=== PATIENT | female | born 1945 | race Caucasian/White ===

== ENCOUNTER 2020-11-02 14:52 | IRF | payer MEDICARE, MEDICAID, SELFPAY ==
--- NOTE | 2020-11-02 14:54 | ADMGEN ---
This patient, Marilee Lisandro Kilgore, was admitted to [facility] Room 224-02. Patient/family oriented to hospital policies and general routines including ID bracelet, bed and alarms, visiting hours, pain management, procedures, bathroom and other care routines, personal items, smoking policy, room service/diet, and visiting hours. Information on how to activate the Rapid Response Team has been discussed. Patient/Family are encouraged to report perceived risks to care and to ask questions if they do not understand what they are told or what they should do.
[2020-11-02 15:36] VITALS: BP 148/89; PULSE 103; RESP 20; TEMP 36.7; O2SAT 97
[2020-11-02 15:37] VITALS: BMI 35.7
--- NOTE | 2020-11-02 17:04 | WPDREHABHP ---
H&P: HPI History of Present Illness Date/Time: 11/02/20 17:04 Chief Complaint: CVA Narrative: HISTORY OF PRESENT ILLNESS: The patient's primary rehab impairment category is 0 1 stroke The etiologic diagnosis is stroke I saw this patient [id number] on 11/02/2020 The patient is a 74-year-old right handed female with past medical history of bladder cancer, COPD, hypertension, hyperlipidemia, atrial fib on no anticoagulation, nocturnal enuresis, ZAK with CPAP use, polymyalgia rheumatica who presented to [facility] on 10/28/2020 with progressive worsening dizziness and visual changes. NIHSS was 1 on initial assessment for gaze. CT of head was unremarkable. EKG was unremarkable. Patient did not receive tPA due to low NIHSS score an out of window treatment. Patient was transferred to [facility] on for stroke evaluation with Neurology. Upon arrival the patient's NIHSS was 1 for gaze palsy in the right eye. On 10/29/2020 the MRI was negative for a stroke. TTE showed normal ejection fraction. CTA showed no LVO, no hemorrhage or mass effect. Neurology was consulted and place the patient on dual anti-platelet therapy with aspirin and Plavix for an MRI negative stroke. Patient is to remain on aspirin until November 18 and then will go to monotherapy of Plavix 75 mg daily. Patient did receive a loop recorder. Patient's meloxicam was discontinued due to anticoagulation usage and risk of bleeding. The patient's hospitalization was significant for internuclear ophthalmoplegia, right eye nystagmus, diplopia, hypertension, hyperlipidemia, nocturnal enuresis, obstructive sleep apnea, insomnia, COPD, depression, anxiety, peptic ulcer disease and iron deficiency. Patient's home dose of amlodipine was restarted. Patient was placed on Atorvastatin 80 mg daily for hyperlipidemia. Nocturnal enuresis was treated with DDAVP 0.2 mg nightly. Patient uses a CPAP at night with a 4 L O2. Patient takes trazodone p.r.n. for insomnia. Patient is on Breo for COPD. Patient passed a bedside swallow and is on a regular consistency diet with thin liquids. COVID:: The patient has not traveled outside the [place] or had contact with someone who is ill or traveled outside the [place] in the past 21 days. The patient has not traveled to an area of the [place] that it is experiencing COVID has not had any personal contact with anyone that has had COVID. Patient does not have fever nor experiencing lower respiratory illness symptoms. Patient does however have COPD and emphysema at baseline. Therapy was initiated at the acute care facility and the patient transferred to us from [facility] on 11/02/2020 FALLS OR SURGERIES: The patient has had [no] major surgeries in the 100 days prior to admission. the patient has had 2 or more falls in the past year. She reports that she had 2 separate falls off of a curb when in the community. Patient has had falls with injury in the past year. She has hit her head during a fall. PRIOR LEVEL OF FUNCTION: Eating was [INDEPENDENT] Oral Care was [INDEPENDENT] Toileting Hygiene was [INDEPENDENT] Shower/Bathing was [INDEPENDENT] Upper Body Dressing was [INDEPENDENT] Lower Body Dressing was [INDEPENDENT] Donning/[place] Footwear was [INDEPENDENT] Rolling Left and Right was [INDEPENDENT] Sit to Lying was [INDEPENDENT] Lying to Sitting was [INDEPENDENT] Sit to Stand was [INDEPENDENT] Bed to Chair Transfers was [INDEPENDENT] Toilet Transfers was [INDEPENDENT] Walking was [INDEPENDENT] [>500 feet] with Rollator patient was able to complete 4 steps independent Wheelchair Mobility was NOT APPLICABLE PRIOR TO ADMISSION Stairs were INDEPENDENT CURRENT LEVEL OF FUNCTION: Eating was SET UP ONLY Oral Care was partial to moderate assist Toileting Hygiene was partial to moderate assist Shower/Bathing was partial to moderate assist Upper Body Dressing was partial to moderate assist Lower Body
[2020-11-02 18:31] VITALS: BMI 35.7
[2020-11-02] MEDS: carBAMazepine 200 MG TABLET PO (21:31)
[2020-11-02 21:33] VITALS: BP 173/82; PULSE 99; RESP 16; TEMP 36.4; O2SAT 96
[2020-11-02] MEDS: ACETAMINOPHEN 500 MG TABLET 1000 MG PO (21:33)
[2020-11-02] MEDS: SILVER SULFADIAZINE 1% CR 50 GM JAR (*BKC) 1 APPLIC TOPICAL (21:36)
[2020-11-03 05:22] LABS: Basophils Absolute Auto 0.1 K/mm3 (0.0-0.1); Basophils Percent Auto 0.8 % (0.2-1.2); Eosinophils Absolute Auto 0.2 K/mm3 (0-0.3); Eosinophils Percent Auto 1.9 % (0-4.4); Hematocrit 36.1 % (37.0-47.0); Immature Granulocyte Absolute 0.02 K/mm3 (0.00-0.031); Immature Granulocyte Percent A 0.3 % (0-0.5); Lymphocytes Absolute Auto 1.12 K/mm3 (0.9-3.2); Lymphocytes Percent Auto 14.1 % (18.3-44.2); Mean Corpuscular HGB Conc 33.2 g/dl (32-36); Mean Corpuscular Hemoglobin 29.2 pg (26-34); Mean Corpuscular Volume 87.8 fl (80-100); Monocytes Absolute Auto 0.8 K/mm3 (0.1-0.6); Monocytes Percent Auto 10.5 % (2.6-8.5); Neutrophils Absolute Auto 5.8 K/mm3 (1.3-6.7); Neutrophils Percent Auto 72.4 % (45.5-73.1); Platelet Count Result 292 k/mm3 (150-375); Red Blood Count 4.11 M/mm3 (4.2-5.4); Red Cell Distribution Width 12.3 % (11.5-14.5)
[2020-11-03 05:26] LABS: Alanine Aminotransferase 22 U/L (4-35); Albumin Level 3.5 g/dL (3.5-5.1); Alkaline Phosphatase 133 U/L (38-126); Anion Gap 9 mmol/L (8-16); Aspartate Amino Transferase 32 U/L (14-36); Bilirubin,Total 0.1 mg/dL (0.2-1.3); Blood Urea Nitrogen 15 mg/dL (7-17); Calcium 8.9 mg/dL (8.4-10.2); Carbon Dioxide 21 mmol/L (22-30); Chloride 112 mmol/L (98-107); Estimated CRCL calculation 50 ml/min; Estimated Glomerular Filt Rate 54; Glucose 101 mg/dL (65-105); Potassium 3.7 mmol/L (3.4-5.0); Sodium 142 mmol/L (137-145)
[2020-11-03 06:00] VITALS: BP 151/81; PULSE 90; RESP 16; TEMP 36.1; O2SAT 93
[2020-11-03 08:31] VITALS: PULSE 91; O2SAT 94
[2020-11-03] MEDS: ASPIRIN 81 MG CHEWABLE TABLET PO (09:42)
[2020-11-03] MEDS: amLODIPine BESYLATE 5 MG TABLET 10 MG PO (09:42)
[2020-11-03] MEDS: ATORVASTATIN 40 MG TABLET 80 MG PO (09:42)
[2020-11-03] MEDS: carBAMazepine 200 MG TABLET PO ×2 (09:43→21:09)
[2020-11-03] MEDS: CLOPIDOGREL BISULFATE 75 MG TABLET PO (09:43)
[2020-11-03] MEDS: FLUTICASONE PROPIONATE 0.05% NA SPR 16 GM BTL (*BKC) 1 SPRAY NASAL (09:45)
[2020-11-03] MEDS: lisinopriL 20 MG TABLET 40 MG PO (09:45)
[2020-11-03] MEDS: DULoxetine HCL 60 MG CAPSULE.DR PO (09:45)
[2020-11-03] MEDS: PANTOPRAZOLE 40 MG TABLET PO (09:45)
[2020-11-03] MEDS: THERAPEUTIC MULTIVITAMINS/MINERALS TAB (*BKC) 1 TABLET PO (09:45)
[2020-11-03] MEDS: SILVER SULFADIAZINE 1% CR 50 GM JAR (*BKC) 1 APPLIC TOPICAL ×2 (09:46→21:17)
[2020-11-03] MEDS: DICLOFENAC SODIUM 1% 100 GM GEL (*BKC) 1 APPLIC TOPICAL ×2 (09:46→18:09)
[2020-11-03] MEDS: ACETAMINOPHEN 500 MG TABLET 1000 MG PO ×3 (09:48→23:09)
[2020-11-03 13:46] VITALS: BMI 35.7
[2020-11-03 13:47] VITALS: BP 150/89; PULSE 96; RESP 20; TEMP 36.2; O2SAT 96
--- NOTE | 2020-11-03 14:06 | RPD ---
INDIVIDUALIZED PLAN OF CARE FOR Marilee Kilgore Brief Synthesis of Pre-Admission Screen, Post-Admission Evaluation and Therapy Evaluations: The patient presents to rehab with a stroke. 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 The complexity of the patient's medical management, nursing, and therapy needs require an inpatient rehab hospital stay with a physician-led interdisciplinary team approach. The patient?s needs will be best met in an intensive program vs. at a lower level of care. The patient requires physician services for medical oversight and coordination of care. Emotional needs will be monitored as depression is a common sequelae of stroke. The patient needs physician monitoring and treatment of hypertension, hyperlipidemia, nocturnal enuresis, obstructive sleep apnea, insomnia, COPD, monitoring for adverse reactions to new medications, monitoring of infection, and pain control. The patient requires nursing services for frequent neuro checks, anticoagulation therapy, medication management and education, pressure relief and skin care management, monitoring of labs, bowel and bladder training, diabetes management and education, and fall/safety precautions. Deficits include:ADLs, Balance, Cognition, Endurance, Family Training/Education, Mobility, Pain Management, ROM, Safety, Strength, Transfers Shaft Tender/Case Management for: Discharge Planning and Patient/Family Counseling Physical Therapy: 5 days per week for 75 minutes. Treatments may include: Therapeutic Exercise, Gait Training, Neuromuscular Re-education, Transfer Training, Community Reintegration, Bed Mobility, Patient/Family Education, Wheelchair Mobility Group Therapy/Concurrent Therapy Rationales: -Improve attention span during functional activities in a distracted environment. -Enhance problem solving and/or adequate judgment skills during functional activities in a distracted environment. -Promote increased safety awareness in a distracted environment to reduce fall risk with functional tasks, transfers, and ambulation to allow a more safe, self-sufficient return to the home environment. -Improve dynamic balance skills to promote safety and independence with functional activities in a distracted environment for maximum gain. Occupational Therapy: 5 days per week for 75 minutes. Treatments may include: Therapeutic Exercise, Therapeutic Activity, Cognitive Training, Self-Care Transfer Training, Community Reintegration, Home Management, Patient/Family Education, Wheelchair Mobility Training, Energy Conservation Training Group Therapy/Concurrent Therapy Rationales: -Allow therapist to observe and teach generalization and carry-over of skills learned in individual therapy. -Enhance problem solving and sequencing skills during therapeutic activities in a distracted environment. -Promote increased safety awareness in a realistic setting to reduce fall risk with functional tasks due to visual and verbal distractions. -Increase functional level with ADLs, ADL transfers and use of adaptive equipment through therapeutic activities with others while promoting safety to allow a more safe, self-sufficient return home. Speech Therapy: 5 days per week for 30 minutes. Treatments may include: Dysphasia Therapy, Speech/Language/Communication Therapy, Cognitive Training, Patient/Family Education Group Therapy/Concurrent Therapy - Rationale: -Allow therapist to observe and teach generalization and carry-over of skills learned in individual therapy. -Improve comprehension skills with complex or abstract ideas through discussion in a realistic
--- NOTE | 2020-11-03 15:40 | PCNSR ---
On 11/03/20, the student, Becca Hutton, provided care and completed [facility] documentation on this patient. I have reviewed the student's documentation and agree with the findings.
--- NOTE | 2020-11-03 17:32 | WPDNEURORHBP ---
Subjective Date/time seen: 11/03/20 17:32 Interval history: The etiologic diagnosis is stroke I saw this patient [id number] on 11/02/2020 The patient is a 74-year-old right handed female with past medical history of bladder cancer, COPD, hypertension, hyperlipidemia, atrial fib on no anticoagulation, nocturnal enuresis, ZAK with CPAP use, polymyalgia rheumatica who presented to [facility] on 10/28/2020 with progressive worsening dizziness and visual changes. NIHSS was 1 on initial assessment for gaze. CT of head was unremarkable. EKG was unremarkable. Patient did not receive tPA due to low NIHSS score an out of window treatment. Patient was transferred to [facility] on for stroke evaluation with Neurology. Upon arrival the patient's NIHSS was 1 for gaze palsy in the right eye. On 10/29/2020 the MRI was negative for a stroke. TTE showed normal ejection fraction. CTA showed no LVO, no hemorrhage or mass effect. Neurology was consulted and place the patient on dual anti-platelet therapy with aspirin and Plavix for an MRI negative stroke. Patient is to remain on aspirin until November 18 and then will go to monotherapy of Plavix 75 mg daily. Patient did receive a loop recorder. Patient's meloxicam was discontinued due to anticoagulation usage and risk of bleeding. The patient's hospitalization was significant for internuclear ophthalmoplegia, right eye nystagmus, diplopia, hypertension, hyperlipidemia, nocturnal enuresis, obstructive sleep apnea, insomnia, COPD, depression, anxiety, peptic ulcer disease and iron deficiency. Patient's home dose of amlodipine was restarted. Patient was placed on Atorvastatin 80 mg daily for hyperlipidemia. Nocturnal enuresis was treated with DDAVP 0.2 mg nightly. Patient uses a CPAP at night with a 4 L O2. Patient takes trazodone p.r.n. for insomnia. Patient is on Breo for COPD. Patient passed a bedside swallow and is on a regular consistency diet with thin liquids. Review of Systems Review of Systems: All systems reviewed & are unremarkable except as noted in HPI and below Functional Status Ambulation Ability Ability to Ambulate 10 Feet: Minimum Assistance X 1 Ability to Ambulate 50 Feet With 2 Turns: Contact Guard Ambulation Assistive Devices: None and Walker, Rollator Transfers Ability Ability to Transfer In/Out of Chair: Contact Guard Exam Narrative: Exam Narrative: patient is seen during physical therapy and occupational therapy. Patient is sitting In a chair with good sitting balance. Heart rate and rhythm is regular lungs sounds are distant abdomen is soft nontender. Upper and lower extremity strength are 4/5. Endurance is limited Objective Data Vital Signs Vital Signs: Vital Signs - 24 hr 11/02/20 21:33 11/03/20 06:00 11/03/20 08:31 Temperature 36.4 C 36.1 C L Pulse Rate 99 90 91 Respiratory Rate 16 16 Blood Pressure 173/82 H 151/81 H Pulse Oximetry 96 93 94 11/03/20 13:47 Temperature 36.2 C L Pulse Rate 96 Respiratory Rate 20 Blood Pressure 150/89 H Pulse Oximetry 96 Intake/Output Intake/Output: Intake & Output 10/31/20 11/01/20 11/02/20 11/03/20 23:59 23:59 23:59 23:59 Intake Total 240 1000 Balance 240 1000 Meds/Results Medications: Active Medications Generic Name Dose Route Start Last Admin Trade Name Freq PRN Reason Stop Dose Admin Acetaminophen 1,000 mg 11/02/20 17:32 11/03/20 09:48 Acetaminophen 500 Mg Tablet PO 1,000 mg Q6H PRN Administration Mild Pain (1-3) or Fever Albuterol/Ipratropium 1 puff 11/03/20 20:00 Albuterol/Ipratropium (*Sp) 4 Gm Respimat INHALATION Q6HRT PRN BRONCHIAL SPASMS Alprazolam 0.25 mg 11/02/20 18:29 Alprazolam (*Crx) 0.25 Mg Tablet PO DAILY PRN Anxiety Amlodipine Besylate 10 mg 11/03/20 09:00 11/03/20 09:42 Amlodipine Besylate 5 Mg Tablet PO 10 mg QAM FATOUMATA Administration Aspirin 81 mg 11/03/20 08:00 11/03/20
[2020-11-03] MEDS: DESMOPRESSIN ACETATE 0.1 MG TABLET 0.2 MG PO (21:10)
[2020-11-03 22:00] VITALS: BP 141/81; PULSE 88; RESP 16; TEMP 36.3; O2SAT 93
[2020-11-03 22:55] VITALS: PULSE 85; RESP 16; O2SAT 96
[2020-11-04 01:35] VITALS: PULSE 77; RESP 15; O2SAT 98
[2020-11-04 06:00] VITALS: BP 139/88; PULSE 79; RESP 16; TEMP 35.9; O2SAT 99
[2020-11-04] MEDS: SILVER SULFADIAZINE 1% CR 50 GM JAR (*BKC) 1 APPLIC TOPICAL ×2 (09:04→20:59)
[2020-11-04] MEDS: PANTOPRAZOLE 40 MG TABLET PO (09:05)
[2020-11-04] MEDS: carBAMazepine 200 MG TABLET PO ×2 (09:05→20:58)
[2020-11-04] MEDS: ATORVASTATIN 40 MG TABLET 80 MG PO (09:05)
[2020-11-04] MEDS: THERAPEUTIC MULTIVITAMINS/MINERALS TAB (*BKC) 1 TABLET PO (09:05)
[2020-11-04] MEDS: amLODIPine BESYLATE 5 MG TABLET 10 MG PO (09:05)
[2020-11-04] MEDS: DULoxetine HCL 60 MG CAPSULE.DR PO (09:05)
[2020-11-04] MEDS: ASPIRIN 81 MG CHEWABLE TABLET PO (09:05)
[2020-11-04] MEDS: CLOPIDOGREL BISULFATE 75 MG TABLET PO (09:05)
[2020-11-04] MEDS: lisinopriL 20 MG TABLET 40 MG PO (09:06)
[2020-11-04] MEDS: LIDOCAINE 5% PATCH 2 PATCH TRANSDERM (09:06)
[2020-11-04] MEDS: FLUTICASONE PROPIONATE 0.05% NA SPR 16 GM BTL (*BKC) 1 SPRAY NASAL (09:06)
--- NOTE | 2020-11-04 09:06 | WPDNEURORHBP ---
Subjective Date/time seen: 11/04/20 09:06 Interval history: The etiologic diagnosis is stroke I saw this patient [id number] on 11/02/2020 The patient is a 74-year-old right handed female with past medical history of bladder cancer, COPD, hypertension, hyperlipidemia, atrial fib on no anticoagulation, nocturnal enuresis, ZAK with CPAP use, polymyalgia rheumatica who presented to [facility] on 10/28/2020 with progressive worsening dizziness and visual changes. NIHSS was 1 on initial assessment for gaze. CT of head was unremarkable. EKG was unremarkable. Patient did not receive tPA due to low NIHSS score an out of window treatment. Patient was transferred to [facility] on for stroke evaluation with Neurology. Upon arrival the patient's NIHSS was 1 for gaze palsy in the right eye. On 10/29/2020 the MRI was negative for a stroke. TTE showed normal ejection fraction. CTA showed no LVO, no hemorrhage or mass effect. Neurology was consulted and place the patient on dual anti-platelet therapy with aspirin and Plavix for an MRI negative stroke. Patient is to remain on aspirin until November 18 and then will go to monotherapy of Plavix 75 mg daily. Patient did receive a loop recorder. Patient's meloxicam was discontinued due to anticoagulation usage and risk of bleeding. The patient's hospitalization was significant for internuclear ophthalmoplegia, right eye nystagmus, diplopia, hypertension, hyperlipidemia, nocturnal enuresis, obstructive sleep apnea, insomnia, COPD, depression, anxiety, peptic ulcer disease and iron deficiency. Patient's home dose of amlodipine was restarted. Patient was placed on Atorvastatin 80 mg daily for hyperlipidemia. Nocturnal enuresis was treated with DDAVP 0.2 mg nightly. Patient uses a CPAP at night with a 4 L O2. Patient takes trazodone p.r.n. for insomnia. Patient is on Breo for COPD. Patient passed a bedside swallow and is on a regular consistency diet with thin liquids. REHAB 11/04/2020. Reviewed medications with patient. Patient was on Cymbalta 60 mg twice a day. Patient is willing to see if she can continue on Cymbalta 60 mg daily which is what she was taking at the outside hospital. Patient will also attempt to wean off her Xanax in the morning. Xanax is scheduled as needed. . Patient is given Lidoderm patches for right hip osteoarthritis. Voltaren ointment will be held to the right hip. Carun is anxious but is receptive to decreasing meds. examiner need to add to review medications numerous times. Review of Systems Review of Systems: All systems reviewed & are unremarkable except as noted in HPI and below Functional Status Ambulation Ability Ability to Ambulate 10 Feet: Minimum Assistance X 1 Ability to Ambulate 50 Feet With 2 Turns: Contact Guard Ambulation Assistive Devices: None and Walker, Rollator Transfers Ability Ability to Transfer In/Out of Chair: Contact Guard Exam Narrative: Exam Narrative: Patient is eating breakfast. Patient in no acute distress. Heart rate and rhythm is regular lungs sounds are distant abdomen is soft nontender. Redness around umbilicus less than on admit. Upper and lower extremity strength are 4/5. Endurance is limited . Mood is anxious Objective Data Vital Signs Vital Signs: Vital Signs - 24 hr 11/03/20 13:47 11/03/20 22:00 11/03/20 22:55 Temperature 36.2 C L 36.3 C L Pulse Rate 96 88 85 Respiratory Rate 20 16 11 L Blood Pressure 150/89 H 141/81 H Pulse Oximetry 96 93 96 11/04/20 06:00 Temperature 35.9 C L Pulse Rate 79 Respiratory Rate 16 Blood Pressure 139/88 Pulse Oximetry 99 Intake/Output Intake/Output: Intake & Output 11/01/20 11/02/20 11/03/20 11/04/20 23:59 23:59 23:59 23:59 Intake Total 240 1250 240 Balance 240 1250 240 Meds/Results Medications: Active Medications Generic Name Dose Route Start Last Admin Trade Name Freq PRN Reason Stop Dose Admin Acetaminophen 1,00
[2020-11-04] MEDS: ACETAMINOPHEN 500 MG TABLET 1000 MG PO ×2 (09:15→20:58)
[2020-11-04 14:00] VITALS: BP 139/76; PULSE 99; RESP 20; TEMP 36.3; O2SAT 95
[2020-11-04] MEDS: DESMOPRESSIN ACETATE 0.1 MG TABLET 0.2 MG PO (20:58)
[2020-11-04] MEDS: diphenhydrAMINE HCl CAP 25 MG CAPSULE PO (20:59)
[2020-11-04 21:49] VITALS: BP 142/84; PULSE 89; RESP 16; TEMP 36.6; O2SAT 91
[2020-11-04 22:40] VITALS: RESP 22; O2SAT 96
[2020-11-05 04:20] VITALS: PULSE 80; RESP 20; O2SAT 96
[2020-11-05 05:53] VITALS: BP 152/90; PULSE 76; RESP 16; TEMP 35.9; O2SAT 96
--- NOTE | 2020-11-05 07:05 | WPDNEURORHBP ---
Subjective Date/time seen: 11/05/20 07:05 Interval history: The etiologic diagnosis is stroke I saw this patient [id number] on 11/02/2020 The patient is a 74-year-old right handed female with past medical history of bladder cancer, COPD, hypertension, hyperlipidemia, atrial fib on no anticoagulation, nocturnal enuresis, ZAK with CPAP use, polymyalgia rheumatica who presented to [facility] on 10/28/2020 with progressive worsening dizziness and visual changes. NIHSS was 1 on initial assessment for gaze. CT of head was unremarkable. EKG was unremarkable. Patient did not receive tPA due to low NIHSS score an out of window treatment. Patient was transferred to [facility] on for stroke evaluation with Neurology. Upon arrival the patient's NIHSS was 1 for gaze palsy in the right eye. On 10/29/2020 the MRI was negative for a stroke. TTE showed normal ejection fraction. CTA showed no LVO, no hemorrhage or mass effect. Neurology was consulted and place the patient on dual anti-platelet therapy with aspirin and Plavix for an MRI negative stroke. Patient is to remain on aspirin until November 18 and then will go to monotherapy of Plavix 75 mg daily. Patient did receive a loop recorder. Patient's meloxicam was discontinued due to anticoagulation usage and risk of bleeding. The patient's hospitalization was significant for internuclear ophthalmoplegia, right eye nystagmus, diplopia, hypertension, hyperlipidemia, nocturnal enuresis, obstructive sleep apnea, insomnia, COPD, depression, anxiety, peptic ulcer disease and iron deficiency. Patient's home dose of amlodipine was restarted. Patient was placed on Atorvastatin 80 mg daily for hyperlipidemia. Nocturnal enuresis was treated with DDAVP 0.2 mg nightly. Patient uses a CPAP at night with a 4 L O2. Patient takes trazodone p.r.n. for insomnia. Patient is on Breo for COPD. Patient passed a bedside swallow and is on a regular consistency diet with thin liquids. REHAB 11/04/2020. Reviewed medications with patient. Patient was on Cymbalta 60 mg twice a day. Patient is willing to see if she can continue on Cymbalta 60 mg daily which is what she was taking at the outside hospital. Patient will also attempt to wean off her Xanax in the morning. Xanax is scheduled as needed. . Patient is given Lidoderm patches for right hip osteoarthritis. Voltaren ointment will be held to the right hip. Carun is anxious but is receptive to decreasing meds. examiner need to add to review medications numerous times. Blisters and rash noted to right elbow, one area on back and right ankl Review of Systems Review of Systems: All systems reviewed & are unremarkable except as noted in HPI and below Functional Status Ambulation Ability Ability to Ambulate 10 Feet: Standby Assistance Ability to Ambulate 50 Feet With 2 Turns: Standby Assistance Ability to Ambulate 150 Feet: Contact Guard Ambulation Assistive Devices: Walker, Rollator Transfers Ability Ability to Transfer In/Out of Chair: Standby Assistance Exam Narrative: Exam Narrative: Patient is eating breakfast. Patient in no acute distress. Heart rate and rhythm is regular lungs sounds are distant abdomen is soft nontender. Redness around umbilicus less than on admit. Upper and lower extremity strength are 4/5. Endurance is limited . Mood is anxious Objective Data Vital Signs Vital Signs: Vital Signs - 24 hr 11/04/20 14:00 11/04/20 21:49 11/04/20 22:40 Temperature 36.3 C L 36.6 C Pulse Rate 99 89 Respiratory Rate 20 16 22 H Blood Pressure 139/76 142/84 H Pulse Oximetry 95 91 96 11/05/20 04:20 11/05/20 05:53 Temperature 35.9 C L Pulse Rate 80 76 Respiratory Rate 20 16 Blood Pressure 152/90 H Pulse Oximetry 96 96 Intake/Output Intake/Output: Intake & Output 11/02/20 11/03/20 11/04/20 11/05/20 23:59 23:59 23:59 23:59 Intake Total 240 1250 890 Balance 240 1250 890 Meds/Results
[2020-11-05] MEDS: methylPREDNISolone (MEDROL) DOSEPACK 4 MG TABLETS PO ×4 (09:06→21:12)
[2020-11-05] MEDS: ASPIRIN 81 MG CHEWABLE TABLET PO (09:08)
[2020-11-05] MEDS: carBAMazepine 200 MG TABLET PO ×2 (09:10→21:11)
[2020-11-05] MEDS: LIDOCAINE 5% PATCH 2 PATCH TRANSDERM (09:10)
[2020-11-05] MEDS: amLODIPine BESYLATE 5 MG TABLET 10 MG PO (09:10)
[2020-11-05] MEDS: ATORVASTATIN 40 MG TABLET 80 MG PO (09:10)
[2020-11-05] MEDS: DULoxetine HCL 60 MG CAPSULE.DR PO (09:11)
[2020-11-05] MEDS: CLOPIDOGREL BISULFATE 75 MG TABLET PO (09:11)
[2020-11-05] MEDS: FLUTICASONE PROPIONATE 0.05% NA SPR 16 GM BTL (*BKC) 1 SPRAY NASAL (09:11)
[2020-11-05] MEDS: lisinopriL 20 MG TABLET 40 MG PO (09:11)
[2020-11-05] MEDS: THERAPEUTIC MULTIVITAMINS/MINERALS TAB (*BKC) 1 TABLET PO (09:12)
[2020-11-05] MEDS: PANTOPRAZOLE 40 MG TABLET PO (09:12)
[2020-11-05] MEDS: SILVER SULFADIAZINE 1% CR 50 GM JAR (*BKC) 1 APPLIC TOPICAL ×2 (09:12→22:40)
[2020-11-05 13:56] VITALS: BP 143/81; PULSE 105; RESP 24; TEMP 36.2; O2SAT 94
[2020-11-05] MEDS: diphenhydrAMINE HCl CAP 25 MG CAPSULE PO ×2 (15:47→21:11)
[2020-11-05] MEDS: DESMOPRESSIN ACETATE 0.1 MG TABLET 0.2 MG PO (21:11)
[2020-11-05] MEDS: ACETAMINOPHEN 500 MG TABLET 1000 MG PO (21:14)
[2020-11-05 21:37] VITALS: BP 149/83; PULSE 89; RESP 16; TEMP 36.5; O2SAT 94
[2020-11-05 23:25] VITALS: PULSE 90; RESP 16; O2SAT 90
[2020-11-06 06:00] VITALS: BP 172/96; PULSE 89; RESP 16; TEMP 36.6; O2SAT 98
[2020-11-06] MEDS: methylPREDNISolone (MEDROL) DOSEPACK 4 MG TABLETS PO ×4 (06:15→20:49)
[2020-11-06] MEDS: HYDROCORTISONE 1% 30 GM CREAM 1 APPLIC TOPICAL (06:19)
[2020-11-06] MEDS: FLUTICASONE PROPIONATE 0.05% NA SPR 16 GM BTL (*BKC) 1 SPRAY NASAL (08:20)
[2020-11-06] MEDS: ASPIRIN 81 MG CHEWABLE TABLET PO (08:21)
[2020-11-06] MEDS: CLOPIDOGREL BISULFATE 75 MG TABLET PO (08:21)
[2020-11-06] MEDS: PANTOPRAZOLE 40 MG TABLET PO (08:21)
[2020-11-06] MEDS: THERAPEUTIC MULTIVITAMINS/MINERALS TAB (*BKC) 1 TABLET PO (08:21)
[2020-11-06] MEDS: lisinopriL 20 MG TABLET 40 MG PO (08:21)
[2020-11-06] MEDS: DULoxetine HCL 60 MG CAPSULE.DR PO (08:21)
[2020-11-06] MEDS: carBAMazepine 200 MG TABLET PO ×2 (08:21→20:38)
[2020-11-06] MEDS: amLODIPine BESYLATE 5 MG TABLET 10 MG PO (08:21)
[2020-11-06] MEDS: ATORVASTATIN 40 MG TABLET 80 MG PO (08:21)
[2020-11-06] MEDS: LIDOCAINE 5% PATCH 2 PATCH TRANSDERM (08:21)
[2020-11-06] MEDS: SILVER SULFADIAZINE 1% CR 50 GM JAR (*BKC) 1 APPLIC TOPICAL (08:22)
[2020-11-06] MEDS: ACETAMINOPHEN 500 MG TABLET 1000 MG PO (08:24)
--- NOTE | 2020-11-06 09:40 | WPDNEURORHBP ---
Subjective Date/time seen: 11/06/20 09:40 Interval history: The etiologic diagnosis is stroke The patient is a 74-year-old right handed female with past medical history of bladder cancer, COPD, hypertension, hyperlipidemia, atrial fib on no anticoagulation, nocturnal enuresis, ZAK with CPAP use, polymyalgia rheumatica who presented to [facility] on 10/28/2020 with progressive worsening,dizziness and visual changes. NIHSS was 1 on initial assessment for gaze. CT of head was unremarkable. EKG was unremarkable. Patient did not receive tPA due to low NIHSS score an out of window treatment. Patient was transferred to [facility] on for stroke evaluation with Neurology. Upon arrival the patient's NIHSS was 1 for gaze palsy in the right eye. On 10/29/2020 the MRI was negative for a stroke. TTE showed normal ejection fraction. CTA showed no LVO, no hemorrhage or mass effect. Neurology was consulted and placed the patient on dual anti-platelet therapy with aspirin and Plavix for an MRI negative stroke. Patient is to remain on aspirin until November 18 and then will go to monotherapy of Plavix 75 mg daily. Patient did receive a loop recorder. Patient's meloxicam was discontinued due to anticoagulation usage and risk of bleeding. The patient's hospitalization was significant for internuclear ophthalmoplegia, right eye nystagmus, diplopia, hypertension, hyperlipidemia, nocturnal enuresis, obstructive sleep apnea, insomnia, COPD, depression, anxiety, peptic ulcer disease and iron deficiency. Patient's home dose of amlodipine was restarted. Patient was placed on Atorvastatin 80 mg daily for hyperlipidemia. Nocturnal enuresis was treated with DDAVP 0.2 mg nightly. Patient uses a CPAP at night with a 4 L O2. Patient takes trazodone p.r.n. for insomnia. Patient is on Breo for COPD. Patient passed a bedside swallow and is on a regular consistency diet with thin liquids. REHAB 11/04/2020. Reviewed medications with patient. Patient was on Cymbalta 60 mg twice a day at home. Patient is willing to see if she can continue on Cymbalta 60 mg daily which is what she was taking at the outside hospital. Patient will also attempt to wean off her Xanax in the morning. Xanax is scheduled as needed. . Patient is given Lidoderm patches for right hip osteoarthritis. Voltaren ointment will be held to the right hip. Arely is anxious but is receptive to decreasing meds. Examiner needed to review medications numerous times. 11/05/20 Blisters and rash noted to right elbow, one area on back and right ankle 11/06/20 Rash is still noted. Patient is on a medrol dose pack. Patient is feeling better. Patient has not had to use prn Xanax or Trazadone. Arely is doing well on once a day Cymbalta. Review of Systems Review of Systems: All systems reviewed & are unremarkable except as noted in HPI and below Functional Status Ambulation Ability Ability to Ambulate 10 Feet: Standby Assistance Ability to Ambulate 50 Feet With 2 Turns: Standby Assistance Ability to Ambulate 150 Feet: Standby Assistance Ambulation Assistive Devices: Walker, Rollator Transfers Ability Ability to Transfer In/Out of Chair: Independent Exam Narrative: Exam Narrative: Patient is eating breakfast. Patient in no acute distress. Heart rate and rhythm is regular. Lungs sounds are distant. Abdomen is soft nontender. Redness around umbilicus is less than on admit. No signs of infection noted. . Upper and lower extremity strength are 4/5. Endurance is limited . Mood is anxious but she is able to maintain more periods of calmness. Transfers and gait are at CGA. Objective Data Vital Signs Vital Signs: Vital Signs - 24 hr 11/05/20 13:56 11/05/20 21:37 11/05/20 23:25 Temperature 36.2 C L 36.5 C Pulse Rate 105 H 89 90 Respiratory Rate 24 H 16 16 Blood Pressure 143/81 H 149/83 H Pulse Oximetry 94 94 90 11/06/20 06:00 Temperature 36.6 C Pulse Rate 89 Respiratory Ra
[2020-11-06 14:00] VITALS: BP 147/78; PULSE 96; RESP 16; TEMP 36.4; O2SAT 94
--- NOTE | 2020-11-06 14:20 | PCNSR ---
On 11/06/20, the student, Becca Hutton, provided care and completed [facility] documentation on this patient. I have reviewed the student's documentation and agree with the findings.
[2020-11-06] MEDS: DESMOPRESSIN ACETATE 0.1 MG TABLET 0.2 MG PO (20:36)
[2020-11-06 22:00] VITALS: BP 148/83; PULSE 90; RESP 20; TEMP 36.1; O2SAT 96
[2020-11-06 22:55] VITALS: PULSE 88; RESP 18; O2SAT 92
[2020-11-07] MEDS: ACETAMINOPHEN 500 MG TABLET 1000 MG PO ×3 (00:33→21:05)
[2020-11-07] MEDS: methylPREDNISolone (MEDROL) DOSEPACK 4 MG TABLETS PO ×4 (05:53→21:04)
[2020-11-07 06:00] VITALS: BP 153/83; PULSE 91; RESP 20; TEMP 36.2; O2SAT 97
[2020-11-07] MEDS: ATORVASTATIN 40 MG TABLET 80 MG PO (08:52)
[2020-11-07] MEDS: CLOPIDOGREL BISULFATE 75 MG TABLET PO (08:52)
[2020-11-07] MEDS: DULoxetine HCL 60 MG CAPSULE.DR PO (08:52)
[2020-11-07] MEDS: LIDOCAINE 5% PATCH 2 PATCH TRANSDERM (08:52)
[2020-11-07] MEDS: ASPIRIN 81 MG CHEWABLE TABLET PO (08:52)
[2020-11-07] MEDS: amLODIPine BESYLATE 5 MG TABLET 10 MG PO (08:52)
[2020-11-07] MEDS: lisinopriL 20 MG TABLET 40 MG PO (08:52)
[2020-11-07] MEDS: FLUTICASONE PROPIONATE 0.05% NA SPR 16 GM BTL (*BKC) 1 SPRAY NASAL (08:52)
[2020-11-07] MEDS: carBAMazepine 200 MG TABLET PO ×2 (08:52→21:03)
[2020-11-07] MEDS: THERAPEUTIC MULTIVITAMINS/MINERALS TAB (*BKC) 1 TABLET PO (08:52)
[2020-11-07] MEDS: PANTOPRAZOLE 40 MG TABLET PO (08:52)
--- NOTE | 2020-11-07 10:28 | WPDNEURORHBP ---
Subjective Date/time seen: 11/07/20 10:28 Interval history: The etiologic diagnosis is stroke The patient is a 74-year-old right handed female with past medical history of bladder cancer, COPD, hypertension, hyperlipidemia, atrial fib on no anticoagulation, nocturnal enuresis, ZAK with CPAP use, polymyalgia rheumatica who presented to [facility] on 10/28/2020 with progressive worsening,dizziness and visual changes. NIHSS was 1 on initial assessment for gaze. CT of head was unremarkable. EKG was unremarkable. Patient did not receive tPA due to low NIHSS score an out of window treatment. Patient was transferred to [facility] on for stroke evaluation with Neurology. Upon arrival the patient's NIHSS was 1 for gaze palsy in the right eye. On 10/29/2020 the MRI was negative for a stroke. TTE showed normal ejection fraction. CTA showed no LVO, no hemorrhage or mass effect. Neurology was consulted and placed the patient on dual anti-platelet therapy with aspirin and Plavix for an MRI negative stroke. Patient is to remain on aspirin until November 18 and then will go to monotherapy of Plavix 75 mg daily. Patient did receive a loop recorder. Patient's meloxicam was discontinued due to anticoagulation usage and risk of bleeding. The patient's hospitalization was significant for internuclear ophthalmoplegia, right eye nystagmus, diplopia, hypertension, hyperlipidemia, nocturnal enuresis, obstructive sleep apnea, insomnia, COPD, depression, anxiety, peptic ulcer disease and iron deficiency. Patient's home dose of amlodipine was restarted. Patient was placed on Atorvastatin 80 mg daily for hyperlipidemia. Nocturnal enuresis was treated with DDAVP 0.2 mg nightly. Patient uses a CPAP at night with a 4 L O2. Patient takes trazodone p.r.n. for insomnia. Patient is on Breo for COPD. Patient passed a bedside swallow and is on a regular consistency diet with thin liquids. REHAB 11/04/2020. Reviewed medications with patient. Patient was on Cymbalta 60 mg twice a day at home. Patient is willing to see if she can continue on Cymbalta 60 mg daily which is what she was taking at the outside hospital. Patient will also attempt to wean off her Xanax in the morning. Xanax is scheduled as needed. . Patient is given Lidoderm patches for right hip osteoarthritis. Voltaren ointment will be held to the right hip. Arely is anxious but is receptive to decreasing meds. Examiner needed to review medications numerous times. 11/05/20 Blisters and rash noted to right elbow, one area on back and right ankle 11/06/20 Rash is still noted. Patient is on a medrol dose pack. Patient is feeling better. Patient has not had to use prn Xanax or Trazadone. Arely is doing well on once a day Cymbalta. 11/07/20 Rash is improving but had some spreading after showering. Review of Systems Review of Systems: All systems reviewed & are unremarkable except as noted in HPI and below Functional Status Ambulation Ability Ability to Ambulate 10 Feet: Independent Ability to Ambulate 50 Feet With 2 Turns: Independent Ability to Ambulate 150 Feet: Standby Assistance Ambulation Assistive Devices: Walker, Rollator Transfers Ability Ability to Transfer In/Out of Chair: Independent Exam Narrative: Exam Narrative: Patient in no acute distress. Heart rate and rhythm is regular. Lungs sounds are distant. Abdomen is soft nontender. Redness around umbilicus is decreased from yesterday.. No signs of infection noted. Upper and lower extremity strength are 4/5. Endurance is limited. Mood is less labile. Blisters to elbow are drying up. Objective Data Vital Signs Vital Signs: Vital Signs - 24 hr 11/06/20 14:00 11/06/20 22:00 11/06/20 22:55 Temperature 36.4 C 36.1 C L Pulse Rate 96 90 88 Respiratory Rate 16 20 18 Blood Pressure 147/78 H 148/83 H Pulse Oximetry 94 96 92 11/07/20 06:00 Temperature 36.2 C L Pulse Rate 91 Respiratory Rate 20 Blood Pressure 15
[2020-11-07 14:00] VITALS: BP 149/86; PULSE 99; RESP 22; TEMP 36.3; O2SAT 95
[2020-11-07] MEDS: HYDROCORTISONE 1% 30 GM CREAM 1 APPLIC TOPICAL (17:41)
[2020-11-07] MEDS: DESMOPRESSIN ACETATE 0.1 MG TABLET 0.2 MG PO (21:02)
[2020-11-07 21:52] VITALS: BP 152/86; PULSE 87; RESP 16; TEMP 36.4; O2SAT 93
[2020-11-08 01:27] VITALS: PULSE 81; RESP 13; O2SAT 93
[2020-11-08] MEDS: methylPREDNISolone (MEDROL) DOSEPACK 4 MG TABLETS PO ×3 (05:47→21:04)
[2020-11-08 06:00] VITALS: BP 153/95; PULSE 75; RESP 20; TEMP 36; O2SAT 99
[2020-11-08 07:56] LABS: Alanine Aminotransferase 21 U/L (4-35); Albumin Level 3.9 g/dL (3.5-5.1); Alkaline Phosphatase 106 U/L (38-126); Anion Gap 11 mmol/L (8-16); Aspartate Amino Transferase 38 U/L (14-36); Bilirubin,Total 0.5 mg/dL (0.2-1.3); Blood Urea Nitrogen 15 mg/dL (7-17); Calcium 8.8 mg/dL (8.4-10.2); Carbon Dioxide 24 mmol/L (22-30); Chloride 104 mmol/L (98-107); Estimated CRCL calculation 70 ml/min; Estimated Glomerular Filt Rate > 60; Glucose 92 mg/dL (65-105); Potassium 3.5 mmol/L (3.4-5.0); Sodium 139 mmol/L (137-145)
[2020-11-08 08:00] LABS: Hematocrit 36.1 % (37.0-47.0); Mean Corpuscular HGB Conc 33.2 g/dl (32-36); Mean Corpuscular Hemoglobin 29.3 pg (26-34); Mean Platelet Volume 8.8 fl (7.4-10.4); Platelet Count Result 315 k/mm3 (150-375); Red Cell Distribution Width 13.1 % (11.5-14.5)
[2020-11-08] MEDS: ASPIRIN 81 MG CHEWABLE TABLET PO (08:54)
[2020-11-08] MEDS: amLODIPine BESYLATE 5 MG TABLET 10 MG PO (08:54)
[2020-11-08] MEDS: LIDOCAINE 5% PATCH 2 PATCH TRANSDERM (08:55)
[2020-11-08] MEDS: DULoxetine HCL 60 MG CAPSULE.DR PO (08:55)
[2020-11-08] MEDS: FLUTICASONE PROPIONATE 0.05% NA SPR 16 GM BTL (*BKC) 1 SPRAY NASAL (08:55)
[2020-11-08] MEDS: carBAMazepine 200 MG TABLET PO ×2 (08:55→21:03)
[2020-11-08] MEDS: CLOPIDOGREL BISULFATE 75 MG TABLET PO (08:55)
[2020-11-08] MEDS: ATORVASTATIN 40 MG TABLET 80 MG PO (08:55)
[2020-11-08] MEDS: THERAPEUTIC MULTIVITAMINS/MINERALS TAB (*BKC) 1 TABLET PO (08:56)
[2020-11-08] MEDS: lisinopriL 20 MG TABLET 40 MG PO (08:56)
[2020-11-08] MEDS: PANTOPRAZOLE 40 MG TABLET PO (08:56)
--- NOTE | 2020-11-08 13:47 | WPDNEURORHBP ---
Subjective Date/time seen: 11/08/20 13:47 Interval history: The etiologic diagnosis is stroke The patient is a 74-year-old right handed female with past medical history of bladder cancer, COPD, hypertension, hyperlipidemia, atrial fib on no anticoagulation, nocturnal enuresis, ZAK with CPAP use, polymyalgia rheumatica who presented to [facility] on 10/28/2020 with progressive worsening,dizziness and visual changes. NIHSS was 1 on initial assessment for gaze. CT of head was unremarkable. EKG was unremarkable. Patient did not receive tPA due to low NIHSS score an out of window treatment. Patient was transferred to [facility] on for stroke evaluation with Neurology. Upon arrival the patient's NIHSS was 1 for gaze palsy in the right eye. On 10/29/2020 the MRI was negative for a stroke. TTE showed normal ejection fraction. CTA showed no LVO, no hemorrhage or mass effect. Neurology was consulted and placed the patient on dual anti-platelet therapy with aspirin and Plavix for an MRI negative stroke. Patient is to remain on aspirin until November 18 and then will go to monotherapy of Plavix 75 mg daily. Patient did receive a loop recorder. Patient's meloxicam was discontinued due to anticoagulation usage and risk of bleeding. The patient's hospitalization was significant for internuclear ophthalmoplegia, right eye nystagmus, diplopia, hypertension, hyperlipidemia, nocturnal enuresis, obstructive sleep apnea, insomnia, COPD, depression, anxiety, peptic ulcer disease and iron deficiency. Patient's home dose of amlodipine was restarted. Patient was placed on Atorvastatin 80 mg daily for hyperlipidemia. Nocturnal enuresis was treated with DDAVP 0.2 mg nightly. Patient uses a CPAP at night with a 4 L O2. Patient takes trazodone p.r.n. for insomnia. Patient is on Breo for COPD. Patient passed a bedside swallow and is on a regular consistency diet with thin liquids. REHAB 11/04/2020. Reviewed medications with patient. Patient was on Cymbalta 60 mg twice a day at home. Patient is willing to see if she can continue on Cymbalta 60 mg daily which is what she was taking at the outside hospital. Patient will also attempt to wean off her Xanax in the morning. Xanax is scheduled as needed. . Patient is given Lidoderm patches for right hip osteoarthritis. Voltaren ointment will be held to the right hip. Arely is anxious but is receptive to decreasing meds. Examiner needed to review medications numerous times. 11/05/20 Blisters and rash noted to right elbow, one area on back and right ankle 11/06/20 Rash is still noted. Patient is on a medrol dose pack. Patient is feeling better. Patient has not had to use prn Xanax or Trazadone. Arely is doing well on once a day Cymbalta. 11/07/20 Rash is improving but had some spreading after showering. 11/08/20 Patient is seen ambulating in hallway. Patient with a flexed posture. Patient voices no complaints besides the rash that fluctuates in intensity depending on her anxiety Review of Systems Review of Systems: All systems reviewed & are unremarkable except as noted in HPI and below Constitutional: Constitutional: Reports difficulty sleeping Musculoskeletal: Musculoskeletal: Reports myalgias and Reports arthralgias ( right hip is scheduled for a total hip replacement) Functional Status Ambulation Ability Ability to Ambulate 10 Feet: Independent Ability to Ambulate 50 Feet With 2 Turns: Independent Ability to Ambulate 150 Feet: Independent Ambulation Assistive Devices: Walker, Rollator Transfers Ability Ability to Transfer In/Out of Chair: Independent Exam Narrative: Exam Narrative: Patient in no acute distress. Heart rate and rhythm is regular. Lungs sounds are distant. Abdomen is soft nontender. Redness around umbilicus is decreased from yesterday.. No signs of infection noted. Upper and lower extremity strength are 4/5. Endurance is limited. Mood is less labile. Blisters to elbo
[2020-11-08 14:00] VITALS: BP 148/82; PULSE 81; RESP 20; TEMP 36.2; O2SAT 97
[2020-11-08 14:03] LABS: Add Urine Microscopic? YES; Appearance Urine Cloudy (Clear); Bacteria Urine 2+ /hpf; Bilirubin Urine Negative (Negative); Blood Urine 1+ (Negative); Glucose Urine UA Negative (Negative); Ketones Urine Negative (Negative); Leukocyte Esterase Ur Trace LEU/UL (Negative); Mucus Urine Rare /lpf; Nitrate Urine Positive (Negative); Protein Urine 1+ mg/dL (Negative); Urobilinogen Urine Negative mg/dL (<2.0); WBC Urine 31-50 /hpf
[2020-11-08 14:06] LABS: Color Urine Yellow (Yellow)
[2020-11-08] MEDS: DESMOPRESSIN ACETATE 0.1 MG TABLET 0.2 MG PO (21:03)
[2020-11-08] MEDS: ACETAMINOPHEN 500 MG TABLET 1000 MG PO (21:04)
[2020-11-08 21:55] VITALS: BP 147/86; PULSE 83; RESP 16; TEMP 36.4; O2SAT 94
[2020-11-09 05:42] VITALS: BP 175/79; PULSE 80; RESP 16; TEMP 36.1; O2SAT 95
[2020-11-09] MEDS: methylPREDNISolone (MEDROL) DOSEPACK 4 MG TABLETS PO ×2 (06:01→21:18)
[2020-11-09] MEDS: LIDOCAINE 5% PATCH 2 PATCH TRANSDERM (08:21)
[2020-11-09] MEDS: ATORVASTATIN 40 MG TABLET 80 MG PO (08:21)
[2020-11-09] MEDS: FLUTICASONE PROPIONATE 0.05% NA SPR 16 GM BTL (*BKC) 1 SPRAY NASAL (08:21)
[2020-11-09] MEDS: ACETAMINOPHEN 500 MG TABLET 1000 MG PO ×2 (08:22→20:11)
[2020-11-09] MEDS: DULoxetine HCL 60 MG CAPSULE.DR PO (08:22)
[2020-11-09] MEDS: PANTOPRAZOLE 40 MG TABLET PO (08:22)
[2020-11-09] MEDS: lisinopriL 20 MG TABLET 40 MG PO (08:22)
[2020-11-09] MEDS: CLOPIDOGREL BISULFATE 75 MG TABLET PO (08:22)
[2020-11-09] MEDS: THERAPEUTIC MULTIVITAMINS/MINERALS TAB (*BKC) 1 TABLET PO (08:22)
[2020-11-09] MEDS: ASPIRIN 81 MG CHEWABLE TABLET PO (08:22)
[2020-11-09] MEDS: carBAMazepine 200 MG TABLET PO ×2 (08:22→21:18)
[2020-11-09] MEDS: amLODIPine BESYLATE 5 MG TABLET 10 MG PO (08:22)
[2020-11-09 09:42] LABS: Basophils Absolute Auto 0.1 K/mm3 (0.0-0.1); Basophils Percent Auto 0.5 % (0.2-1.2); Eosinophils Absolute Auto 0.1 K/mm3 (0-0.3); Eosinophils Percent Auto 1.2 % (0-4.4); Hematocrit 39.2 % (37.0-47.0); Hemoglobin 12.9 g/dL (12.0-15.0); Immature Granulocyte Absolute 0.03 K/mm3 (0.00-0.031); Immature Granulocyte Percent A 0.3 % (0-0.5); Lymphocytes Absolute Auto 1.12 K/mm3 (0.9-3.2); Mean Corpuscular HGB Conc 32.9 g/dl (32-36); Mean Corpuscular Hemoglobin 28.8 pg (26-34); Mean Corpuscular Volume 87.5 fl (80-100); Mean Platelet Volume 8.5 fl (7.4-10.4); Monocytes Absolute Auto 0.8 K/mm3 (0.1-0.6); Monocytes Percent Auto 6.7 % (2.6-8.5); Neutrophils Absolute Auto 9.1 K/mm3 (1.3-6.7); Neutrophils Percent Auto 81.3 % (45.5-73.1); Platelet Count Result 335 k/mm3 (150-375); Red Blood Count 4.48 M/mm3 (4.2-5.4); Red Cell Distribution Width 12.9 % (11.5-14.5); White Blood Count 11.2 K/mm3 (4.5-10.0)
[2020-11-09 09:59] LABS: Alanine Aminotransferase 23 U/L (4-35); Albumin Level 4.1 g/dL (3.5-5.1); Alkaline Phosphatase 119 U/L (38-126); Anion Gap 12 mmol/L (8-16); Aspartate Amino Transferase 30 U/L (14-36); Bilirubin,Total 0.3 mg/dL (0.2-1.3); Blood Urea Nitrogen 12 mg/dL (7-17); Calcium 9.1 mg/dL (8.4-10.2); Carbon Dioxide 23 mmol/L (22-30); Chloride 106 mmol/L (98-107); Estimated CRCL calculation 46 ml/min; Estimated Glomerular Filt Rate 49; Glucose 106 mg/dL (65-105); Potassium 3.6 mmol/L (3.4-5.0); Sodium 141 mmol/L (137-145)
--- NOTE | 2020-11-09 11:07 | PCNFU ---
Nutrition Follow-Up Complete: Nutrition Diagnosis: Obesity related to patient's excessive energy intake as evidenced by a BMI of 35.8 and patient's statement. Nutrition Goal: Have patient meet nutritional needs. Goal has been met, patient is meeting her nutritional needs. Nutrition recommendation: Continue with Regular diet. Last recorded weight is 97.5 kg. Recommend obtaining new weight. Bowel Motility: Last documented on 11/07. Labs Reviewed: Last documented on 11/08: Hct (36.1) Meds Noted: Xanax, Lipitor, Norvasc, Lomotil, Zofran, Multi Vitamin, Lidoderm, Protonix, Prinivil, Tegretol, Plavix, Ddavp Tablet, Diclofenac Sodium, Cymbalta, Desyrel, Medrol Dosepak Additional Notes: Patient is enjoying her meals and has no questions/concerns. Skin is within normal limits, except a rash on her right elbow. No pressure ulcers documented. Discharge is set for 11/11. Will follow up in 7 days.
--- NOTE | 2020-11-09 12:01 | PCNSR ---
On 11/09/20, the student, Becca Hutton, provided care and completed [facility] documentation on this patient. I have reviewed the student's documentation and agree with the findings.
[2020-11-09 14:00] VITALS: BP 141/68; PULSE 98; RESP 18; TEMP 36.7; O2SAT 95
[2020-11-09] MEDS: DESMOPRESSIN ACETATE 0.1 MG TABLET 0.2 MG PO (21:17)
[2020-11-09] MEDS: traZODone HCL 50 MG TABLET PO (21:23)
[2020-11-09 21:28] VITALS: BP 140/58; PULSE 91; RESP 16; TEMP 36.2; O2SAT 96
[2020-11-10 05:35] LABS: Basophils Absolute Auto 0.1 K/mm3 (0.0-0.1); Basophils Percent Auto 0.5 % (0.2-1.2); Eosinophils Absolute Auto 0.3 K/mm3 (0-0.3); Eosinophils Percent Auto 2.9 % (0-4.4); Hematocrit 36.3 % (37.0-47.0); Immature Granulocyte Absolute 0.03 K/mm3 (0.00-0.031); Immature Granulocyte Percent A 0.3 % (0-0.5); Lymphocytes Absolute Auto 1.29 K/mm3 (0.9-3.2); Mean Corpuscular HGB Conc 33.1 g/dl (32-36); Mean Corpuscular Hemoglobin 29.3 pg (26-34); Mean Corpuscular Volume 88.5 fl (80-100); Mean Platelet Volume 8.7 fl (7.4-10.4); Monocytes Absolute Auto 0.7 K/mm3 (0.1-0.6); Monocytes Percent Auto 7.2 % (2.6-8.5); Neutrophils Absolute Auto 6.9 K/mm3 (1.3-6.7); Neutrophils Percent Auto 75.1 % (45.5-73.1); Platelet Count Result 309 k/mm3 (150-375); White Blood Count 9.2 K/mm3 (4.5-10.0)
[2020-11-10 05:38] LABS: Alanine Aminotransferase 20 U/L (4-35); Albumin Level 3.7 g/dL (3.5-5.1); Alkaline Phosphatase 107 U/L (38-126); Anion Gap 11 mmol/L (8-16); Aspartate Amino Transferase 24 U/L (14-36); Bilirubin,Total 0.3 mg/dL (0.2-1.3); Blood Urea Nitrogen 15 mg/dL (7-17); Calcium 8.7 mg/dL (8.4-10.2); Carbon Dioxide 21 mmol/L (22-30); Chloride 108 mmol/L (98-107); Estimated CRCL calculation 56 ml/min; Estimated Glomerular Filt Rate > 60; Glucose 84 mg/dL (65-105); Potassium 3.5 mmol/L (3.4-5.0); Sodium 140 mmol/L (137-145)
[2020-11-10 05:52] VITALS: BP 152/85; PULSE 70; RESP 16; TEMP 36.6; O2SAT 100
[2020-11-10] MEDS: methylPREDNISolone (MEDROL) DOSEPACK 4 MG TABLETS PO (06:29)
[2020-11-10] MEDS: ASPIRIN 81 MG CHEWABLE TABLET PO (09:06)
[2020-11-10] MEDS: amLODIPine BESYLATE 5 MG TABLET 10 MG PO (09:06)
[2020-11-10] MEDS: ATORVASTATIN 40 MG TABLET 80 MG PO (09:06)
[2020-11-10] MEDS: carBAMazepine 200 MG TABLET PO (09:06)
[2020-11-10] MEDS: DULoxetine HCL 60 MG CAPSULE.DR PO (09:06)
[2020-11-10] MEDS: lisinopriL 20 MG TABLET 40 MG PO (09:06)
[2020-11-10] MEDS: CLOPIDOGREL BISULFATE 75 MG TABLET PO (09:06)
--- NOTE | 2020-11-10 09:06 | PM.DS ---
DS: Admitting Diagnosis Admitting Diagnosis Admitting Diagnosis: cva DS: Discharge Diagnosis Discharge Diagnosis (1) Cellulitis of umbilicus: Code(s): L03.316 - Cellulitis of umbilicus Status: Acute Assessment and Plan: Resolved with ointnment to area. Pale pink discoloration remains. No signs of infection. (2) History of urostomy: Code(s): Z98.890 - Other specified postprocedural states Status: Acute Assessment and Plan: Patient was independent with cathing. UA demonstrated bacteria. Urology was consulted and no need for treatment since patient was clinically without symptoms (3) Internuclear ophthalmoplegia: Code(s): H51.20 - Internuclear ophthalmoplegia, unspecified eye Status: Acute Assessment and Plan: patient is on aspirin and Plavix until November 18. Then patient will continue on Plavix 75 mg daily (4) Depression: Code(s): F32.9 - Major depressive disorder, single episode, unspecified Status: Acute Assessment and Plan: Cymbalta 60 mg BID home dose. She is currently on Cymbalta 60 mg daily. Patient is content with not increasing dose to BID. (5) Anxiety: Code(s): F41.9 - Anxiety disorder, unspecified Status: Acute Assessment and Plan: patient is on p.r.n. Xanax. Her psychiatrist would like her to wean off the patient is receptive to Xanax as needed. Patient did not require Xanax while on rehab. Patient was not to restart Xanax. Patient is on Tegretol 200 mg Q 12 (6) Irritable bowel disease: Code(s): K58.9 - Irritable bowel syndrome without diarrhea Status: Acute Assessment and Plan: Lomotil p.r.n. (7) Peptic ulcer disease: Code(s): K27.9 - Peptic ulcer, site unspecified, unspecified as acute or chronic, without hemorrhage or perforation Status: Acute (8) Obstructive sleep apnea: Code(s): G47.33 - Obstructive sleep apnea (adult) (pediatric) Status: Acute Assessment and Plan: CPAP (9) Nocturnal enuresis: Code(s): N39.44 - Nocturnal enuresis Status: Acute Assessment and Plan: desmopressin (10) Atrial fibrillation: Code(s): I48.91 - Unspecified atrial fibrillation Status: Acute Assessment and Plan: patient had normal sinus rhythm while at outside hospital. Loop recorder was added. Patient is on no anticoagulation for her AFib (11) Hyperlipidemia: Code(s): E78.5 - Hyperlipidemia, unspecified Status: Acute (12) Hypertension: Code(s): I10 - Essential (primary) hypertension Status: Acute (13) Osteoarthritis of right hip: Code(s): M16.11 - Unilateral primary osteoarthritis, right hip Status: Acute Assessment and Plan: patient is awaiting a right total hip replacement. Add Lidoderm patches (14) Pulmonary emphysema: Code(s): J43.9 - Emphysema, unspecified Status: Acute Assessment and Plan: inhalers (15) Pulmonary hypertension: Code(s): I27.20 - Pulmonary hypertension, unspecified Status: Acute Assessment and Plan: inhaler (16) COPD (chronic obstructive pulmonary disease): Code(s): J44.9 - Chronic obstructive pulmonary disease, unspecified Status: Acute Assessment and Plan: inhalers (17) Polymyalgia rheumatica: Code(s): M35.3 - Polymyalgia rheumatica Status: Acute Assessment and Plan: Cymbalta 60 mg b.i.d. was her home dose. However at the hospital she was on 60 mg daily. Patient was increased over a year ago to twice a day due to his of her brother. Patient is receptive to see if she can stay on 60 mg daily (18) Alzheimer's dementia: Code(s): G30.9 - Alzheimer's disease, unspecified; F02.80 - Dementia in other diseases classified elsewhere without behavioral disturbance Status: Acute Assessment and Plan: patient does need reminders (19) Hives of unknown origin:
[2020-11-10] MEDS: LIDOCAINE 5% PATCH 2 PATCH TRANSDERM (09:07)
[2020-11-10] MEDS: FLUTICASONE PROPIONATE 0.05% NA SPR 16 GM BTL (*BKC) 1 SPRAY NASAL (09:07)
[2020-11-10] MEDS: THERAPEUTIC MULTIVITAMINS/MINERALS TAB (*BKC) 1 TABLET PO (09:07)
[2020-11-10] MEDS: PANTOPRAZOLE 40 MG TABLET PO (09:07)
[2020-11-10] MEDS: diphenhydrAMINE HCl CAP 25 MG CAPSULE PO (09:09)
--- NOTE | 2020-11-10 09:09 | WPDURCON ---
Assessment and Plan Assessment and plan (1) History of urostomy: Code(s): Z98.890 - Other specified postprocedural states Status: Acute Assessment and Plan: This is a very pleasant 74-year-old lady with a history of urinary tract reconstruction managed with a catheterizable channel. The patient states that she has no issues catheter rising at this time. The patient is managed at [facility]. -the patient's urinalysis is consistent with her known catheterization. I would expect there to be bacteria and white blood cells in her urine given her catheterizable channel and Katherine pouch. As the patient is asymptomatic for infection without fevers and a normal white blood cell count and creatinine I do not feel antibiotics are necessary at this time. The patient would be okay to be discharged home from a urologic perspective. 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 The patient is followed at [facility]. The patient was admitted with a stroke to [facility]. Patient's urinalysis was concerning and Urology was called to evaluate the patient PMFSH Past Medical History Medical History (Updated 11/05/20 @ 07:55 by Lindsey Moncada DO) Alzheimer's dementia Anxiety Atrial fibrillation Bladder cancer COPD (chronic obstructive pulmonary disease) Depression History of gastric ulcer Hyperlipidemia Hypertension Irritable bowel disease Nocturnal enuresis Obstructive sleep apnea Osteoarthritis of right hip Peptic ulcer disease Polymyalgia rheumatica Pulmonary emphysema Pulmonary hypertension Surgical History Surgical History (Updated 11/02/20 @ 17:28 by Lindsey Moncada DO) H/O: hysterectomy History of appendectomy History of arthroplasty of knee History of cholecystectomy History of cystostomy History of urostomy Social History Social History (Updated 11/02/20 @ 17:23 by Lindsey Moncada DO) Social History: . Former smoker. Denies alcohol or illicit drug use. Patient lives alone in a 3 story apartment building on the 1st floor. She has no steps to enter. The patient reports that her daughter provides her hired homemaking services 2 to 3 times a week through [facility]. Her daughter can arrange to stay with the patient after rehab for the 1st week or 2 if needed. She also has a son who can assist that lives near by. Prior to this admission patient was independent in all ADLs, light housekeeping and was an active community ambulator. Patient does not drive however children and friends provide transportation. The patient uses a Rollator for mobility when outside. Patient has a tub shower combo. Smoking status: Former smoker Second hand tobacco smoke exposure: No Alcohol intake: never Substance use: never Substance use type: does not use Spiritual care concerns: No Meds Home Medications and Allergies Allergies Allergy/AdvReac Type Severity Reaction Status Date / Time Penicillins Allergy Mild Rash Verified 11/03/20 07:22 cefuroxime Allergy Rash Verified 11/05/20 15:43 doxycycline Allergy Rash Verified 11/05/20 15:41 nitrofurantoin Allergy Rash Verified 11/05/20 15:41 papaya Allergy Swelling Verified 11/05/20 15:41 of Lip/Tongue/Throat Sulfa (Sulfonamide Allergy Rash Verified 11/05/20 15:41 Antibiotics) Vital Signs Vital Signs - 24 hr 11/09/20 14:00 11/09/20 21:28 11/10/20 05:52 Temperature 36.7 C 36.2 C L 36.6 C Pulse Rate 98 91 70 Respiratory Rate 18 16 16 Blood Pressure 141/68 H 140/58 L 152/85 H Pulse Oximetry 95 96 100
[2020-11-14 19:45] LABS: Carbamazepine Tegretol 6.3 mcg/mL (4.0-12.0)
== END 2020-11-10 13:30 | disposition home health service (06) | DRG 57 ==
PROVIDERS: Admitting Provider Physical Medicine & Rehabilitation; PCP Family Medicine; Visit Provider Physical Medicine & Rehabilitation
DX: I69.398 Other sequelae of cerebral infarction (principal); H51.20 Internuclear ophthalmoplegia, unspecified eye; H53.2 Diplopia; H55.09 Other forms of nystagmus; H51.0 Palsy (spasm) of conjugate gaze; I10 Essential (primary) hypertension; E78.5 Hyperlipidemia, unspecified; E61.1 Iron deficiency; F41.8 Other specified anxiety disorders; G47.33 Obstructive sleep apnea (adult) (pediatric); G47.00 Insomnia, unspecified; I27.20 Pulmonary hypertension, unspecified; I48.91 Unspecified atrial fibrillation; J43.9 Emphysema, unspecified; L50.9 Urticaria, unspecified; M35.3 Polymyalgia rheumatica; M16.11 Unilateral primary osteoarthritis, right hip; M08.90 Juvenile arthritis, unspecified, unspecified site; N39.44 Nocturnal enuresis; Z85.51 Personal history of malignant neoplasm of bladder; Z87.891 Personal history of nicotine dependence; Z90.5 Acquired absence of kidney
CPT/HCPCS: 36415; 80053; 80156; 81001; 85025; 85027; 87077; 87086; 87088; 87186; 92507; 92523; 94640; 97110; 97116; 97161; 97165; 97530; 97535; A9270

== ENCOUNTER 2021-10-31 23:57 | Emergency (ER) | payer MEDICARE, MEDICAID, SELFPAY ==
--- NOTE | ~2021-10-31 | XR_ITS ---
XR chest 2V 11/01/2021 03:50 Indication: Weakness. Procedure: 2 view chest Comparison: 08/08/2011 Findings: Heart size normal. There is right perihilar atelectasis/scarring. No focal pneumonia, pleur al effusion, edema or pneumothorax. No acute osseous abnormality. There are cholecystectomy clips. No acute osseous abnormality. There are calcified mediastinal lymph nodes, consistent with chronic gran ulomatous disease. Impression: 1: Right perihilar atelectasis/scarring. Reviewed, dictated and finalized at location A. Impression: 1: Right perihilar atelectasis/scarring.
[2021-11-01] VITALS (25 sets, daily range): BP systolic 126–145; BP diastolic 63–88; PULSE 72–114; RESP 16–18; TEMP 36.1; O2SAT 94–100
--- NOTE | 2021-11-01 01:52 | PC.NURSE ---
Patient does not have a bladder anymore. Patient has a stoma that keeps getting infected that she just uses a catheter to drain every 4 hours.
[2021-11-01 03:11] LABS: Basophils Absolute Auto 0.1 K/mm3 (0.0-0.1); Basophils Percent Auto 0.6 % (0.2-1.2); Eosinophils Absolute Auto 0.1 K/mm3 (0-0.3); Eosinophils Percent Auto 1.4 % (0-4.4); Hematocrit 33.7 % (37.0-47.0); Hemoglobin 10.9 g/dL (12.0-15.0); Immature Granulocyte Absolute 0.01 K/mm3 (0.00-0.031); Immature Granulocyte Percent A 0.1 % (0-0.5); Lymphocytes Absolute Auto 1.09 K/mm3 (0.9-3.2); Lymphocytes Percent Auto 12.8 % (18.3-44.2); Mean Corpuscular HGB Conc 32.3 g/dl (32-36); Mean Corpuscular Hemoglobin 28.7 pg (26-34); Mean Corpuscular Volume 88.7 fl (80-100); Mean Platelet Volume 8.1 fl (7.4-10.4); Monocytes Absolute Auto 0.6 K/mm3 (0.1-0.6); Monocytes Percent Auto 7.5 % (2.6-8.5); Neutrophils Absolute Auto 6.6 K/mm3 (1.3-6.7); Neutrophils Percent Auto 77.6 % (45.5-73.1); Platelet Count Result 372 k/mm3 (150-375); White Blood Count 8.5 K/mm3 (4.5-10.0)
[2021-11-01 03:22] LABS: Anion Gap 6 mmol/L (8-16); Blood Urea Nitrogen 10 mg/dL (7-17); Calcium 8.1 mg/dL (8.4-10.2); Carbon Dioxide 23 mmol/L (22-30); Chloride 100 mmol/L (98-107); Estimated CRCL calculation 57 ml/min; Estimated Glomerular Filt Rate > 60; Glucose 98 mg/dL (65-110); INR 1.4; Potassium 4.1 mmol/L (3.4-5.0); Prothrombin Time 16.5 Seconds (11.1-14.7); Sodium 129 mmol/L (137-145)
[2021-11-01 03:23] LABS: Partial Thromboplastin Time 36.4 SECONDS (22.3-36.8)
[2021-11-01 03:29] LABS: NT Pro B Type Natriuretic Pept 1120 pg/mL (5-100)
--- NOTE | 2021-11-01 04:39 | ED.EXTPRO ---
HPI - Extremity Problem General Chief complaint: Extremity Problem,Nontraumatic Stated complaint: edema lower extremities Time Seen by Provider: 11/01/21 01:56 History of Present Illness HPI Narrative: Patient is a 75-year-old female who presents ER with lower extremity edema. Worsening over the last 3 days. Reports that she has been less mobile over the last week due to the chronic pain in her hip that she is in need of a hip replacement. She has not used any compression stockings or leg elevation. Had similar symptoms once when she was hospitalized for UTI. She has no chest pain or chest pressure. No shortness of breath. She denies orthopnea. No history of heart failure. Patient is chronically anticoagulated on Eliquis. Related Data Allergies Allergy/AdvReac Type Severity Reaction Status Date / Time Penicillins Allergy Mild Rash Verified 01/19/21 11:02 cefuroxime Allergy Rash Verified 01/19/21 11:02 doxycycline Allergy Rash Verified 01/19/21 11:02 nitrofurantoin Allergy Rash Verified 01/19/21 11:02 papaya Allergy Swelling Verified 01/19/21 11:02 of Lip/Tongue/Throat Sulfa (Sulfonamide Allergy Rash Verified 01/19/21 11:02 Antibiotics) Review of Systems Review of Systems: All systems reviewed & are unremarkable except as noted in HPI and below Constitutional: Constitutional: Denies chills, Denies fatigue and Denies fever(s) ENT: Denies nasal congestion and Denies sore throat Cardiovascular: Cardiovascular: Denies chest pain, Denies rapid heart rate and Denies radiating jaw, neck or arm pain Respiratory: Respiratory: Denies chest congestion, Denies cough and Denies dyspnea Gastrointestinal: Gastrointestinal: Denies abdominal pain, Denies nausea and Denies vomiting Musculoskeletal: Musculoskeletal: Denies arthralgias and Denies joint swelling Comments: Lower extremity edema PMFSH Past Medical History Medical History Alzheimer's dementia Anxiety Atrial fibrillation Bladder cancer COPD (chronic obstructive pulmonary disease) Depression History of gastric ulcer Hyperlipidemia Hypertension Irritable bowel disease Nocturnal enuresis Obstructive sleep apnea Osteoarthritis of right hip Peptic ulcer disease Polymyalgia rheumatica Pulmonary emphysema Pulmonary hypertension Surgical History Surgical History H/O: hysterectomy History of appendectomy History of arthroplasty of knee History of cholecystectomy History of cystostomy History of urostomy Social History Social History Social History: . Former smoker. Denies alcohol or illicit drug use. Patient lives alone in a 3 story apartment building on the 1st floor. She has no steps to enter. The patient reports that her daughter provides her hired homemaking services 2 to 3 times a week through [facility]. Her daughter can arrange to stay with the patient after rehab for the 1st week or 2 if needed. She also has a son who can assist that lives near by. Prior to this admission patient was independent in all ADLs, light housekeeping and was an active community ambulator. Patient does not drive however children and friends provide transportation. The patient uses a Rollator for mobility when outside. Patient has a tub shower combo. Smoking status: Former smoker Second hand tobacco smoke exposure: No Alcohol intake: never Substance use: never Substance use type: does not use Spiritual care concerns: No Exam Narrative: GENERAL: Well-appearing, well-nourished, and in no acute distress. HEAD: Normocephalic, atraumatic. EYES: PERRLA and EOMI. ENT: Mucous membranes moist. CHEST: Clear to auscultation. No respiratory distress. HEART: Regular rate and rhythm. Normal peripheral pulses. ABDOMEN: Soft, nontender, nondistended. EXTREMITIES: Normal range of motion. 2+
== END 2021-11-01 05:14 | disposition home or self-care (01) ==
PROVIDERS: Emergency Provider Emergency Medicine
DX: R60.0 Localized edema (principal); I48.91 Unspecified atrial fibrillation; G30.9 Alzheimer's disease, unspecified; F02.80 Dementia in other diseases classified elsewhere, unspecified severity, without behavioral disturbance, psychotic disturbance, mood disturbance, and anxiety; E78.5 Hyperlipidemia, unspecified; I10 Essential (primary) hypertension; J43.9 Emphysema, unspecified; I27.20 Pulmonary hypertension, unspecified; M35.3 Polymyalgia rheumatica; G47.33 Obstructive sleep apnea (adult) (pediatric); K58.9 Irritable bowel syndrome, unspecified; M16.11 Unilateral primary osteoarthritis, right hip; Z87.11 Personal history of peptic ulcer disease; Z79.01 Long term (current) use of anticoagulants; Z85.51 Personal history of malignant neoplasm of bladder; Z96.659 Presence of unspecified artificial knee joint; Z87.891 Personal history of nicotine dependence
CPT/HCPCS: 36415; 71046; 80048; 83880; 85025; 85610; 85730; 99283

== ENCOUNTER 2022-10-23 10:26 | Outpatient (CLI) | payer MEDICARE, MEDICAID, SELFPAY ==
--- NOTE | ~2022-10-23 | XR_ITS ---
EXAMINATION: XR chest 2V Exam Date/Time: 10/23/2022 10:40 CDT HISTORY: R06.02 - Shortness of breath HTN COPD Comparison: 11/01/2021. RESULT: Lines, tubes, and devices: Cholecystectomy clips. Lungs and pleura: Right midlung scar. Diffuse reticular opacities. Senescent change and bibasilar sc ar/atelectasis. Cardiomediastinal silhouette: Cardiomegaly. Calcified hilar and mediastinal lymph nodes. Prominent c entral pulmonary arteries as can be seen with pulmonary arterial hypertension. Other: No acute osseous or upper abdominal finding. IMPRESSION: Cardiomegaly. Mild interstitial edema. Reviewed, dictated and finalized at location K.
== END 2022-10-23 10:27 | disposition home or self-care (01) ==
PROVIDERS: PCP Family Medicine; Visit Provider Physician Assistant
DX: R06.02 Shortness of breath (principal); J44.9 Chronic obstructive pulmonary disease, unspecified; J81.1 Chronic pulmonary edema; I51.7 Cardiomegaly
CPT/HCPCS: 71046

== ENCOUNTER 2023-04-04 13:25 | Inpatient (IN) | payer MEDICARE, MEDICAID, SELFPAY ==
[2023-04-04] VITALS (19 sets, daily range): BP systolic 87–116; BP diastolic 51–93; PULSE 58–86; RESP 14–21; TEMP 35.6–36.7; O2SAT 92–96
--- NOTE | ~2023-04-04 | XR_ITS ---
EXAMINATION: XR chest 2V DATE: 04/04/2023 14:34 INDICATION: Worsening shortness of breath TECHNIQUE: frontal and lateral views of the chest were obtained. COMPARISON: Chest radiograph dated 10/23/2022 FINDINGS: Mild increased interstitial pattern in the bilateral lower lung zones. Unchanged linear band of disco id atelectasis/scarring along the right minor fissure. No pleural effusion or pneumothorax. Borderlin e heart size accounting for AP technique. Calcified mediastinal lymph nodes consistent with old granu lomatous disease. Moderate thoracic spondylosis. Cholecystectomy clips in right upper quadrant. IMPRESSION: 1. Mild increased interstitial pattern in the bilateral lower lung zones which could represent mild p ulmonary edema or pneumonia. 2. Unchanged linear discoid atelectasis/scarring along the right minor fissure. 3. Borderline heart size. Reviewed, dictated and finalized at location A. IMPRESSION: 1. Mild increased interstitial pattern in the bilateral lower lung zones which could represent mild pulmonary edema or pneumonia. 2. Unchanged linear discoid atelectasis/scarring along the right minor fissure. 3. Borderline heart size.
--- NOTE | ~2023-04-04 | US_ITS ---
US renal BI 04/04/2023 16:36 Procedure: Realtime transabdominal ultrasound of the kidneys and bladder. Indication: Evaluate for obstruction. Status post right nephrectomy. Comparison: Ultrasound dated 05/09/2006 Findings: There is a left renal cyst measuring 2.6 cm. Left renal echotexture is otherwise unremarkab le without hydronephrosis, solid mass or stone. There is a neobladder in the abdomen. Right kidney is n't surgically absent. Impression: 1: Left renal cyst measuring 2.6 cm. Reviewed, dictated and finalized at location A. Impression: 1: Left renal cyst measuring 2.6 cm.
--- NOTE | 2023-04-04 13:47 | ECG_ITS ---
Measurements Intervals [place] Rate: 56 P: NC: 0 QRS: 26 QRSD: 87 T: 7 QT: 437 QTc: 423 Interpretive Statements SINUS BRADYCARDIA ATRIAL PREMATURE COMPLEX RSR' IN V1 OR V2, PROBABLY NORMAL VARIANT LOW QRS VOLTAGE IN PRECORDIAL LEADS BORDERLINE ST-T WAVE ABNORMALITY- ANT/INF LEADS BASELINE WANDER- V4 BORDERLINE ECG NO PREVIOUS ECG AVAILABLE FOR COMPARISON Electronically Signed On 04-04-2023 14:18:31 CDT by Lukas Diaz D.O.
[2023-04-04 14:44] LABS: Alanine Aminotransferase 25 U/L (6-35); Albumin Level 3.5 g/dL (3.5-5.1); Alkaline Phosphatase 172 U/L (38-126); Anion Gap 10 mmol/L (8-16); Aspartate Amino Transferase 36 U/L (14-36); Bilirubin,Total 0.5 mg/dL (0.2-1.3); Blood Urea Nitrogen 28 mg/dL (7-17); Calcium 8.6 mg/dL (8.4-10.2); Carbon Dioxide 21 mmol/L (22-30); Chloride 98 mmol/L (98-107); Estimated CRCL calculation 26 ml/min; Estimated Glomerular Filt Rate 26; Glucose 92 mg/dL (65-110); Potassium 4.8 mmol/L (3.4-5.0); Sodium 129 mmol/L (137-145)
--- NOTE | 2023-04-04 14:45 | ED.SOB ---
HPI - SOB/Dyspnea General Chief Complaint: Shortness of Breath/Dyspnea Stated Complaint: UTI Time Seen by Provider: 04/04/23 14:15 History of Present Illness HPI Narrative: Patient is a 77-year-old female who presents to the emergency department this afternoon complaining of shortness of breath. COPD and CHF and states that she has been taking 20 mg of Lasix daily, however, it has not been helping her with her water retention so she was started on spironolactone which she has been taking for the past 3 days with no improvement. Patient states that despite the water pills she has been continuously holding on to more water weight and has been gradually gaining weight. Patient states that her shortness of breath has been also gradually worsening. Patient denies any chest pain, nausea, vomiting, abdominal pain, dysuria, hematuria, constipation, diarrhea, melena, hematochezia, fevers or chills. She also denies any headaches, dizziness, lightheadedness, blurry visions, focal weakness, numbness and or tingling. There are no other modifying, alleviating, or precipitating factors at this time. Related Data Home Medications Medication Instructions Recorded Confirmed icosapent ethyl 1 gram capsule 2 g PO BID 09/17/22 04/04/23 (Vascepa) metoprolol succinate 25 mg 50 mg PO DAILY 09/17/22 04/04/23 tablet,extended release 24 hr trazodone 50 mg tablet 25 mg PO QHS 09/17/22 04/04/23 atorvastatin 40 mg tablet 80 mg PO HS 04/04/23 04/04/23 esomeprazole magnesium 40 mg 40 mg PO DAILY 04/04/23 04/04/23 capsule,delayed release famotidine 20 mg tablet 20 mg PO DAILY 04/04/23 04/04/23 ferrous sulfate 325 mg (65 mg 325 mg PO DAILY 04/04/23 04/04/23 iron) tablet gabapentin 300 mg capsule 600 mg PO DAILY 04/04/23 04/04/23 wxmfhlohpjc-tjezwoqut-vcy C-Mn 500 1 cap PO BID 04/04/23 04/04/23 mg-400 mg capsule (Glucosamine Chondroitin Maximum Strength) hydroxyzine HCl 10 mg tablet 10 mg PO BID PRN Anxiety 04/04/23 04/04/23 lisinopril 20 mg tablet 20 mg PO QAM 04/04/23 04/04/23 nystatin-triamcinolone 100,000 1 applic topical BID PRN Abdomen 04/04/23 04/04/23 unit/g-0.1 % topical cream spironolactone 25 mg tablet 25 mg PO DAILY 04/04/23 04/04/23 triamcinolone acetonide 0.1 % 1 applic topical BID PRN Cracked 04/04/23 04/04/23 topical cream Lips Allergies Allergy/AdvReac Type Severity Reaction Status Date / Time Penicillins Allergy Mild Rash Verified 04/04/23 18:40 cefuroxime Allergy Rash Verified 04/04/23 18:40 doxycycline Allergy Rash Verified 04/04/23 18:40 nitrofurantoin Allergy Rash Verified 04/04/23 18:40 papaya Allergy Swelling Verified 04/04/23 18:40 of Lip/Tongue/Throat Sulfa (Sulfonamide Allergy Rash Verified 04/04/23 18:40 Antibiotics) Review of Systems Review of Systems: All systems are reviewed and are negative unless stated otherwise in the HPI. [facility] Past Medical History Medical History Alzheimer's dementia Anxiety Atrial fibrillation Bladder cancer Cancer COPD (chronic obstructive pulmonary disease) Depression History of gastric ulcer Hyperlipidemia Hypertension Irritable bowel disease Nocturnal enuresis Obstructive sleep apnea Osteoarthritis of right hip Peptic ulcer disease Polymyalgia rheumatica Pulmonary emphysema Pulmonary hypertension Stroke Ulcers of both great toes Surgical History Surgical History H/O: hysterectomy History of appendectomy History of arthroplasty of knee History of cholecystectomy History of cystostomy History of hip replacement, total History of urostomy Family History Family History Father Skin cancer Diabetes mellitus Hypertension Heart disease Mother Hypertension Depression Sibling Pancreatic cancer Hypertension Depression Other Hypertension Depression Social Hi
[2023-04-04 14:46] LABS: Basophils Absolute Auto 0.1 K/mm3 (0.0-0.1); Basophils Percent Auto 0.7 % (0.2-1.2); Eosinophils Absolute Auto 0.1 K/mm3 (0-0.3); Eosinophils Percent Auto 0.9 % (0-4.4); Hematocrit 34.2 % (37.0-47.0); Hemoglobin 10.6 g/dL (12.0-15.0); Immature Granulocyte Absolute 0.03 K/mm3 (0.00-0.031); Immature Granulocyte Percent A 0.4 % (0-0.5); Lymphocytes Absolute Auto 0.65 K/mm3 (0.9-3.2); Lymphocytes Percent Auto 8.5 % (18.3-44.2); Mean Corpuscular Hemoglobin 27.9 pg (26-34); Mean Platelet Volume 9.1 fl (7.4-10.4); Monocytes Absolute Auto 0.5 K/mm3 (0.1-0.6); Monocytes Percent Auto 7.1 % (2.6-8.5); Neutrophils Absolute Auto 6.3 K/mm3 (1.3-6.7); Neutrophils Percent Auto 82.4 % (45.5-73.1); Platelet Count Result 329 k/mm3 (150-375); Red Cell Distribution Width 15.2 % (11.5-14.5); White Blood Count 7.7 K/mm3 (4.5-10.0)
--- NOTE | 2023-04-04 15:25 | PC.NURSE ---
holding off on administering lasix at this time per MD verbal order due to bp 97/60
[2023-04-04 15:30] LABS: NT Pro B Type Natriuretic Pept 10700 pg/mL (19.9-100)
[2023-04-04 16:09] LABS: Appearance Urine Cloudy (Clear); Bilirubin Urine 1+ (Negative); Blood Urine 1+ (Negative); Color Urine Yellow (Yellow); Glucose Urine UA Negative (Negative); Ketones Urine Negative (Negative); Leukocyte Esterase Ur 2+ LEU/UL (Negative); Nitrate Urine Negative (Negative); Protein Urine 2+ mg/dL (Negative); Specific Grav Ur 1.015 (1.001-1.035); Urobilinogen Urine 0.2 mg/dL (<2.0); pH Urine 8.5 (5.0-9.0)
[2023-04-04 16:21] LABS: Bacteria Urine 4+ /hpf; Need Manual Microscopic Reviewed; Non Pathogenic Casts >20; Squamous Epithelial Cell Urine Occasional /hpf (Few); WBC Urine >100 /hpf
[2023-04-04 16:22] LABS: Add Urine Microscopic? YES
[2023-04-04] MEDS: CEFEPIME 2 GM/NS 50 ML 2 GM/50 ML BAG IVPB (17:15)
--- NOTE | 2023-04-04 18:09 | ADMGEN ---
This patient, Marilee Lisandro Kilgore, was admitted to [facility] Surg Room 317-01. Patient/family oriented to hospital policies and general routines including ID bracelet, bed and alarms, visiting hours, pain management, procedures, bathroom and other care routines, personal items, smoking policy, room service/diet, and visiting hours. Information on how to activate the Rapid Response Team has been discussed. Patient/Family are encouraged to report perceived risks to care and to ask questions if they do not understand what they are told or what they should do.
--- NOTE | 2023-04-04 20:15 | PM.IMHP ---
H&P: HPI History of Present Illness Date/Time: 04/04/23 20:15 Chief Complaint: SOB Narrative: This is a 77-year-old female with past medical history significant for Alzheimer's dementia, atrial fibrillation, bladder cancer, COPD, obstructive sleep apnea, polymyalgia rheumatica. Patient presents to the emergency room due to worsening shortness of breath for about a week or so. Patient had been started on spironolactone with no relief of symptoms, patient denies any chest pain, nausea, vomiting, dizziness, lightheadedness, no fevers, no rigors no chills, no sputum production. Preliminary workup was significant for brain natriuretic peptide over 17,000, sodium 130, BUN 31, creatinine 2.2 a urinalysis 100 WBCs per high-power field. Patient has been admitted for further evaluation management. EXAMINATION: XR chest 2V DATE: 04/04/2023 14:34 INDICATION: Worsening shortness of breath TECHNIQUE: frontal and lateral views of the chest were obtained. COMPARISON: Chest radiograph dated 10/23/2022 FINDINGS: Mild increased interstitial pattern in the bilateral lower lung zones. Unchanged linear band of discoid atelectasis/scarring along the right minor fissure. No pleural effusion or pneumothorax. Borderline heart size accounting for AP technique. Calcified mediastinal lymph nodes consistent with old granulomatous disease. Moderate thoracic spondylosis. Cholecystectomy clips in right upper quadrant. IMPRESSION: 1. Mild increased interstitial pattern in the bilateral lower lung zones which could represent mild pulmonary edema or pneumonia. 2. Unchanged linear discoid atelectasis/scarring along the right minor fissure. 3. Borderline heart size. US renal BI 04/04/2023 16:36 Procedure: Realtime transabdominal ultrasound of the kidneys and bladder. Indication: Evaluate for obstruction. Status post right nephrectomy. Comparison: Ultrasound dated 05/09/2006 Findings: There is a left renal cyst measuring 2.6 cm. Left renal echotexture is otherwise unremarkable without hydronephrosis, solid mass or stone. There is a neobladder in the abdomen. Right kidney isn't surgically absent. Impression: 1: Left renal cyst measuring 2.6 cm. Review of Systems Review of Systems: sob Constitutional: Constitutional: Denies chills, Reports fatigue, Denies fever(s), Denies night sweats, Denies poor appetite and Reports weakness Eyes: Eyes: Denies change in vision ENT: Denies dysphagia and Denies odynophagia Cardiovascular: Cardiovascular: Denies chest pain, Reports leg edema, Denies radiating jaw, neck or arm pain, Denies palpitations and Reports dyspnea Respiratory: Respiratory: Denies change in phlegm color, Reports chest congestion, Reports cough and Denies excessive phlegm production Gastrointestinal: Gastrointestinal: Denies abdominal pain, Denies dyspepsia, Denies heartburn, Denies diarrhea, Denies nausea and Denies vomiting Genitourinary: Genitourinary: Denies dysuria and Denies flank pain Musculoskeletal: Musculoskeletal: Denies arthralgias Integumentary/Breasts: Skin/Breast: Denies rash Neurologic: Denies focal weakness and Denies Sensory deficit (Neuro) Psychiatric: Psychiatric: Reports no additional psychiatric complaints and Reports as per HPI Endocrine: Endocrine: Denies cold intolerance, Denies fatigue, Denies flushing, Denies heat intolerance, Denies polyphagia, Denies polydipsia and Denies palpitations Hematologic/Lymphatic: Hematologic/Lymphatic: Reports no additional hematologic/lymphatic complaints and Reports as per HPI Allergic/Immunologic: Allergic/Immunologic: Reports no additional allergic/immunologic complaints and Reports as per HPI PMFSH Past Medical History Medical History Alzheimer's dementia Anxiety Atrial fibrillation Bladder cancer Cancer COPD (chronic obstructive pulmonary disease) Depression History of gastric ulcer Hyperlipidemia Hype
--- NOTE | 2023-04-05 | ECHO_ITS ---
Patient Info Name: Marilee Kilgore Age: 77 years : 1945 Gender: Female Ht: 65 in Wt: 215 lbs BSA: 2.16 m2 HR: 78 bpm BP: 131 / 77 mmHg Heart Rhythm: Sinus Rhythm Technical Quality: Fair Exam Date: 04/05/2023 8:33 AM Exam Location: Echo Lab Exam Room: [facility] Patient Status: Inpatient Admit Date: 04/04/2023 Staff Ordering Physician: Nick Fletcher MD Farm Technician: Marla Kwong RDCS Attending Provider: Naveed Aragon MD Referring Physician: Chance SIM; Exam Type: CA echo doppler color flow Study Info Indications - short of breath Complete two-dimensional, color flow and Doppler transthoracic echocardiogram is performed with contrast to opacify the left ventricle and to improve the deliniation of the left ventricle endocardial borders. Contrast/Agitated Saline Contrast/Ag. Saline: Definity Amount: 2.00 ml Administered By: Marla Kwong [facility] Existing IV Access: Yes IV Access Condition: patent with no signs of infiltration Summary 1. Left ventricular chamber dimension is normal. 2. Left ventricular systolic function is normal, estimated at 65-70%. 3. There is mildly increased left ventricular wall thickness. 4. The left ventricular diastolic function is grade II diastolic dysfunction. 5. 'D'-shaped septum in systole consistent with RV pressure overload. 6. Right ventricular chamber dimension is severely enlarged. 7. Right ventricular systolic function is reduced. 8. Left atrial chamber dimension is moderately enlarged. 9. Right atrial chamber dimension is severely enlarged. 10. There is moderate, eccentric mitral valve regurgitation. 11. There is mild to moderate tricuspid valve regurgitation. 12. Severe pulmonary hypertension, estimated pulmonary arterial systolic pressure is 72 mmHg. 13. There is moderate pulmonic regurgitation. 14. Severe pulmonary artery enlargement. Main pulmonary artery measuring 4.3 cm. Left Ventricle Left ventricular chamber dimension is normal. Left ventricular systolic function is normal, estimated at 65-70%. There is mildly increased left ventricular wall thickness. The left ventricular diastolic function is grade II diastolic dysfunction. 'D'-shaped septum in systole consistent with RV pressure overload. Right Ventricle Right ventricular chamber dimension is severely enlarged. Right ventricular systolic function is reduced. Left Atria Left atrial chamber dimension is moderately enlarged. Right Atria Right atrial chamber dimension is severely enlarged. Atrial Septum Intact interatrial septum visualized by color flow imaging. Aortic Valve The aortic valve is trileaflet. There is mild aortic valve sclerosis. There is no aortic valve stenosis. There is trace aortic valve regurgitation. Pulmonic Valve The pulmonic valve is normal. There is no pulmonic valve stenosis. There is moderate pulmonic regurgitation. Mitral Valve The mitral valve has thickened leaflets. There is no mitral valve stenosis. There is moderate, eccentric mitral valve regurgitation. Tricuspid Valve The tricuspid valve leaflets are normal. There is no significant tricuspid valve stenosis. There is mild to moderate tricuspid valve regurgitation. Severe pulmonary hypertension, estimated pulmonary arterial systolic pressure is 72 mmHg. Other Findings Severe pulmonary artery enlargement. Main pulmonary artery measuring 4.3 cm. Pericardium/Pleural The pericardium appears normal. There is trivial pericardial effusion. Inferior Vena Cava Dilated inferior
[2023-04-05 05:29] VITALS: BP 131/77; PULSE 67; RESP 20; TEMP 35.7; O2SAT 93
--- NOTE | 2023-04-05 09:13 | PM.IMPN ---
Progress Note: A&P Assessment and Plan (1) Congestive heart failure: Code(s): I50.9 - Heart failure, unspecified Status: Acute Assessment and Plan: IV diuresis, strict I&Os, daily weights Echocardiogram pending (2) Pulmonary edema: Code(s): J81.1 - Chronic pulmonary edema Status: Acute Assessment and Plan: Reassess after diuresis (3) AJ (acute kidney injury): Code(s): N17.9 - Acute kidney failure, unspecified Status: Acute Assessment and Plan: Creatinine 1.9, baseline less than 1, suspect congestion, see if this improves with diuresis (4) UTI (urinary tract infection): Code(s): N39.0 - Urinary tract infection, site not specified Status: Acute Assessment and Plan: Started on cefepime 05/01, follow-up urine culture (5) GERD (gastroesophageal reflux disease): Code(s): K21.9 - Gastro-esophageal reflux disease without esophagitis Status: Acute Assessment and Plan: Continue H2 isidro (6) Alzheimer's dementia: Code(s): G30.9 - Alzheimer's disease, unspecified; F02.80 - Dementia in other diseases classified elsewhere, unspecified severity, without behavioral disturbance, psychotic disturbance, mood disturbance, and anxiety Status: Acute Assessment and Plan: Stable (7) Polymyalgia rheumatica: Code(s): M35.3 - Polymyalgia rheumatica Status: Acute (8) Obstructive sleep apnea: Code(s): G47.33 - Obstructive sleep apnea (adult) (pediatric) Status: Acute (9) Atrial fibrillation: Code(s): I48.91 - Unspecified atrial fibrillation Status: Acute Assessment and Plan: Rate controlled (10) COPD (chronic obstructive pulmonary disease): Code(s): J44.9 - Chronic obstructive pulmonary disease, unspecified Status: Acute Assessment and Plan: Does not appear to be in acute exacerbation Continue home Trelegy Plan DVT prophylaxis with SCDs GI prophylaxis not indicated Code status full code Subjective Date/time seen: 04/05/23 09:13 Interval history: 77-year-old female with history of dementia, AFib, COPD among other comorbidities is presenting with shortness of breath and currently being treated for heart failure exacerbation. No overnight events noted. No chest pain. No nausea, vomiting or diarrhea. No fevers or chills. Patient states she feels much better than when she came in. She still has some shortness of breath with exertion. Review of Systems Review of Systems: 12 point review of systems was assessed and was negative except as noted in the HPI Exam Narrative: General: No acute distress, alert and oriented per baseline HEENT: Atraumatic, normocephalic, mucous membranes moist CV: Regular rate and rhythm, S1, S2 Lungs: Diminished at bases with scattered crackles, no wheeze Abdomen: Soft, nontender, nondistended Extremities: Normal to inspection, trace pitting edema bilateral lower extremity Skin: No rashes noted, no lesions or wounds seen Psych: Euthymic, normal affect Objective Data Vital Signs Vital Signs: Vital Signs - 24 hr 04/04/23 13:40 04/04/23 13:40 04/04/23 13:40 Temperature 98.0 F Pulse Rate 61 61 Respiratory Rate 17 Blood Pressure 116/78 Pulse Oximetry 96 96 Oxygen Delivery Room Air Room Air 04/04/23 14:37 04/04/23 14:45 04/04/23 14:51 Temperature Pulse Rate 59 L 58 L 86 Respiratory Rate 16 20 Blood Pressure 104/93 H Pulse Oximetry Oxygen Delivery 04/04/23 14:52 04/04/23 15:36 04/04/23 15:45 Temperature Pulse Rate 60 63 67 Respiratory Rate 15 16 21 H Blood Pressure 104/93 H Pulse Oximetry 92 Oxygen Delivery 04/04/23 15:46 04/04/23 16:00 04/04/23 16:01 Temperature Pulse Rate 63 61 64 Respiratory Rate 17 18 17 Blood Pressure 88/67 L 87/56 L Pulse Oximetry Oxygen Delivery 04/04/23 16:26 04/04/23
[2023-04-05] MEDS: PERFLUTREN LIPID MICROSPHERES 1.5 ML VIAL DILUTED TO 10 ML TOTAL VOLUME IV PUSH (09:15)
[2023-04-05] MEDS: OMEGA 3 POLYUNSAT FATTY ACIDS 1 GM CAP 2 GM PO ×2 (09:26→17:20)
[2023-04-05] MEDS: GABAPENTIN 300 MG CAPSULE 600 MG PO (09:26)
[2023-04-05] MEDS: SPIRONOLACTONE 25 MG TABLET PO (09:26)
[2023-04-05] MEDS: FUROSEMIDE INJ 40 MG/4 ML VIAL IV PUSH (09:26)
[2023-04-05] MEDS: PANTOPRAZOLE 40 MG TABLET PO (09:26)
[2023-04-05] MEDS: DULoxetine HCL 60 MG CAPSULE.DR PO (09:27)
[2023-04-05] MEDS: FAMOTIDINE 20 MG TABLET PO (09:27)
[2023-04-05] MEDS: FLUTICASONE/UMECLIDIN/VILANTER 100-62.5-25 MCG ELLIPTA 1 PUFF INHALATION (09:31)
[2023-04-05 09:35] VITALS: O2SAT 95
[2023-04-05 10:53] LABS: Basophils Absolute Auto 0.1 K/mm3 (0.0-0.1); Basophils Percent Auto 0.6 % (0.2-1.2); Eosinophils Absolute Auto 0.1 K/mm3 (0-0.3); Eosinophils Percent Auto 0.7 % (0-4.4); Hematocrit 32.7 % (37.0-47.0); Immature Granulocyte Absolute 0.04 K/mm3 (0.00-0.031); Immature Granulocyte Percent A 0.5 % (0-0.5); Lymphocytes Absolute Auto 0.73 K/mm3 (0.9-3.2); Lymphocytes Percent Auto 8.6 % (18.3-44.2); Mean Corpuscular HGB Conc 30.6 g/dl (32-36); Mean Corpuscular Hemoglobin 27.7 pg (26-34); Mean Corpuscular Volume 90.6 fl (80-100); Mean Platelet Volume 9.2 fl (7.4-10.4); Monocytes Absolute Auto 0.7 K/mm3 (0.1-0.6); Monocytes Percent Auto 8.4 % (2.6-8.5); Neutrophils Absolute Auto 6.9 K/mm3 (1.3-6.7); Neutrophils Percent Auto 81.2 % (45.5-73.1); Platelet Count Result 297 k/mm3 (150-375); Red Blood Count 3.61 M/mm3 (4.2-5.4); Red Cell Distribution Width 15.1 % (11.5-14.5); White Blood Count 8.5 K/mm3 (4.5-10.0)
[2023-04-05 11:02] LABS: Alanine Aminotransferase 24 U/L (6-35); Albumin Level 3.3 g/dL (3.5-5.1); Alkaline Phosphatase 152 U/L (38-126); Anion Gap 10 mmol/L (8-16); Aspartate Amino Transferase 30 U/L (14-36); Bilirubin,Total 0.6 mg/dL (0.2-1.3); Blood Urea Nitrogen 31 mg/dL (7-17); Calcium 8.6 mg/dL (8.4-10.2); Carbon Dioxide 22 mmol/L (22-30); Chloride 98 mmol/L (98-107); Estimated CRCL calculation 23 ml/min; Estimated Glomerular Filt Rate 22; Glucose 102 mg/dL (65-110); Potassium 4.8 mmol/L (3.4-5.0); Sodium 130 mmol/L (137-145)
--- NOTE | 2023-04-05 12:07 | IVDEFINITY ---
Prior to administration of IV Definity the patient was educated on the risks and benefits of the imaging enhancing agent including potential adverse side effects. The patient verbalized understanding. Allergies were verified. No exclusion criteria were identified and at least one of the following inclusion criteria were met: 1) physician request, 2) patient technically difficult to image (per the [place] [employer] guidelines of two or more segments not discernable within the apical view), or 3) questionable left ventricular function. ?
--- NOTE | 2023-04-05 13:48 | PM.CNNEP ---
Assessment and Plan Assessment and plan (1) AJ (acute kidney injury): Code(s): N17.9 - Acute kidney failure, unspecified Status: Acute Assessment and Plan: The patient has acute kidney injury. Baseline creatinine is 0.8 or so. She has only 1 kidney. Renal ultrasound shows no obstruction. UA shows white cells. Echocardiogram shows diastolic dysfunction grade 2 and severe pulmonary hypertension with moderate pulmonary regurgitation and hzux-am-[id number] tricuspid regurgitation. The patient does have severe cardiopulmonary disease. She has diastolic dysfunction which probably explains the pulmonary edema seen on chest x-ray. She also has pulmonary hypertension and valvular insufficiency on the right side which probably explains her edema. These 2 issues also explain why her renal function is worse because she has poor renal blood flow due to the poor ejection fraction. She might also have renal venous hypertension which could explain the high creatinine as well. In addition the patient has a bladder infection and neobladder and so could have toxic issues leading to ATN. This is all happening with the rise in creatinine upon a normal baseline creatinine so there might be other things going on as well. Will check for inflammatory, infiltrative issue as well as rhabdomyolysis. Will check serology, immunofixation, CPK, urine electrolytes, and fractional excretion of urea because she is on diuretics at home. The patient has on a low-sodium diet. Will increase diuretics with she needs fluid off. I discussed at length with the patient and with the son Conrad. We discussed that she needs the fluid off so I am going to increase her diuretics. If renal venous hypertension is the issue that her kidney function should improve. If ATN is the issue because of the bladder infection then it should improve as well with antibiotics. If this is just issues with cardiac output then diuresing may make things worse. It is possible that she might end up needing dialysis down the line but hopefully renal function will improve (2) Hypertension: Code(s): I10 - Essential (primary) hypertension Status: Acute Assessment and Plan: The patient's blood pressure is under good control. (3) Hyperlipidemia: Code(s): E78.5 - Hyperlipidemia, unspecified Status: Acute Assessment and Plan: The patient is on atorvastatin (4) Atrial fibrillation: Code(s): I48.91 - Unspecified atrial fibrillation Status: Acute Assessment and Plan: Patient is in sinus rhythm. Rate is good. (5) Pulmonary hypertension: Code(s): I27.20 - Pulmonary hypertension, unspecified Status: Acute Assessment and Plan: The patient has severe pulmonary hypertension. This could be from former smoking, or the diastolic dysfunction, or her sleep apnea. (6) Obstructive sleep apnea: Code(s): G47.33 - Obstructive sleep apnea (adult) (pediatric) Status: Acute Assessment and Plan: The patient has sleep apnea. (7) Volume overload: Code(s): E87.70 - Fluid overload, unspecified Status: Acute Assessment and Plan: The patient has the volume overload. Will increase diuretics as above. (8) Hyponatremia: Code(s): E87.1 - Hypo-osmolality and hyponatremia Status: Acute Assessment and Plan: The patient's sodium is low. This is probably a combination of things. She does have pre renal azotemia and so could have low sodium due to this. The patient is also on DDAVP at home and so this could cause low sodium as well. The patient is on trazodone and pantoprazole as well as duloxetine all of which can bring the sodium down. I will hold the desmopressin. Before changing other meds I will see how fluid restriction does. Also will get urine osmolality serum osmolality TSH and cortisol level. History of Present Illness Reason for Consult Consult d
[2023-04-05 14:00] VITALS: BP 100/84; PULSE 71; RESP 20; TEMP 36.1; O2SAT 94
[2023-04-05 14:56] LABS: Erythrocyte Sedimentation Rate 62 mm/hr (0-20)
[2023-04-05 15:04] LABS: Creatine Kinase 36 U/L (30-135)
[2023-04-05 15:13] LABS: Complement C3 92 mg/dL (88-165)
[2023-04-05 15:36] LABS: Thyroid Stimulating Hormone Reflex 0.965 uIU/mL (0.465-4.68)
[2023-04-05] MEDS: CEFEPIME 2 GM/NS 50 ML 2 GM/50 ML BAG IVPB (17:20)
[2023-04-05] MEDS: FUROSEMIDE INJ 40 MG/4 ML VIAL 80 MG IV PUSH (17:20)
[2023-04-05] MEDS: metOLazone 5 MG TABLET PO (17:31)
[2023-04-05] MEDS: traZODone HCL 25 MG TABLET PO (20:37)
[2023-04-05] MEDS: ATORVASTATIN 40 MG TABLET 80 MG PO (20:37)
[2023-04-05] MEDS: FERROUS SULFATE 325 MG TABLET DR BY MOUTH (20:37)
[2023-04-05 22:00] VITALS: BP 107/60; PULSE 82; RESP 18; TEMP 36.6; O2SAT 99
[2023-04-05 23:25] VITALS: O2SAT 98
[2023-04-06 00:54] LABS: Creatinine Urine 15.5 mg/dL; Total Protein Urine Random 21 mg/dL; Ur Ttl Prot Creatinine Ratio 1.35 mg/mg (0-0.20); Urea Random Urine 91 MG/DL
[2023-04-06 01:01] LABS: Sodium Urine Random 99 meq/L
--- NOTE | 2023-04-06 01:13 | PC.NURSE ---
Daylight Savings Time For Daylight Savings Time Ending in the Fall - Clocks are moved back. For Daylight Savings Time Beginning in the Spring - Clocks are moved ahead. For [facility], the time of change occurs at 0200 hrs. Time is taken from the fire observer. This entry on the patient's chart recognizes the change in time reflected during documentation. Example: 2 entries for vital signs may be charted for 0200 hrs.
[2023-04-06 06:00] VITALS: BP 102/70; PULSE 84; RESP 18; TEMP 36.6; O2SAT 98
[2023-04-06 06:39] LABS: Basophils Absolute Auto 0.1 K/mm3 (0.0-0.1); Basophils Percent Auto 0.7 % (0.2-1.2); Eosinophils Absolute Auto 0.1 K/mm3 (0-0.3); Eosinophils Percent Auto 1.2 % (0-4.4); Hematocrit 32.6 % (37.0-47.0); Immature Granulocyte Absolute 0.02 K/mm3 (0.00-0.031); Immature Granulocyte Percent A 0.2 % (0-0.5); Lymphocytes Absolute Auto 0.74 K/mm3 (0.9-3.2); Lymphocytes Percent Auto 9.1 % (18.3-44.2); Mean Corpuscular HGB Conc 30.7 g/dl (32-36); Mean Corpuscular Hemoglobin 27.7 pg (26-34); Mean Corpuscular Volume 90.3 fl (80-100); Monocytes Absolute Auto 0.8 K/mm3 (0.1-0.6); Neutrophils Absolute Auto 6.4 K/mm3 (1.3-6.7); Neutrophils Percent Auto 78.8 % (45.5-73.1); Platelet Count Result 295 k/mm3 (150-375); Red Blood Count 3.61 M/mm3 (4.2-5.4); Red Cell Distribution Width 15.3 % (11.5-14.5); White Blood Count 8.1 K/mm3 (4.5-10.0)
[2023-04-06 06:48] LABS: Alanine Aminotransferase 23 U/L (6-35); Albumin Level 3.4 g/dL (3.5-5.1); Alkaline Phosphatase 158 U/L (38-126); Anion Gap 7 mmol/L (8-16); Aspartate Amino Transferase 28 U/L (14-36); Bilirubin,Total 0.8 mg/dL (0.2-1.3); Blood Urea Nitrogen 33 mg/dL (7-17); Calcium 8.7 mg/dL (8.4-10.2); Carbon Dioxide 23 mmol/L (22-30); Chloride 99 mmol/L (98-107); Estimated CRCL calculation 23 ml/min; Estimated Glomerular Filt Rate 22; Glucose 89 mg/dL (65-110); Phosphorus 5.1 mg/dL (2.5-4.5); Potassium 4.6 mmol/L (3.4-5.0); Sodium 129 mmol/L (137-145)
[2023-04-06] MEDS: PANTOPRAZOLE 40 MG TABLET PO (08:15)
[2023-04-06] MEDS: OMEGA 3 POLYUNSAT FATTY ACIDS 1 GM CAP 2 GM PO ×2 (08:19→17:17)
[2023-04-06] MEDS: SPIRONOLACTONE 25 MG TABLET PO (08:19)
[2023-04-06] MEDS: FAMOTIDINE 20 MG TABLET PO (08:20)
[2023-04-06] MEDS: DULoxetine HCL 60 MG CAPSULE.DR PO (08:20)
[2023-04-06] MEDS: ACETAMINOPHEN 325 MG TABLET 650 MG PO ×2 (08:22→17:27)
[2023-04-06] MEDS: metOLazone 5 MG TABLET PO (08:23)
[2023-04-06] MEDS: FUROSEMIDE INJ 40 MG/4 ML VIAL 80 MG IV PUSH ×2 (08:24→17:17)
[2023-04-06] MEDS: hydrOXYzine HCL 10 MG TABLET PO ×2 (08:29→17:27)
[2023-04-06] MEDS: FLUTICASONE/UMECLIDIN/VILANTER 100-62.5-25 MCG ELLIPTA 1 PUFF INHALATION (08:53)
[2023-04-06 08:57] VITALS: PULSE 84; RESP 20; O2SAT 98
--- NOTE | 2023-04-06 13:49 | PM.PNNEP ---
Progress Note: A&P Assessment and Plan (1) AJ (acute kidney injury): Code(s): N17.9 - Acute kidney failure, unspecified Status: Acute Assessment and Plan: The patient has acute kidney injury. Baseline creatinine is 0.8 or so. She has only 1 kidney. Renal ultrasound shows no obstruction. UA shows white cells. Urine electrolytes are non pre renal and fraction excretion of urea is just barely non pre renal. CK is normal Echocardiogram shows diastolic dysfunction grade 2 and severe pulmonary hypertension with moderate pulmonary regurgitation and utzb-[id number]-[id number] tricuspid regurgitation. most likely AJ is due to hemodynamic effects of the pulmonary hypertension and the diastolic dysfunction. ATN from bladder infection is also a possible contributing factor. Await other tests looking into possibilities of intrinsic parenchymal disease. (2) Hypertension: Code(s): I10 - Essential (primary) hypertension Status: Chronic Assessment and Plan: The patient's blood pressure is under good control. (3) Hyperlipidemia: Code(s): E78.5 - Hyperlipidemia, unspecified Status: Acute Assessment and Plan: The patient is on atorvastatin (4) Atrial fibrillation: Code(s): I48.91 - Unspecified atrial fibrillation Status: Acute Assessment and Plan: Patient is in sinus rhythm. Rate is good. (5) Pulmonary hypertension: Code(s): I27.20 - Pulmonary hypertension, unspecified Status: Chronic Assessment and Plan: The patient has severe pulmonary hypertension. This could be from former smoking, or the diastolic dysfunction, or her sleep apnea. (6) Obstructive sleep apnea: Code(s): G47.33 - Obstructive sleep apnea (adult) (pediatric) Status: Chronic Assessment and Plan: The patient has sleep apnea. (7) Volume overload: Code(s): E87.70 - Fluid overload, unspecified Status: Acute Assessment and Plan: The patient has the volume overload. Urine output is improved some. Continue 1 more day of current regimen (8) Hyponatremia: Code(s): E87.1 - Hypo-osmolality and hyponatremia Status: Acute Assessment and Plan: The patient's sodium is low. TSH is okay. Cortisol level is only 11.7. She is on Trelegy which can sometimes suppressed cortisol level. Will do a Cortrosyn stim test. Desmopressin is on hold Osmolality values are pending. Most likely the hyponatremia is hemodynamic in origin. Sodium level is stable. See if this improves with removal of fluid Subjective Date/time seen: 04/06/23 13:49 Review of Systems Cardiovascular: Cardiovascular: Reports no additional cardiovascular complaints Respiratory: Respiratory: Reports no additional respiratory complaints Gastrointestinal: Gastrointestinal: Reports no additional gastrointestinal complaints Genitourinary: Genitourinary: Reports no additional female genitourinary complaints Exam Narrative: WDWN in NAD skin no rash head ncat lungs clear cor reg no rub abd BS+ nontender and soft ext 1-2+ edema. Objective Data Vital Signs Vital Signs: Vital Signs - 24 hr 04/05/23 20:00 04/05/23 22:00 04/05/23 23:25 Temperature 97.9 F Pulse Rate 82 Respiratory Rate 18 Blood Pressure 107/60 Pulse Oximetry 99 98 Oxygen Delivery Room Air Room Air 04/06/23 06:00 04/06/23 08:57 04/06/23 08:57 Temperature 97.8 F Pulse Rate 84 84 Respiratory Rate 18 20 Blood Pressure 102/70 Pulse Oximetry 98 98 Oxygen Delivery Room Air 04/06/23 10:15 04/06/23 11:18 04/06/23 08:25 Temperature Pulse Rate Respiratory Rate Blood Pressure Pulse Oximetry Oxygen Delivery Room Air Room Air Room Air Intake/Output Intake/Output: Intake & Output 04/03/23 04/04/23 04/05/23 04/06/23 23:59 23:59 23:59 22:59 Intake Total 50 1372 240 Output Total 1700 850 Balance 80 -924 -767
[2023-04-06 14:00] VITALS: BP 92/62; PULSE 85; RESP 18; TEMP 36.6; O2SAT 98
--- NOTE | 2023-04-06 15:36 | PM.IMPN ---
Progress Note: A&P Assessment and Plan (1) Congestive heart failure: Code(s): I50.9 - Heart failure, unspecified Status: Acute Assessment and Plan: Improving, almost euvolemic Fluid restriction per nephrology (2) Pulmonary edema: Code(s): J81.1 - Chronic pulmonary edema Status: Acute Assessment and Plan: Diuresis needed (3) AJ (acute kidney injury): Code(s): N17.9 - Acute kidney failure, unspecified Status: Acute Assessment and Plan: Appreciate nephrology consult (4) UTI (urinary tract infection): Code(s): N39.0 - Urinary tract infection, site not specified Status: Acute Assessment and Plan: Cont rocephin, follow up urine culture (5) GERD (gastroesophageal reflux disease): Code(s): K21.9 - Gastro-esophageal reflux disease without esophagitis Status: Acute Assessment and Plan: PPI (6) Alzheimer's dementia: Code(s): G30.9 - Alzheimer's disease, unspecified; F02.80 - Dementia in other diseases classified elsewhere, unspecified severity, without behavioral disturbance, psychotic disturbance, mood disturbance, and anxiety Status: Acute Assessment and Plan: Patient on duloxetine (7) Polymyalgia rheumatica: Code(s): M35.3 - Polymyalgia rheumatica Status: Acute Assessment and Plan: In remission (8) Obstructive sleep apnea: Code(s): G47.33 - Obstructive sleep apnea (adult) (pediatric) Status: Acute Assessment and Plan: Continue CPAP at nighttime (9) Atrial fibrillation: Code(s): I48.91 - Unspecified atrial fibrillation Status: Acute Assessment and Plan: Rate controlled (10) COPD (chronic obstructive pulmonary disease): Code(s): J44.9 - Chronic obstructive pulmonary disease, unspecified Status: Acute Assessment and Plan: Continue fluticasone. Continue to monitor And currently on supplemental oxygen by nasal Plan DVT prophylaxis with SCDs GI prophylaxis not indicated Code status full code Subjective Date/time seen: 04/06/23 15:36 Interval history: 77-year-old female with history of dementia, AFib, COPD among other comorbidities is presenting with shortness of breath and currently being treated for heart failure exacerbation. No overnight events noted. No chest pain. No nausea, vomiting or diarrhea. No fevers or chills. Breathing improved, almost back to baseline. Review of Systems Review of Systems: 12 point review of systems was assessed and was negative except as noted in the HPI Exam Narrative: General: No acute distress, alert and oriented per baseline HEENT: Atraumatic, normocephalic, mucous membranes moist CV: Regular rate and rhythm, S1, S2 Lungs: Improved air entry, somewhat diminished at bases Abdomen: Soft, nontender, nondistended Extremities: Normal to inspection, trace pitting edema bilateral lower extremity Skin: No rashes noted, no lesions or wounds seen Psych: Euthymic, normal affect Objective Data Vital Signs Vital Signs: Vital Signs - 24 hr 04/05/23 20:00 04/05/23 22:00 04/05/23 23:25 Temperature 97.9 F Pulse Rate 82 Respiratory Rate 18 Blood Pressure 107/60 Pulse Oximetry 99 98 Oxygen Delivery Room Air Room Air 04/06/23 06:00 04/06/23 08:57 04/06/23 08:57 Temperature 97.8 F Pulse Rate 84 84 Respiratory Rate 18 20 Blood Pressure 102/70 Pulse Oximetry 98 98 Oxygen Delivery Room Air 04/06/23 10:15 04/06/23 11:18 04/06/23 08:25 Temperature Pulse Rate Respiratory Rate Blood Pressure Pulse Oximetry Oxygen Delivery Room Air Room Air Room Air Intake/Output Intake/Output: Intake & Output 04/03/23 04/04/23 04/05/23 04/06/23 23:59 23:59 23:59 22:59 Intake Total 50 1372 240 Output Total 1700 850 Balance 05 -515 -237 Meds/Results Medications: Active Medicati
[2023-04-06] MEDS: CEFEPIME 2 GM/NS 50 ML 2 GM/50 ML BAG IVPB (17:18)
[2023-04-06 20:44] VITALS: BP 108/64; PULSE 95; RESP 17; TEMP 36.3; O2SAT 93
[2023-04-06] MEDS: ATORVASTATIN 40 MG TABLET 80 MG PO (21:07)
[2023-04-06] MEDS: FERROUS SULFATE 325 MG TABLET DR BY MOUTH (21:08)
[2023-04-06] MEDS: GABAPENTIN 300 MG CAPSULE 600 MG PO (21:08)
[2023-04-06] MEDS: traZODone HCL 25 MG TABLET PO (21:08)
[2023-04-07 05:39] LABS: Basophils Absolute Auto 0.1 K/mm3 (0.0-0.1); Basophils Percent Auto 0.9 % (0.2-1.2); Eosinophils Absolute Auto 0.1 K/mm3 (0-0.3); Eosinophils Percent Auto 1.9 % (0-4.4); Hematocrit 31.4 % (37.0-47.0); Hemoglobin 9.7 g/dL (12.0-15.0); Immature Granulocyte Absolute 0.02 K/mm3 (0.00-0.031); Immature Granulocyte Percent A 0.3 % (0-0.5); Lymphocytes Absolute Auto 0.66 K/mm3 (0.9-3.2); Lymphocytes Percent Auto 9.5 % (18.3-44.2); Mean Corpuscular HGB Conc 30.9 g/dl (32-36); Mean Corpuscular Hemoglobin 27.6 pg (26-34); Mean Corpuscular Volume 89.5 fl (80-100); Mean Platelet Volume 8.5 fl (7.4-10.4); Monocytes Percent Auto 14.7 % (2.6-8.5); Neutrophils Absolute Auto 5.1 K/mm3 (1.3-6.7); Neutrophils Percent Auto 72.7 % (45.5-73.1); Platelet Count Result 269 k/mm3 (150-375); Red Blood Count 3.51 M/mm3 (4.2-5.4); Red Cell Distribution Width 15.1 % (11.5-14.5)
[2023-04-07 05:46] VITALS: BP 91/64; PULSE 94; RESP 15; TEMP 36.4; O2SAT 93
[2023-04-07 05:50] LABS: Alanine Aminotransferase 22 U/L (6-35); Albumin Level 3.1 g/dL (3.5-5.1); Alkaline Phosphatase 144 U/L (38-126); Anion Gap 7 mmol/L (8-16); Aspartate Amino Transferase 27 U/L (14-36); Bilirubin,Total 0.8 mg/dL (0.2-1.3); Blood Urea Nitrogen 35 mg/dL (7-17); Calcium 8.6 mg/dL (8.4-10.2); Carbon Dioxide 24 mmol/L (22-30); Chloride 99 mmol/L (98-107); Estimated CRCL calculation 23 ml/min; Estimated Glomerular Filt Rate 22; Glucose 87 mg/dL (65-110); Potassium 4.4 mmol/L (3.4-5.0); Sodium 130 mmol/L (137-145)
[2023-04-07] MEDS: FLUTICASONE/UMECLIDIN/VILANTER 100-62.5-25 MCG ELLIPTA 1 PUFF INHALATION (08:13)
[2023-04-07 08:14] VITALS: O2SAT 96
--- NOTE | 2023-04-07 09:15 | P.PNNP_ITS ---
Progress Note: A&P Assessment and Plan (1) AJ (acute kidney injury): Code(s): N17.9 - Acute kidney failure, unspecified Status: Acute Assessment and Plan: * baseline creatinine normal * evaluation to date: * renal ultrasound shows no obstruction in her 1 kidney * UA shows white cells * urine electrolytes are non pre renal and fraction excretion of urea is just barely non pre renal * CK normal * Echo shows diastolic dysfunction grade 2 and severe pulmonary hypertension with moderate pulmonary regurgitation and [id number]-[id number] tricuspid regurgitation * suspect AJ is due to hemodynamic effects of the pulmonary hypertension and the diastolic dysfunction along with the need for diuretic therapy to maintain volume status * maybe a component of ATN from bladder infection/UTI as well * follow-up on pending testing * follow repeat labs and UOP (2) Hyponatremia: Code(s): E87.1 - Hypo-osmolality and hyponatremia Status: Acute Assessment and Plan: * relatively stable * TSH okay and cortisol on the lower end of normal * consider checking cosyntropin stim test * probably related to hemodynamics and AJ * hopefully should improve with optimization of fluid status (3) Volume overload: Code(s): E87.70 - Fluid overload, unspecified Status: Acute Assessment and Plan: * clinical improvement noted * continue diuretics (4) Hypertension: Code(s): I10 - Essential (primary) hypertension Status: Chronic Assessment and Plan: * reasonable control * follow trend of hemodyamics (5) Pulmonary hypertension: Code(s): I27.20 - Pulmonary hypertension, unspecified Status: Chronic Assessment and Plan: * as noted by Echo * presumably secondary to her previous smoking, or the diastolic dysfunction, or ZAK * likely a contributing component to #1 Will continue to follow. Subjective Date/time seen: 04/07/23 11:34 Interval history: Follow-up for acute kidney injury/acute renal failure. Chart reviewed -- assuming care from Dr. Watson; she reports that her breathing has significantly improved with current therapy/interventions; LE edema still present but a bit better as well; no apparent distress voiced at the time of my visit. Exam Narrative: General: elderly but WD/WN female in NAD Heart: normal S1 and S2; no rub Lungs: clear to auscultation Abdomen: soft, nontender, nondistended, positive bowel sounds Extremities: no cyanosis or clubbing; 1+ edema Skin: warm and dry Objective Data Vital Signs Vital Signs: Vital Signs Temp Pulse Resp BP Pulse Ox O2 Del Method 04/07/23 08:14 96 Room Air 04/07/23 05:46 97.5 F L 94 15 91/64 L 93 04/06/23 20:44 97.3 F L 95 17 108/64 93 04/06/23 14:00 98 F 85 18 92/62 L 98 Intake/Output Intake/Output: Intake & Output 04/05/23 04/06/23 04/06/23 04/07/23 00:59 00:59 23:59 23:59 Intake Total 240 Output Total 0 Balance 240 Meds/Results Medications: Active Medications Generic Name Dose Route Start Last Admin Trade Name Freq PRN Reason Stop Dose Admin Acetaminophen 650 mg 04/05/23 22:2
--- NOTE | 2023-04-07 09:15 | PM.PNNEP ---
Progress Note: A&P Assessment and Plan (1) AJ (acute kidney injury): Code(s): N17.9 - Acute kidney failure, unspecified Status: Acute Assessment and Plan: baseline creatinine normal evaluation to date: renal ultrasound shows no obstruction in her 1 kidney UA shows white cells urine electrolytes are non pre renal and fraction excretion of urea is just barely non pre renal CK normal Echo shows diastolic dysfunction grade 2 and severe pulmonary hypertension with moderate pulmonary regurgitation and [id number]-svlliqpx tricuspid regurgitation suspect AJ is due to hemodynamic effects of the pulmonary hypertension and the diastolic dysfunction along with the need for diuretic therapy to maintain volume status maybe a component of ATN from bladder infection/UTI as well follow-up on pending testing follow repeat labs and UOP (2) Hyponatremia: Code(s): E87.1 - Hypo-osmolality and hyponatremia Status: Acute Assessment and Plan: relatively stable TSH okay and cortisol on the lower end of normal consider checking cosyntropin stim test probably related to hemodynamics and AJ hopefully should improve with optimization of fluid status (3) Volume overload: Code(s): E87.70 - Fluid overload, unspecified Status: Acute Assessment and Plan: clinical improvement noted continue diuretics (4) Hypertension: Code(s): I10 - Essential (primary) hypertension Status: Chronic Assessment and Plan: reasonable control follow trend of hemodyamics (5) Pulmonary hypertension: Code(s): I27.20 - Pulmonary hypertension, unspecified Status: Chronic Assessment and Plan: as noted by Echo presumably secondary to her previous smoking, or the diastolic dysfunction, or ZAK likely a contributing component to #1 Will continue to follow. Subjective Date/time seen: 04/07/23 11:34 Interval history: Follow-up for acute kidney injury/acute renal failure. Chart reviewed -- assuming care from Dr. Watson; she reports that her breathing has significantly improved with current therapy/interventions; LE edema still present but a bit better as well; no apparent distress voiced at the time of my visit. Exam Narrative: General: elderly but WD/WN female in NAD Heart: normal S1 and S2; no rub Lungs: clear to auscultation Abdomen: soft, nontender, nondistended, positive bowel sounds Extremities: no cyanosis or clubbing; 1+ edema Skin: warm and dry Objective Data Vital Signs Vital Signs: Vital Signs Temp Pulse Resp BP Pulse Ox O2 Del Method 04/07/23 08:14 96 Room Air 04/07/23 05:46 97.5 F L 94 15 91/64 L 93 04/06/23 20:44 97.3 F L 95 17 108/64 93 04/06/23 14:00 98 F 85 18 92/62 L 98 Intake/Output Intake/Output: Intake & Output 04/05/23 04/06/23 04/06/23 04/07/23 00:59 00:59 23:59 23:59 Intake Total 240 Output Total 0 Balance 240 Meds/Results Medications: Active Medications Generic Name Dose Route Start Last Admin Trade Name Freq PRN Reason Stop Dose Admin Acetaminophen 650 mg 04/05/23 22:27 04/06/23 17:27 Acetaminophen 325 Mg Tablet PO 650 mg Q6H PRN Administration Mild Pain (1-3) or Fever Atorvastatin Calcium 80 mg 04/05/23 21:00 04/06/23 21:07 Atorvastatin 40 Mg Tablet PO 80 mg HS FATOUMATA Administration Duloxetine HCl 60 mg 04/05/23 09:00 04/07/23 10:08 Duloxetine Hcl 60 Mg Capsule.Dr PO 60 mg QAM FATOUMATA Administration Famotidine 20 mg 04/05/23 09:00 04/07/23 10:08 Famotidine 20 Mg Tablet PO 20 mg DAILY FATOUMATA Administration Ferrous Sulfate 325 mg 04/05/23 21:00 04/06/23 21:08 Ferrous Sulfate [address] BY MOUTH 325 mg HS FATOUMATA Administration Fish Oil 2 gm 04/05/23 09:00 04/07/23 10:08 [place] 3 Polyunsat Fatty Acids 1 Gm Cap PO 2 gm BID FATOUMATA Administration Fluticasone/Umeclidinium/Sadaf
[2023-04-07] MEDS: metOLazone 5 MG TABLET PO (10:08)
[2023-04-07] MEDS: FAMOTIDINE 20 MG TABLET PO (10:08)
[2023-04-07] MEDS: DULoxetine HCL 60 MG CAPSULE.DR PO (10:08)
[2023-04-07] MEDS: OMEGA 3 POLYUNSAT FATTY ACIDS 1 GM CAP 2 GM PO (10:08)
[2023-04-07] MEDS: SPIRONOLACTONE 25 MG TABLET PO (10:08)
[2023-04-07] MEDS: PANTOPRAZOLE 40 MG TABLET PO (10:08)
--- NOTE | 2023-04-07 12:55 | PC.NURSE ---
Daisy Adan assessed and cared for this patient on 04/07/23. I have reviewed and agreed with her charting
--- NOTE | 2023-04-07 13:09 | PM.DS ---
DS: Admitting Diagnosis Discharge Date 04/07/23 Admitting Diagnosis sob DS: Discharge Diagnosis Discharge Diagnosis (1) Congestive heart failure: Code(s): I50.9 - Heart failure, unspecified Status: Acute Assessment and Plan: Improving, almost euvolemic Fluid restriction per nephrology (2) Pulmonary edema: Code(s): J81.1 - Chronic pulmonary edema Status: Acute Assessment and Plan: Diuresis needed (3) AJ (acute kidney injury): Code(s): N17.9 - Acute kidney failure, unspecified Status: Acute Assessment and Plan: Appreciate nephrology consult (4) UTI (urinary tract infection): Code(s): N39.0 - Urinary tract infection, site not specified Status: Acute Assessment and Plan: Cont rocephin, follow up urine culture (5) GERD (gastroesophageal reflux disease): Code(s): K21.9 - Gastro-esophageal reflux disease without esophagitis Status: Acute Assessment and Plan: PPI (6) Alzheimer's dementia: Code(s): G30.9 - Alzheimer's disease, unspecified; F02.80 - Dementia in other diseases classified elsewhere, unspecified severity, without behavioral disturbance, psychotic disturbance, mood disturbance, and anxiety Status: Acute Assessment and Plan: Patient on duloxetine (7) Polymyalgia rheumatica: Code(s): M35.3 - Polymyalgia rheumatica Status: Acute Assessment and Plan: In remission (8) Obstructive sleep apnea: Code(s): G47.33 - Obstructive sleep apnea (adult) (pediatric) Status: Chronic Assessment and Plan: Continue CPAP at nighttime (9) Atrial fibrillation: Code(s): I48.91 - Unspecified atrial fibrillation Status: Acute Assessment and Plan: Rate controlled (10) COPD (chronic obstructive pulmonary disease): Code(s): J44.9 - Chronic obstructive pulmonary disease, unspecified Status: Acute Assessment and Plan: Continue fluticasone. Continue to monitor And currently on supplemental oxygen by nasal Plan DVT prophylaxis with SCDs GI prophylaxis not indicated Code status full code DS: Summary Hospital Course Hospital Course: 77-year-old female with history of dementia, AFib, COPD among other comorbidities is presenting with shortness of breath and currently being treated for heart failure exacerbation. renal ultrasound shows no obstruction in her 1 kidney Echo shows diastolic dysfunction grade 2 and severe pulmonary hypertension with moderate pulmonary regurgitation and wrui-oi-vzgpifsb tricuspid regurgitation suspect AJ is due to hemodynamic effects of the pulmonary hypertension and the diastolic dysfunction along with the need for diuretic therapy to maintain volume status maybe a component of ATN from bladder infection/UTI as well All symptoms improved with diuresis and fluid restriction, d/c in stable condition. See above and med rec for details. Time Spent with Patient Time attestation: Total time spent providing and/or coordinating discharge services: Exam Narrative: General: No acute distress, alert and oriented per baseline HEENT: Atraumatic, normocephalic, mucous membranes moist CV: Regular rate and rhythm, S1, S2 Lungs: Improved air entry, somewhat diminished at bases Abdomen: Soft, nontender, nondistended Extremities: Normal to inspection, trace pitting edema bilateral lower extremity Skin: No rashes noted, no lesions or wounds seen Psych: Euthymic, normal affect DS: Data Data Completed and Pending Labs on day of discharge: Labs from last 24 hours 04/07/23 05:27 WBC 7.0 RBC 3.51 L Hgb 9.7 L Hct 31.4 L MCV 89.5 MCH 27.6 MCHC 30.9 L RDW 15.1 H Plt Count 269 MPV 8.5 Immature Gran % (Auto) 0.3 Neut % (Auto) 72.7 Lymph % (Auto) 9.5 L [place] % (Auto) 14.7 H Eos % (Auto) 1.9 Baso % (Auto) 0.9 Lymph # (Auto) 0.66 L [place] # (Auto) 1.
[2023-04-08 14:56] LABS: Abnormal Protein Band 1 0.7 g/dL; Albumin 2.9 g/dL (3.8-4.8); Alpha 1 Globulin 0.5 g/dL (0.2-0.3); Beta 1 Globulin 0.4 g/dL (0.4-0.6); Gamma Globulin 1.9 g/dL (0.8-1.7); Protein, Total 7.1 g/dL (6.1-8.1)
[2023-04-09 00:43] LABS: Kappa\\Lambda Light Chains 1.82 (0.26-1.65); Lambda Light Chain 184.4 mg/L (5.7-26.3)
[2023-04-09 17:56] LABS: Complement Total CH50 44 U/mL (31-60)
[2023-04-10 15:49] LABS: Osmolality, Urine 269 mOsm/kg (50-1200)
[2023-04-12 04:49] LABS: Anti Nuclear Antibody Titer >=1:1280 (Negative)
== END 2023-04-07 13:00 | disposition home or self-care (01) | DRG 291 ==
LOC: ANHED 17:00 → ANH3MEDSUR 17:22
PROVIDERS: Emergency Medicine; Internal Medicine Nephrology; Admitting Provider Internal Medicine; Emergency Provider Emergency Medicine; PCP Family Medicine; Visit Provider Student in an Organized Health Care Education/Training Program
DX: I11.0 Hypertensive heart disease with heart failure (principal); I50.33 Acute on chronic diastolic (congestive) heart failure; E87.1 Hypo-osmolality and hyponatremia; I48.20 Chronic atrial fibrillation, unspecified; N17.9 Acute kidney failure, unspecified; I50.9 Heart failure, unspecified; I36.1 Nonrheumatic tricuspid (valve) insufficiency; I27.20 Pulmonary hypertension, unspecified; I37.1 Nonrheumatic pulmonary valve insufficiency; J44.9 Chronic obstructive pulmonary disease, unspecified; E78.5 Hyperlipidemia, unspecified; K58.9 Irritable bowel syndrome, unspecified; M16.11 Unilateral primary osteoarthritis, right hip; M35.3 Polymyalgia rheumatica; G47.33 Obstructive sleep apnea (adult) (pediatric); G30.9 Alzheimer's disease, unspecified; F02.80 Dementia in other diseases classified elsewhere, unspecified severity, without behavioral disturbance, psychotic disturbance, mood disturbance, and anxiety; F32.A Depression, unspecified; F41.9 Anxiety disorder, unspecified; Z96.649 Presence of unspecified artificial hip joint; Z86.73 Personal history of transient ischemic attack (TIA), and cerebral infarction without residual deficits; Z87.891 Personal history of nicotine dependence; Z85.51 Personal history of malignant neoplasm of bladder; Z87.11 Personal history of peptic ulcer disease; Z87.898 Personal history of other specified conditions; Z93.51 Cutaneous-vesicostomy status; Z90.5 Acquired absence of kidney
CPT/HCPCS: 36415; 71046; 76775; 80053; 81001; 82533; 82550; 82570; 83880; 83883; 83930; 83935; 84100; 84155; 84156; 84165; 84300; 84443; 84540; 85025; 85652; 86038; 86039; 86160; 86162; 86334; 86335; 87086; 87088; 93005; 94640; 97162; 97165; 99285; A9270; C8929; J0692; J1940; Q9957

== ENCOUNTER 2023-04-15 12:07 | Inpatient (IN) | payer MEDICARE, MEDICAID, SELFPAY ==
[2023-04-15] VITALS (9 sets, daily range): BP systolic 95–150; BP diastolic 60–83; PULSE 54–77; RESP 14–20; TEMP 36.4–37; O2SAT 93–100; BMI 37.5
--- NOTE | ~2023-04-15 | XR_ITS ---
EXAMINATION: XR pelvis 1-2V DATE: 04/15/2023 16:03 INDICATION: Fall. TECHNIQUE: An anteroposterior view of the pelvis was obtained. COMPARISON: CT abdomen and pelvis 06/27/2021 FINDINGS: There is a total right hip arthroplasty in near-anatomic alignment. No fracture. There is l umbar dextrocurvature and severe spondylosis. There is mild left hip osteoarthritis. Osteitis pubis i s noted. Surgical clips overlie the abdomen and pelvis. IMPRESSION: 1. Total right hip arthroplasty in near-anatomic alignment. 2. Mild left hip osteoarthritis. Reviewed, dictated and finalized at location A. RTMENT EDITOR
--- NOTE | ~2023-04-15 | CT_ITS ---
Non-contrast Head CT History: Status post fall Technique: Axial non-contrast imaging of the brain was performed. Dose reduction technique was used on this scan by utilizing automated exposure control and iterative reconstruction technique. The dose -length product (DLP) was 681.00 mGy-cm. Findings: There is no evidence of intracranial hemorrhage, mass lesion, or acute infarct. Brain par enchyma appears normal. The ventricles and subarachnoid spaces are normal in size. The calvarium ap pears normal. The visualized paranasal sinuses and mastoid air cells are clear. Impression: No significant abnormality seen. Reviewed, dictated and finalized at location . D ARTILLERY SENIOR SERGEANT Impression: No significant abnormality seen.
--- NOTE | ~2023-04-15 | XR_ITS ---
EXAMINATION: XR bone survey comp/metastic DATE: 04/19/2023 11:28 INDICATION: Multiple myeloma. TECHNIQUE: 32 views of a skeletal survey were obtained. COMPARISON: CT chest, abdomen, and pelvis 06/27/2021 FINDINGS: A calcified right lung nodule and calcified right hilar and mediastinal lymph nodes are con sistent with old granulomatous disease. The central pulmonary arteries are enlarged, consistent with pulmonary arterial hypertension. There is a total left knee arthroplasty in near-anatomic alignment. There is a small left knee joint effusion. There is a total right hip arthroplasty in near-anatomic a lignment. Surgical clips overlie the abdomen and pelvis. There is a total right knee arthroplasty in near-anatomic alignment. There is a chronic compression fracture of T9. IMPRESSION: 1. No evidence of multiple myeloma. Reviewed, dictated and finalized at location A. HEEL CEMENTER
--- NOTE | ~2023-04-15 | XR_ITS ---
Clinical Indication: Weakness AP and lateral views of the chest: Comparison: 04/04/2023 Findings: The lungs are clear, without evidence of focal consolidation or pleural effusion. Cardiome diastinal silhouette is stable. Bones and soft tissues are unremarkable. Impression: Stable cardiomegaly and prominent hilar vascular structures. No acute pulmonary pathology evident. Reviewed, dictated and finalized at location . RD SYSTEMS ANALYST Impression: Stable cardiomegaly and prominent hilar vascular structures. No acute pulmonary pathology evident.
--- NOTE | ~2023-04-15 | CT_ITS ---
Noncontrast CT scan of the cervical spine Technique: Multiple contiguous axial [address] images of the cervical spine were obtained and rec onstructed in 2D sagittal and coronal planes on the acquisition scanner. Dose reduction technique was used on this scan by utilizing automated exposure control, adjustment of the mA and/or kV according to patient size. The dose-length product (DLP) was 432.99 mGy-cm. Clinical History: Pain Findings: No fracture or sublocation. There is straightening of the normal cervical lordosis. There i s severe degenerative disc narrowing throughout the cervical spine, with relative sparing of the C2-C 3 disc space. There is multilevel mild facet joint degenerative change of the cervical spine. Probabl e mild canal stenosis at C5-C6 with disc ossify complex present. No prevertebral soft tissue swelling . Impression: No fracture or subluxation of the cervical spine. Degenerative change, as above. Reviewed, dictated and finalized at [facility]. ECT COORDINATOR Impression: No fracture or subluxation of the cervical spine. Degenerative change, as above.
--- NOTE | 2023-04-15 12:18 | ECG_ITS ---
Measurements Intervals [place] Rate: 49 P: DE: 0 QRS: 33 QRSD: 89 T: 16 QT: 443 QTc: 401 Interpretive Statements SINUS BRADYCARDIA WITH MARKED SINUS ARRHYTHMIA INCOMPLETE RIGHT BUNDLE BRANCH BLOCK LOW QRS VOLTAGE IN PRECORDIAL LEADS BASELINE ARTIFACT- I, II, III, AVR, AVL, AVF, V1-V2 ABNORMAL ECG COMPARED TO ECG 04/04/2023 14:10:22 HEART RATE HAS DECREASED SINUS ARRHYTHMIA NOW PRESENT Electronically Signed On 04-15-2023 14:56:33 [employer] by Lukas Diaz D.O.
[2023-04-15 14:30] LABS: Basophils Absolute Auto 0.1 K/mm3 (0.0-0.1); Basophils Percent Auto 0.6 % (0.2-1.2); Eosinophils Percent Auto 0.1 % (0-4.4); Hematocrit 33.3 % (37.0-47.0); Hemoglobin 10.3 g/dL (12.0-15.0); Immature Granulocyte Absolute 0.04 K/mm3 (0.00-0.031); Immature Granulocyte Percent A 0.4 % (0-0.5); Lymphocytes Absolute Auto 0.72 K/mm3 (0.9-3.2); Lymphocytes Percent Auto 6.9 % (18.3-44.2); Mean Corpuscular HGB Conc 30.9 g/dl (32-36); Mean Corpuscular Hemoglobin 28.3 pg (26-34); Mean Corpuscular Volume 91.5 fl (80-100); Mean Platelet Volume 9.7 fl (7.4-10.4); Monocytes Absolute Auto 0.7 K/mm3 (0.1-0.6); Monocytes Percent Auto 6.7 % (2.6-8.5); Neutrophils Absolute Auto 8.9 K/mm3 (1.3-6.7); Neutrophils Percent Auto 85.3 % (45.5-73.1); Platelet Count Result 234 k/mm3 (150-375); Red Blood Count 3.64 M/mm3 (4.2-5.4); Red Cell Distribution Width 14.7 % (11.5-14.5); White Blood Count 10.4 K/mm3 (4.5-10.0)
--- NOTE | 2023-04-15 15:45 | ED.FALL ---
HPI - Fall General Chief Complaint: Fall Stated Complaint: fall Time Seen by Provider: 04/15/23 14:50 Source: patient Limitations: no limitations History of Present Illness HPI Narrative: Patient is a 77-year-old female presents to the emergency department complaining of a fall. Patient states around approximately 1:00 p.m. she was going to get up in the kitchen and she typically uses a walker to ambulate however she felt her legs giving out and so she fell onto her left side hitting the left side of her head and left side of her body. Patient used her necklace collar to contact EMS was brought in for further evaluation. Patient admits to being on blood thinners and take it as prescribed for history of atrial fibrillation. Patient denies loss of consciousness or amnesia to the event. Patient denies any numbness, weakness, nausea, vomiting, melena, hematochezia, abdominal pain, chest pain shortness of breath, extremity pain, neck pain, paresthesias, confusion the patient admits to a history of bladder cancer and frequent urinary tract infections and believes she may be on an antibiotic currently. Patient denies hematuria. Patient states that she self caths daily for chronic urinary dysfunction. Patient admits to history of only having 1 kidney. Patient states her tetanus is up-to-date. Related Data Home Medications Medication Instructions Recorded Confirmed icosapent ethyl 1 gram capsule 2 g PO BID 09/17/22 04/04/23 (Vascepa) metoprolol succinate 25 mg 50 mg PO DAILY 09/17/22 04/04/23 tablet,extended release 24 hr trazodone 50 mg tablet 25 mg PO QHS 09/17/22 04/04/23 atorvastatin 40 mg tablet 80 mg PO HS 04/04/23 04/04/23 esomeprazole magnesium 40 mg 40 mg PO DAILY 04/04/23 04/04/23 capsule,delayed release famotidine 20 mg tablet 20 mg PO DAILY 04/04/23 04/04/23 ferrous sulfate 325 mg (65 mg 325 mg PO DAILY 04/04/23 04/04/23 iron) tablet gabapentin 300 mg capsule 600 mg PO DAILY 04/04/23 04/04/23 mclzglyzfmy-tvesoqxwx-vuc C-Mn 500 1 cap PO BID 04/04/23 04/04/23 mg-400 mg capsule (Glucosamine Chondroitin Maximum Strength) hydroxyzine HCl 10 mg tablet 10 mg PO BID PRN Anxiety 04/04/23 04/04/23 lisinopril 20 mg tablet 20 mg PO QAM 04/04/23 04/04/23 nystatin-triamcinolone 100,000 1 applic topical BID PRN Abdomen 04/04/23 04/04/23 unit/g-0.1 % topical cream spironolactone 25 mg tablet 25 mg PO DAILY 04/04/23 04/04/23 triamcinolone acetonide 0.1 % 1 applic topical BID PRN Cracked 04/04/23 04/04/23 topical cream Lips Allergies Allergy/AdvReac Type Severity Reaction Status Date / Time Penicillins Allergy Mild Rash Verified 04/04/23 18:40 cefuroxime Allergy Rash Verified 04/04/23 18:40 doxycycline Allergy Rash Verified 04/04/23 18:40 nitrofurantoin Allergy Rash Verified 04/04/23 18:40 papaya Allergy Swelling Verified 04/04/23 18:40 of Lip/Tongue/Throat Sulfa (Sulfonamide Allergy Rash Verified 04/04/23 18:40 Antibiotics) Review of Systems Review of Systems: A 10 system review of systems was completed on the patient and is negative except for what is stated in the HPI. Nursing and ancillary documentation was reviewed. [facility]LY [facility] Past Medical History Medical History Alzheimer's dementia Anxiety Atrial fibrillation Bladder cancer Cancer COPD (chronic obstructive pulmonary disease) Depression History of gastric ulcer Hyperlipidemia Hypertension Irritable bowel disease Nocturnal enuresis Obstructive sleep apnea Osteoarthritis of right hip Peptic ulcer disease Polymyalgia rheumatica Pulmonary emphysema Pulmonary hypertension Stroke Ulcers of both great toes Surgical History Surgical History H/O: hysterectomy History of appendectomy History of arthroplasty of knee History of cholecystectomy History of cystostomy History of hip replacement, total History of urostomy F
[2023-04-15 15:55] LABS: Alanine Aminotransferase 21 U/L (6-35); Albumin Level 3.8 g/dL (3.5-5.1); Alkaline Phosphatase 147 U/L (38-126); Anion Gap 13 mmol/L (8-16); Aspartate Amino Transferase 31 U/L (14-36); Bilirubin,Total 0.7 mg/dL (0.2-1.3); Blood Urea Nitrogen 39 mg/dL (7-17); Carbon Dioxide 20 mmol/L (22-30); Chloride 97 mmol/L (98-107); Estimated CRCL calculation 19 ml/min; Estimated Glomerular Filt Rate 18; Glucose 92 mg/dL (65-110); Potassium 6.3 mmol/L (3.4-5.0); Sodium 130 mmol/L (137-145)
[2023-04-15 16:01] LABS: Appearance Urine Cloudy (Clear); Bacteria Urine None Seen /hpf; Bilirubin Urine 1+ (Negative); Blood Urine Negative (Negative); Color Urine Dark Yellow (Yellow); Glucose Urine UA Negative (Negative); Ketones Urine Negative (Negative); Leukocyte Esterase Ur Trace LEU/UL (Negative); Need Manual Microscopic Reviewed; Nitrate Urine Negative (Negative); Non Pathogenic Casts >20; Protein Urine Trace mg/dL (Negative); RBC Urine 0-2 /hpf (0-2); Specific Grav Ur 1.016 (1.001-1.035); Squamous Epithelial Cell Urine None seen /hpf (Few); Urobilinogen Urine 0.2 mg/dL (<2.0); pH Urine 6.5 (5.0-9.0)
[2023-04-15 16:03] LABS: Add Urine Microscopic? YES
[2023-04-15 16:23] LABS: Magnesium 2.1 mg/dL (1.6-2.3)
[2023-04-15 16:53] LABS: Influenza A QL RT-PCR Negative (Negative); Influenza B QL RT-PCR Negative (Negative); SARS-CoV-2 RNA PCR Negative (Negative)
[2023-04-15] MEDS: ACETAMINOPHEN 500 MG TABLET 1000 MG PO (17:10)
[2023-04-15] MEDS: SODIUM BICARBONATE 8.4% 50 MEQ/50 ML SYRINGE IV PUSH (17:43)
[2023-04-15] MEDS: DEXTROSE 50% 25 GM/50 ML SYRINGE IV PUSH (17:44)
[2023-04-15] MEDS: INSULIN HUMAN REGULAR (*BKC) 100 UNITS/ML 10 UNITS IV PUSH (17:47)
[2023-04-15] MEDS: SODIUM CHLORIDE 0.9% IV 1,000 ML 999 ML (17:54)
[2023-04-15] MEDS: SODIUM POLYSTYRENE SULFONONATE 15 GM/60 ML BTL 30 GM PO (17:54)
[2023-04-15 17:57] LABS: Glucose Point of Care 83 mg/dl (65-105)
[2023-04-15 20:36] LABS: Potassium 5.3 mmol/L (3.4-5.0)
--- NOTE | 2023-04-15 20:57 | ADMGEN ---
This patient, Marilee Lisandro Kilgore, was admitted to Medical Room 342-01. Patient/family oriented to hospital policies and general routines including ID bracelet, bed and alarms, visiting hours, pain management, procedures, bathroom and other care routines, personal items, smoking policy, room service/diet, and visiting hours. Information on how to activate the Rapid Response Team has been discussed. Patient/Family are encouraged to report perceived risks to care and to ask questions if they do not understand what they are told or what they should do.
[2023-04-15] MEDS: SODIUM CHLORIDE 0.9% IV 1,000 ML 125 ML IV CONT (21:40)
[2023-04-16] VITALS (18 sets, daily range): BP systolic 91–101; BP diastolic 51–64; PULSE 70–92; RESP 16–20; TEMP 36.1–36.4; O2SAT 91–98
--- NOTE | 2023-04-16 02:12 | PM.IMHP ---
H&P: HPI History of Present Illness Date/Time: 04/16/23 02:12 Chief Complaint: Legs gave out Narrative: 77-year-old female with a past medical history of dementia, COPD, grade 2 diastolic heart failure, chronic kidney disease stage 3, severe pulmonary hypertension and obstructive sleep apnea, bladder cancer status post cystectomy with creation of neobladder with urostomy who presented to the ER after her legs just gave out. The patient herself reports that her chief complaint is actually shortness of breath and too much fluid. She had to be reminded that she had fallen. She reports that she lives at home alone. She does have a history of dementia but is currently alert oriented x3. She has some difficulty giving me specific details regarding symptoms. She states that she usually straight catheterization 4 times a day. She has been having difficulty at times getting the urine out of her ostomy because it is thick. However she also reports that she has having difficulty with increasing edema and worsening of her COPD. She reports that she has been wheezing more for the last 3 weeks. She followed up with her station chief in March regarding her obstructive sleep apnea. They ordered an echo at that time which demonstrated grade 2 diastolic dysfunction and severe pulmonary hypertension. She reports that she had does not have nebulizers at home but does have rescue inhalers. She states that she does not use them very often that she can usually work past her symptoms by holding her breath for a few seconds and coming down. She has been having increased cough for a couple of weeks as well. Cough is nonproductive. She denies any fevers or chills. She was hyperkalemic in the ER and received Kayexalate. Subsequently she has had several bowel movements. She denies any nausea vomiting. She has been taking spironolactone and lisinopril at home. The patient's weight is up 5 kg compared to her outpatient visit on 04/04/2023 of 97 kg. The patient was perseverating regarding her leg swelling and breathing and was difficult to obtain review of systems and the remainder of the history. Review of Systems Review of Systems: 12 systems were reviewed with pertinent positives and negatives per HPI. Except as documented in the HPI, all other systems were reviewed and are negative. [facility] Past Medical History Medical History (Updated 04/16/23 @ 06:59 by Jessica Frias DO) Alzheimer's dementia Anxiety Atrial fibrillation Bladder cancer CKD (chronic kidney disease) stage 4, GFR 15-29 ml/min COPD (chronic obstructive pulmonary disease) Depression History of gastric ulcer Hyperlipidemia Hypertension Irritable bowel disease Nocturnal enuresis Obstructive sleep apnea CPAP of 14 Peptic ulcer disease Polymyalgia rheumatica Pulmonary emphysema Pulmonary hypertension Severe on echocardiogram 04/2023 Right-sided heart failure Echocardiogram April 2023: EF 65-70% mildly increased left ventricular wall thickness, left ventricular diastolic function grade 2 dysfunction, D shaped septum in systole consistent with right ventricular pressure overload, right ventricular chamber severely enlarged with reduced function, severe right atrial enlargement, moderate left atrial enlargement, moderate mitral valve regurgitation [id number] tricuspid regurgitation severe pulmonary hypertension with RVSP of 72 Stroke Ulcers of both great toes Surgical History Surgical History H/O: hysterectomy History of appendectomy History of arthroplasty of knee History of cholecystectomy History of cystostomy History of hip replacement, total History of urostomy Family History Family History Father Skin cancer Diabetes mellitus Hypertension Heart disease Mother Hypertension Depression Sibling Pancreatic cancer Hypertension Depression Other
[2023-04-16 06:26] LABS: Hematocrit 31.2 % (37.0-47.0); Hemoglobin 9.3 g/dL (12.0-15.0); Mean Corpuscular HGB Conc 29.8 g/dl (32-36); Mean Corpuscular Hemoglobin 27.8 pg (26-34); Mean Corpuscular Volume 93.4 fl (80-100); Mean Platelet Volume 9.2 fl (7.4-10.4); Platelet Count Result 203 k/mm3 (150-375); Red Blood Count 3.34 M/mm3 (4.2-5.4); Red Cell Distribution Width 14.9 % (11.5-14.5)
[2023-04-16 06:38] LABS: Anion Gap 12 mmol/L (8-16); Blood Urea Nitrogen 39 mg/dL (7-17); Calcium 8.5 mg/dL (8.4-10.2); Carbon Dioxide 18 mmol/L (22-30); Chloride 103 mmol/L (98-107); Estimated CRCL calculation 21 ml/min; Estimated Glomerular Filt Rate 20; Glucose 76 mg/dL (65-110); Magnesium 2.1 mg/dL (1.6-2.3); Phosphorus 5.5 mg/dL (2.5-4.5); Potassium 5.7 mmol/L (3.4-5.0); Sodium 133 mmol/L (137-145)
[2023-04-16] MEDS: ALBUTEROL SULFATE NEB 2.5 MG/3 ML INH 5 MG INHALATION ×3 (07:44→20:38)
[2023-04-16] MEDS: FLUTICASONE/UMECLIDIN/VILANTER 100-62.5-25 MCG ELLIPTA 1 PUFF INHALATION (08:00)
[2023-04-16] MEDS: METOPROLOL SUCCINATE EXT REL 25 MG TABCR PO (08:22)
[2023-04-16] MEDS: FUROSEMIDE INJ 40 MG/4 ML VIAL IV PUSH (08:22)
[2023-04-16] MEDS: FAMOTIDINE 20 MG TABLET PO (08:23)
[2023-04-16] MEDS: OMEGA 3 POLYUNSAT FATTY ACIDS 1 GM CAP 2 GM PO ×2 (08:23→16:47)
[2023-04-16] MEDS: GABAPENTIN 300 MG CAPSULE 600 MG PO (08:23)
[2023-04-16] MEDS: FERROUS SULFATE 325 MG TABLET DR BY MOUTH (08:23)
[2023-04-16] MEDS: PANTOPRAZOLE 40 MG TABLET PO (08:23)
[2023-04-16] MEDS: DULoxetine HCL 60 MG CAPSULE.DR PO (08:23)
[2023-04-16] MEDS: SODIUM BICARBONATE TAB 650 MG TABLET PO ×2 (08:23→16:47)
--- NOTE | 2023-04-16 08:33 | PM.IMPN ---
Progress Note: A&P Assessment and Plan (1) Congestive heart failure: Qualifiers: Heart failure type: right heart failure due to left heart failure Qualified Code(s): I50.814 - Right heart failure due to left heart failure Code(s): I50.9 - Heart failure, unspecified Status: Acute Assessment and Plan: Echo from 04/05 showed an EF of 65-70%, grade 2 diastolic dysfunction as well as severe right-sided heart failure, severe pulmonary hypertension and multiple valvular abnormalities Cardiology consult ordered and pending (2) COPD (chronic obstructive pulmonary disease): Qualifiers: COPD type: COPD with acute exacerbation Qualified Code(s): J44.1 - Chronic obstructive pulmonary disease with (acute) exacerbation Code(s): J44.9 - Chronic obstructive pulmonary disease, unspecified Status: Acute Assessment and Plan: Does not appear to be in acute exacerbation (3) CKD (chronic kidney disease) stage 4, GFR 15-29 ml/min: Code(s): N18.4 - Chronic kidney disease, stage 4 (severe) Status: Acute Assessment and Plan: Continue sodium bicarb tablets, appreciate nephrology consultation, pending (4) Obstructive sleep apnea: Code(s): G47.33 - Obstructive sleep apnea (adult) (pediatric) Status: Chronic Assessment and Plan: Respiratory therapy for CPAP at night (5) Acute hyperkalemia: Code(s): E87.5 - Hyperkalemia Status: Acute Assessment and Plan: Potassium slightly improved to 5.7 from admission when it was 6.3, up a little since yesterday when it was 5.3 Appreciate nephrology consultation Plan DVT prophylaxis with SCDs GI prophylaxis not indicated Code status full code Subjective Date/time seen: 04/16/23 08:33 Interval history: 77-year-old female with history of dementia, heart failure as well as bladder cancer and urostomy is presenting with weakness and shortness of breath is currently being treated for volume overloaded likely from cardiorenal syndrome and severe right-sided heart failure. No overnight events noted. No chest pain. No nausea, vomiting or diarrhea. No fevers or chills. Still with shortness of breath, but mainly with minimal exertion, improved at rest. Review of Systems Review of Systems: 12 point review of systems was assessed and was negative except as noted in the HPI Exam Narrative: General: No acute distress, alert and oriented per baseline HEENT: Atraumatic, normocephalic, mucous membranes moist CV: Regular rate and rhythm, S1, S2 Lungs: Clear to auscultation, diminished at bases with a few scattered crackles, no wheeze Abdomen: Soft, nontender, nondistended Extremities: Normal to inspection, 1+ pitting edema B/L LE Skin: No rashes noted, no lesions or wounds seen Psych: Euthymic, normal affect Objective Data Vital Signs Vital Signs: Vital Signs - 24 hr 04/15/23 12:31 04/15/23 14:04 04/15/23 15:15 Temperature 98.6 F Pulse Rate 70 54 L 77 Respiratory Rate 18 20 20 Blood Pressure 98/62 L 130/76 125/72 Pulse Oximetry 100 Oxygen Delivery 04/15/23 16:04 04/15/23 17:08 04/15/23 18:00 Temperature Pulse Rate 60 63 72 Respiratory Rate 16 14 16 Blood Pressure 125/70 141/76 H 150/70 H Pulse Oximetry 93 95 95 Oxygen Delivery 04/15/23 18:30 04/15/23 20:13 04/15/23 21:51 Temperature 97.5 F L Pulse Rate 69 67 64 Respiratory Rate 16 16 16 Blood Pressure 132/83 102/60 95/65 L Pulse Oximetry 94 95 93 Oxygen Delivery 04/15/23 23:26 04/16/23 00:00 04/16/23 04:00 Temperature Pulse Rate 92 91 Respiratory Rate Blood Pressure Pulse Oximetry Oxygen Delivery Room Air 04/16/23 06:00 04/16/23 07:46 04/16/23 07:48 Temperature 97.5 F L Pulse Rate 85 78 Respiratory Rate 16 16 Blood Pressure 95/51 L Pulse Oximetry 93 91 Oxygen Delivery Room Air 04/16/23 07:55 04/16/23 08:22 [facility]
[2023-04-16] MEDS: SODIUM ZIRCONIUM CYCLOSILICATE 10 GM POWD.PACK PO ×2 (11:31→17:36)
[2023-04-16] MEDS: ACETAMINOPHEN 325 MG TABLET 650 MG PO (13:09)
--- NOTE | 2023-04-16 13:20 | PM.CNCAR ---
Assessment and Plan Assessment and plan (1) Fall: Qualifiers: Encounter type: initial encounter Qualified Code(s): W19.XXXA - Unspecified fall, initial encounter Code(s): W19.XXXA - Unspecified fall, initial encounter Status: Acute Assessment and Plan: Patient presented with a fall, probably due to intravascular depletion, hypotension, and bradycardia aggravated by hyperkalemia. Blood pressure still somewhat soft but improved and bradycardia has resolved. --check orthostatics --Ph Tx thought she did not need home Ph Tx last admission. (2) Acute on chronic diastolic heart failure: Code(s): I50.33 - Acute on chronic diastolic (congestive) heart failure Status: Acute Assessment and Plan: Patient has a mild exacerbation of chronic diastolic heart failure, with mild edema and some SOB on admission. --Switch Lasix back to 20 mg daily tmr morning --Does she need desmopressin??? --start Jardiance 10 mg daily, if affordable --very difficult to obtain optimal fluid balance in a patient with advanced chronic kidney disease as well as diastolic heart failure. Reviewed daily weights, low-salt diet, low-potassium diet cetera. --overall I wonder if there may be a degree of noncompliance. (3) CKD stage 4 secondary to hypertension: Code(s): I12.9 - Hypertensive chronic kidney disease with stage 1 through stage 4 chronic kidney disease, or unspecified chronic kidney disease; N18.4 - Chronic kidney disease, stage 4 (severe) Status: Acute Assessment and Plan: Stage 4-5. (4) AJ (acute kidney injury): Code(s): N17.9 - Acute kidney failure, unspecified Status: Acute Assessment and Plan: Acute kidney injury, chronic kidney disease stage 4-5. Associated with hyperkalemia which is improving. --avoid salt substitutes and high potassium containing foods --likely will need to discontinue the spironolactone. --Hopefully can continue the lisinopril (or switch to losartan). (5) Pulmonary hypertension: Code(s): I27.20 - Pulmonary hypertension, unspecified Status: Chronic Assessment and Plan: Severe pulmonary hypertension with a an estimated PAP of 72 mmHg, due to left heart failure, COPD, and ZAK. --encourage compliance with CPAP --assess for any need for home O2 prior to discharge. Currently O2 sat good on room air at rest. (6) Paroxysmal atrial fibrillation: Code(s): I48.0 - Paroxysmal atrial fibrillation Status: Acute Assessment and Plan: PAF, was in NSR on adm, today looks like a fib, rate controlled with metoprolol succ 25 mg daily. --continue metoprolol --Follow for any further symptomatic bradycardia (resolved after tx of her hyperkalemia) --looks like there is no anticoagulant on her medication list. She is at high risk of recurrent stroke without one. Patient reports she takes Eliquis twice daily, so I will resume Eliquis 5 mg b.i.d.. Wonder if our med list is accurate? --Might benefit [facility] to make sure pt is taking meds appropriately and FU for CHF History of Present Illness History of Present Illness Consult date/time: 04/16/23 13:20 Reason For Visit: AJ Narrative: Marilee Kilgore is a 77-year-old female whom I was asked to see at the request of Dr. Mei for my advice and opinion regarding her heart failure, in consultation. She has a history of atrial fibrillation, stroke, hypertension, hyperlipidemia, diastolic CHF, sleep apnea on CPAP, severe pulmonary hypertension, COPD, CKD stage 3-4 and mild dementia. Also she has a history of cystectomy and urostomy. She was hospitalized for few days and discharged on April 07 after an episode of heart failure. Echo showed ejection fraction 65-70%, diastolic dysfunction, right ventricular enlargement and severe pulmonary hypertension with an RVSP of 72 mmHg. On discharge her furosemide 20 mg daily and spironolactone 25 mg daily were continued. The patient came t
--- NOTE | 2023-04-16 17:01 | PM.CNNEP ---
Assessment and Plan Assessment and plan (1) AJ (acute kidney injury): Code(s): N17.9 - Acute kidney failure, unspecified Status: Acute Assessment and Plan: baseline creatinine normal about a year ago evaluation to date/previous hospitalization: renal ultrasound shows no obstruction in her 1 kidney UA shows white cells urine electrolytes are non pre renal and fraction excretion of urea is just barely non pre renal CK normal Echo shows diastolic dysfunction grade 2 and severe pulmonary hypertension with moderate pulmonary regurgitation and [id number] tricuspid regurgitation serologies significant for positive SPEP and serum immunofixation suspect elevated creatinine is due to hemodynamic effects of the pulmonary hypertension and the diastolic dysfunction along with the need for diuretic therapy to maintain volume status how much of this is acute versus chronic?? creatinine stabilized to ~ 1.9 - 2.2mg/dl following recent hospital discharge consult Hem/Onc to r/o paraproteinemia given SPEP/serum immunofixation findgins follow repeat labs and UOP (2) Hyperkalemia: Code(s): E87.5 - Hyperkalemia Status: Acute Assessment and Plan: presumably due to worsening creatinine in the setting of spironolactone use spironolactone and lisninopril on hold s/p mnedical management better by recent testing (3) Fall: Qualifiers: Encounter type: initial encounter Qualified Code(s): W19.XXXA - Unspecified fall, initial encounter Code(s): W19.XXXA - Unspecified fall, initial encounter Status: Acute Assessment and Plan: thought to be secondary to relative volume depleition + low BP along with bradycardia improvement noted s/p IVFs and correction of K+ level off IVF due to #4 follow orthostatics (4) Acute on chronic diastolic heart failure: Code(s): I50.33 - Acute on chronic diastolic (congestive) heart failure Status: Acute Assessment and Plan: thought to be precipitated by IVF resuscitation for hypotension breathing better following diuresis/diuretics monitor I/Os, daily weights, and breathing Cardiology following (5) Pulmonary hypertension: Code(s): I27.20 - Pulmonary hypertension, unspecified Status: Chronic Assessment and Plan: quite significant/severe on recent Echo due to heart failure, COPD, and ZAK continue CPAP support (6) Paroxysmal atrial fibrillation: Code(s): I48.0 - Paroxysmal atrial fibrillation Status: Acute Assessment and Plan: rate control strategy back on Eliis I will continue follow the patient with you while she remains hospitalized and make further recommendations as needed. Thank you for allowing me to participate in the care of this patient. History of Present Illness Reason for Consult Consult date: 04/16/23 Reason for consult: acute renal failure (versus chronic kidney disease?) Chief Complaint Chief complaint: AJ History of Present Illness Narrative: the patient is a 77-year-old female with a past medical history as outlined below who presented to [facility] Emergency room after sustaining a fall. From review of her records, it would seem the patient had more issues and problems with shortness of breath and volume overload the last few days if not longer and just happened to be that she actually sustained a fall after her legs apparently gave out. She has noted increasing swelling edema in her lower extremities as well as shortness of breath although at the time, she thought this was more related to her known history of COPD. She states that she has been wheezing more in the last few weeks and has been using her home nebulizer treatments more often in effort to maintain stability in her respiratory status. However, she denies any other symptoms with regard to fevers, chills, nausea, vomiting, diarrhea, hematuria, dysuria, or
--- NOTE | 2023-04-16 17:01 | P.CONNP_ITS ---
Assessment and Plan Assessment and plan (1) AJ (acute kidney injury): Code(s): N17.9 - Acute kidney failure, unspecified Status: Acute Assessment and Plan: * baseline creatinine normal about a year ago * evaluation to date/previous hospitalization: * renal ultrasound shows no obstruction in her 1 kidney * UA shows white cells * urine electrolytes are non pre renal and fraction excretion of urea is just barely non pre renal * CK normal * Echo shows diastolic dysfunction grade 2 and severe pulmonary hypertension with moderate pulmonary regurgitation and [id number] tricuspid regurgitation * serologies significant for positive SPEP and serum immunofixation * suspect elevated creatinine is due to hemodynamic effects of the pulmonary hypertension and the diastolic dysfunction along with the need for diuretic therapy to maintain volume status * how much of this is acute versus chronic?? * creatinine stabilized to ~ 1.9 - 2.2mg/dl following recent hospital discharge * consult Hem/Onc to r/o paraproteinemia given SPEP/serum immunofixation findgins * follow repeat labs and UOP (2) Hyperkalemia: Code(s): E87.5 - Hyperkalemia Status: Acute Assessment and Plan: * presumably due to worsening creatinine in the setting of spironolactone use * spironolactone and lisninopril on hold * s/p mnedical management * better by recent testing (3) Fall: Qualifiers: Encounter type: initial encounter Qualified Code(s): W19.XXXA - Unspecified fall, initial encounter Code(s): W19.XXXA - Unspecified fall, initial encounter Status: Acute Assessment and Plan: * thought to be secondary to relative volume depleition + low BP along with bradycardia * improvement noted s/p IVFs and correction of K+ level * off IVF due to #4 * follow orthostatics (4) Acute on chronic diastolic heart failure: Code(s): I50.33 - Acute on chronic diastolic (congestive) heart failure Status: Acute Assessment and Plan: * thought to be precipitated by IVF resuscitation for hypotension * breathing better following diuresis/diuretics * monitor I/Os, daily weights, and breathing * Cardiology following (5) Pulmonary hypertension: Code(s): I27.20 - Pulmonary hypertension, unspecified Status: Chronic Assessment and Plan: * quite significant/severe on recent Echo * due to heart failure, COPD, and ZAK * continue CPAP support (6) Paroxysmal atrial fibrillation: Code(s): I48.0 - Paroxysmal atrial fibrillation Status: Acute Assessment and Plan: * rate control strategy * back on [place] I will continue follow the patient with you while she remains hospitalized and make further recommendations as needed. Thank you for allowing me to participate in the care of this patient. History of Present Illness Reason for Consult Consult date: 04/16/23 Reason for consult: acute renal failure (versus chronic kidney disease?) Chief Complaint Chief complaint: AJ History of Present Illness Narrative: the patient is a 77-year-old female with a past medical history as ou tlined below who presented to [facility] Emergency room after sustaining a fall. From review of her records, it would seem the patient had more issues and problems with shortness of breath and volume overload the last few days if not longer and just happened to be that she actually sustained a fall after her legs apparently gave out. She has noted increasing swe
[2023-04-16] MEDS: ATORVASTATIN 40 MG TABLET 80 MG PO (20:51)
[2023-04-16] MEDS: traZODone HCL 25 MG TABLET PO (20:51)
[2023-04-16] MEDS: APIXABAN 5 MG TABLET PO (20:51)
[2023-04-17] VITALS (22 sets, daily range): BP systolic 102–127; BP diastolic 56–92; PULSE 73–125; RESP 16–20; TEMP 36.4–36.6; O2SAT 91–100
[2023-04-17 06:24] LABS: Basophils Absolute Auto 0.1 K/mm3 (0.0-0.1); Basophils Percent Auto 0.8 % (0.2-1.2); Eosinophils Absolute Auto 0.1 K/mm3 (0-0.3); Eosinophils Percent Auto 1.7 % (0-4.4); Hematocrit 28.3 % (37.0-47.0); Hemoglobin 8.7 g/dL (12.0-15.0); Immature Granulocyte Absolute 0.02 K/mm3 (0.00-0.031); Immature Granulocyte Percent A 0.3 % (0-0.5); Lymphocytes Absolute Auto 0.69 K/mm3 (0.9-3.2); Lymphocytes Percent Auto 10.6 % (18.3-44.2); Mean Corpuscular HGB Conc 30.7 g/dl (32-36); Mean Corpuscular Hemoglobin 27.5 pg (26-34); Mean Corpuscular Volume 89.6 fl (80-100); Mean Platelet Volume 8.6 fl (7.4-10.4); Monocytes Absolute Auto 0.7 K/mm3 (0.1-0.6); Monocytes Percent Auto 10.4 % (2.6-8.5); Neutrophils Percent Auto 76.2 % (45.5-73.1); Platelet Count Result 205 k/mm3 (150-375); Red Blood Count 3.16 M/mm3 (4.2-5.4); Red Cell Distribution Width 14.7 % (11.5-14.5); White Blood Count 6.5 K/mm3 (4.5-10.0)
[2023-04-17 06:33] LABS: Alanine Aminotransferase 19 U/L (6-35); Albumin Level 3.1 g/dL (3.5-5.1); Alkaline Phosphatase 117 U/L (38-126); Anion Gap 11 mmol/L (8-16); Aspartate Amino Transferase 28 U/L (14-36); Bilirubin,Total 0.6 mg/dL (0.2-1.3); Blood Urea Nitrogen 39 mg/dL (7-17); Calcium 8.4 mg/dL (8.4-10.2); Carbon Dioxide 22 mmol/L (22-30); Chloride 102 mmol/L (98-107); Estimated CRCL calculation 21 ml/min; Estimated Glomerular Filt Rate 20; Glucose 89 mg/dL (65-110); Potassium 4.1 mmol/L (3.4-5.0); Sodium 135 mmol/L (137-145)
[2023-04-17 06:55] LABS: Creatine Kinase 43 U/L (30-135)
[2023-04-17] MEDS: ALBUTEROL SULFATE NEB 2.5 MG/3 ML INH 5 MG INHALATION ×3 (07:09→20:14)
[2023-04-17] MEDS: FLUTICASONE/UMECLIDIN/VILANTER 100-62.5-25 MCG ELLIPTA 1 PUFF INHALATION (07:10)
[2023-04-17] MEDS: FERROUS SULFATE 325 MG TABLET DR BY MOUTH (08:05)
[2023-04-17] MEDS: FAMOTIDINE 20 MG TABLET PO (08:05)
[2023-04-17] MEDS: PANTOPRAZOLE 40 MG TABLET PO (08:05)
[2023-04-17] MEDS: FUROSEMIDE 20 MG TABLET PO (08:05)
[2023-04-17] MEDS: EMPAGLIFLOZIN 10 MG TABLET PO (08:05)
[2023-04-17] MEDS: SODIUM BICARBONATE TAB 650 MG TABLET PO ×2 (08:05→17:25)
[2023-04-17] MEDS: OMEGA 3 POLYUNSAT FATTY ACIDS 1 GM CAP 2 GM PO ×2 (08:05→17:25)
[2023-04-17] MEDS: GABAPENTIN 300 MG CAPSULE 600 MG PO (08:05)
[2023-04-17] MEDS: APIXABAN 5 MG TABLET PO ×2 (08:05→20:45)
[2023-04-17] MEDS: DULoxetine HCL 60 MG CAPSULE.DR PO (08:05)
[2023-04-17] MEDS: METOPROLOL SUCCINATE EXT REL 25 MG TABCR PO (08:06)
[2023-04-17] MEDS: ACETAMINOPHEN 325 MG TABLET 650 MG PO (08:11)
[2023-04-17 12:44] LABS: Creatinine Urine 92.9 mg/dL; Total Protein Urine Random 33 mg/dL; Ur Ttl Prot Creatinine Ratio 0.36 mg/mg (0-0.20); Urea Random Urine 374 MG/DL
[2023-04-17 12:45] LABS: Sodium Urine Random 45 meq/L
[2023-04-17 12:51] LABS: Eosinophil Urine None Seen % (None Seen)
[2023-04-17 12:55] LABS: Urine Eos QC 2nd Tech Confirmed
--- NOTE | 2023-04-17 12:59 | PM.PNCARD ---
Progress Note: A&P Assessment and Plan (1) Fall: Qualifiers: Encounter type: initial encounter Qualified Code(s): W19.XXXA - Unspecified fall, initial encounter Code(s): W19.XXXA - Unspecified fall, initial encounter Status: Acute Assessment and Plan: Patient presented with a fall, probably due to intravascular depletion, hypotension, and bradycardia aggravated by hyperkalemia. Blood pressure still somewhat soft but improved and bradycardia has resolved. --check orthostatics --Ph Tx thought she did not need home Ph Tx last admission. (2) Acute on chronic diastolic heart failure: Code(s): I50.33 - Acute on chronic diastolic (congestive) heart failure Status: Acute Assessment and Plan: Patient has a mild exacerbation of chronic diastolic heart failure, with mild edema and some SOB on admission. --Improving --Switch Lasix back to 20 mg daily tmr morning --Continue jardiance 10mg daily --CHF counseling including daily weights, low-salt diet, low-potassium diet (3) CKD stage 4 secondary to hypertension: Code(s): I12.9 - Hypertensive chronic kidney disease with stage 1 through stage 4 chronic kidney disease, or unspecified chronic kidney disease; N18.4 - Chronic kidney disease, stage 4 (severe) Status: Acute Assessment and Plan: Stage 4-5. (4) AJ (acute kidney injury): Code(s): N17.9 - Acute kidney failure, unspecified Status: Acute Assessment and Plan: Acute kidney injury, chronic kidney disease stage 4-5. Associated with hyperkalemia which is improving. --avoid salt substitutes and high potassium containing foods --likely will need to discontinue the spironolactone. --Hopefully can continue the lisinopril (or switch to losartan). (5) Pulmonary hypertension: Code(s): I27.20 - Pulmonary hypertension, unspecified Status: Chronic Assessment and Plan: Severe pulmonary hypertension with a an estimated PAP of 72 mmHg, due to left heart failure, COPD, and ZAK. --encourage compliance with CPAP --assess for any need for home O2 prior to discharge. Currently O2 sat good on room air at rest. (6) Paroxysmal atrial fibrillation: Code(s): I48.0 - Paroxysmal atrial fibrillation Status: Acute Assessment and Plan: PAF, was in NSR on adm, today looks like a fib, rate controlled with metoprolol succ 25 mg daily. --rate generally around 100bpm, sometimes in the 120's. Asymptomatic --continue current dose of metoprolol as her BP is borderline. If she becomes more tachycardic, may need to adjust BB --Follow for any further symptomatic bradycardia (resolved after tx of her hyperkalemia) --Continue a/c with Eliquis 5mg b.i.d. --Might benefit fr [facility] to make sure pt is taking meds appropriately and FU for CHF Subjective Date/time seen: 04/17/23 12:59 Interval history: Cardiology follow up for CHF, PAF She's feeling better today. Shortness of breath improving. Less swollen. Review of Systems Constitutional: Constitutional: Denies fever(s) and Reports weakness (fell due to legs giving out) Eyes: Eyes: Reports no additional eye complaints ENT: Denies epistaxis Cardiovascular: Cardiovascular: Denies chest pain, Reports pedal edema, Reports leg edema, Denies lightheadedness, Denies palpitations, Denies dyspnea and Reports dyspnea on exertion Respiratory: Respiratory: Denies chest congestion, Denies cough, Denies dyspnea, Reports dyspnea on exertion and Reports wheezing Gastrointestinal: Gastrointestinal: Denies abdominal pain and Denies hematochezia Genitourinary: Genitourinary: Denies hematuria Musculoskeletal: Musculoskeletal: Reports no additional musculoskeletal complaints Integumentary/Breasts: Skin/Breast: Reports system reviewed and no additional complaints, except as docu Neurologic: Reports system reviewed and no additional complaints, except as documented, Denies behavioral changes, Report
--- NOTE | 2023-04-17 14:02 | PM.PNNEP ---
Progress Note: A&P Assessment and Plan (1) AJ (acute kidney injury): Code(s): N17.9 - Acute kidney failure, unspecified Status: Acute Assessment and Plan: baseline creatinine normal about a year ago evaluation to date/previous hospitalization: renal ultrasound shows no obstruction in her 1 kidney UA shows white cells urine electrolytes are non pre renal and fraction excretion of urea is just barely non pre renal CK normal Echo shows diastolic dysfunction grade 2 and severe pulmonary hypertension with moderate pulmonary regurgitation and [id number] tricuspid regurgitation serologies significant for positive SPEP and serum immunofixation suspect elevated creatinine is due to hemodynamic effects of the pulmonary hypertension and the diastolic dysfunction along with the need for diuretic therapy to maintain volume status how much of this is acute versus chronic?? creatinine stabilized to ~ 1.9 - 2.2mg/dl following recent hospital discharge consulted Hem/Onc to r/o paraproteinemia given SPEP/serum immunofixation finding (but consult did not comment on this....) follow repeat labs and UOP (2) Hyperkalemia: Code(s): E87.5 - Hyperkalemia Status: Acute Assessment and Plan: presumably due to worsening creatinine in the setting of spironolactone use spironolactone and lisninopril on hold s/p mnedical management better by recent testing (3) Fall: Qualifiers: Encounter type: initial encounter Qualified Code(s): W19.XXXA - Unspecified fall, initial encounter Code(s): W19.XXXA - Unspecified fall, initial encounter Status: Acute Assessment and Plan: thought to be secondary to relative volume depleition + low BP along with bradycardia improvement noted s/p IVFs and correction of K+ level off IVF due to #4 follow orthostatics (4) Acute on chronic diastolic heart failure: Code(s): I50.33 - Acute on chronic diastolic (congestive) heart failure Status: Acute Assessment and Plan: thought to be precipitated by IVF resuscitation for hypotension breathing better following diuresis/diuretics monitor I/Os, daily weights, and breathing Cardiology following (5) Pulmonary hypertension: Code(s): I27.20 - Pulmonary hypertension, unspecified Status: Chronic Assessment and Plan: quite significant/severe on recent Echo due to heart failure, COPD, and ZAK continue CPAP support (6) Paroxysmal atrial fibrillation: Code(s): I48.0 - Paroxysmal atrial fibrillation Status: Acute Assessment and Plan: rate control strategy back on [place] Will continue to follow. Subjective Date/time seen: 04/17/23 14:02 Interval history: Follow-up for acute kidney injury (will possible component now of chronic kidney disease). Her breathing/respiratory status has significantly improved with IV diuretic therapy; furthermore, she feels less swollen as well; no apparent distress noted. Exam Narrative: General: elderly but WD/WN female in NAD Heart: normal S1 and S2; no rub Lungs: clear to auscultation Abdomen: soft, nontender, nondistended, positive bowel sounds Extremities: no cyanosis or clubbing; trace - 1+ edema Skin: warm and dry Objective Data Vital Signs Vital Signs: Vital Signs Temp Pulse Resp BP Pulse Ox O2 Del Method 04/17/23 14:00 97.9 F 109 H 16 102/70 94 04/17/23 13:35 103 H 20 04/17/23 13:22 92 20 04/17/23 12:05 109 H 04/17/23 08:04 125 H 04/17/23 08:00 Room Air 04/17/23 08:28 116/66 04/17/23 08:00 107/92 H 04/17/23 08:06 114 H 04/17/23 07:24 114 H 18 04/17/23 07:09 102 H 18 04/17/23 07:09 92 Room Air 04/17/23 04:00 78 04/17/23 00:00 84 04/16/23 20:00 74 04/17/23 04:55 98 F 86 20 105/56 L 91 04/17/23 02:50 73 93 Autopap
--- NOTE | 2023-04-17 14:02 | P.PNNP_ITS ---
Progress Note: A&P Assessment and Plan (1) AJ (acute kidney injury): Code(s): N17.9 - Acute kidney failure, unspecified Status: Acute Assessment and Plan: * baseline creatinine normal about a year ago * evaluation to date/previous hospitalization: * renal ultrasound shows no obstruction in her 1 kidney * UA shows white cells * urine electrolytes are non pre renal and fraction excretion of urea is just barely non pre renal * CK normal * Echo shows diastolic dysfunction grade 2 and severe pulmonary hypertension with moderate pulmonary regurgitation and [id number]-[id number] tricuspid regurgitation * serologies significant for positive SPEP and serum immunofixation * suspect elevated creatinine is due to hemodynamic effects of the pulmonary hypertension and the diastolic dysfunction along with the need for diuretic therapy to maintain volume status * how much of this is acute versus chronic?? * creatinine stabilized to ~ 1.9 - 2.2mg/dl following recent hospital discharge * consulted Hem/Onc to r/o paraproteinemia given SPEP/serum immunofixation finding (but consult did not comment on this....) * follow repeat labs and UOP (2) Hyperkalemia: Code(s): E87.5 - Hyperkalemia Status: Acute Assessment and Plan: * presumably due to worsening creatinine in the setting of spironolactone use * spironolactone and lisninopril on hold * s/p mnedical management * better by recent testing (3) Fall: Qualifiers: Encounter type: initial encounter Qualified Code(s): W19.XXXA - Unspecified fall, initial encounter Code(s): W19.XXXA - Unspecified fall, initial encounter Status: Acute Assessment and Plan: * thought to be secondary to relative volume depleition + low BP along with bradycardia * improvement noted s/p IVFs and correction of K+ level * off IVF due to #4 * follow orthostatics (4) Acute on chronic diastolic heart failure: Code(s): I50.33 - Acute on chronic diastolic (congestive) heart failure Status: Acute Assessment and Plan: * thought to be precipitated by IVF resuscitation for hypotension * breathing better following diuresis/diuretics * monitor I/Os, daily weights, and breathing * Cardiology following (5) Pulmonary hypertension: Code(s): I27.20 - Pulmonary hypertension, unspecified Status: Chronic Assessment and Plan: * quite significant/severe on recent Echo * due to heart failure, COPD, and ZAK * continue CPAP support (6) Paroxysmal atrial fibrillation: Code(s): I48.0 - Paroxysmal atrial fibrillation Status: Acute Assessment and Plan: * rate control strategy * back on Eliquis Will continue to follow. Subjective Date/time seen: 04/17/23 14:02 Interval history: Follow-up for acute kidney injury (will possible component now of chronic kidney disease). Her breathing/respiratory status has significantly improved with IV diuretic therapy; furthermore, she feels less swollen as well; no apparent distress noted. Exam Narrative: General: elderly but WD/WN female in NAD Heart: normal S1 and S2; no rub Lungs: clear to auscultation Abdomen: soft, nontender, nondistended, positive bowel sounds Extremities: no cyanosis or clubbing; trace - 1+ edema Skin: warm and dry Objective Data Vital Signs Vital Signs: Vital Signs
--- NOTE | 2023-04-17 16:24 | PM.IMPN ---
Progress Note: A&P Assessment and Plan (1) Congestive heart failure: Qualifiers: Heart failure type: right heart failure due to left heart failure Qualified Code(s): I50.814 - Right heart failure due to left heart failure Code(s): I50.9 - Heart failure, unspecified Status: Acute Assessment and Plan: Echo from 04/05 showed an EF of 65-70%, grade 2 diastolic dysfunction as well as severe right-sided heart failure, severe pulmonary hypertension and multiple valvular abnormalities Cardiology consult ordered and appreciated Continue Eliquis, lisinopril, Jardiance, Lasix (2) COPD (chronic obstructive pulmonary disease): Qualifiers: COPD type: COPD with acute exacerbation Qualified Code(s): J44.1 - Chronic obstructive pulmonary disease with (acute) exacerbation Code(s): J44.9 - Chronic obstructive pulmonary disease, unspecified Status: Acute Assessment and Plan: Does not appear to be in acute exacerbation (3) CKD (chronic kidney disease) stage 4, GFR 15-29 ml/min: Code(s): N18.4 - Chronic kidney disease, stage 4 (severe) Status: Acute Assessment and Plan: Continue sodium bicarb tablets, appreciate nephrology consultation, pending (4) Obstructive sleep apnea: Code(s): G47.33 - Obstructive sleep apnea (adult) (pediatric) Status: Chronic Assessment and Plan: Respiratory therapy for CPAP at night (5) Acute hyperkalemia: Code(s): E87.5 - Hyperkalemia Status: Acute Assessment and Plan: Potassium slightly improved to 5.7 from admission when it was 6.3, up a little since yesterday when it was 5.3 Appreciate nephrology consultation Resolved Plan DVT prophylaxis with Eliquis GI prophylaxis not indicated Code status full code Subjective Date/time seen: 04/17/23 16:24 Interval history: 77-year-old female with history of dementia, heart failure as well as bladder cancer and urostomy is presenting with weakness and shortness of breath is currently being treated for volume overloaded likely from cardiorenal syndrome and severe right-sided heart failure. No overnight events noted. No chest pain. No nausea, vomiting or diarrhea. No fevers or chills. Feels much better than when she came in. Stil SOB, weak and MARTINES. Review of Systems Review of Systems: 12 point review of systems was assessed and was negative except as noted in the HPI Exam Narrative: General: No acute distress, alert and oriented per baseline HEENT: Atraumatic, normocephalic, mucous membranes moist CV: Regular rate and rhythm, S1, S2 Lungs: Clear to auscultation, diminished at bases with a few scattered crackles, no wheeze Abdomen: Soft, nontender, nondistended Extremities: Normal to inspection, 1+ pitting edema B/L LE Skin: No rashes noted, no lesions or wounds seen Psych: Euthymic, normal affect Objective Data Vital Signs Vital Signs: Vital Signs - 24 hr 04/16/23 20:39 04/16/23 20:53 04/16/23 21:25 Temperature 97.6 F Pulse Rate 76 77 79 Respiratory Rate 16 16 18 Blood Pressure 101/57 L Pulse Oximetry 94 Oxygen Delivery 04/16/23 20:00 04/16/23 22:15 04/16/23 20:39 Temperature Pulse Rate 78 76 Respiratory Rate Blood Pressure Pulse Oximetry 94 93 Oxygen Delivery Room Air Autopap Room Air 04/17/23 02:50 04/17/23 04:55 04/16/23 20:00 Temperature 98 F Pulse Rate 73 86 74 Respiratory Rate 20 Blood Pressure 105/56 L Pulse Oximetry 93 91 Oxygen Delivery Autopap 04/17/23 00:00 04/17/23 04:00 04/17/23 07:09 Temperature Pulse Rate 84 78 Respiratory Rate Blood Pressure Pulse Oximetry 92 Oxygen Delivery Room Air 04/17/23 07:09 04/17/23 07:24 04/17/23 08:06 Temperature Pulse Rate 102 H 114 H 114 H Respiratory Rate 18 18 Blood Pressure Pulse Oximetry Oxygen Delivery 04/17/23 08:00 04/17/23 08:28 04/17/23 08:
--- NOTE | 2023-04-17 17:15 | PDONCCN ---
HPI - Date of Consult Date/Time: 04/18/23 17:37 <Skip Rice - 04/18/23 17:39> 04/17/23 17:15 <Alexus Garrido - 04/17/23 17:28> Requesting Physician: Gege Newton MD <Skip Rice - 04/18/23 17:39> Gege Newton MD <Alexus Garrido - 04/17/23 17:28> Primary Care Provider: Yvonne Moses, <Skip Rice - 04/18/23 17:39> Yvonne Moses, <Alexus Garrido - 04/17/23 17:28> - Consult Narrative Reason for consult: Anemia and plasma cell disorder <Skip Rice - 04/18/23 17:39> Anemia <Alexus Garrido - 04/17/23 17:28> Narrative: Marilee Kilgore is a 77 year old female <Skip Rice - 04/18/23 17:39> Marilee Kilgore is a 77 year old female with a past medical history of multiple comorbidities including CHF, COPD, CKD stage 4, ZAK, gastric ulcer, atrial fibrillation, and depression consulted for anemia after being admitted to the hospital after a recent fall and hitting her head. Her head CT was negative for any abnormalities. Patient states she has been anemic since she was young. They check her labs and she shows anemia and the next time she is not anemic. She has been taking iron 325mg daily for atleast a month. Denies abnormal bleeding in her stool or urine. Unsure of the last colonoscopy. Reports a regular diet with red meat. Denies any stomach surgeries. Endorses a recent stroke and on blood thinners. Recent lab work reveals Hbg 8.7, Hct 28., Plt 205,000, Cr 2.40. <Alexus Garrido - 04/17/23 17:28> Review of Systems - Constitutional Denies night sweats, Denies weight gain, Denies weight loss <Alexus Garrido - 04/17/23 17:28> - ENT Reports as per HPI <Alexus Garrido - 04/17/23 17:28> - Cardiovascular Denies chest pain, Denies fast heart rate, Denies rapid, pounding, or irregular heartbeat, Denies shortness of breath with activity <Alexus Garrido - 04/17/23 17:28> - Respiratory Denies dyspnea on exertion <[facility] [place] - 04/17/23 17:28> - Gastrointestinal Denies black, tarry stools, Denies bright, red blood in stools, Denies change in stools <[facility] [place] - 04/17/23 17:28> - Integumentary/Breasts Skin/Breast: Denies change in skin color, Denies unusual bruising <Alexus Garrido - 04/17/23 17:28> - Neurologic Reports weakness (fell due to legs giving out) <[facility] [place] 04/17/23 17:28> - Hematologic/Lymphatic Reports easy bleeding, Reports easy bruising, Denies enlarged lymph nodes <[facility] [place] 04/17/23 17:28> [facility] Medical History: Medical History (Last Updated 04/16/23 @ 14:37 by Mary Ann Rees MD) Alzheimer's dementia Anxiety Atrial fibrillation Bladder cancer CKD (chronic kidney disease) stage 4, GFR 15-29 ml/min COPD (chronic obstructive pulmonary disease) Depression History of gastric ulcer Hyperlipidemia Hypertension Irritable bowel disease Nocturnal enuresis Obstructive sleep apnea CPAP of 14 Paroxysmal atrial fibrillation Peptic ulcer disease Polymyalgia rheumatica Pulmonary emphysema Pulmonary hypertension Severe on echocardiogram 04/2023 Right-sided heart failure Echocardiogram April 2023: EF 65-70% mildly increased left ventricular wall thickness, left ventricular diastolic function grade 2 dysfunction, D shaped septum in systole consistent with right ventricular pressure overload, right ventricular chamber severely enlarged with reduced function, severe right atrial enlargement, moderate left atrial enlargement, moderate mitral valve regurgitation [id number] tricuspid regurgitation severe pulmonary hypertension with RVSP of 72 Stroke Ulcers of both great toes <Skip Rice - 04/18/23 17:39> Medical History (Last Updated 04/16/23 @ 14:37 by Mary Ann Rees MD) Alzheimer's dementia Anxiety Atrial fibrillation Bladder cancer CKD (chronic kidney disease) stage 4, GFR 15-29 ml/min COPD (chronic obstructive pulmon
[2023-04-17] MEDS: EPOETIN ALFA-EPBX 20,000 UNITS/ML VIAL 20000 UNITS SUB-Q (17:25)
[2023-04-17] MEDS: traZODone HCL 25 MG TABLET PO (20:45)
[2023-04-17] MEDS: ATORVASTATIN 40 MG TABLET 80 MG PO (20:45)
[2023-04-18] VITALS (24 sets, daily range): BP systolic 93–120; BP diastolic 53–78; PULSE 62–134; RESP 12–20; TEMP 36.4–37; O2SAT 93–100
[2023-04-18 05:47] LABS: Basophils Percent Auto 0.6 % (0.2-1.2); Eosinophils Absolute Auto 0.1 K/mm3 (0-0.3); Eosinophils Percent Auto 1.1 % (0-4.4); Hematocrit 28.9 % (37.0-47.0); Hemoglobin 8.8 g/dL (12.0-15.0); Immature Granulocyte Absolute 0.02 K/mm3 (0.00-0.031); Immature Granulocyte Percent A 0.3 % (0-0.5); Lymphocytes Absolute Auto 0.61 K/mm3 (0.9-3.2); Lymphocytes Percent Auto 9.5 % (18.3-44.2); Mean Corpuscular HGB Conc 30.4 g/dl (32-36); Mean Corpuscular Hemoglobin 27.8 pg (26-34); Mean Corpuscular Volume 91.2 fl (80-100); Mean Platelet Volume 8.8 fl (7.4-10.4); Monocytes Absolute Auto 0.7 K/mm3 (0.1-0.6); Monocytes Percent Auto 10.2 % (2.6-8.5); Neutrophils Percent Auto 78.3 % (45.5-73.1); Platelet Count Result 212 k/mm3 (150-375); Red Blood Count 3.17 M/mm3 (4.2-5.4); Red Cell Distribution Width 14.9 % (11.5-14.5); White Blood Count 6.4 K/mm3 (4.5-10.0)
[2023-04-18 05:56] LABS: Iron 18 ug/dL (37-170)
[2023-04-18 06:02] LABS: Alanine Aminotransferase 18 U/L (6-35); Albumin Level 2.8 g/dL (3.5-5.1); Alkaline Phosphatase 114 U/L (38-126); Anion Gap 11 mmol/L (8-16); Aspartate Amino Transferase 26 U/L (14-36); Bilirubin,Total 0.6 mg/dL (0.2-1.3); Blood Urea Nitrogen 34 mg/dL (7-17); Calcium 8.4 mg/dL (8.4-10.2); Carbon Dioxide 24 mmol/L (22-30); Chloride 103 mmol/L (98-107); Estimated CRCL calculation 25 ml/min; Estimated Glomerular Filt Rate 24; Glucose 89 mg/dL (65-110); Sodium 138 mmol/L (137-145)
[2023-04-18 06:06] LABS: Percent Iron Saturation 8 % (20-50)
[2023-04-18 07:12] LABS: Folic Acid > 20.0 ng/mL (2.76->20)
[2023-04-18] MEDS: ALBUTEROL SULFATE NEB 2.5 MG/3 ML INH 5 MG INHALATION ×3 (07:29→21:08)
[2023-04-18] MEDS: FLUTICASONE/UMECLIDIN/VILANTER 100-62.5-25 MCG ELLIPTA 1 PUFF INHALATION (07:29)
[2023-04-18] MEDS: GABAPENTIN 300 MG CAPSULE 600 MG PO (08:03)
[2023-04-18] MEDS: METOPROLOL SUCCINATE EXT REL 25 MG TABCR PO (08:03)
[2023-04-18] MEDS: OMEGA 3 POLYUNSAT FATTY ACIDS 1 GM CAP 2 GM PO ×2 (08:03→16:26)
[2023-04-18] MEDS: APIXABAN 5 MG TABLET PO ×2 (08:03→20:58)
[2023-04-18] MEDS: FAMOTIDINE 20 MG TABLET PO (08:03)
[2023-04-18] MEDS: SODIUM BICARBONATE TAB 650 MG TABLET PO ×2 (08:03→16:26)
[2023-04-18] MEDS: PANTOPRAZOLE 40 MG TABLET PO (08:03)
[2023-04-18] MEDS: DULoxetine HCL 60 MG CAPSULE.DR PO (08:03)
[2023-04-18] MEDS: FERROUS SULFATE 325 MG TABLET DR BY MOUTH (08:03)
[2023-04-18] MEDS: EMPAGLIFLOZIN 10 MG TABLET PO (08:03)
[2023-04-18] MEDS: FUROSEMIDE 20 MG TABLET PO (08:03)
[2023-04-18] MEDS: ACETAMINOPHEN 325 MG TABLET 650 MG PO (11:05)
--- NOTE | 2023-04-18 11:28 | PCRCNOTE ---
HOME O2 EVAL COMPLETE, NO REQUIREMENTS
--- NOTE | 2023-04-18 12:24 | PM.PNNEP ---
Progress Note: A&P Assessment and Plan (1) AJ (acute kidney injury): Code(s): N17.9 - Acute kidney failure, unspecified Status: Acute Assessment and Plan: baseline creatinine normal about a year ago evaluation to date/previous hospitalization: renal ultrasound shows no obstruction in her 1 kidney UA shows white cells urine electrolytes are non pre renal and fraction excretion of urea is just barely non pre renal CK normal Echo shows diastolic dysfunction grade 2 and severe pulmonary hypertension with moderate pulmonary regurgitation and [id number] tricuspid regurgitation serologies significant for positive SPEP and serum immunofixation suspect elevated creatinine is due to hemodynamic effects of the pulmonary hypertension and the diastolic dysfunction along with the need for diuretic therapy to maintain volume status how much of this is acute versus chronic?? creatinine stabilized to ~ 1.9 - 2.2mg/dl following recent hospital discharge consulted Hem/Onc to r/o paraproteinemia given SPEP/serum immunofixation finding (but consult did not comment on this....) follow repeat labs and UOP (2) Hyperkalemia: Code(s): E87.5 - Hyperkalemia Status: Acute Assessment and Plan: presumably due to worsening creatinine in the setting of spironolactone use spironolactone and lisinopril on hold s/p medical management better by recent testing (3) Fall: Qualifiers: Encounter type: initial encounter Qualified Code(s): W19.XXXA - Unspecified fall, initial encounter Code(s): W19.XXXA - Unspecified fall, initial encounter Status: Acute Assessment and Plan: thought to be secondary to relative volume depleition + low BP along with bradycardia improvement noted s/p IVFs and correction of K+ level off IVF due to #4 follow orthostatics (4) Acute on chronic diastolic heart failure: Code(s): I50.33 - Acute on chronic diastolic (congestive) heart failure Status: Acute Assessment and Plan: thought to be precipitated by IVF resuscitation for hypotension breathing better following diuresis/diuretics monitor I/Os, daily weights, and breathing Cardiology following (5) Pulmonary hypertension: Code(s): I27.20 - Pulmonary hypertension, unspecified Status: Chronic Assessment and Plan: quite significant/severe on recent Echo due to heart failure, COPD, and ZAK continue CPAP support (6) Paroxysmal atrial fibrillation: Code(s): I48.0 - Paroxysmal atrial fibrillation Status: Acute Assessment and Plan: Cardiology following Will continue to follow. Subjective Date/time seen: 04/18/23 12:24 Interval history: Follow-up for acute kidney injury (withl possible component now of chronic kidney disease). Overall, she seems to be doing/feeling reasonably well; renal function seems to have stabilized/improved by AM labs; noted issues with persistent Afib; no other acute complaints voiced. Exam Narrative: General: elderly but WD/WN female in NAD Heart: normal S1 and S2; no rub Lungs: clear to auscultation Abdomen: soft, nontender, nondistended, positive bowel sounds Extremities: no cyanosis or clubbing; trace - 1+ edema Skin: warm and intact Objective Data Vital Signs Vital Signs: Vital Signs Temp Pulse Resp BP Pulse Ox O2 Del Method 04/18/23 12:05 99 04/18/23 10:30 86 96 Room Air 04/18/23 10:20 122 H 93 Room Air 04/18/23 10:15 92 96 Room Air 04/18/23 08:04 133 H 04/18/23 08:05 Room Air 04/18/23 09:22 133 H 04/18/23 08:32 Room Air 04/18/23 08:03 120 H 04/18/23 07:45 72 20 04/18/23 07:32 64 20 04/18/23 07:32 99 Room Air 04/18/23 03:06 82 94 Autopap 04/18/23 04:30 97.6 F 130 H 16 101/66 94 04/18/23 04:00 128 H 04/18/23 00:00 109 H 04/17/23 20:00
--- NOTE | 2023-04-18 12:24 | P.PNNP_ITS ---
Progress Note: A&P Assessment and Plan (1) AJ (acute kidney injury): Code(s): N17.9 - Acute kidney failure, unspecified Status: Acute Assessment and Plan: * baseline creatinine normal about a year ago * evaluation to date/previous hospitalization: * renal ultrasound shows no obstruction in her 1 kidney * UA shows white cells * urine electrolytes are non pre renal and fraction excretion of urea is just barely non pre renal * CK normal * Echo shows diastolic dysfunction grade 2 and severe pulmonary hypertension with moderate pulmonary regurgitation and qvav-[id number] tricuspid regurgitation * serologies significant for positive SPEP and serum immunofixation * suspect elevated creatinine is due to hemodynamic effects of the pulmonary hypertension and the diastolic dysfunction along with the need for diuretic therapy to maintain volume status * how much of this is acute versus chronic?? * creatinine stabilized to ~ 1.9 - 2.2mg/dl following recent hospital discharge * consulted Hem/Onc to r/o paraproteinemia given SPEP/serum immunofixation finding (but consult did not comment on this....) * follow repeat labs and UOP (2) Hyperkalemia: Code(s): E87.5 - Hyperkalemia Status: Acute Assessment and Plan: * presumably due to worsening creatinine in the setting of spironolactone use * spironolactone and lisinopril on hold * s/p medical management * better by recent testing (3) Fall: Qualifiers: Encounter type: initial encounter Qualified Code(s): W19.XXXA - Unspecified fall, initial encounter Code(s): W19.XXXA - Unspecified fall, initial encounter Status: Acute Assessment and Plan: * thought to be secondary to relative volume depleition + low BP along with bradycardia * improvement noted s/p IVFs and correction of K+ level * off IVF due to #4 * follow orthostatics (4) Acute on chronic diastolic heart failure: Code(s): I50.33 - Acute on chronic diastolic (congestive) heart failure Status: Acute Assessment and Plan: * thought to be precipitated by IVF resuscitation for hypotension * breathing better following diuresis/diuretics * monitor I/Os, daily weights, and breathing * Cardiology following (5) Pulmonary hypertension: Code(s): I27.20 - Pulmonary hypertension, unspecified Status: Chronic Assessment and Plan: * quite significant/severe on recent Echo * due to heart failure, COPD, and ZAK * continue CPAP support (6) Paroxysmal atrial fibrillation: Code(s): I48.0 - Paroxysmal atrial fibrillation Status: Acute Assessment and Plan: * Cardiology following Will continue to follow. Subjective Date/time seen: 04/18/23 12:24 Interval history: Follow-up for acute kidney injury (withl possible component now of chronic kidney disease). Overall, she seems to be doing/feeling reasonably well; renal function seems to have stabilized/improved by AM labs; noted issues with persistent Afib; no other acute complaints voiced. Exam Narrative: General: elderly but WD/WN female in NAD Heart: normal S1 and S2; no rub Lungs: clear to auscultation Abdomen: soft, nontender, nondistended, positive bowel sounds Extremities: no cyanosis or clubbing; trace - 1+ edema Skin: warm and intact Objective Data Vital Signs Vital Signs: Vital Signs
--- NOTE | 2023-04-18 12:45 | PM.PNCARD ---
Progress Note: A&P Assessment and Plan (1) Paroxysmal atrial fibrillation: Code(s): I48.0 - Paroxysmal atrial fibrillation Status: Acute Plan 77-year-old lady with paroxysmal atrial fibrillation predominant rhythm now is AFib although some sinus rhythm/sinus bradycardia have been noted earlier in the hospitalization. I am going to try shifting her to a modest dose of sotalol in hopes of more effectively maintaining sinus rhythm. Obviously other option is to abandon rhythm control but I believe since she recently has been in sinus rhythm maintaining rhythm would be a better option at this time. Left ventricular function looked excellent on echo and there is no ischemic disease in the background and no ischemic wall motion abnormality or previous NM. Larry Frederick MD [facility] Subjective Date/time seen: Date of service: 04/18/23 12:45 Interval history: Cardiology follow up for CHF, PAF She's feeling better today. Shortness of breath improving. Less swollen. 04/18/2023: Patient is feeling somewhat better she is persisting in atrial fib primarily with heart rate 110-120. Range Exam Const: General: cooperative, healthy appearing, comfortable and confusion Orientation/consciousness: oriented to person, patient oriented x3 and confusion Other: Slight confusion/memory loss. Chandra Martines at bedside. HENMT: Mouth: Yes moist mucous membranes Eyes: General: appearance normal, both eyes and all related structures EOM: EOMs intact bilaterally Neck: Neck: supple and no JVD Thyroid: thyroid normal Carotids: no bruits Resp: Effort & Inspection: normal respiratory effort Auscultation: not clear to auscultation bilaterally, crackles and rales (ales i bases 1/[address] up) Cardio: Rate: regular rate and tachycardic Rhythm: regular rhythm and abnormal rhythm irregularly irregular Heart sounds: Murmur heart sound present (1/6 CLYDE USB) GI: Inspection: normal to inspection Skin: General skin exam: normal color and no rashes or lesions noted Neuro: General: oriented to person, patient oriented x3 and confusion Other: Some memory loss but functional, remembered she was adm w/ a fall. Extrem: Right lower extremity: edema Left lower extremity: edema Other: No edema. Bilateral knee high compression stockings in place. Psych: Appearance: grossly normal Mental Status: mental status grossly normal (Except for slight memory loss.) Objective Data Vital Signs Vital Signs: Vital Signs - 24 hr 04/17/23 13:22 04/17/23 13:35 04/17/23 14:00 Temperature 36.6 C Pulse Rate 92 103 H 109 H Respiratory Rate 20 20 16 Blood Pressure 102/70 Pulse Oximetry 94 Oxygen Delivery 04/17/23 15:32 04/17/23 16:04 04/17/23 20:14 Temperature Pulse Rate 108 H 83 Respiratory Rate 20 Blood Pressure Pulse Oximetry Oxygen Delivery Room Air 04/17/23 20:16 04/17/23 20:31 04/17/23 21:33 Temperature 36.4 C Pulse Rate 83 82 93 Respiratory Rate 20 18 Blood Pressure 106/74 Pulse Oximetry 92 100 Oxygen Delivery Room Air 04/17/23 21:45 04/17/23 22:17 04/17/23 20:00 Temperature Pulse Rate 95 122 H Respiratory Rate 17 Blood Pressure 127/87 Pulse Oximetry 95 Oxygen Delivery Autopap 04/17/23 20:00 04/18/23 00:00 04/18/23 04:00 Temperature Pulse Rate 109 H 128 H Respiratory Rate Blood Pressure Pulse Oximetry Oxygen Delivery Room Air 04/18/23 04:30 04/18/23 03:06 04/18/23 07:32 Temperature 36.4 C Pulse Rate 130 H 82 Respiratory Rate 16 Blood Pressure 101/66 Pulse Oximetry 94 94 99 Oxygen Delivery Autopap Room Air 04/18/23 07:32 04/18/23 07:45 04/18/23 08:03 Temperature Pulse Rate 64 72 120 H Respiratory Rate 20 20 Blood Pressure Pulse Oximetry Oxygen Delivery 04/18/23 08:32 04/18/23 09:22 04/18/23 08:05 Temperature Pulse Rate 133 H Respiratory Rate Blood Pressure Pulse Oximetry Oxy
--- NOTE | 2023-04-18 13:11 | PM.IMPN ---
Progress Note: A&P Assessment and Plan (1) Congestive heart failure: Qualifiers: Heart failure type: right heart failure due to left heart failure Qualified Code(s): I50.814 - Right heart failure due to left heart failure Code(s): I50.9 - Heart failure, unspecified Status: Acute Assessment and Plan: Echo from 04/05 showed an EF of 65-70%, grade 2 diastolic dysfunction as well as severe right-sided heart failure, severe pulmonary hypertension and multiple valvular abnormalities Cardiology consult ordered and appreciated Continue Eliquis, lisinopril, Jardiance, Lasix Almost euvolemic (2) COPD (chronic obstructive pulmonary disease): Qualifiers: COPD type: COPD with acute exacerbation Qualified Code(s): J44.1 - Chronic obstructive pulmonary disease with (acute) exacerbation Code(s): J44.9 - Chronic obstructive pulmonary disease, unspecified Status: Acute Assessment and Plan: Does not appear to be in acute exacerbation (3) CKD (chronic kidney disease) stage 4, GFR 15-29 ml/min: Code(s): N18.4 - Chronic kidney disease, stage 4 (severe) Status: Acute Assessment and Plan: Continue sodium bicarb tablets, appreciate nephrology consultation, pending (4) Obstructive sleep apnea: Code(s): G47.33 - Obstructive sleep apnea (adult) (pediatric) Status: Chronic Assessment and Plan: Respiratory therapy for CPAP at night (5) Acute hyperkalemia: Code(s): E87.5 - Hyperkalemia Status: Acute Assessment and Plan: Potassium slightly improved to 5.7 from admission when it was 6.3, up a little since yesterday when it was 5.3 Appreciate nephrology consultation Resolved (6) Paroxysmal atrial fibrillation: Code(s): I48.0 - Paroxysmal atrial fibrillation Status: Acute Assessment and Plan: Appreciate cardiology consultation, assess response to sotalol Plan DVT prophylaxis with Eliquis GI prophylaxis not indicated Code status full code Subjective Date/time seen: 04/18/23 13:11 Interval history: 77-year-old female with history of dementia, heart failure as well as bladder cancer and urostomy is presenting with weakness and shortness of breath is currently being treated for volume overloaded likely from cardiorenal syndrome and severe right-sided heart failure. No overnight events noted. No chest pain. No nausea, vomiting or diarrhea. No fevers or chills. Feels much better than when she came in. Patient states she feels even better than yesterday. Review of Systems Review of Systems: 12 point review of systems was assessed and was negative except as noted in the HPI Exam Narrative: General: No acute distress, alert and oriented per baseline HEENT: Atraumatic, normocephalic, mucous membranes moist CV: Irregularly irregular, S1, S2 Lungs: Clear to auscultation, diminished at bases with a few scattered crackles, no wheeze Abdomen: Soft, nontender, nondistended Extremities: Normal to inspection, Brian hose in place, no edema lower extremities Skin: No rashes noted, no lesions or wounds seen Psych: Euthymic, normal affect Objective Data Vital Signs Vital Signs: Vital Signs - 24 hr 04/17/23 13:22 04/17/23 13:35 04/17/23 14:00 Temperature 97.9 F Pulse Rate 92 103 H 109 H Respiratory Rate 20 20 16 Blood Pressure 102/70 Pulse Oximetry 94 Oxygen Delivery 04/17/23 15:32 04/17/23 16:04 04/17/23 20:14 Temperature Pulse Rate 108 H 83 Respiratory Rate 20 Blood Pressure Pulse Oximetry Oxygen Delivery Room Air 04/17/23 20:16 04/17/23 20:31 04/17/23 21:33 Temperature 97.6 F Pulse Rate 83 82 93 Respiratory Rate 20 18 Blood Pressure 106/74 Pulse Oximetry 92 100 Oxygen Delivery Room Air 04/17/23 21:45 04/17/23 22:17 04/17/23 20:00 Temperature Pulse Rate 95 122 H Respiratory Rate 17 Blood Pressure 1
[2023-04-18] MEDS: EPOETIN ALFA-EPBX 10,000 UNITS/ML VIAL 10000 UNITS SUB-Q (18:11)
[2023-04-18 19:58] LABS: Immunoglobulin A 227 mg/dL (70-400); Immunoglobulin G 1774 mg/dL (700-1600); Immunoglobulin M 168 mg/dL (40-230)
[2023-04-18] MEDS: traZODone HCL 25 MG TABLET PO (20:58)
[2023-04-18] MEDS: SOTALOL HCL 40 MG TABLET PO (20:59)
[2023-04-18] MEDS: ATORVASTATIN 40 MG TABLET 80 MG PO (20:59)
[2023-04-19] VITALS (14 sets, daily range): BP systolic 96–113; BP diastolic 61–82; PULSE 74–122; RESP 16–20; TEMP 36.6–36.9; O2SAT 92–97; BMI 10.0
[2023-04-19 06:19] LABS: Basophils Percent Auto 0.5 % (0.2-1.2); Eosinophils Absolute Auto 0.1 K/mm3 (0-0.3); Eosinophils Percent Auto 1.6 % (0-4.4); Hematocrit 29.1 % (37.0-47.0); Hemoglobin 8.9 g/dL (12.0-15.0); Immature Granulocyte Absolute 0.02 K/mm3 (0.00-0.031); Immature Granulocyte Percent A 0.3 % (0-0.5); Lymphocytes Absolute Auto 0.65 K/mm3 (0.9-3.2); Lymphocytes Percent Auto 10.3 % (18.3-44.2); Mean Corpuscular HGB Conc 30.6 g/dl (32-36); Mean Corpuscular Hemoglobin 27.6 pg (26-34); Mean Corpuscular Volume 90.4 fl (80-100); Mean Platelet Volume 8.6 fl (7.4-10.4); Monocytes Absolute Auto 0.7 K/mm3 (0.1-0.6); Monocytes Percent Auto 11.1 % (2.6-8.5); Neutrophils Absolute Auto 4.8 K/mm3 (1.3-6.7); Neutrophils Percent Auto 76.2 % (45.5-73.1); Platelet Count Result 212 k/mm3 (150-375); Red Blood Count 3.22 M/mm3 (4.2-5.4); White Blood Count 6.3 K/mm3 (4.5-10.0)
[2023-04-19 06:39] LABS: Alanine Aminotransferase 18 U/L (6-35); Albumin Level 2.9 g/dL (3.5-5.1); Alkaline Phosphatase 112 U/L (38-126); Anion Gap 7 mmol/L (8-16); Aspartate Amino Transferase 26 U/L (14-36); Bilirubin,Total 0.7 mg/dL (0.2-1.3); Blood Urea Nitrogen 29 mg/dL (7-17); Calcium 8.3 mg/dL (8.4-10.2); Carbon Dioxide 24 mmol/L (22-30); Chloride 106 mmol/L (98-107); Estimated CRCL calculation 28 ml/min; Estimated Glomerular Filt Rate 27; Glucose 93 mg/dL (65-110); Potassium 4.3 mmol/L (3.4-5.0); Sodium 137 mmol/L (137-145)
[2023-04-19] MEDS: FLUTICASONE/UMECLIDIN/VILANTER 100-62.5-25 MCG ELLIPTA 1 PUFF INHALATION (08:13)
[2023-04-19] MEDS: ALBUTEROL SULFATE NEB 2.5 MG/3 ML INH 5 MG INHALATION (08:13)
[2023-04-19] MEDS: SOTALOL HCL 40 MG TABLET PO ×2 (09:45→20:31)
[2023-04-19] MEDS: FERROUS SULFATE 325 MG TABLET DR BY MOUTH (09:45)
[2023-04-19] MEDS: GABAPENTIN 300 MG CAPSULE 600 MG PO (09:45)
[2023-04-19] MEDS: FUROSEMIDE 20 MG TABLET PO (09:45)
[2023-04-19] MEDS: APIXABAN 5 MG TABLET PO ×2 (09:45→20:31)
[2023-04-19] MEDS: SODIUM BICARBONATE TAB 650 MG TABLET PO ×2 (09:46→17:46)
[2023-04-19] MEDS: FAMOTIDINE 20 MG TABLET PO (09:46)
[2023-04-19] MEDS: PANTOPRAZOLE 40 MG TABLET PO (09:46)
[2023-04-19] MEDS: OMEGA 3 POLYUNSAT FATTY ACIDS 1 GM CAP 2 GM PO ×2 (09:46→17:46)
[2023-04-19] MEDS: DULoxetine HCL 60 MG CAPSULE.DR PO (09:46)
[2023-04-19] MEDS: EMPAGLIFLOZIN 10 MG TABLET PO (09:46)
--- NOTE | 2023-04-19 11:28 | PM.IMPN ---
Progress Note: A&P Assessment and Plan (1) Congestive heart failure: Qualifiers: Heart failure type: right heart failure due to left heart failure Qualified Code(s): I50.814 - Right heart failure due to left heart failure Code(s): I50.9 - Heart failure, unspecified Status: Acute Assessment and Plan: Echo from 04/05 showed an EF of 65-70%, grade 2 diastolic dysfunction as well as severe right-sided heart failure, severe pulmonary hypertension and multiple valvular abnormalities Cardiology consult ordered and appreciated Continue Eliquis, lisinopril, Jardiance, Lasix Almost euvolemic (2) COPD (chronic obstructive pulmonary disease): Qualifiers: COPD type: COPD with acute exacerbation Qualified Code(s): J44.1 - Chronic obstructive pulmonary disease with (acute) exacerbation Code(s): J44.9 - Chronic obstructive pulmonary disease, unspecified Status: Acute Assessment and Plan: Does not appear to be in acute exacerbation (3) CKD (chronic kidney disease) stage 4, GFR 15-29 ml/min: Code(s): N18.4 - Chronic kidney disease, stage 4 (severe) Status: Acute Assessment and Plan: Continue sodium bicarb tablets, appreciate nephrology consultation, oncology consulted due to abnormalities found in workup, 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, oncology will follow-up outpatient Bone scan ordered and pending (4) Obstructive sleep apnea: Code(s): G47.33 - Obstructive sleep apnea (adult) (pediatric) Status: Chronic Assessment and Plan: Respiratory therapy for CPAP at night (5) Acute hyperkalemia: Code(s): E87.5 - Hyperkalemia Status: Acute Assessment and Plan: Potassium slightly improved to 5.7 from admission when it was 6.3, up a little since yesterday when it was 5.3 Appreciate nephrology consultation Resolved (6) Paroxysmal atrial fibrillation: Code(s): I48.0 - Paroxysmal atrial fibrillation Status: Acute Assessment and Plan: Appreciate cardiology consultation, assess response to sotalol Plan DVT prophylaxis with Eliquis GI prophylaxis not indicated Code status full code Subjective Date/time seen: 04/19/23 11:28 Interval history: 77-year-old female with history of dementia, heart failure as well as bladder cancer and urostomy is presenting with weakness and shortness of breath is currently being treated for volume overloaded likely from cardiorenal syndrome and severe right-sided heart failure. No overnight events noted. No chest pain. No nausea, vomiting or diarrhea. No fevers or chills. Feels much better than when she came in. Patient states she feels even better than yesterday. Review of Systems Review of Systems: 12 point review of systems was assessed and was negative except as noted in the HPI Exam Narrative: General: No acute distress, alert and oriented per baseline HEENT: Atraumatic, normocephalic, mucous membranes moist CV: Irregularly irregular, S1, S2 Lungs: Clear to auscultation, diminished at bases with a few scattered crackles, no wheeze Abdomen: Soft, nontender, nondistended Extremities: Normal to inspection, Brian hose in place, no edema lower extremities Skin: No rashes noted, no lesions or wounds seen Psych: Euthymic, normal affect Objective Data Vital Signs Vital Signs: Vital Signs - 24 hr 04/18/23 12:05 04/18/23 15:06 04/18/23 15:06 Temperature Pulse Rate 99 62 Respiratory Rate 20 Blood Pressure Pulse Oximetry 94 Oxygen Delivery Room Air 04/18/23 15:17 04/18/23 15:17 04/18/23 16:04 Temperature 98.2 F Pulse Rate 65 125 H 112 H Respiratory Rate 20 16 Blood Pressure 105/71 Pulse Oximetry 100 Oxygen Delivery 04/18/23 17:23 04/18/23 17:24 04/18/23 17:24 Temperature 97.9 F 98.4 F 98.4 F Pulse Rate 121 H 134 H 128 H Respiratory Rate 12 16 16 Blood Pressure 93/66 L 106/78 120/53 L Pulse O
--- NOTE | 2023-04-19 14:01 | P.PNNP_ITS ---
Progress Note: A&P Assessment and Plan (1) AJ (acute kidney injury): Code(s): N17.9 - Acute kidney failure, unspecified Status: Acute Assessment and Plan: * baseline creatinine normal about a year ago * evaluation to date/previous hospitalization: * renal ultrasound shows no obstruction in her 1 kidney * UA shows white cells * urine electrolytes are non pre renal and fraction excretion of urea is just barely non pre renal * CK normal * Echo shows diastolic dysfunction grade 2 and severe pulmonary hypertension with moderate pulmonary regurgitation and [id number] tricuspid regurgitation * serologies significant for positive SPEP and serum immunofixation * suspect elevated creatinine is due to hemodynamic effects of the pulmonary hypertension and the diastolic dysfunction along with the need for diuretic therapy to maintain volume status * how much of this is acute versus chronic?? * creatinine stabilized to ~ 1.9 - 2.2mg/dl following recent hospital discharge * consulted Hem/Onc to r/o paraproteinemia given SPEP/serum immunofixation finding. came in followup and ordered a bone survey which was negative, and also mentioned that a bone marrow was not indicated. * follow repeat labs and UOP (2) Hyperkalemia: Code(s): E87.5 - Hyperkalemia Status: Acute Assessment and Plan: * presumably due to worsening creatinine in the setting of spironolactone use * spironolactone and lisinopril on hold * Potassium normal today (3) Fall: Qualifiers: Encounter type: initial encounter Qualified Code(s): W19.XXXA - Uns pecified fall, initial encounter Code(s): W19.XXXA - Unspecified fall, initial encounter Status: Acute Assessment and Plan: * thought to be secondary to relative volume depleition + low BP along with bradycardia * improvement noted s/p IVFs and correction of K+ level * off IVF due to #4 * Blood pressure does not seem to drop very much with standing. (4) Acute on chronic diastolic heart failure: Code(s): I50.33 - Acute on chronic diastolic (congestive) heart failure Status: Acute Assessment and Plan: * thought to be precipitated by IVF resuscitation for hypotension * breathing better following diuresis/diuretics * monitor I/Os, daily weights, and breathing * Cardiology following (5) Pulmonary hypertension: Code(s): I27.20 - Pulmonary hypertension, unspecified Status: Chronic Assessment and Plan: * quite significant/severe on recent Echo * due to heart failure, COPD, and ZAK * continue CPAP support (6) Paroxysmal atrial fibrillation: Code(s): I48.0 - Paroxysmal atrial fibrillation Status: Acute Assessment and Plan: * Cardiology following * Heart rate well controlled between 70 and 100. Subjective Date/time seen: 04/19/23 14:01 Interval history: Patient feels okay. Lying flat in bed comfortably. She denies shortness of breath. Swelling is better. Exam Narrative: General: elderly but WD/WN female in NAD Heart: normal S1 and S2; no rub or gallop Lungs: clear to auscultation Abdomen: soft, nontender, nondistended, positive bowel sounds Extremities: no cyanosis or clubbing; trace - 1+ edema Skin: No rash Objective Data Vital Signs Vital Signs: Vital Signs - 24 hr 04/18/23 15:06 04/18/23 15:06 04/18/23 15:17
--- NOTE | 2023-04-19 14:01 | PM.PNNEP ---
Progress Note: A&P Assessment and Plan (1) AJ (acute kidney injury): Code(s): N17.9 - Acute kidney failure, unspecified Status: Acute Assessment and Plan: baseline creatinine normal about a year ago evaluation to date/previous hospitalization: renal ultrasound shows no obstruction in her 1 kidney UA shows white cells urine electrolytes are non pre renal and fraction excretion of urea is just barely non pre renal CK normal Echo shows diastolic dysfunction grade 2 and severe pulmonary hypertension with moderate pulmonary regurgitation and [id number] tricuspid regurgitation serologies significant for positive SPEP and serum immunofixation suspect elevated creatinine is due to hemodynamic effects of the pulmonary hypertension and the diastolic dysfunction along with the need for diuretic therapy to maintain volume status how much of this is acute versus chronic?? creatinine stabilized to ~ 1.9 - 2.2mg/dl following recent hospital discharge consulted Hem/Onc to r/o paraproteinemia given SPEP/serum immunofixation finding. came in followup and ordered a bone survey which was negative, and also mentioned that a bone marrow was not indicated. follow repeat labs and UOP (2) Hyperkalemia: Code(s): E87.5 - Hyperkalemia Status: Acute Assessment and Plan: presumably due to worsening creatinine in the setting of spironolactone use spironolactone and lisinopril on hold Potassium normal today (3) Fall: Qualifiers: Encounter type: initial encounter Qualified Code(s): W19.XXXA - Unspecified fall, initial encounter Code(s): W19.XXXA - Unspecified fall, initial encounter Status: Acute Assessment and Plan: thought to be secondary to relative volume depleition + low BP along with bradycardia improvement noted s/p IVFs and correction of K+ level off IVF due to #4 Blood pressure does not seem to drop very much with standing. (4) Acute on chronic diastolic heart failure: Code(s): I50.33 - Acute on chronic diastolic (congestive) heart failure Status: Acute Assessment and Plan: thought to be precipitated by IVF resuscitation for hypotension breathing better following diuresis/diuretics monitor I/Os, daily weights, and breathing Cardiology following (5) Pulmonary hypertension: Code(s): I27.20 - Pulmonary hypertension, unspecified Status: Chronic Assessment and Plan: quite significant/severe on recent Echo due to heart failure, COPD, and ZAK continue CPAP support (6) Paroxysmal atrial fibrillation: Code(s): I48.0 - Paroxysmal atrial fibrillation Status: Acute Assessment and Plan: Cardiology following Heart rate well controlled between 70 and 100. Subjective Date/time seen: 04/19/23 14:01 Interval history: Patient feels okay. Lying flat in bed comfortably. She denies shortness of breath. Swelling is better. Exam Narrative: General: elderly but WD/WN female in NAD Heart: normal S1 and S2; no rub or gallop Lungs: clear to auscultation Abdomen: soft, nontender, nondistended, positive bowel sounds Extremities: no cyanosis or clubbing; trace - 1+ edema Skin: No rash Objective Data Vital Signs Vital Signs: Vital Signs - 24 hr 04/18/23 15:06 04/18/23 15:06 04/18/23 15:17 Temperature Pulse Rate 62 65 Respiratory Rate 20 20 Blood Pressure Pulse Oximetry 94 Oxygen Delivery Room Air 04/18/23 15:17 04/18/23 16:04 04/18/23 17:23 Temperature 98.2 F 97.9 F Pulse Rate 125 H 112 H 121 H Respiratory Rate 16 12 Blood Pressure 105/71 93/66 L Pulse Oximetry 100 95 Oxygen Delivery 04/18/23 17:24 04/18/23 17:24 04/18/23 20:59 Temperature 98.4 F 98.4 F Pulse Rate 134 H 128 H 110 H Respiratory Rate 16 16 Blood Pressure 106/78 120/53 L Pulse Oximetry 100 98 Oxygen Delivery 04/18/23 21:10 04/18/23
--- NOTE | 2023-04-19 16:50 | PM.PNCARD ---
Progress Note: A&P Assessment and Plan (1) Paroxysmal atrial fibrillation: Code(s): I48.0 - Paroxysmal atrial fibrillation Status: Acute Assessment and Plan: PAF, was in NSR on adm, but developed paroxysmal atrial fibrillation, rate controlled with metoprolol succ 25 mg daily. --continue metoprolol succinate 25 mg daily --Eliquis resumed --sotalol started on 04/18/2023 at a low dose in view of her CKD --check EKG periodically to evaluate for any toxic effects of the sotalol with QT prolongation cetera --Might benefit [facility] to make sure pt is taking meds appropriately and FU for CHF (2) Acute on chronic diastolic heart failure: Code(s): I50.33 - Acute on chronic diastolic (congestive) heart failure Status: Acute Assessment and Plan: Patient has a mild exacerbation of chronic diastolic heart failure, with mild edema and some SOB on admission. --diuresed and back on her usual furosemide 40 mg daily --Does she need her home med, desmopressin??? --continue Jardiance --can be very difficult to obtain optimal fluid balance in a patient with advanced chronic kidney disease as well as diastolic heart failure. --overall I wonder if there may be a degree of noncompliance. (3) CKD stage 4 secondary to hypertension: Code(s): I12.9 - Hypertensive chronic kidney disease with stage 1 through stage 4 chronic kidney disease, or unspecified chronic kidney disease; N18.4 - Chronic kidney disease, stage 4 (severe) Status: Acute Assessment and Plan: Stage 4-5, followed by Dr. Watson, and improving. (4) AJ (acute kidney injury): Code(s): N17.9 - Acute kidney failure, unspecified Status: Acute Assessment and Plan: Acute kidney injury, chronic kidney disease stage 4-5. Associated with hyperkalemia which is improving. Followed by Dr. Watson --improving --Hopefully can continue the lisinopril (or switch to losartan). Likely she will need to remain off spironolactone (5) Fall: Qualifiers: Encounter type: initial encounter Qualified Code(s): W19.XXXA - Unspecified fall, initial encounter Code(s): W19.XXXA - Unspecified fall, initial encounter Status: Acute Assessment and Plan: Patient presented with a fall, probably due to intravascular depletion, hypotension, and bradycardia aggravated by hyperkalemia. Blood pressure still somewhat soft but improved and bradycardia has resolved. --Not orthostatic --Ph Tx thought she did not need home Ph Tx last admission. (6) Pulmonary hypertension: Code(s): I27.20 - Pulmonary hypertension, unspecified Status: Chronic Assessment and Plan: Severe pulmonary hypertension with an estimated PAP of 72 mmHg, due to left heart failure, COPD, and ZAK. --encouraged compliance with CPAP --assess for any need for home O2 prior to discharge. Currently O2 sat good on room air at rest. Subjective Date/time seen: 04/19/23 16:51 Interval history: Follow-up for acute on chronic diastolic heart failure and new onset of paroxysmal atrial fibrillation. Admitted 04/16/2023 after a fall with acute kidney injury, mild hypotension and bradycardia will with a potassium level of 6.3. Has chronic kidney disease stage 3-4 and hypertension, COPD, mild dementia.. 04/18/2023: Started on sotalol for paroxysmal atrial fibrillation Date of service 04/19/2023: Breathing better. Still weak but better. Edema improving. Off O2. Creatinine continues to improve, now down to 1.8. Tele: PAF, rate controlled. QTc looks acceptable. Review of Systems Review of Systems: No SOB at rest, nor CP, abdom pain. LE swelling persists but improved. Using CPAP. Exam Narrative: Up i chair off O2, playing Serbian checkers w/ daughter. NAD Const: General: cooperative, healthy appearing and comfortable; No confusion Orientation/consciousness: oriented to person, patient oriented x3 and No confusion HE
[2023-04-19] MEDS: ATORVASTATIN 40 MG TABLET 80 MG PO (20:31)
[2023-04-19] MEDS: hydrOXYzine HCL 10 MG TABLET PO (20:31)
[2023-04-19] MEDS: traZODone HCL 25 MG TABLET PO (20:32)
[2023-04-19] MEDS: ACETAMINOPHEN 325 MG TABLET 650 MG PO (20:32)
[2023-04-19] MEDS: WATER FOR IRRIGATION, STERILE 1,000 ML BOTTLE 1000 ML (21:20)
[2023-04-20] VITALS (16 sets, daily range): BP systolic 104–123; BP diastolic 68–84; PULSE 70–90; RESP 16–20; TEMP 36.6–37.2; O2SAT 93–98
[2023-04-20 06:09] LABS: Basophils Absolute Auto 0.1 K/mm3 (0.0-0.1); Basophils Percent Auto 0.7 % (0.2-1.2); Eosinophils Absolute Auto 0.1 K/mm3 (0-0.3); Eosinophils Percent Auto 1.9 % (0-4.4); Hematocrit 29.8 % (37.0-47.0); Hemoglobin 8.9 g/dL (12.0-15.0); Immature Granulocyte Absolute 0.02 K/mm3 (0.00-0.031); Immature Granulocyte Percent A 0.3 % (0-0.5); Lymphocytes Absolute Auto 0.84 K/mm3 (0.9-3.2); Lymphocytes Percent Auto 11.4 % (18.3-44.2); Mean Corpuscular HGB Conc 29.9 g/dl (32-36); Mean Corpuscular Hemoglobin 27.4 pg (26-34); Mean Corpuscular Volume 91.7 fl (80-100); Mean Platelet Volume 8.5 fl (7.4-10.4); Monocytes Absolute Auto 0.8 K/mm3 (0.1-0.6); Monocytes Percent Auto 11.1 % (2.6-8.5); Neutrophils Absolute Auto 5.5 K/mm3 (1.3-6.7); Neutrophils Percent Auto 74.6 % (45.5-73.1); Platelet Count Result 218 k/mm3 (150-375); Red Blood Count 3.25 M/mm3 (4.2-5.4); Red Cell Distribution Width 15.3 % (11.5-14.5); White Blood Count 7.4 K/mm3 (4.5-10.0)
[2023-04-20 06:29] LABS: Alanine Aminotransferase 21 U/L (6-35); Albumin Level 3.1 g/dL (3.5-5.1); Alkaline Phosphatase 113 U/L (38-126); Anion Gap 8 mmol/L (8-16); Aspartate Amino Transferase 31 U/L (14-36); Bilirubin,Total 0.8 mg/dL (0.2-1.3); Blood Urea Nitrogen 30 mg/dL (7-17); Calcium 8.5 mg/dL (8.4-10.2); Carbon Dioxide 26 mmol/L (22-30); Chloride 103 mmol/L (98-107); Estimated CRCL calculation 30 ml/min; Estimated Glomerular Filt Rate 29; Glucose 89 mg/dL (65-110); Potassium 4.3 mmol/L (3.4-5.0); Sodium 137 mmol/L (137-145)
[2023-04-20 07:12] LABS: Ovalocytes 1+ (NORMAL); Platelet Estimate Adequate (Adequate); Schistocytes None Seen (NORMAL)
[2023-04-20 07:13] LABS: Anisocytosis 1+ (NORMAL)
[2023-04-20] MEDS: APIXABAN 5 MG TABLET PO ×2 (08:53→20:58)
[2023-04-20] MEDS: DULoxetine HCL 60 MG CAPSULE.DR PO (08:53)
[2023-04-20] MEDS: GABAPENTIN 300 MG CAPSULE 600 MG PO (08:54)
[2023-04-20] MEDS: EMPAGLIFLOZIN 10 MG TABLET PO (08:54)
[2023-04-20] MEDS: FAMOTIDINE 20 MG TABLET PO (08:54)
[2023-04-20] MEDS: FUROSEMIDE 20 MG TABLET PO (08:54)
[2023-04-20] MEDS: FERROUS SULFATE 325 MG TABLET DR BY MOUTH (08:54)
[2023-04-20] MEDS: SODIUM BICARBONATE TAB 650 MG TABLET PO ×2 (08:55→16:09)
[2023-04-20] MEDS: OMEGA 3 POLYUNSAT FATTY ACIDS 1 GM CAP 2 GM PO ×2 (08:55→16:09)
[2023-04-20] MEDS: PANTOPRAZOLE 40 MG TABLET PO (08:55)
[2023-04-20] MEDS: SOTALOL HCL 40 MG TABLET PO ×2 (08:56→20:58)
--- NOTE | 2023-04-20 10:00 | ECG_ITS ---
Measurements Intervals [place] Rate: 79 P: 47 VA: 152 QRS: 40 QRSD: 88 T: 33 QT: 385 QTc: 443 Interpretive Statements SINUS RHYTHM ATRIAL PREMATURE COMPLEXES INCOMPLETE RIGHT BUNDLE BRANCH BLOCK BORDERLINE ST ABNORMALITY- ANT/INF LEADS BASELINE ARTIFACT- I, II, AVR, AVL BORDERLINE ECG COMPARED TO ECG 04/15/2023 13:59:32 SINUS RHYTHM NOW PRESENT ST (T WAVE) DEVIATION NOW PRESENT Electronically Signed On 04-20-2023 14:27:45 [employer] OFFICER by Lukas Diaz D.O.
--- NOTE | 2023-04-20 12:40 | P.PNNP_ITS ---
Progress Note: A&P Assessment and Plan (1) AJ (acute kidney injury): Code(s): N17.9 - Acute kidney failure, unspecified Status: Acute Assessment and Plan: * baseline creatinine normal about a year ago * evaluation to date/previous hospitalization: * renal ultrasound shows no obstruction in her 1 kidney * UA shows white cells * urine electrolytes are non pre renal and fraction excretion of urea is just barely non pre renal * CK normal * Echo shows diastolic dysfunction grade 2 and severe pulmonary hypertension with moderate pulmonary regurgitation and jope-lz-jcmhjtrd tricuspid regurgitation * serologies significant for positive SPEP and serum immunofixation * suspect elevated creatinine is due to hemodynamic effects of the pulmonary hypertension and the diastolic dysfunction along with the need for diuretic therapy to maintain volume status * how much of this is acute versus chronic?? * creatinine stabilized to ~ 1.9 - 2.2mg/dl following recent hospital discharge * consulted Hem/Onc to r/o paraproteinemia given SPEP/serum immunofixation finding. came in followup and ordered a bone survey which was negative, and also mentioned that a bone marrow was not indicated. * she should follow up as an outpatient. * consider a renal biopsy to rule out rgus when she is a little stronger. * follow repeat labs and UOP (2) Hyperkalemia: Code(s): E87.5 - Hyperkalemia Status: Acute Assessment and Plan: * presumably due to worsening creatinine in the setting of spironolactone use * spironolactone and lisinopril on hold * Potassium is good (3) Fall: Qualifiers: Encounter type: initial encounter Qualified Code(s): W19.XXXA - Unspecified fall, initial encounter Code(s): W19.XXXA - Unspecified fall, initial encounter Status: Acute Assessment and Plan: * thought to be secondary to relative volume depleition + low BP along with bradycardia * no orthostatic drop in bp (4) Acute on chronic diastolic heart failure: Code(s): I50.33 - Acute on chronic diastolic (congestive) heart failure Status: Acute Assessment and Plan: * thought to be precipitated by IVF resuscitation for hypotension * breathing better following diuresis/diuretics * monitor I/Os, daily weights, and breathing * currently on furosemide 20mg per day * Cardiology following (5) Pulmonary hypertension: Code(s): I27.20 - Pulmonary hypertension, unspecified Status: Chronic Assessment and Plan: * quite significant/severe on recent Echo * due to heart failure, COPD, and ZAK * continue CPAP support (6) Paroxysmal atrial fibrillation: Code(s): I48.0 - Paroxysmal atrial fibrillation Status: Acute Assessment and Plan: * Cardiology following * Heart rate well controlled between 70 and 100. Subjective Date/time seen: 04/20/23 12:40 Interval history: alert, feels okay up i a chair eager for discharge Exam Narrative: General: elderly but WD/WN female in NAD Heart: normal S1 and S2; no rub or gallop Lungs: clear bilaterally Abdomen: soft, nontender, nondistended, positive bowel sounds Extremities: no cyanosis or clubbing; trace - 1+ edema Skin: No rash or sq noduels Objective Data Vital Signs Vital Signs: Vital Signs - 24 hr 04/19/23 14:00 04/19/23 16:00 04/19/23 20:31
--- NOTE | 2023-04-20 12:40 | PM.PNNEP ---
Progress Note: A&P Assessment and Plan (1) AJ (acute kidney injury): Code(s): N17.9 - Acute kidney failure, unspecified Status: Acute Assessment and Plan: baseline creatinine normal about a year ago evaluation to date/previous hospitalization: renal ultrasound shows no obstruction in her 1 kidney UA shows white cells urine electrolytes are non pre renal and fraction excretion of urea is just barely non pre renal CK normal Echo shows diastolic dysfunction grade 2 and severe pulmonary hypertension with moderate pulmonary regurgitation and ntfq-fx-kcfznhqq tricuspid regurgitation serologies significant for positive SPEP and serum immunofixation suspect elevated creatinine is due to hemodynamic effects of the pulmonary hypertension and the diastolic dysfunction along with the need for diuretic therapy to maintain volume status how much of this is acute versus chronic?? creatinine stabilized to ~ 1.9 - 2.2mg/dl following recent hospital discharge consulted Hem/Onc to r/o paraproteinemia given SPEP/serum immunofixation finding. came in followup and ordered a bone survey which was negative, and also mentioned that a bone marrow was not indicated. she should follow up as an outpatient. consider a renal biopsy to rule out rgus when she is a little stronger. follow repeat labs and UOP (2) Hyperkalemia: Code(s): E87.5 - Hyperkalemia Status: Acute Assessment and Plan: presumably due to worsening creatinine in the setting of spironolactone use spironolactone and lisinopril on hold Potassium is good (3) Fall: Qualifiers: Encounter type: initial encounter Qualified Code(s): W19.XXXA - Unspecified fall, initial encounter Code(s): W19.XXXA - Unspecified fall, initial encounter Status: Acute Assessment and Plan: thought to be secondary to relative volume depleition + low BP along with bradycardia no orthostatic drop in bp (4) Acute on chronic diastolic heart failure: Code(s): I50.33 - Acute on chronic diastolic (congestive) heart failure Status: Acute Assessment and Plan: thought to be precipitated by IVF resuscitation for hypotension breathing better following diuresis/diuretics monitor I/Os, daily weights, and breathing currently on furosemide 20mg per day Cardiology following (5) Pulmonary hypertension: Code(s): I27.20 - Pulmonary hypertension, unspecified Status: Chronic Assessment and Plan: quite significant/severe on recent Echo due to heart failure, COPD, and ZAK continue CPAP support (6) Paroxysmal atrial fibrillation: Code(s): I48.0 - Paroxysmal atrial fibrillation Status: Acute Assessment and Plan: Cardiology following Heart rate well controlled between 70 and 100. Subjective Date/time seen: 04/20/23 12:40 Interval history: alert, feels okay up i a chair eager for discharge Exam Narrative: General: elderly but WD/WN female in NAD Heart: normal S1 and S2; no rub or gallop Lungs: clear bilaterally Abdomen: soft, nontender, nondistended, positive bowel sounds Extremities: no cyanosis or clubbing; trace - 1+ edema Skin: No rash or sq noduels Objective Data Vital Signs Vital Signs: Vital Signs - 24 hr 04/19/23 14:00 04/19/23 16:00 04/19/23 20:31 Temperature 97.9 F Pulse Rate 88 89 80 Respiratory Rate 16 Blood Pressure 113/82 Pulse Oximetry 94 Oxygen Delivery 04/19/23 22:03 04/19/23 22:00 04/19/23 20:00 Temperature 98.2 F Pulse Rate 74 92 86 Respiratory Rate 19 18 Blood Pressure 96/61 L Pulse Oximetry 94 97 Oxygen Delivery Autopap 04/19/23 20:00 04/20/23 00:00 04/20/23 04:00 Temperature Pulse Rate 80 78 Respiratory Rate Blood Pressure Pulse Oximetry Oxygen Delivery Room Air 04/20/23 06:00 04/20/23 06:00 04/20/23 06:05 Temperature 98.6 F 98.6 F 98.6
[2023-04-20 13:29] LABS: Abnormal Protein Band 1 0.6 g/dL; Albumin 2.6 g/dL (3.8-4.8); Alpha 1 Globulin 0.5 g/dL (0.2-0.3); Alpha 2 Globulin 0.8 g/dL (0.5-0.9); Beta 1 Globulin 0.4 g/dL (0.4-0.6); Gamma Globulin 1.7 g/dL (0.8-1.7); Protein, Total 6.2 g/dL (6.1-8.1)
--- NOTE | 2023-04-20 14:13 | PM.PNCARD ---
Progress Note: A&P Assessment and Plan (1) Paroxysmal atrial fibrillation: Code(s): I48.0 - Paroxysmal atrial fibrillation Status: Acute Assessment and Plan: PAF, was in NSR on adm, but developed paroxysmal atrial fibrillation. Has been maintaining sinus rhythm now with sotalol at a renal dose of 40 mg b.i.d.. --Eliquis resumed --sotalol started on 04/18/2023 at a low dose in view of her CKD --check EKG periodically to evaluate for any toxic effects of the sotalol with QT prolongation cetera. So far QT interval is acceptable. --Might benefit [facility] to make sure pt is taking meds appropriately and FU for CHF --likely okay for discharge Friday. (2) Acute on chronic diastolic heart failure: Code(s): I50.33 - Acute on chronic diastolic (congestive) heart failure Status: Acute Assessment and Plan: Patient has a mild exacerbation of chronic diastolic heart failure, with mild edema and some SOB on admission. --diuresed and back on her usual furosemide 40 mg daily --Does she need her home med, desmopressin??? --continue Jardiance --can be very difficult to obtain optimal fluid balance in a patient with advanced chronic kidney disease as well as diastolic heart failure. --overall I wonder if there may be a degree of noncompliance. (3) CKD stage 4 secondary to hypertension: Code(s): I12.9 - Hypertensive chronic kidney disease with stage 1 through stage 4 chronic kidney disease, or unspecified chronic kidney disease; N18.4 - Chronic kidney disease, stage 4 (severe) Status: Acute Assessment and Plan: Stage 4-5, followed by Dr. Watson, and improving. BP overall is controlled on just furosemide 20 mg daily. (4) AJ (acute kidney injury): Code(s): N17.9 - Acute kidney failure, unspecified Status: Acute Assessment and Plan: Acute kidney injury, chronic kidney disease stage 4-5. Associated with hyperkalemia which is improving. Followed by Dr. Watson --improving --Likely she will need to remain off spironolactone --consider starting an ARB such as losartan and following potassium as an outpatient, to preserve renal function. (5) Fall: Qualifiers: Encounter type: initial encounter Qualified Code(s): W19.XXXA - Unspecified fall, initial encounter Code(s): W19.XXXA - Unspecified fall, initial encounter Status: Acute Assessment and Plan: Patient presented with a fall, probably due to intravascular depletion, hypotension, and bradycardia aggravated by hyperkalemia. Blood pressure still somewhat soft but improved and bradycardia has resolved. --Not orthostatic --Ph Tx thought she did not need home Ph Tx last admission. (6) Pulmonary hypertension: Code(s): I27.20 - Pulmonary hypertension, unspecified Status: Chronic Assessment and Plan: Severe pulmonary hypertension with an estimated PAP of 72 mmHg, due to left heart failure, COPD, and ZAK. --encouraged compliance with CPAP --respiratory therapy evaluated the patient, no need for home O2. Subjective Date/time seen: 04/20/23 14:13 Interval history: Follow-up for acute on chronic diastolic heart failure and new onset of paroxysmal atrial fibrillation. Sotalol started 04/18/2020 3:00 p.m.. Admitted 04/16/2023 after a fall with acute kidney injury, mild hypotension and bradycardia will with a potassium level of 6.3. Has chronic kidney disease stage 3-4 and hypertension, COPD, possible mild dementia. 04/18/2023: Started on sotalol for paroxysmal atrial fibrillation 04/19/2023: Breathing better. Still weak but better. Edema improving. Off O2. Creatinine continues to improve, now down to 1.8. Date of service 04/20/2023: Up in chair for several hours today. Feels well. on room air. Diuresed to small amount yesterday. Hematocrit stable. Creatinine continues to decline, now down to 1.7. States that she would like to follow-up with our group for
--- NOTE | 2023-04-20 14:16 | PC.NURSE ---
card writer hand spoke with Dr. Rees regarding D/C provider does not want patient to d/c today wants patient to have 5-6 doses of betapace then D/C okay to discharge tomorrow according to cardiology. Nephrology Dr. Watson reports okay to D/C
[2023-04-20] MEDS: FLUTICASONE/UMECLIDIN/VILANTER 100-62.5-25 MCG ELLIPTA 1 PUFF INHALATION (14:17)
--- NOTE | 2023-04-20 15:22 | PM.IMPN ---
Progress Note: A&P Assessment and Plan (1) Congestive heart failure: Qualifiers: Heart failure type: right heart failure due to left heart failure Qualified Code(s): I50.814 - Right heart failure due to left heart failure Code(s): I50.9 - Heart failure, unspecified Status: Acute Assessment and Plan: Echo from 04/05 showed an EF of 65-70%, grade 2 diastolic dysfunction as well as severe right-sided heart failure, severe pulmonary hypertension and multiple valvular abnormalities Cardiology consult ordered and appreciated Continue Eliquis, lisinopril, Jardiance, Lasix Almost euvolemic (2) COPD (chronic obstructive pulmonary disease): Qualifiers: COPD type: COPD with acute exacerbation Qualified Code(s): J44.1 - Chronic obstructive pulmonary disease with (acute) exacerbation Code(s): J44.9 - Chronic obstructive pulmonary disease, unspecified Status: Acute Assessment and Plan: Does not appear to be in acute exacerbation (3) CKD (chronic kidney disease) stage 4, GFR 15-29 ml/min: Code(s): N18.4 - Chronic kidney disease, stage 4 (severe) Status: Acute Assessment and Plan: Continue sodium bicarb tablets, appreciate nephrology consultation, oncology consulted due to abnormalities found in workup, 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, oncology will follow-up outpatient Bone scan ordered and pending (4) Obstructive sleep apnea: Code(s): G47.33 - Obstructive sleep apnea (adult) (pediatric) Status: Chronic Assessment and Plan: Respiratory therapy for CPAP at night (5) Acute hyperkalemia: Code(s): E87.5 - Hyperkalemia Status: Acute Assessment and Plan: Potassium slightly improved to 5.7 from admission when it was 6.3, up a little since yesterday when it was 5.3 Appreciate nephrology consultation Resolved (6) Paroxysmal atrial fibrillation: Code(s): I48.0 - Paroxysmal atrial fibrillation Status: Acute Assessment and Plan: Appreciate cardiology consultation, assess response to sotalol, anticipate discharge tomorrow Plan DVT prophylaxis with Eliquis GI prophylaxis not indicated Code status full code Subjective Date/time seen: 04/20/23 15:22 Interval history: 77-year-old female with history of dementia, heart failure as well as bladder cancer and urostomy is presenting with weakness and shortness of breath is currently being treated for volume overloaded likely from cardiorenal syndrome and severe right-sided heart failure. No overnight events noted. No chest pain. No nausea, vomiting or diarrhea. No fevers or chills. Feels much better than when she came in. Ready to go home as soon as possible. Review of Systems Review of Systems: 12 point review of systems was assessed and was negative except as noted in the HPI Exam Narrative: General: No acute distress, alert and oriented per baseline HEENT: Atraumatic, normocephalic, mucous membranes moist CV: Irregularly irregular, S1, S2 Lungs: Clear to auscultation, diminished at bases with a few scattered crackles, no wheeze Abdomen: Soft, nontender, nondistended Extremities: Normal to inspection, Brian hose in place, no edema lower extremities Skin: No rashes noted, no lesions or wounds seen Psych: Euthymic, normal affect Objective Data Vital Signs Vital Signs: Vital Signs - 24 hr 04/19/23 16:00 04/19/23 20:31 04/19/23 22:03 Temperature Pulse Rate 89 80 74 Respiratory Rate 19 Blood Pressure Pulse Oximetry 94 Oxygen Delivery Autopap 04/19/23 22:00 04/19/23 20:00 04/19/23 20:00 Temperature 98.2 F Pulse Rate 92 86 Respiratory Rate 18 Blood Pressure 96/61 L Pulse Oximetry 97 Oxygen Delivery Room Air 04/20/23 00:00 04/20/23 04:00 04/20/23 06:00 Temperature 98.6 F Pulse Rate 80 78 84 Respiratory Rate 18 Blood Pressure 106/80 Pulse Oximetry 96 Oxygen Deliv
[2023-04-20] MEDS: DIPHENOXYLATE/ATROPINE (*CRX) 2.5 MG TABLET 1 TABLET PO (16:10)
[2023-04-20] MEDS: ATORVASTATIN 40 MG TABLET 80 MG PO (20:57)
[2023-04-20] MEDS: traZODone HCL 25 MG TABLET PO (20:58)
[2023-04-21] VITALS (9 sets, daily range): BP systolic 96–113; BP diastolic 69–77; PULSE 75–101; RESP 16–20; TEMP 36.3–37.2; O2SAT 92–94
--- NOTE | 2023-04-21 | ECG_ITS ---
Measurements Intervals [place] Rate: 75 P: [place]: 0 QRS: 28 QRSD: 88 T: 0 QT: 398 QTc: 445 Interpretive Statements SINUS RHYTHM ATRIAL COUPLET AND ATRIAL PREMATURE COMPLEXES INCOMPLETE RIGHT BUNDLE BRANCH BLOCK LOW QRS VOLTAGE IN PRECORDIAL LEADS BORDERLINE ST-T WAVE ABNORMALITY- ANT/INF LEADS ABNORMAL ECG COMPARED TO ECG 04/20/2023 10:03:38 NO SIGNIFICANT CHANGES Electronically Signed On 04-21-2023 10:29:22 DIRECTOR OF LOGISTICS by Lukas Diaz D.O.
--- NOTE | 2023-04-21 04:01 | PC.NURSE ---
PATIENT TRANSFER RECEIVED FROM IMU 204 VIA BED. ALL BELONGINGS BEDSIDE. HEPARIN DRIP AT 11ML/HR; VERIFIED NEXT PTT DRAW SCHEDULED FOR 08. BS 181.
[2023-04-21 06:30] LABS: Basophils Percent Auto 0.4 % (0.2-1.2); Eosinophils Absolute Auto 0.1 K/mm3 (0-0.3); Eosinophils Percent Auto 1.6 % (0-4.4); Hematocrit 32.2 % (37.0-47.0); Hemoglobin 9.6 g/dL (12.0-15.0); Immature Granulocyte Absolute 0.04 K/mm3 (0.00-0.031); Immature Granulocyte Percent A 0.5 % (0-0.5); Lymphocytes Absolute Auto 0.76 K/mm3 (0.9-3.2); Lymphocytes Percent Auto 10.2 % (18.3-44.2); Mean Corpuscular HGB Conc 29.8 g/dl (32-36); Mean Corpuscular Hemoglobin 27.7 pg (26-34); Mean Corpuscular Volume 93.1 fl (80-100); Mean Platelet Volume 8.5 fl (7.4-10.4); Monocytes Absolute Auto 0.7 K/mm3 (0.1-0.6); Monocytes Percent Auto 9.7 % (2.6-8.5); Neutrophils Absolute Auto 5.8 K/mm3 (1.3-6.7); Neutrophils Percent Auto 77.6 % (45.5-73.1); Platelet Count Result 236 k/mm3 (150-375); Red Blood Count 3.46 M/mm3 (4.2-5.4); Red Cell Distribution Width 15.8 % (11.5-14.5); White Blood Count 7.5 K/mm3 (4.5-10.0)
[2023-04-21 06:43] LABS: Alanine Aminotransferase 21 U/L (6-35); Albumin Level 3.2 g/dL (3.5-5.1); Alkaline Phosphatase 114 U/L (38-126); Anion Gap 7 mmol/L (8-16); Aspartate Amino Transferase 31 U/L (14-36); Bilirubin,Total 0.8 mg/dL (0.2-1.3); Blood Urea Nitrogen 28 mg/dL (7-17); Calcium 8.5 mg/dL (8.4-10.2); Carbon Dioxide 27 mmol/L (22-30); Chloride 104 mmol/L (98-107); Estimated CRCL calculation 32 ml/min; Estimated Glomerular Filt Rate 31; Glucose 95 mg/dL (65-110); Potassium 4.6 mmol/L (3.4-5.0); Sodium 138 mmol/L (137-145)
[2023-04-21 07:43] LABS: Anisocytosis 1+ (NORMAL); Platelet Estimate Adequate (Adequate); Schistocytes None Seen (NORMAL)
[2023-04-21] MEDS: FLUTICASONE/UMECLIDIN/VILANTER 100-62.5-25 MCG ELLIPTA 1 PUFF INHALATION (07:47)
[2023-04-21] MEDS: GABAPENTIN 300 MG CAPSULE 600 MG PO (08:11)
[2023-04-21] MEDS: FAMOTIDINE 20 MG TABLET PO (08:11)
[2023-04-21] MEDS: EMPAGLIFLOZIN 10 MG TABLET PO (08:11)
[2023-04-21] MEDS: DULoxetine HCL 60 MG CAPSULE.DR PO (08:11)
[2023-04-21] MEDS: FUROSEMIDE 20 MG TABLET PO (08:11)
[2023-04-21] MEDS: APIXABAN 5 MG TABLET PO (08:11)
[2023-04-21] MEDS: FERROUS SULFATE 325 MG TABLET DR BY MOUTH (08:11)
[2023-04-21] MEDS: OMEGA 3 POLYUNSAT FATTY ACIDS 1 GM CAP 2 GM PO (08:11)
[2023-04-21] MEDS: SODIUM BICARBONATE TAB 650 MG TABLET PO (08:12)
[2023-04-21] MEDS: PANTOPRAZOLE 40 MG TABLET PO (08:12)
[2023-04-21] MEDS: SOTALOL HCL 40 MG TABLET PO (08:12)
[2023-04-21] MEDS: TOLNAFTATE 1% POWDER 45 GM BTL 1 APPLIC TOPICAL (08:13)
--- NOTE | 2023-04-21 09:14 | PM.PNCARD ---
Progress Note: A&P Assessment and Plan (1) Paroxysmal atrial fibrillation: Code(s): I48.0 - Paroxysmal atrial fibrillation Status: Acute Assessment and Plan: PAF, was in NSR on adm, but developed paroxysmal atrial fibrillation. Has been maintaining sinus rhythm now with sotalol at a renal dose of 40 mg b.i.d.. --Eliquis resumed --sotalol started on 04/18/2023 at a low dose in view of her CKD: Remains in sinus rhythm with frequent PACs --QTC today unchanged as detailed above --Might benefit [facility] to make sure pt is taking meds appropriately and FU for CHF --okay to discharge from cardiac perspective (2) Acute on chronic diastolic heart failure: Code(s): I50.33 - Acute on chronic diastolic (congestive) heart failure Status: Acute Assessment and Plan: Patient has a mild exacerbation of chronic diastolic heart failure, with mild edema and some SOB on admission. --diuresed and back on her usual furosemide 40 mg daily --Does she need her home med, desmopressin??? --continue Jardiance --can be very difficult to obtain optimal fluid balance in a patient with advanced chronic kidney disease as well as diastolic heart failure. --overall I wonder if there may be a degree of noncompliance. (3) CKD stage 4 secondary to hypertension: Code(s): I12.9 - Hypertensive chronic kidney disease with stage 1 through stage 4 chronic kidney disease, or unspecified chronic kidney disease; N18.4 - Chronic kidney disease, stage 4 (severe) Status: Acute Assessment and Plan: Stage 4-5, followed by Dr. Watson, and improving. BP overall is controlled on just furosemide 20 mg daily. (4) AJ (acute kidney injury): Code(s): N17.9 - Acute kidney failure, unspecified Status: Acute Assessment and Plan: Acute kidney injury, chronic kidney disease stage 4-5. Associated with hyperkalemia which is improving. Followed by Dr. Watson --improving --Likely she will need to remain off spironolactone --consider starting an ARB such as losartan and following potassium as an outpatient, to preserve renal function. (5) Fall: Qualifiers: Encounter type: initial encounter Qualified Code(s): W19.XXXA - Unspecified fall, initial encounter Code(s): W19.XXXA - Unspecified fall, initial encounter Status: Acute Assessment and Plan: Patient presented with a fall, probably due to intravascular depletion, hypotension, and bradycardia aggravated by hyperkalemia. Blood pressure still somewhat soft but improved and bradycardia has resolved. --Not orthostatic --Ph Tx thought she did not need home Ph Tx last admission. (6) Pulmonary hypertension: Code(s): I27.20 - Pulmonary hypertension, unspecified Status: Chronic Assessment and Plan: Severe pulmonary hypertension with an estimated PAP of 72 mmHg, due to left heart failure, COPD, and ZAK. --encouraged compliance with CPAP --respiratory therapy evaluated the patient, no need for home O2. Subjective Date/time seen: 04/21/23 09:14 Interval history: Follow-up for acute on chronic diastolic heart failure and new onset of paroxysmal atrial fibrillation. Sotalol started 04/18/2020 3:00 p.m.. Admitted 04/16/2023 after a fall with acute kidney injury, mild hypotension and bradycardia will with a potassium level of 6.3. Has chronic kidney disease stage 3-4 and hypertension, COPD, possible mild dementia. 04/18/2023: Started on sotalol for paroxysmal atrial fibrillation 04/19/2023: Breathing better. Still weak but better. Edema improving. Off O2. Creatinine continues to improve, now down to 1.8. Date of service 04/20/2023: Up in chair for several hours today. Feels well. on room air. Diuresed to small amount yesterday. Hematocrit stable. Creatinine continues to decline, now down to 1.7. States that she would like to follow-up with our group for long-term cardiac care. EKG 04/20/2023 at 10:03 a.m.
--- NOTE | 2023-04-21 11:42 | PM.DS ---
DS: Admitting Diagnosis Discharge Date 04/21/23 Admitting Diagnosis sob DS: Discharge Diagnosis Discharge Diagnosis (1) Congestive heart failure: Qualifiers: Heart failure type: right heart failure due to left heart failure Qualified Code(s): I50.814 - Right heart failure due to left heart failure Code(s): I50.9 - Heart failure, unspecified Status: Acute Assessment and Plan: Echo from 04/05 showed an EF of 65-70%, grade 2 diastolic dysfunction as well as severe right-sided heart failure, severe pulmonary hypertension and multiple valvular abnormalities Cardiology consult ordered and appreciated Continue Eliquis, lisinopril, Jardiance, Lasix Almost euvolemic (2) COPD (chronic obstructive pulmonary disease): Qualifiers: COPD type: COPD with acute exacerbation Qualified Code(s): J44.1 - Chronic obstructive pulmonary disease with (acute) exacerbation Code(s): J44.9 - Chronic obstructive pulmonary disease, unspecified Status: Acute Assessment and Plan: Does not appear to be in acute exacerbation (3) CKD (chronic kidney disease) stage 4, GFR 15-29 ml/min: Code(s): N18.4 - Chronic kidney disease, stage 4 (severe) Status: Acute Assessment and Plan: Continue sodium bicarb tablets, appreciate nephrology consultation, oncology consulted due to abnormalities found in workup, 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, oncology will follow-up outpatient Bone scan ordered and pending (4) Obstructive sleep apnea: Code(s): G47.33 - Obstructive sleep apnea (adult) (pediatric) Status: Chronic Assessment and Plan: Respiratory therapy for CPAP at night (5) Acute hyperkalemia: Code(s): E87.5 - Hyperkalemia Status: Acute Assessment and Plan: Potassium slightly improved to 5.7 from admission when it was 6.3, up a little since yesterday when it was 5.3 Appreciate nephrology consultation Resolved (6) Paroxysmal atrial fibrillation: Code(s): I48.0 - Paroxysmal atrial fibrillation Status: Acute Assessment and Plan: Appreciate cardiology consultation, assess response to sotalol, anticipate discharge tomorrow Plan DVT prophylaxis with Eliquis GI prophylaxis not indicated Code status full code DS: Summary Hospital Course Hospital Course: 77-year-old female with history of dementia, heart failure as well as bladder cancer and urostomy is presenting with weakness and shortness of breath is currently being treated for volume overloaded likely from cardiorenal syndrome and severe right-sided heart failure. PAF, was in NSR on adm, but developed paroxysmal atrial fibrillation.? Has been maintaining sinus rhythm now with sotalol at a renal dose of 40 mg b.i.d. 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 Please see above and med rec for details. Time Spent with Patient Time attestation: Total time spent providing and/or coordinating discharge services: Exam Narrative: General: No acute distress, alert and oriented per baseline HEENT: Atraumatic, normocephalic, mucous membranes moist CV: Irregularly irregular, S1, S2 Lungs: Clear to auscultation, diminished at bases with a few scattered crackles, no wheeze Abdomen: Soft, no
--- NOTE | 2023-04-21 14:40 | PCRCNOTE ---
RECHECKED PATIENT FOR HOME O2. PATIENT DOES NOT QUALIFY AT THIS TIME. RN NOTIFIED..
[2023-04-22 14:41] LABS: Creatinine, Random Urine 93 mg/dL (20-275); Total Protein/Creatinine Ratio 398 mg/g creat (24-184)
[2023-04-23 10:05] LABS: Methylmalonic Acid 396 nmol/L (87-318)
== END 2023-04-21 14:56 | disposition home health service (06) | DRG 291 ==
LOC: ANHED 17:39 → ANH3MEDSUR 18:45 → ANH3MED 19:43
PROVIDERS: Internal Medicine; Internal Medicine Hematology & Oncology; Internal Medicine Nephrology; Nurse Practitioner Family; Admitting Provider General Practice; Emergency Provider Student in an Organized Health Care Education/Training Program; PCP Family Medicine; Visit Provider Student in an Organized Health Care Education/Training Program
DX: I13.0 Hypertensive heart and chronic kidney disease with heart failure and stage 1 through stage 4 chronic kidney disease, or unspecified chronic kidney disease (principal); I50.33 Acute on chronic diastolic (congestive) heart failure; E87.20 Acidosis, unspecified; N17.9 Acute kidney failure, unspecified; N18.4 Chronic kidney disease, stage 4 (severe); I48.0 Paroxysmal atrial fibrillation; I27.20 Pulmonary hypertension, unspecified; E87.5 Hyperkalemia; E78.5 Hyperlipidemia, unspecified; D63.1 Anemia in chronic kidney disease; J44.9 Chronic obstructive pulmonary disease, unspecified; K58.9 Irritable bowel syndrome, unspecified; K27.9 Peptic ulcer, site unspecified, unspecified as acute or chronic, without hemorrhage or perforation; S00.12XA Contusion of left eyelid and periocular area, initial encounter; M35.3 Polymyalgia rheumatica; G47.33 Obstructive sleep apnea (adult) (pediatric); G30.9 Alzheimer's disease, unspecified; F02.80 Dementia in other diseases classified elsewhere, unspecified severity, without behavioral disturbance, psychotic disturbance, mood disturbance, and anxiety; F32.A Depression, unspecified; F41.9 Anxiety disorder, unspecified; W19.XXXA Unspecified fall, initial encounter; Z96.641 Presence of right artificial hip joint; Z20.822 Contact with and (suspected) exposure to COVID-19; Z93.6 Other artificial openings of urinary tract status; Z85.51 Personal history of malignant neoplasm of bladder; Z79.01 Long term (current) use of anticoagulants; Z87.891 Personal history of nicotine dependence; Z86.73 Personal history of transient ischemic attack (TIA), and cerebral infarction without residual deficits
CPT/HCPCS: 36415; 70450; 71046; 72125; 72170; 77075; 80048; 80053; 81001; 81050; 82550; 82570; 82607; 82728; 82746; 82784; 82948; 83540; 83550; 83735; 83921; 84100; 84132; 84155; 84156; 84165; 84166; 84300; 84540; 85025; 85027; 85999; 87086; 87636; 93005; 94618; 94640; 96361; 96374; 96375; 97110; 97116; 97161; 97165; 97530; 97535; 99285; A9270; G0378; J1815; J1940; J7030; Q5105; Q5106

== ENCOUNTER 2023-05-13 12:35 | Inpatient (IN) | payer MEDICARE, MEDICAID, SELFPAY ==
[2023-05-13] VITALS (11 sets, daily range): BP systolic 103–132; BP diastolic 52–96; PULSE 77–105; RESP 13–19; TEMP 36.3–36.6; O2SAT 90–100; BMI 37.8
--- NOTE | ~2023-05-13 | CT_ITS ---
EXAMINATION: CT lumbar spine wo con DATE: 05/13/2023 14:36 INDICATION: back pain, fall . TECHNIQUE: Computed tomography (CT) of the lumbar spine was performed without intravenous contrast. A utomated exposure control and iterative reconstruction technique were employed. The dose-length produ ct was 1245.72 mGy-cm. COMPARISON: CT cap 06/27/2021, outside study. FINDINGS: Granulomatous splenic calcifications. Tiny right adrenal adenoma. Small right adrenal calci fication. Atherosclerotic calcifications. Diverticulosis. 5 nonrib-bearing lumbar-type vertebral bodies. Pedicles intact. Normal vertebral body alignment. Mild acute-appearing superior endplate deformities at L1 and L2, new since the prior study. Multilevel se alan degenerative disc disease affecting all lumbar levels except L1-2. Multilevel moderate facet scl erosis and hypertrophy. Moderate central canal stenosis at L2-3. Multilevel moderate neural foraminal narrowing.. IMPRESSION: Acute-appearing mild compression deformities at L1 and L2. Reviewed, dictated and finalized at location K. NT SERVER DEVELOPER
--- NOTE | ~2023-05-13 | XR_ITS ---
EXAMINATION: XR pelvis 1-2V INDICATION: Low back pain TECHNIQUE: AP view of the pelvis is obtained. COMPARISON: None available FINDINGS: Bone alignment is normal. There is no fracture. There are changes of right total hip arthro plasty. There are also changes of pelvic lymph node dissection. There is spondylosis of the visualize d lumbar spine. IMPRESSION: 1. No acute osseous abnormality. Reviewed, dictated and finalized at location L. HT SOFTWARE TEST ENGINEER
--- NOTE | ~2023-05-13 | XR_ITS ---
EXAMINATION: XR chest 2V DATE: 05/13/2023 14:50 INDICATION: Shortness of breath TECHNIQUE: Frontal and lateral views of the chest are obtained COMPARISON: 04/15/2023 FINDINGS: There are minimal airspace opacities of the lung bases. There are small pleural effusions. No pneumothorax is identified. The cardiomediastinal silhouette is normal. There is moderate thoracic spondylosis. IMPRESSION: 1. Minimal airspace opacities of the lung bases, consistent with atelectasis versus pneumonia. 2. Small pleural effusions. Reviewed, dictated and finalized at location L. FARM SUPERVISOR IMPRESSION: 1. Minimal airspace opacities of the lung bases, consistent with atelectasis ve rsus pneumonia. 2. Small pleural effusions.
--- NOTE | ~2023-05-13 | CT_ITS ---
EXAMINATION: CT brain wo con INDICATION: Weakness COMPARISON: 04/15/2023 TECHNIQUE: Standard unenhanced head CT. The dose-length product (DLP) was 605.33 mGy-cm. The mA was a djusted according to patient size. Iterative reconstruction technique was employed. FINDINGS: No acute intraparenchymal hemorrhage. No evidence of mass lesion. No evidence of acute infa rction. There is mild periventricular and subcortical hypodensity probably related to small vessel is chemic disease. There is mild prominence of the sulci and ventricles related to cerebral atrophy. Int racranial calcified cerebral atherosclerosis is noted. No extra-axial collections. No mass effect or midline shift. Changes in the globes are likely from ocular lens surgery. There are bilateral mastoid effusions IMPRESSION: 1. No acute intracranial abnormality. 2. Age related findings. Reviewed, dictated and finalized at location L. LL SAW OPERATOR
--- NOTE | 2023-05-13 12:48 | ECG_ITS ---
Measurements Intervals [place] Rate: 88 P: 65 MS: 135 QRS: 33 QRSD: 87 T: 16 QT: 377 QTc: 456 Interpretive Statements SINUS RHYTHM WITH OCCASIONAL SUPRAVENTRICULAR PREMATURE COMPLEXES LOW QRS VOLTAGE IN PRECORDIAL LEADS [QRS DEFLECTION < 1.0 mV IN CHEST LEADS] POSSIBLE RIGHT VENTRICULAR CONDUCTION DELAY [RSR (QR) IN V1/V2] NONSPECIFIC ST AND T-WAVE ABNORMALITIES ABNORMAL ECG COMPARED TO ECG 04/21/2023 10:01:44 ST (T WAVE) DEVIATION NOW PRESENT Electronically Signed On 05-14-2023 10:29:28 RO[address] CONDUCTOR by Quang Garcia M.D.
--- NOTE | 2023-05-13 14:20 | ED.SOB ---
HPI - SOB/Dyspnea General Chief Complaint: Shortness of Breath/Dyspnea <Anya Cortes PA-C - Last Filed: 05/23/23 17:15> Stated Complaint: sob <ANTHONY Lakhani Last Filed: 05/23/23 17:15> Time Seen by Provider: 05/13/23 16:06 <ANTHONY Lakhani Last Filed: 05/23/23 17:15> Source: patient <ANTHONY Lakhani Last Filed: 05/23/23 17:15> Mode of arrival: EMS <ANTHONY Lakhani Last Filed: 05/23/23 17:15> Limitations: no limitations <ANTHONY Lakhani Last Filed: 05/23/23 17:15> History of Present Illness HPI Narrative: This is a 77-year-old female that presents to the emergency department for generalized weakness. Reports she lives at home alone. She does have home health. Today her home health nurse advised her to come to the ER because she did not look well. Reports she has had some shortness of breath and swelling in her legs recently. Reports she has had low back pain since falling. She does not believe she hit her head. Denies chest pain, vomiting, or focal numbness or weakness. <Anya Cortes PA-C - Last Filed: 05/23/23 17:15> Related Data Home Medications: Home Medications Medication Instructions Recorded Confirmed icosapent ethyl 1 gram capsule 2 g PO BID 09/17/22 05/13/23 (Vascepa) trazodone 50 mg tablet 25 mg PO QHS 09/17/22 05/13/23 atorvastatin 40 mg tablet 80 mg PO HS 04/04/23 05/13/23 esomeprazole magnesium 40 mg 40 mg PO DAILY 04/04/23 05/13/23 capsule,delayed release famotidine 20 mg tablet 20 mg PO DAILY 04/04/23 05/13/23 ferrous sulfate 325 mg (65 mg 325 mg PO DAILY 04/04/23 05/13/23 iron) tablet gabapentin 300 mg capsule 600 mg PO QHS 04/04/23 05/13/23 ueruwueiuwj-rcoawzqnp-vdy C-Mn 500 1 cap PO BID 04/04/23 05/13/23 mg-400 mg capsule (Glucosamine Chondroitin Maximum Strength) hydroxyzine HCl 10 mg tablet 10 mg PO BID PRN Anxiety 04/04/23 05/13/23 nystatin-triamcinolone 100,000 1 applic topical BID PRN Abdomen 04/04/23 05/13/23 unit/g-0.1 % topical cream triamcinolone acetonide 0.1 % 1 applic topical BID PRN Cracked 04/04/23 05/13/23 topical cream Lips metoprolol succinate 25 mg 50 mg PO DAILY 05/13/23 05/13/23 tablet,extended release 24 hr <Anya Cortes PA-C - Last Filed: 05/23/23 17:15> Allergies/Adverse Reactions: Allergies Allergy/AdvReac Type Severity Reaction Status Date / Time Penicillins Allergy Mild Rash Verified 05/14/23 14:27 cefuroxime Allergy Rash Verified 05/14/23 14:27 doxycycline Allergy Rash Verified 05/13/23 16:20 nitrofurantoin Allergy Rash Verified 05/13/23 16:20 papaya Allergy Swelling Verified 05/13/23 16:20 of Lip/Tongue/Throat Sulfa (Sulfonamide Allergy Rash Verified 05/13/23 16:20 Antibiotics) <Anya Cortes PA-C - Last Filed: 05/23/23 17:15> Review of Systems Review of Systems: CONSTITUTIONAL: Denies fever CARDIOVASCULAR: Reports edema. Denies chest pain RESPIRATORY: Reports dyspnea. Denies cough MUSCULOSKELETAL: Reports back pain, joint pain, and myalgia. NEUROLOGIC: Reports generalized weakness. <Anya Cortes PA-C - Last Filed: 05/23/23 17:15> All systems reviewed & are unremarkable except as noted in HPI and below <Anya Cortes PA-C - Last Filed: 05/23/23 17:15> [facility] Past Medical History Medical History: Medical History Alzheimer's dementia Anxiety Atrial fibrillation Bladder cancer CKD (chronic kidney disease) stage 4, GFR 15-29 ml/min COPD (chronic obstructive pulmonary disease) Depression History of gastric ulcer Hyperlipidemia Hypertension Irritable bowel disease Nocturnal enuresis Obstructive sleep apnea CPAP of 14 Paroxysmal atrial fibrillation Peptic ulcer disease Polymyalgia rheumatica Pulmonary emphysema Pulmonary hypertension Severe on echocardiogram 04/2023 Right-sided heart failure Echocardiogram April 2023: EF 65-70
[2023-05-13] MEDS: ACETAMINOPHEN 500 MG TABLET 1000 MG PO (15:04)
[2023-05-13 15:31] LABS: Basophils Absolute Auto 0.1 K/mm3 (0.0-0.1); Basophils Percent Auto 0.8 % (0.2-1.2); Eosinophils Absolute Auto 0.1 K/mm3 (0-0.3); Eosinophils Percent Auto 1.4 % (0-4.4); Hematocrit 40.8 % (37.0-47.0); Hemoglobin 12.2 g/dL (12.0-15.0); Immature Granulocyte Absolute 0.02 K/mm3 (0.00-0.031); Immature Granulocyte Percent A 0.3 % (0-0.5); Lymphocytes Absolute Auto 1.01 K/mm3 (0.9-3.2); Lymphocytes Percent Auto 14.2 % (18.3-44.2); Mean Corpuscular HGB Conc 29.9 g/dl (32-36); Mean Corpuscular Hemoglobin 27.5 pg (26-34); Mean Corpuscular Volume 91.9 fl (80-100); Mean Platelet Volume 8.9 fl (7.4-10.4); Monocytes Absolute Auto 0.5 K/mm3 (0.1-0.6); Monocytes Percent Auto 7.4 % (2.6-8.5); Neutrophils Absolute Auto 5.4 K/mm3 (1.3-6.7); Neutrophils Percent Auto 75.9 % (45.5-73.1); Platelet Count Result 266 k/mm3 (150-375); Red Blood Count 4.44 M/mm3 (4.2-5.4); Red Cell Distribution Width 16.3 % (11.5-14.5); White Blood Count 7.1 K/mm3 (4.5-10.0)
[2023-05-13 15:42] LABS: Alanine Aminotransferase 23 U/L (6-35); Albumin Level 3.1 g/dL (3.5-5.1); Alkaline Phosphatase 204 U/L (38-126); Anion Gap 9 mmol/L (8-16); Aspartate Amino Transferase 36 U/L (14-36); Bilirubin,Total 0.9 mg/dL (0.2-1.3); Blood Urea Nitrogen 22 mg/dL (7-17); Calcium 7.9 mg/dL (8.4-10.2); Carbon Dioxide 23 mmol/L (22-30); Chloride 107 mmol/L (98-107); Estimated CRCL calculation 32 ml/min; Estimated Glomerular Filt Rate 34; Glucose 88 mg/dL (65-110); Potassium 3.6 mmol/L (3.4-5.0); Sodium 139 mmol/L (137-145)
[2023-05-13 15:47] LABS: Appearance Urine Cloudy (Clear); Bacteria Urine 4+ /hpf; Bilirubin Urine Negative (Negative); Blood Urine Negative (Negative); Color Urine Yellow (Yellow); Glucose Urine UA Negative (Negative); Ketones Urine Negative (Negative); Leukocyte Esterase Ur 1+ LEU/UL (Negative); Need Manual Microscopic Reviewed; Nitrate Urine Positive (Negative); Non Pathogenic Casts 0-2; Protein Urine Negative (Negative); RBC Urine 0-2 /hpf (0-2); Squamous Epithelial Cell Urine None seen /hpf (Few); Urobilinogen Urine 0.2 mg/dL (<2.0); pH Urine 6.5 (5.0-9.0)
[2023-05-13 15:50] LABS: NT Pro B Type Natriuretic Pept 16200 pg/mL (19.9-100)
[2023-05-13 16:23] LABS: Add Urine Microscopic? YES
[2023-05-13 17:46] LABS: Prothrombin Time 23.7 Seconds (11.1-14.7)
[2023-05-13 17:48] LABS: Partial Thromboplastin Time 40.2 SECONDS (22.3-36.8)
[2023-05-13] MEDS: IPRATROPIUM BR 0.02% INH SOLN 0.5 MG/2.5 ML VIAL INHALATION (17:55)
[2023-05-13] MEDS: ALBUTEROL SULFATE NEB 2.5 MG/3 ML INH 5 MG INHALATION (17:55)
[2023-05-13 17:57] LABS: Troponin I < 0.012 ng/mL (0.000-0.034)
[2023-05-13 18:00] LABS: Alveolar/Arterial O2 Gradient 38.7 mmHg; Base Excess ABG -2.9 mEq/l (+/-2.0); Fractional Inspired Oxygen 21 %; Oxygen Content ABG 15.7 %vol (16.0-22.0); Oxygen Saturation ABG 92.2 % (95.0-100.0); Oxyhemoglobin 89.9 % THb (90.0-100.0); PCO2 ABG 38.8 mmHg (35.0-45.0); PO2 ABG 64.6 mmHg (80.0-100.0); PO2 FiO2 Ratio Arterial Blood 3.08 %; Total Hemoglobin 12.4 g/dL (12.0-18.0); pH ABG 7.372 (7.350-7.450)
[2023-05-13 18:01] LABS: Device ROOM AIR; Modified Allen's Test Pass; Site Drawn LEFT RADIAL
--- NOTE | 2023-05-13 18:09 | ECG_ITS ---
Measurements Intervals [place] Rate: 92 P: SC: 0 QRS: 58 QRSD: 86 T: 181 QT: 285 QTc: 354 Interpretive Statements ATRIAL FIBRILLATION WITH ABERRANT CONDUCTION OR VENTRICULAR PREMATURE COMPLEXES LOW QRS VOLTAGE IN PRECORDIAL LEADS [QRS DEFLECTION < 1.0 mV IN CHEST LEADS] POSSIBLE RIGHT VENTRICULAR CONDUCTION DELAY [RSR (QR) IN V1/V2] NONSPECIFIC ST & T-WAVE ABNORMALITY ABNORMAL ECG COMPARED TO ECG 05/13/2023 12:55:50 ATRIAL FIBRILLATION NOW PRESENT ABERRANT CONDUCTION OF SUPRAVENTRICULAR BEAT(S) NOW PRESENT T-WAVE ABNORMALITY NOW PRESENT Electronically Signed On 05-14-2023 10:34:39 FOREST PRODUCTS GATHERER by Quang Garcia M.D.
--- NOTE | 2023-05-13 18:55 | ECG_ITS ---
Measurements Intervals [place] Rate: 92 P: 83 IN: 146 QRS: 35 QRSD: 81 T: 57 QT: 361 QTc: 449 Interpretive Statements SINUS RHYTHM LOW QRS VOLTAGE IN PRECORDIAL LEADS [QRS DEFLECTION < 1.0 mV IN CHEST LEADS] POSSIBLE RIGHT VENTRICULAR CONDUCTION DELAY [RSR (QR) IN V1/V2] NONSPECIFIC ST AND T-WAVE ABNORMALITIES ABNORMAL ECG COMPARED TO ECG 05/13/2023 18:27:37 SIN[address]M NOW PRESENT ST (T WAVE) DEVIATION NOW PRESENT Electronically Signed On 05-14-2023 10:35:35 SAFE AND VAULT MECHANIC by Quang Garcia M.D.
[2023-05-13 20:26] LABS: Troponin I < 0.012 ng/mL (0.000-0.034)
--- NOTE | 2023-05-13 20:35 | PM.IMHP ---
H&P: HPI History of Present Illness Date/Time: 05/13/23 20:35 Chief Complaint: Shortness of breath and leg swelling Narrative: Narrative: ? ?A 77-year-old female that presents to the emergency department for generalized weakness, shortness of bread on leg swelling.??She presented to the ER recommendation of home health nurse who told her that she is not looking well, appears swollen and also Short of breath.? She denied fever, cough or congestion. She has associated to have fallen but did not hit her head. She was evaluated in the ER and found to be fluid overloaded with elevated proBNP. Also found to have UTI with positive nitrite and leukocyte esterases, diuresis started in the ER with 40 mg of intravenous furosemide given until g of Rocephin given IV as well. I was consulted to admit this patient for observation. during my encounter with this patient she feels better however will still appear fluid overloaded Review of Systems Review of Systems: All systems reviewed & are unremarkable except as noted in HPI and below PMFSH Past Medical History Medical History Alzheimer's dementia Anxiety Atrial fibrillation Bladder cancer CKD (chronic kidney disease) stage 4, GFR 15-29 ml/min COPD (chronic obstructive pulmonary disease) Depression History of gastric ulcer Hyperlipidemia Hypertension Irritable bowel disease Nocturnal enuresis Obstructive sleep apnea CPAP of 14 Paroxysmal atrial fibrillation Peptic ulcer disease Polymyalgia rheumatica Pulmonary emphysema Pulmonary hypertension Severe on echocardiogram 04/2023 Right-sided heart failure Echocardiogram April 2023: EF 65-70% mildly increased left ventricular wall thickness, left ventricular diastolic function grade 2 dysfunction, D shaped septum in systole consistent with right ventricular pressure overload, right ventricular chamber severely enlarged with reduced function, severe right atrial enlargement, moderate left atrial enlargement, moderate mitral valve regurgitation [id number]-[id number]-[id number] tricuspid regurgitation severe pulmonary hypertension with RVSP of 72 Stroke Ulcers of both great toes Surgical History Surgical History H/O: hysterectomy History of appendectomy History of arthroplasty of knee History of cholecystectomy History of cystostomy History of hip replacement, total History of urostomy Family History Family History Father Skin cancer Diabetes mellitus Hypertension Heart disease Mother Hypertension Depression Sibling Pancreatic cancer Hypertension Depression Other Hypertension Depression Social History Social History Social History: She is in lives in her own apartment on the 1st floor. Denies alcohol or illicit drug use. She has no steps to enter. The patient reports that her daughter provides her hired homemaking services 2 to 3 times a week through [facility]. She also has a son who can assist that lives near by. She does not drive however children and friends provide transportation. The patient uses a Rollator for mobility when outside. Patient has a tub shower combo. Code status: Full code Surrogate decision maker: Conrad (son) Smoking packs per day: 1 Smoking cigarettes per day: 20.0 Smoking status: Former smoker Second hand tobacco smoke exposure: No Alcohol intake: never Substance use: never Substance use type: does not use Lack of Transportation: No Lack of Food: Never True Current Housing: I Have Housing Concerned About Future Housing: No Difficulty Paying Gas/Electric Bills: No Difficulty Paying for Meds: No Currently Unemployed: No Education: High School Diploma/GED Difficulty w/ Childcare or Family Care: No Spiritual care concerns: No
[2023-05-13] MEDS: FUROSEMIDE INJ 40 MG/4 ML VIAL IV PUSH (20:41)
[2023-05-13] MEDS: cefTRIAXone 2 GM/NS 100 ML 2 GM/100 ML BAG IVPB (20:42)
[2023-05-13] MEDS: traMADol HCL (*CRX) 50 MG TABLET PO (21:45)
[2023-05-13 23:17] LABS: Basophils Absolute Auto 0.1 K/mm3 (0.0-0.1); Basophils Percent Auto 0.7 % (0.2-1.2); Eosinophils Absolute Auto 0.1 K/mm3 (0-0.3); Hematocrit 38.9 % (37.0-47.0); Hemoglobin 11.5 g/dL (12.0-15.0); Immature Granulocyte Absolute 0.02 K/mm3 (0.00-0.031); Immature Granulocyte Percent A 0.2 % (0-0.5); Lymphocytes Absolute Auto 1.16 K/mm3 (0.9-3.2); Lymphocytes Percent Auto 13.3 % (18.3-44.2); Mean Corpuscular HGB Conc 29.6 g/dl (32-36); Mean Corpuscular Hemoglobin 27.3 pg (26-34); Mean Corpuscular Volume 92.4 fl (80-100); Mean Platelet Volume 8.9 fl (7.4-10.4); Monocytes Absolute Auto 0.7 K/mm3 (0.1-0.6); Monocytes Percent Auto 7.6 % (2.6-8.5); Neutrophils Absolute Auto 6.7 K/mm3 (1.3-6.7); Neutrophils Percent Auto 77.2 % (45.5-73.1); Platelet Count Result 266 k/mm3 (150-375); Red Blood Count 4.21 M/mm3 (4.2-5.4); Red Cell Distribution Width 16.2 % (11.5-14.5); White Blood Count 8.7 K/mm3 (4.5-10.0)
[2023-05-13 23:27] LABS: Anion Gap 9 mmol/L (8-16); Blood Urea Nitrogen 22 mg/dL (7-17); Calcium 8.2 mg/dL (8.4-10.2); Carbon Dioxide 22 mmol/L (22-30); Chloride 110 mmol/L (98-107); Estimated CRCL calculation 35 ml/min; Estimated Glomerular Filt Rate 36; Glucose 100 mg/dL (65-110); Potassium 4.3 mmol/L (3.4-5.0); Sodium 141 mmol/L (137-145)
[2023-05-13 23:39] LABS: Troponin I < 0.012 ng/mL (0.000-0.034)
[2023-05-13] MEDS: traZODone HCL 25 MG TABLET PO (23:45)
[2023-05-13] MEDS: GABAPENTIN 300 MG CAPSULE 600 MG PO (23:45)
[2023-05-13 23:55] LABS: Anisocytosis 1+ (NORMAL); Platelet Estimate Adequate (Adequate); Poikilocytosis 1+ (NORMAL); Schistocytes Rare (NORMAL)
[2023-05-14] VITALS (7 sets, daily range): BP systolic 90–106; BP diastolic 51–64; PULSE 86–105; RESP 16–20; TEMP 36.2–36.9; O2SAT 90–95
[2023-05-14] MEDS: traMADol HCL (*CRX) 50 MG TABLET PO (04:28)
--- NOTE | 2023-05-14 09:07 | PM.IMPN ---
Progress Note: A&P Assessment and Plan (1) Acute on chronic diastolic (congestive) heart failure: Code(s): I50.33 - Acute on chronic diastolic (congestive) heart failure Status: Acute Assessment and Plan: Strict I&Os, daily weights Cardiology consult ordered and pending Follow-up echo, monitor telemetry IV diuresis, daily BMP (2) UTI (urinary tract infection): Code(s): N39.0 - Urinary tract infection, site not specified Status: Acute Assessment and Plan: Started on ceftriaxone 05/13 Follow-up urine culture 05/14: worsening leuk, escalate abx to meropenem (3) Compression fracture of lumbar vertebra: Code(s): S32.000A - Wedge compression fracture of unspecified lumbar vertebra, initial encounter for closed fracture Status: Acute Plan DVT prophylaxis with SCDs GI prophylaxis not indicated Code status full code A 77-year-old female with history of CKD stage 3, CHF and COPD who presented to the ED with generalized weakness, shortness of bread and frequent falls, she was evaluated and found to have an acute on chronic diastolic CHF, and also urinary tract infection. Diurese ECG that the ER with IV antibiotic. Patient will be admitted on observation on a tele bed, continue furosemide 40 mg IV daily, 1 g of Rocephin IV daily, home medication reconciled on morning labs are not. Subjective Date/time seen: 05/14/23 09:07 Interval history: 77-year-old female with history of AFib, COPD, CKD, PMR among other comorbidities is presenting with generalized weakness and shortness of breath and being treated for heart failure exacerbation as well as UTI. No overnight events noted. No chest pain or shortness of breath. No nausea, vomiting or diarrhea. No fevers or chills. Review of Systems Review of Systems: 12 point review of systems was assessed and was negative except as noted in the HPI Exam Narrative: General: No acute distress, alert and oriented per baseline HEENT: Atraumatic, normocephalic, mucous membranes moist CV: Regular rate and rhythm, S1, S2 Lungs: Clear to auscultation bilaterally, no rales or crackles noted, no wheezes, good air entry Abdomen: Soft, nontender, nondistended Extremities: Normal to inspection, trace pitting edema B/L LE Skin: No rashes noted, no lesions or wounds seen Psych: Euthymic, normal affect Objective Data Vital Signs Vital Signs: Vital Signs - 24 hr 05/13/23 12:41 05/13/23 16:17 05/13/23 16:28 Temperature 97.9 F Pulse Rate 77 89 Respiratory Rate 18 14 Blood Pressure 122/75 115/80 Pulse Oximetry 94 99 96 Oxygen Delivery Room Air Room Air 05/13/23 17:55 05/13/23 18:17 05/13/23 18:26 Temperature Pulse Rate 89 85 89 Respiratory Rate 14 16 14 Blood Pressure 125/84 Pulse Oximetry 97 Oxygen Delivery 05/13/23 17:01 05/13/23 18:01 05/13/23 18:53 Temperature Pulse Rate 91 89 105 H Respiratory Rate 13 13 19 Blood Pressure 129/96 H 125/84 132/87 Pulse Oximetry 97 100 97 Oxygen Delivery 05/13/23 22:43 05/13/23 23:10 05/14/23 06:00 Temperature 97.3 F L 97.2 F L Pulse Rate 98 100 105 H Respiratory Rate 17 16 16 Blood Pressure 103/52 L 120/81 106/64 Pulse Oximetry 94 90 92 Oxygen Delivery Intake/Output Intake/Output: Intake & Output 05/11/23 05/12/23 05/13/23 05/14/23 23:59 23:59 23:59 23:59 Intake Total 100 400 Output Total 2450 Balance 100 -2050 Meds/Results Medications: Active Medications Generic Name Dose Route Start Last Admin Trade Name Freq PRN Reason Stop Dose Admin Acetaminophen 650 mg 05/13/23 20:38 Acetaminophen 325 Mg Tablet PO Q4H PRN Mild Pain (1-3) or Fever Albuterol 2.5 mg 05/13/23 20:42 Albuterol Sulfate Neb 2.5 Mg/3 Ml Inh INHALATION Q6HRT PRN Shortness Of Breath Atorvastatin Calcium 80 mg 05/14/23 21:00 Atorvastatin 40 Mg Tablet PO HS FATOUMATA Duloxetine HCl 60 mg
[2023-05-14] MEDS: FUROSEMIDE INJ 40 MG/4 ML VIAL IV PUSH (09:16)
[2023-05-14] MEDS: ENOXAPARIN 40 MG/0.4 ML SYRINGE SUB-Q (09:18)
[2023-05-14] MEDS: DULoxetine HCL 60 MG CAPSULE.DR PO (09:20)
[2023-05-14] MEDS: EMPAGLIFLOZIN 10 MG TABLET PO (09:20)
[2023-05-14] MEDS: METOPROLOL SUCCINATE EXT REL 50 MG TABCR PO (09:20)
[2023-05-14] MEDS: OMEGA 3 POLYUNSAT FATTY ACIDS 1 GM CAP 2 GM PO ×2 (09:30→16:50)
[2023-05-14] MEDS: lisinopriL 20 MG TABLET PO (09:30)
[2023-05-14] MEDS: SODIUM BICARBONATE TAB 650 MG TABLET PO ×2 (09:30→16:50)
[2023-05-14] MEDS: PANTOPRAZOLE 40 MG TABLET PO (09:30)
[2023-05-14 11:05] LABS: Basophils Absolute Auto 0.1 K/mm3 (0.0-0.1); Basophils Percent Auto 0.3 % (0.2-1.2); Eosinophils Percent Auto 0.1 % (0-4.4); Hematocrit 36.9 % (37.0-47.0); Hemoglobin 11.5 g/dL (12.0-15.0); Immature Granulocyte Absolute 0.09 K/mm3 (0.00-0.031); Immature Granulocyte Percent A 0.5 % (0-0.5); Lymphocytes Absolute Auto 0.86 K/mm3 (0.9-3.2); Lymphocytes Percent Auto 4.3 % (18.3-44.2); Mean Corpuscular HGB Conc 31.2 g/dl (32-36); Mean Corpuscular Hemoglobin 27.9 pg (26-34); Mean Corpuscular Volume 89.6 fl (80-100); Monocytes Percent Auto 5.1 % (2.6-8.5); Neutrophils Absolute Auto 17.8 K/mm3 (1.3-6.7); Neutrophils Percent Auto 89.7 % (45.5-73.1); Platelet Count Result 254 k/mm3 (150-375); Red Blood Count 4.12 M/mm3 (4.2-5.4); Red Cell Distribution Width 15.9 % (11.5-14.5); White Blood Count 19.8 K/mm3 (4.5-10.0)
[2023-05-14 11:14] LABS: Alanine Aminotransferase 22 U/L (6-35); Albumin Level 2.8 g/dL (3.5-5.1); Alkaline Phosphatase 171 U/L (38-126); Anion Gap 7 mmol/L (8-16); Aspartate Amino Transferase 34 U/L (14-36); Bilirubin,Total 0.6 mg/dL (0.2-1.3); Blood Urea Nitrogen 21 mg/dL (7-17); Carbon Dioxide 27 mmol/L (22-30); Chloride 105 mmol/L (98-107); Estimated CRCL calculation 36 ml/min; Estimated Glomerular Filt Rate 36; Glucose 121 mg/dL (65-110); Potassium 4.1 mmol/L (3.4-5.0); Sodium 139 mmol/L (137-145)
--- NOTE | 2023-05-14 13:31 | PCOTNOTE ---
Attempted to see pt. for occupational therapy evaluation. Per nursing pt. is feeling dizzy and BP is low while seated in bed. Nursing requested hold on OT/PT evaluation until BP stabilized, with hospitalist, Dr. Mei, confirmation.
[2023-05-14] MEDS: FLUTICASONE/UMECLIDIN/VILANTER 100-62.5-25 MCG ELLIPTA 1 PUFF INHALATION (14:00)
--- NOTE | 2023-05-14 14:09 | PCPTNOTE ---
Attempted PT evaluation, but Per OT: pt BP too low at this time. Nursing requested hold on OT/PT evaluation until BP stabilized, with hospitalist, Dr. Mei, confirmation.
[2023-05-14] MEDS: MEROPENEM 1 GM/NS 100 ML 1 GM/100 ML BAG IVPB (15:04)
[2023-05-14] MEDS: ACETAMINOPHEN 325 MG TABLET 650 MG PO ×2 (17:08→21:08)
[2023-05-14] MEDS: traZODone HCL 25 MG TABLET PO (21:06)
[2023-05-14] MEDS: ATORVASTATIN 40 MG TABLET 80 MG PO (21:06)
[2023-05-14] MEDS: GABAPENTIN 300 MG CAPSULE 600 MG PO (21:06)
[2023-05-15] MEDS: MEROPENEM 1 GM/NS 100 ML 1 GM/100 ML BAG IVPB ×2 (03:23→14:55)
[2023-05-15 06:00] VITALS: BP 92/70; PULSE 69; RESP 18; TEMP 35.9; O2SAT 99
[2023-05-15 07:15] VITALS: PULSE 81; RESP 18; O2SAT 93
[2023-05-15] MEDS: FLUTICASONE/UMECLIDIN/VILANTER 100-62.5-25 MCG ELLIPTA 1 PUFF INHALATION (07:15)
[2023-05-15 07:47] LABS: Alanine Aminotransferase 19 U/L (6-35); Albumin Level 2.6 g/dL (3.5-5.1); Alkaline Phosphatase 152 U/L (38-126); Anion Gap 4 mmol/L (8-16); Aspartate Amino Transferase 26 U/L (14-36); Bilirubin,Total 0.7 mg/dL (0.2-1.3); Blood Urea Nitrogen 24 mg/dL (7-17); Calcium 7.7 mg/dL (8.4-10.2); Carbon Dioxide 28 mmol/L (22-30); Chloride 107 mmol/L (98-107); Estimated CRCL calculation 34 ml/min; Estimated Glomerular Filt Rate 34; Glucose 92 mg/dL (65-110); Potassium 4.3 mmol/L (3.4-5.0); Sodium 139 mmol/L (137-145)
[2023-05-15 07:48] LABS: Basophils Percent Auto 0.3 % (0.2-1.2); Eosinophils Absolute Auto 0.1 K/mm3 (0-0.3); Eosinophils Percent Auto 0.7 % (0-4.4); Hemoglobin 10.4 g/dL (12.0-15.0); Immature Granulocyte Absolute 0.05 K/mm3 (0.00-0.031); Immature Granulocyte Percent A 0.4 % (0-0.5); Lymphocytes Absolute Auto 1.24 K/mm3 (0.9-3.2); Lymphocytes Percent Auto 10.3 % (18.3-44.2); Mean Corpuscular HGB Conc 29.7 g/dl (32-36); Mean Corpuscular Hemoglobin 27.7 pg (26-34); Mean Corpuscular Volume 93.3 fl (80-100); Mean Platelet Volume 9.6 fl (7.4-10.4); Monocytes Absolute Auto 0.8 K/mm3 (0.1-0.6); Monocytes Percent Auto 6.5 % (2.6-8.5); Neutrophils Absolute Auto 9.9 K/mm3 (1.3-6.7); Neutrophils Percent Auto 81.8 % (45.5-73.1); Platelet Count Result 209 k/mm3 (150-375); Red Blood Count 3.75 M/mm3 (4.2-5.4); Red Cell Distribution Width 16.1 % (11.5-14.5); White Blood Count 12.1 K/mm3 (4.5-10.0)
[2023-05-15 08:00] VITALS: BP 92/62
[2023-05-15] MEDS: EMPAGLIFLOZIN 10 MG TABLET PO (08:40)
[2023-05-15 08:41] VITALS: PULSE 70
[2023-05-15] MEDS: METOPROLOL SUCCINATE EXT REL 50 MG TABCR PO (08:41)
[2023-05-15] MEDS: OMEGA 3 POLYUNSAT FATTY ACIDS 1 GM CAP 2 GM PO ×2 (08:42→16:28)
[2023-05-15] MEDS: DULoxetine HCL 60 MG CAPSULE.DR PO (08:42)
[2023-05-15] MEDS: ENOXAPARIN 40 MG/0.4 ML SYRINGE SUB-Q (08:43)
[2023-05-15] MEDS: SODIUM BICARBONATE TAB 650 MG TABLET PO ×2 (08:43→16:29)
[2023-05-15] MEDS: PANTOPRAZOLE 40 MG TABLET PO (08:43)
[2023-05-15] MEDS: NYSTATIN OINTMENT 15 GM TUBE 1 APPLIC TOPICAL (08:44)
--- NOTE | 2023-05-15 13:17 | PM.IMPN ---
Progress Note: A&P Assessment and Plan (1) Acute on chronic diastolic (congestive) heart failure: Code(s): I50.33 - Acute on chronic diastolic (congestive) heart failure Status: Acute Assessment and Plan: Strict I&Os, daily weights Cardiology consult ordered and pending Monitor telemetry IV diuresis, daily BMP Echo from 04/05 showed severe pulmonary hypertension, grade 2 diastolic dysfunction and an EF of 65-70% (2) UTI (urinary tract infection): Code(s): N39.0 - Urinary tract infection, site not specified Status: Acute Assessment and Plan: Started on ceftriaxone 05/13 Follow-up urine culture 05/14: worsening leuk, escalate abx to meropenem 05/15: improving on meropenem, cont, urine cx pending, GNB+ (3) Compression fracture of lumbar vertebra: Code(s): S32.000A - Wedge compression fracture of unspecified lumbar vertebra, initial encounter for closed fracture Status: Acute Assessment and Plan: consult PT/OT and fit for back brace Plan DVT prophylaxis with SCDs GI prophylaxis not indicated Code status full code Subjective Date/time seen: 05/15/23 13:17 Interval history: 77-year-old female with history of AFib, COPD, CKD, PMR among other comorbidities is presenting with generalized weakness and shortness of breath and being treated for heart failure exacerbation as well as UTI. No overnight events noted. No chest pain or shortness of breath. No nausea, vomiting or diarrhea. No fevers or chills. Still quite edematous. Review of Systems Review of Systems: 12 point review of systems was assessed and was negative except as noted in the HPI Exam Narrative: General: No acute distress, alert and oriented per baseline HEENT: Atraumatic, normocephalic, mucous membranes moist CV: Regular rate and rhythm, S1, S2 Lungs: Clear to auscultation bilaterally, no rales or crackles noted, no wheezes, good air entry Abdomen: Soft, nontender, nondistended Extremities: Normal to inspection, trace pitting edema B/L LE Skin: No rashes noted, no lesions or wounds seen Psych: Euthymic, normal affect Objective Data Vital Signs Vital Signs: Vital Signs - 24 hr 05/14/23 14:01 05/14/23 14:38 05/14/23 14:00 Temperature 98.5 F Pulse Rate 86 Respiratory Rate 20 Blood Pressure 90/60 L Pulse Oximetry 95 92 Oxygen Delivery Room Air Room Air 05/14/23 17:05 05/14/23 21:41 05/15/23 06:00 Temperature 98.0 F 96.7 F L Pulse Rate 86 69 Respiratory Rate 18 18 Blood Pressure 90/52 L 93/51 L 92/70 L Pulse Oximetry 90 99 Oxygen Delivery 05/15/23 08:00 05/15/23 08:41 05/15/23 10:36 Temperature Pulse Rate 70 Respiratory Rate Blood Pressure 92/62 L Pulse Oximetry Oxygen Delivery Room Air 05/15/23 07:15 05/15/23 07:15 Temperature Pulse Rate 81 81 Respiratory Rate 18 18 Blood Pressure Pulse Oximetry 93 Oxygen Delivery Room Air Intake/Output Intake/Output: Intake & Output 05/12/23 05/13/23 05/14/23 05/15/23 23:59 23:59 23:59 23:59 Intake Total 100 1734 1388 Output Total 4000 550 Balance 100 -2266 838 Meds/Results Medications: Active Medications Generic Name Dose Route Start Last Admin Trade Name Freq PRN Reason Stop Dose Admin Acetaminophen 650 mg 05/13/23 20:38 05/14/23 21:08 Acetaminophen 325 Mg Tablet PO 650 mg Q4H PRN Administration Mild Pain (1-3) or Fever Albuterol 2.5 mg 05/13/23 20:42 Albuterol Sulfate Neb 2.5 Mg/3 Ml Inh INHALATION Q6HRT PRN Shortness Of Breath Atorvastatin Calcium 80 mg 05/14/23 21:00 05/14/23 21:06 Atorvastatin 40 Mg Tablet PO 80 mg HS FATOUMATA Administration Duloxetine HCl 60 mg 05/14/23 09:00 05/15/23 08:42 Duloxetine Hcl 60 Mg Capsule.Dr PO 60 mg QAM FATOUMATA Administration Empagliflozin 10 mg 05/14/23 09:00 05/15/23 08:40 Empagliflozin 10 Mg Tablet PO 10 mg DAILY FATOUMATA Administrat
[2023-05-15 13:58] VITALS: BP 94/62; PULSE 78; RESP 20; TEMP 36.8; O2SAT 96
--- NOTE | 2023-05-15 14:55 | PM.CNCAR ---
Assessment and Plan Assessment and plan (1) Compression fx, lumbar spine: Qualifiers: Encounter type: initial encounter Lumbar vertebra fracture level: L1 Qualified Code(s): S32.010A - Wedge compression fracture of first lumbar vertebra, initial encounter for closed fracture Code(s): S32.000A - Wedge compression fracture of unspecified lumbar vertebra, initial encounter for closed fracture Status: Acute Assessment and Plan: Per hospitalist (2) Acute on chronic diastolic (congestive) heart failure: Code(s): I50.33 - Acute on chronic diastolic (congestive) heart failure Status: Acute Assessment and Plan: She has acute on chronic diastolic heart failure/right-sided heart failure. Difficult situation given hypotension, renal disease. Furosemide 20 mg IV b.i.d. will be initiated. Follow I's/Os, daily weight. No salt diet. Continue Jardiance, lisinopril when able to resume, metoprolol (3) Right-sided heart failure: Code(s): I50.810 - Right heart failure, unspecified Status: Acute Assessment and Plan: Multifactorial including related noncompliance with CPAP, left-sided heart failure, obesity, COPD. Will consult respiratory therapy to set up CPAP (4) Paroxysmal atrial fibrillation: Code(s): I48.0 - Paroxysmal atrial fibrillation Status: Acute Assessment and Plan: Continue sotalol and Eliquis for now. If she continues have fall issues, will need to stop Eliquis (5) CKD (chronic kidney disease) stage 4, GFR 15-29 ml/min: Code(s): N18.4 - Chronic kidney disease, stage 4 (severe) Status: Acute Assessment and Plan: Follow BMP (6) Pulmonary hypertension: Code(s): I27.20 - Pulmonary hypertension, unspecified Status: Chronic Assessment and Plan: Severe. Etiology as listed above (7) Obstructive sleep apnea: Code(s): G47.33 - Obstructive sleep apnea (adult) (pediatric) Status: Chronic Assessment and Plan: RT to see History of Present Illness History of Present Illness Consult date/time: 05/15/23 14:55 Requesting physician: Devi Mei DO Consult reason: congestive heart failure Reason For Visit: Volume Overload, Comperession Fractures Narrative: Reason for consultation: CHF, pulmonary hypertension Date of service 05/15/2023 Requesting provider: Dr. Mei History: Patient is a 77-year-old female who has history of diastolic heart failure, right-sided heart failure, pulmonary hypertension, chronic kidney disease who presents to the hospital following a fall, having weakness, shortness of breath and swelling. She was recently admitted about a month ago new. She was started on sotalol. She has been having some falls and has had a compression fracture to her spine. Patient states that over the past couple of days in particular she was being evaluated by home health and was found to have hypoxia, worsening shortness of breath and swelling as well as low blood pressure and was advised to come the hospital for further evaluation. She has felt more weak. She denies any chest pain. She short of breath with doing almost any activity. No paroxysmal nocturnal dyspnea, orthopnea, syncope, presyncope, palpitations. No bleeding problems. She does admit to lower extremity swelling which is significant and goes up into her upper thighs. Review of Systems Review of Systems: All systems reviewed & are unremarkable except as noted in HPI and below Constitutional: Constitutional: Denies body ache(s) Eyes: Eyes: Denies blurry vision ENT: Reports Normal hearing present Cardiovascular: Cardiovascular: Denies chest pain and Reports leg edema Respiratory: Respiratory: Reports dyspnea Gastrointestinal: Gastrointestinal: Denies abdominal pain Genitourinary: Genitourinary: Denies hematuria Musculoskeletal: Musculoskeletal: Reports back pain Integumentary/Breasts: Skin/Breast: Denies
[2023-05-15] MEDS: FUROSEMIDE INJ 40 MG/4 ML VIAL 20 MG IV PUSH (16:35)
--- NOTE | 2023-05-15 16:39 | PC.NURSE ---
This nurse talked to Dr. Mei about pt bp still showing 90/60 plac[place]. Hr is in the 80's. Cardiology started iv lasix 20mg bid. This nurse was checking to make sure if I need to hold or give lasix. She told this nurse to give it. This nurse was told to hold the morning dose.
[2023-05-15] MEDS: traMADol HCL (*CRX) 50 MG TABLET PO (19:52)
[2023-05-15] MEDS: GABAPENTIN 300 MG CAPSULE 600 MG PO (19:52)
[2023-05-15] MEDS: ATORVASTATIN 40 MG TABLET 80 MG PO (19:52)
[2023-05-15] MEDS: traZODone HCL 25 MG TABLET PO (21:40)
[2023-05-15 22:00] VITALS: BP 105/67; PULSE 95; RESP 16; TEMP 35.7; O2SAT 92
[2023-05-16] MEDS: MEROPENEM 1 GM/NS 100 ML 1 GM/100 ML BAG IVPB (02:16)
[2023-05-16 06:00] VITALS: BP 113/76; PULSE 89; RESP 16; TEMP 36.1; O2SAT 97
[2023-05-16 06:43] LABS: Basophils Percent Auto 0.3 % (0.2-1.2); Eosinophils Absolute Auto 0.1 K/mm3 (0-0.3); Hematocrit 35.1 % (37.0-47.0); Hemoglobin 10.8 g/dL (12.0-15.0); Immature Granulocyte Absolute 0.04 K/mm3 (0.00-0.031); Immature Granulocyte Percent A 0.4 % (0-0.5); Lymphocytes Absolute Auto 1.14 K/mm3 (0.9-3.2); Lymphocytes Percent Auto 11.2 % (18.3-44.2); Mean Corpuscular HGB Conc 30.8 g/dl (32-36); Mean Corpuscular Hemoglobin 27.6 pg (26-34); Mean Corpuscular Volume 89.8 fl (80-100); Mean Platelet Volume 9.1 fl (7.4-10.4); Monocytes Absolute Auto 0.7 K/mm3 (0.1-0.6); Neutrophils Absolute Auto 8.1 K/mm3 (1.3-6.7); Neutrophils Percent Auto 80.1 % (45.5-73.1); Platelet Count Result 218 k/mm3 (150-375); Red Blood Count 3.91 M/mm3 (4.2-5.4); Red Cell Distribution Width 15.9 % (11.5-14.5); White Blood Count 10.2 K/mm3 (4.5-10.0)
[2023-05-16 06:52] LABS: Alanine Aminotransferase 17 U/L (6-35); Albumin Level 2.6 g/dL (3.5-5.1); Alkaline Phosphatase 165 U/L (38-126); Anion Gap 3 mmol/L (8-16); Aspartate Amino Transferase 23 U/L (14-36); Bilirubin,Total 0.7 mg/dL (0.2-1.3); Blood Urea Nitrogen 24 mg/dL (7-17); Calcium 7.6 mg/dL (8.4-10.2); Carbon Dioxide 27 mmol/L (22-30); Chloride 106 mmol/L (98-107); Estimated CRCL calculation 36 ml/min; Estimated Glomerular Filt Rate 36; Glucose 90 mg/dL (65-110); Potassium 3.5 mmol/L (3.4-5.0); Sodium 136 mmol/L (137-145)
[2023-05-16] MEDS: FLUTICASONE/UMECLIDIN/VILANTER 100-62.5-25 MCG ELLIPTA 1 PUFF INHALATION (08:27)
[2023-05-16 08:31] VITALS: O2SAT 94
[2023-05-16] MEDS: EMPAGLIFLOZIN 10 MG TABLET PO (08:56)
[2023-05-16] MEDS: FUROSEMIDE INJ 40 MG/4 ML VIAL 20 MG IV PUSH ×3 (08:56→16:38)
[2023-05-16 08:57] VITALS: PULSE 89
[2023-05-16] MEDS: DULoxetine HCL 60 MG CAPSULE.DR PO (08:57)
[2023-05-16] MEDS: OMEGA 3 POLYUNSAT FATTY ACIDS 1 GM CAP 2 GM PO ×2 (08:57→16:38)
[2023-05-16] MEDS: PANTOPRAZOLE 40 MG TABLET PO (08:57)
[2023-05-16] MEDS: SODIUM BICARBONATE TAB 650 MG TABLET PO ×2 (08:57→16:38)
[2023-05-16] MEDS: ENOXAPARIN 40 MG/0.4 ML SYRINGE SUB-Q (08:57)
[2023-05-16] MEDS: METOPROLOL SUCCINATE EXT REL 50 MG TABCR PO (08:57)
[2023-05-16] MEDS: traMADol HCL (*CRX) 50 MG TABLET PO ×2 (09:04→15:18)
--- NOTE | 2023-05-16 10:40 | PM.PNCARD ---
Progress Note: A&P Assessment and Plan (1) Compression fx, lumbar spine: Qualifiers: Encounter type: initial encounter Lumbar vertebra fracture level: L1 Qualified Code(s): S32.010A - Wedge compression fracture of first lumbar vertebra, initial encounter for closed fracture Code(s): S32.000A - Wedge compression fracture of unspecified lumbar vertebra, initial encounter for closed fracture Status: Acute Assessment and Plan: Per hospitalist (2) Acute on chronic diastolic (congestive) heart failure: Code(s): I50.33 - Acute on chronic diastolic (congestive) heart failure Status: Acute Assessment and Plan: She has acute on chronic diastolic heart failure/right-sided heart failure. Difficult situation given hypotension, renal disease. Tolerating Furosemide 20 mg IV b.i.d. Will give an additional one time dose of furosemide 20mg IV today as her blood pressure is improved and renal function stable Follow I's/Os daily weight. No salt diet. Continue Jardiance Continue lisinopril Continue metoprolol FRANK lozano (3) Right-sided heart failure: Code(s): I50.810 - Right heart failure, unspecified Status: Acute Assessment and Plan: Multifactorial including related noncompliance with CPAP, left-sided heart failure, obesity, COPD. Will consult respiratory therapy to set up CPAP (4) Paroxysmal atrial fibrillation: Code(s): I48.0 - Paroxysmal atrial fibrillation Status: Acute Assessment and Plan: Her sotalol was held on admission. Will resume this today. EKG ordered to check QTc now and after tonight's dose. Continue Eliquis for now. If she continues have fall issues, will need to stop Eliquis (5) CKD (chronic kidney disease) stage 4, GFR 15-29 ml/min: Code(s): N18.4 - Chronic kidney disease, stage 4 (severe) Status: Acute Assessment and Plan: Follow BMP (6) Pulmonary hypertension: Code(s): I27.20 - Pulmonary hypertension, unspecified Status: Chronic Assessment and Plan: Severe. Etiology as listed above (7) Obstructive sleep apnea: Code(s): G47.33 - Obstructive sleep apnea (adult) (pediatric) Status: Chronic Assessment and Plan: RT to see Subjective Date/time seen: 05/16/23 10:40 Interval history: Cardiology follow up for CHF She feels okay today. Less swollen but does still have lower extremity edema. No shortness of breath. Complaining of fatigue. Review of Systems Review of Systems: All systems reviewed & are unremarkable except as noted in HPI and below Constitutional: Constitutional: Denies body ache(s) and Denies excessive sweating Eyes: Eyes: Denies blurry vision ENT: Reports Normal hearing present Cardiovascular: Cardiovascular: Denies chest pain, Reports leg edema and Reports dyspnea Respiratory: Respiratory: Reports dyspnea Gastrointestinal: Gastrointestinal: Denies abdominal pain Genitourinary: Genitourinary: Denies hematuria Musculoskeletal: Musculoskeletal: Reports back pain Integumentary/Breasts: Skin/Breast: Denies dry skin Neurologic: Reports Normal hearing present, Denies Abnormal speech present and Denies behavioral changes Psychiatric: Psychiatric: Denies anxiety and Denies behavioral changes Endocrine: Endocrine: Denies excessive sweating Hematologic/Lymphatic: Hematologic/Lymphatic: Denies easy bleeding Allergic/Immunologic: Allergic/Immunologic: Denies GI upset with certain foods Exam Narrative: Awake alert oriented appears stated age. Pleasant appropriate Const: General: comfortable and no acute distress HENMT: Face/Nose/Sinus: Normal nares present Mouth: Yes moist mucous membranes Eyes: Sclera: sclerae normal Neck: Neck: supple Carotids: no bruits Resp: Effort & Inspection: normal respiratory effort Auscultation: no rales and diminished lung sounds Cardio: Rate: regular rate Rhythm: regular rhythm H
--- NOTE | 2023-05-16 10:51 | ECG_ITS ---
Measurements Intervals [place] Rate: 90 P: 86 [place]: 135 QRS: 44 QRSD: 93 T: 54 QT: 370 QTc: 453 Interpretive Statements SINUS RHYTHM WITH OCCASIONAL VENTRICULAR PREMATURE COMPLEXES INCOMPLETE RIGHT BUNDLE BRANCH BLOCK [90+ ms QRS DURATION, TERMINAL R IN V1/V2, 40+ ms S IN I/aVL/V4/V5/V6] NONSPECIFIC ST & T-WAVE ABNORMALITY ABNORMAL ECG COMPARED TO ECG 05/13/2023 19:13:43 NO SIGNIFICANT DIFFERENCE Electronically Signed On 05-16-2023 14:15:53 [employer] by Larry Frederick M.D.
--- NOTE | 2023-05-16 14:14 | PM.IMPN ---
Progress Note: A&P Assessment and Plan (1) Acute on chronic diastolic (congestive) heart failure: Code(s): I50.33 - Acute on chronic diastolic (congestive) heart failure Status: Acute Assessment and Plan: Strict I&Os, daily weights Cardiology consult ordered and pending Monitor telemetry IV diuresis, daily BMP Echo from 04/05 showed severe pulmonary hypertension, grade 2 diastolic dysfunction and an EF of 65-70% (2) UTI (urinary tract infection): Code(s): N39.0 - Urinary tract infection, site not specified Status: Acute Assessment and Plan: Started on ceftriaxone 05/13 Follow-up urine culture 05/14: worsening leuk, escalate abx to meropenem 05/15: improving on meropenem, cont, urine cx pending, GNB+ 05/16: klebsiella, will de-escalate to augmentin (3) Compression fracture of lumbar vertebra: Code(s): S32.000A - Wedge compression fracture of unspecified lumbar vertebra, initial encounter for closed fracture Status: Acute Assessment and Plan: consult PT/OT, cont back brace pain controlled Plan DVT prophylaxis with SCDs GI prophylaxis not indicated Code status full code Subjective Date/time seen: 05/16/23 14:14 Interval history: 77-year-old female with history of AFib, COPD, CKD, PMR among other comorbidities is presenting with generalized weakness and shortness of breath and being treated for heart failure exacerbation as well as UTI. No overnight events noted. No chest pain or shortness of breath. No nausea, vomiting or diarrhea. No fevers or chills. pain controlled. improving edema. Review of Systems Review of Systems: 12 point review of systems was assessed and was negative except as noted in the HPI Exam Narrative: General: No acute distress, alert and oriented per baseline HEENT: Atraumatic, normocephalic, mucous membranes moist CV: Regular rate and rhythm, S1, S2 Lungs: Clear to auscultation bilaterally, no rales or crackles noted, no wheezes, good air entry Abdomen: Soft, nontender, nondistended Extremities: Normal to inspection, trace pitting edema B/L LE Skin: No rashes noted, no lesions or wounds seen Psych: Euthymic, normal affect Objective Data Vital Signs Vital Signs: Vital Signs - 24 hr 05/15/23 22:00 05/15/23 20:00 05/16/23 06:00 Temperature 96.2 F L 96.9 F L Pulse Rate 95 89 Respiratory Rate 16 16 Blood Pressure 105/67 113/76 Pulse Oximetry 92 97 Oxygen Delivery Room Air 05/16/23 08:31 05/16/23 08:57 05/16/23 08:00 Temperature Pulse Rate 89 Respiratory Rate Blood Pressure Pulse Oximetry 94 Oxygen Delivery Room Air Room Air Intake/Output Intake/Output: Intake & Output 05/13/23 05/14/23 05/15/23 05/16/23 23:59 23:59 23:59 23:59 Intake Total 100 1734 2588 950 Output Total 4000 700 400 Balance 100 -2266 1888 550 Meds/Results Medications: Active Medications Generic Name Dose Route Start Last Admin Trade Name Freq PRN Reason Stop Dose Admin Acetaminophen 650 mg 05/13/23 20:38 05/14/23 21:08 Acetaminophen 325 Mg Tablet PO 650 mg Q4H PRN Administration Mild Pain (1-3) or Fever Albuterol 2.5 mg 05/13/23 20:42 Albuterol Sulfate Neb 2.5 Mg/3 Ml Inh INHALATION Q6HRT PRN Shortness Of Breath Atorvastatin Calcium 80 mg 05/14/23 21:00 05/15/23 19:52 Atorvastatin 40 Mg Tablet PO 80 mg HS FATOUMATA Administration Duloxetine HCl 60 mg 05/14/23 09:00 05/16/23 08:57 Duloxetine Hcl 60 Mg Capsule.Dr PO 60 mg QAM FATOUMATA Administration Empagliflozin 10 mg 05/14/23 09:00 05/16/23 08:56 Empagliflozin 10 Mg Tablet PO 10 mg DAILY FATOUMATA Administration Enoxaparin Sodium 40 mg 05/14/23 09:00 05/16/23 08:57 Enoxaparin 40 Mg/0.4 Ml Syringe SUB-Q 40 mg DAILY FATOUMATA Administration Fish Oil 2 gm 05/14/23 09:00 05/16/23 08:57 [place] 3 Polyunsat Fatty Acids 1 Gm Cap PO 2 gm BID FATOUMATA Administration
[2023-05-16] MEDS: AMOXICILLIN/CLAVULANATE K 875-125 MG TAB 1 TABLET PO (15:18)
[2023-05-16 16:31] VITALS: BP 95/62; PULSE 85
[2023-05-16 16:37] VITALS: PULSE 85
[2023-05-16] MEDS: SOTALOL HCL 40 MG TABLET PO (16:37)
[2023-05-16] MEDS: traZODone HCL 25 MG TABLET PO (20:33)
[2023-05-16] MEDS: ATORVASTATIN 40 MG TABLET 80 MG PO (20:33)
[2023-05-16] MEDS: GABAPENTIN 300 MG CAPSULE 600 MG PO (20:33)
[2023-05-16 22:00] VITALS: BP 102/76; PULSE 71; RESP 20; TEMP 36.5; O2SAT 90
--- NOTE | 2023-05-16 22:00 | ECG_ITS ---
Measurements Intervals [place] Rate: 78 P: 75 [place]: 149 QRS: 67 QRSD: 96 T: 46 QT: 403 QTc: 461 Interpretive Statements SINUS RHYTHM WITH OCCASIONAL ECTOPIC PREMATURE COMPLEXES INCOMPLETE RIGHT BUNDLE BRANCH BLOCK [90+ ms QRS DURATION, TERMINAL R IN V1/V2, 40+ ms S IN I/aVL/V4/V5/V6] NONSPECIFIC ST AND T ABNORMALITY ABNORMAL ECG COMPARED TO ECG 05/16/2023 13:08:11 NO SIGNIFICANT CHANGES Electronically Signed On 05-17-2023 7:38:19 HOSPITAL TECHNICIAN by Larry Frederick M.D.
[2023-05-17 06:00] VITALS: BP 98/82; PULSE 85; RESP 18; TEMP 36.8; O2SAT 92
[2023-05-17 06:53] LABS: Basophils Percent Auto 0.2 % (0.2-1.2); Eosinophils Absolute Auto 0.1 K/mm3 (0-0.3); Eosinophils Percent Auto 1.4 % (0-4.4); Hematocrit 34.1 % (37.0-47.0); Hemoglobin 10.3 g/dL (12.0-15.0); Immature Granulocyte Absolute 0.03 K/mm3 (0.00-0.031); Immature Granulocyte Percent A 0.3 % (0-0.5); Lymphocytes Absolute Auto 1.55 K/mm3 (0.9-3.2); Lymphocytes Percent Auto 15.1 % (18.3-44.2); Mean Corpuscular HGB Conc 30.2 g/dl (32-36); Mean Corpuscular Hemoglobin 27.8 pg (26-34); Mean Corpuscular Volume 92.2 fl (80-100); Mean Platelet Volume 9.1 fl (7.4-10.4); Monocytes Absolute Auto 1.2 K/mm3 (0.1-0.6); Monocytes Percent Auto 11.9 % (2.6-8.5); Neutrophils Absolute Auto 7.3 K/mm3 (1.3-6.7); Neutrophils Percent Auto 71.1 % (45.5-73.1); Platelet Count Result 219 k/mm3 (150-375); Red Cell Distribution Width 15.8 % (11.5-14.5); White Blood Count 10.3 K/mm3 (4.5-10.0)
[2023-05-17 07:15] LABS: Alanine Aminotransferase 17 U/L (6-35); Albumin Level 2.6 g/dL (3.5-5.1); Alkaline Phosphatase 162 U/L (38-126); Anion Gap 5 mmol/L (8-16); Aspartate Amino Transferase 29 U/L (14-36); Bilirubin,Total 0.8 mg/dL (0.2-1.3); Blood Urea Nitrogen 24 mg/dL (7-17); Calcium 7.8 mg/dL (8.4-10.2); Carbon Dioxide 28 mmol/L (22-30); Chloride 104 mmol/L (98-107); Estimated CRCL calculation 39 ml/min; Estimated Glomerular Filt Rate 40; Glucose 83 mg/dL (65-110); Potassium 3.7 mmol/L (3.4-5.0); Sodium 137 mmol/L (137-145)
[2023-05-17 08:11] VITALS: BP 105/72; PULSE 87
[2023-05-17 08:13] VITALS: PULSE 87
[2023-05-17] MEDS: SOTALOL HCL 40 MG TABLET PO ×2 (08:13→16:55)
[2023-05-17] MEDS: METOPROLOL SUCCINATE EXT REL 50 MG TABCR PO (08:13)
[2023-05-17] MEDS: AMOXICILLIN/CLAVULANATE K 875-125 MG TAB 1 TABLET PO ×2 (08:13→21:18)
[2023-05-17] MEDS: traMADol HCL (*CRX) 50 MG TABLET PO ×3 (08:13→21:17)
[2023-05-17] MEDS: PANTOPRAZOLE 40 MG TABLET PO (08:13)
[2023-05-17] MEDS: OMEGA 3 POLYUNSAT FATTY ACIDS 1 GM CAP 2 GM PO ×2 (08:13→16:55)
[2023-05-17] MEDS: SODIUM BICARBONATE TAB 650 MG TABLET PO ×2 (08:13→16:55)
[2023-05-17] MEDS: EMPAGLIFLOZIN 10 MG TABLET PO (08:13)
[2023-05-17] MEDS: ENOXAPARIN 40 MG/0.4 ML SYRINGE SUB-Q (08:14)
[2023-05-17] MEDS: DULoxetine HCL 60 MG CAPSULE.DR PO (08:14)
[2023-05-17] MEDS: FUROSEMIDE INJ 40 MG/4 ML VIAL 20 MG IV PUSH (08:14)
[2023-05-17] MEDS: FLUTICASONE/UMECLIDIN/VILANTER 100-62.5-25 MCG ELLIPTA 1 PUFF INHALATION (09:13)
--- NOTE | 2023-05-17 11:53 | PM.PNCARD ---
Progress Note: A&P Assessment and Plan (1) Paroxysmal atrial fibrillation: Code(s): I48.0 - Paroxysmal atrial fibrillation Status: Acute (2) Congestive heart failure: Qualifiers: Heart failure type: right heart failure due to left heart failure Qualified Code(s): I50.814 - Right heart failure due to left heart failure Code(s): I50.9 - Heart failure, unspecified Status: Acute (3) Pulmonary hypertension: Code(s): I27.20 - Pulmonary hypertension, unspecified Status: Chronic Plan 77-year-old lady with paroxysmal atrial fibrillation as well as echo evidence of pulmonary hypertension. She is maintaining sinus rhythm with her sotalol regimen. This should be continued. She has been diuresed in no longer has any lower extremity edema. Appears to be related to diastolic dysfunction as well as pulmonary hypertension. IV furosemide can probably be stopped at this time given her lack of edema. I will transition back to an oral regimen at this time. Larry Frederick MD [facility] Subjective Date/time seen: Date of service: 05/17/23 11:53 Interval history: Cardiology follow up for CHF She feels okay today. Less swollen but does still have lower extremity edema. No shortness of breath. Complaining of fatigue. Patient without specific complaints today. Still maintaining sinus rhythm with sotalol treatment. Lower extremity edema has essentially resolved. Patient states plans are for her to go to longterm/rehab in the hopefully back to her own home. Frequent falling remains a obvious concern Exam Narrative: Awake alert oriented appears stated age. Pleasant appropriate Const: General: comfortable and no acute distress HENMT: Face/Nose/Sinus: Normal nares present Mouth: Yes moist mucous membranes Eyes: Sclera: sclerae normal Neck: Neck: supple Carotids: no bruits Chest: Other: No reproducible chest wall pain to palpation. She does have back brace in place Resp: Effort & Inspection: normal respiratory effort Auscultation: no rales and diminished lung sounds Cardio: Rate: regular rate Rhythm: regular rhythm Heart sounds: no murmurs GI: Inspection: non-distended Auscultation: normal bowel sounds Skin: General skin exam: normal color Neuro: Cranial nerves: Yes Normal hearing present Speech: normal speech and No Abnormal speech present Sensory Exam: normal sensation Extrem: Other: Lower extremity edema is resolved at this time Psych: Mental Status: mental status grossly normal Affect: normal affect Objective Data Vital Signs Vital Signs: Vital Signs - 24 hr 05/16/23 16:31 05/16/23 16:37 05/16/23 22:00 Temperature 36.5 C Pulse Rate 85 85 71 Respiratory Rate 20 Blood Pressure 95/62 L 102/76 Pulse Oximetry 90 Oxygen Delivery 05/17/23 06:00 05/17/23 08:11 05/17/23 08:13 Temperature 36.8 C Pulse Rate 85 87 87 Respiratory Rate 18 Blood Pressure 98/82 L 105/72 Pulse Oximetry 92 Oxygen Delivery 05/17/23 08:13 05/17/23 08:00 Temperature Pulse Rate 87 Respiratory Rate Blood Pressure Pulse Oximetry Oxygen Delivery Room Air Intake/Output Intake/Output: Intake & Output 05/14/23 05/15/23 05/16/23 05/17/23 23:59 23:59 23:59 23:59 Intake Total 1734 2588 1350 390 Output Total 4000 700 2350 200 Balance -2266 1888 -1000 190 Meds/Results Medications: Active Medications Generic Name Dose Route Start Last Admin Trade Name Freq PRN Reason Stop Dose Admin Acetaminophen 650 mg 05/13/23 20:38 05/14/23 21:08 Acetaminophen 325 Mg Tablet PO 650 mg Q4H PRN Administration Mild Pain (1-3) or Fever Albuterol 2.5 mg 05/13/23 20:42 Albuterol Sulfate Neb 2.5 Mg/3 Ml Inh INHALATION Q6HRT PRN Shortness Of Breath Amoxicillin/Clavulanate Potassium 1 tablet 05/16/23 16:00 05/17/23 08:13 Amoxicillin/Clavulanate K 875-125 Mg Tab PO 1 tablet Q12HR [facility] Ad
[2023-05-17 14:00] VITALS: BP 125/73; PULSE 82; RESP 20; TEMP 36.5; O2SAT 93
--- NOTE | 2023-05-17 18:11 | PM.IMPN ---
Progress Note: A&P Assessment and Plan (1) Acute on chronic diastolic (congestive) heart failure: Code(s): I50.33 - Acute on chronic diastolic (congestive) heart failure Status: Acute Assessment and Plan: Strict I&Os, daily weights Cardiology consult ordered and pending Monitor telemetry IV diuresis, daily BMP Echo from 04/05 showed severe pulmonary hypertension, grade 2 diastolic dysfunction and an EF of 65-70% 05/17: transitioned to oral regimen, doing well (2) UTI (urinary tract infection): Code(s): N39.0 - Urinary tract infection, site not specified Status: Acute Assessment and Plan: Started on ceftriaxone 05/13 Follow-up urine culture 05/14: worsening leuk, escalate abx to meropenem 05/15: improving on meropenem, cont, urine cx pending, GNB+ 05/16: klebsiella, will de-escalate to augmentin (3) Compression fracture of lumbar vertebra: Code(s): S32.000A - Wedge compression fracture of unspecified lumbar vertebra, initial encounter for closed fracture Status: Acute Assessment and Plan: consult PT/OT, cont back brace pain controlled Plan DVT prophylaxis with SCDs GI prophylaxis not indicated Code status full code Subjective Date/time seen: 05/17/23 18:11 Interval history: 77-year-old female with history of AFib, COPD, CKD, PMR among other comorbidities is presenting with generalized weakness and shortness of breath and being treated for heart failure exacerbation as well as UTI. No overnight events noted. No chest pain or shortness of breath. No nausea, vomiting or diarrhea. No fevers or chills. Back pain continues with some suprapubic spasms. Review of Systems Review of Systems: 12 point review of systems was assessed and was negative except as noted in the HPI Exam Narrative: General: No acute distress, alert and oriented per baseline HEENT: Atraumatic, normocephalic, mucous membranes moist CV: Regular rate and rhythm, S1, S2 Lungs: Clear to auscultation bilaterally, no rales or crackles noted, no wheezes, good air entry Abdomen: Soft, nontender, nondistended Extremities: Normal to inspection, trace pitting edema B/L LE Skin: No rashes noted, no lesions or wounds seen Psych: Euthymic, normal affect Objective Data Vital Signs Vital Signs: Vital Signs - 24 hr 05/16/23 22:00 05/17/23 06:00 05/17/23 08:11 Temperature 97.7 F 98.2 F Pulse Rate 71 85 87 Respiratory Rate 20 18 Blood Pressure 102/76 98/82 L 105/72 Pulse Oximetry 90 92 Oxygen Delivery 05/17/23 08:13 05/17/23 08:13 05/17/23 08:00 Temperature Pulse Rate 87 87 Respiratory Rate Blood Pressure Pulse Oximetry Oxygen Delivery Room Air 05/17/23 14:00 Temperature 97.7 F Pulse Rate 82 Respiratory Rate 20 Blood Pressure 125/73 Pulse Oximetry 93 Oxygen Delivery Intake/Output Intake/Output: Intake & Output 05/14/23 05/15/23 05/16/23 05/17/23 23:59 23:59 23:59 23:59 Intake Total 1734 2588 1350 1162 Output Total 4000 700 2350 250 Balance -2266 1888 -1000 912 Meds/Results Medications: Active Medications Generic Name Dose Route Start Last Admin Trade Name Freq PRN Reason Stop Dose Admin Acetaminophen 650 mg 05/13/23 20:38 05/14/23 21:08 Acetaminophen 325 Mg Tablet PO 650 mg Q4H PRN Administration Mild Pain (1-3) or Fever Albuterol 2.5 mg 05/13/23 20:42 Albuterol Sulfate Neb 2.5 Mg/3 Ml Inh INHALATION Q6HRT PRN Shortness Of Breath Amoxicillin/Clavulanate Potassium 1 tablet 05/16/23 16:00 05/17/23 08:13 Amoxicillin/Clavulanate K 875-125 Mg Tab PO 1 tablet Q12HR FATOUMATA Administration Atorvastatin Calcium 80 mg 05/14/23 21:00 05/16/23 20:33 Atorvastatin 40 Mg Tablet PO 80 mg HS FATOUMATA Administration Duloxetine HCl 60 mg 05/14/23 09:00 05/17/23 08:14 Duloxetine Hcl 60 Mg Capsule.Dr PO 60 mg QAM FATOUMATA Administration Empagliflozin 10 mg 05/14
[2023-05-17] MEDS: ATORVASTATIN 40 MG TABLET 80 MG PO (21:17)
[2023-05-17] MEDS: GABAPENTIN 300 MG CAPSULE 600 MG PO (21:18)
[2023-05-17] MEDS: traZODone HCL 25 MG TABLET PO (21:18)
[2023-05-17 22:00] VITALS: BP 100/63; PULSE 79; RESP 19; TEMP 36.4; O2SAT 95
[2023-05-18] MEDS: traMADol HCL (*CRX) 50 MG TABLET PO ×2 (05:46→13:53)
[2023-05-18 06:00] VITALS: BP 113/72; PULSE 82; RESP 19; TEMP 36; O2SAT 91
[2023-05-18 06:43] LABS: Basophils Percent Auto 0.4 % (0.2-1.2); Eosinophils Absolute Auto 0.1 K/mm3 (0-0.3); Eosinophils Percent Auto 1.1 % (0-4.4); Hematocrit 37.4 % (37.0-47.0); Hemoglobin 11.7 g/dL (12.0-15.0); Immature Granulocyte Absolute 0.03 K/mm3 (0.00-0.031); Immature Granulocyte Percent A 0.4 % (0-0.5); Lymphocytes Absolute Auto 1.17 K/mm3 (0.9-3.2); Lymphocytes Percent Auto 14.4 % (18.3-44.2); Mean Corpuscular HGB Conc 31.3 g/dl (32-36); Mean Corpuscular Volume 89.5 fl (80-100); Mean Platelet Volume 9.1 fl (7.4-10.4); Monocytes Absolute Auto 1.1 K/mm3 (0.1-0.6); Monocytes Percent Auto 13.2 % (2.6-8.5); Neutrophils Absolute Auto 5.7 K/mm3 (1.3-6.7); Neutrophils Percent Auto 70.5 % (45.5-73.1); Platelet Count Result 235 k/mm3 (150-375); Red Blood Count 4.18 M/mm3 (4.2-5.4); Red Cell Distribution Width 15.6 % (11.5-14.5); White Blood Count 8.1 K/mm3 (4.5-10.0)
[2023-05-18 06:48] LABS: Alanine Aminotransferase 18 U/L (6-35); Albumin Level 2.8 g/dL (3.5-5.1); Alkaline Phosphatase 170 U/L (38-126); Anion Gap 7 mmol/L (8-16); Aspartate Amino Transferase 34 U/L (14-36); Bilirubin,Total 0.7 mg/dL (0.2-1.3); Blood Urea Nitrogen 25 mg/dL (7-17); Calcium 8.3 mg/dL (8.4-10.2); Carbon Dioxide 27 mmol/L (22-30); Chloride 102 mmol/L (98-107); Estimated CRCL calculation 42 ml/min; Estimated Glomerular Filt Rate 44; Glucose 97 mg/dL (65-110); Potassium 3.4 mmol/L (3.4-5.0); Sodium 136 mmol/L (137-145)
[2023-05-18 08:00] VITALS: PULSE 74; RESP 19; O2SAT 91
[2023-05-18] MEDS: OMEGA 3 POLYUNSAT FATTY ACIDS 1 GM CAP 2 GM PO ×2 (08:51→17:37)
[2023-05-18] MEDS: AMOXICILLIN/CLAVULANATE K 875-125 MG TAB 1 TABLET PO ×2 (08:51→20:34)
[2023-05-18] MEDS: SOTALOL HCL 40 MG TABLET PO ×2 (08:51→17:37)
[2023-05-18] MEDS: DULoxetine HCL 60 MG CAPSULE.DR PO (08:51)
[2023-05-18] MEDS: FUROSEMIDE 40 MG TABLET PO (08:52)
[2023-05-18] MEDS: PANTOPRAZOLE 40 MG TABLET PO (08:52)
[2023-05-18] MEDS: SODIUM BICARBONATE TAB 650 MG TABLET PO ×2 (08:52→17:37)
[2023-05-18 08:53] VITALS: PULSE 74
[2023-05-18] MEDS: ENOXAPARIN 40 MG/0.4 ML SYRINGE SUB-Q (08:53)
[2023-05-18] MEDS: EMPAGLIFLOZIN 10 MG TABLET PO (08:53)
[2023-05-18] MEDS: METOPROLOL SUCCINATE EXT REL 50 MG TABCR PO (08:53)
[2023-05-18] MEDS: FLUTICASONE/UMECLIDIN/VILANTER 100-62.5-25 MCG ELLIPTA 1 PUFF INHALATION (10:28)
--- NOTE | 2023-05-18 14:41 | PM.IMPN ---
Progress Note: A&P Assessment and Plan (1) Acute on chronic diastolic (congestive) heart failure: Code(s): I50.33 - Acute on chronic diastolic (congestive) heart failure Status: Acute Assessment and Plan: Strict I&Os, daily weights Cardiology consult ordered and pending Monitor telemetry IV diuresis, daily BMP Echo from 04/05 showed severe pulmonary hypertension, grade 2 diastolic dysfunction and an EF of 65-70% 05/17: transitioned to oral regimen, doing well 05/18: euvolemic (2) UTI (urinary tract infection): Code(s): N39.0 - Urinary tract infection, site not specified Status: Acute Assessment and Plan: Started on ceftriaxone 05/13 Follow-up urine culture 05/14: worsening leuk, escalate abx to meropenem 05/15: improving on meropenem, cont, urine cx pending, GNB+ 05/16: klebsiella, will de-escalate to augmentin, end date 05/20 (3) Compression fracture of lumbar vertebra: Code(s): S32.000A - Wedge compression fracture of unspecified lumbar vertebra, initial encounter for closed fracture Status: Acute Assessment and Plan: consult PT/OT, cont back brace pain controlled Plan DVT prophylaxis with SCDs GI prophylaxis not indicated Code status full code Subjective Date/time seen: 05/18/23 14:41 Interval history: 77-year-old female with history of AFib, COPD, CKD, PMR among other comorbidities is presenting with generalized weakness and shortness of breath and being treated for heart failure exacerbation as well as UTI. No overnight events noted. No chest pain or shortness of breath. No nausea, vomiting or diarrhea. No fevers or chills. Back pain continues with some suprapubic spasms, bolton removed, urology consulted as purulence noted at site with continued pain and blockage. Review of Systems Review of Systems: 12 point review of systems was assessed and was negative except as noted in the HPI Exam Narrative: General: No acute distress, alert and oriented per baseline HEENT: Atraumatic, normocephalic, mucous membranes moist CV: Regular rate and rhythm, S1, S2 Lungs: Clear to auscultation bilaterally, no rales or crackles noted, no wheezes, good air entry Abdomen: Soft, nontender, nondistended Extremities: Normal to inspection, trace pitting edema B/L LE Skin: No rashes noted, no lesions or wounds seen Psych: Euthymic, normal affect Objective Data Vital Signs Vital Signs: Vital Signs - 24 hr 05/17/23 22:00 05/17/23 20:00 05/18/23 06:00 Temperature 97.5 F L 96.8 F L Pulse Rate 79 82 Respiratory Rate 19 19 Blood Pressure 100/63 113/72 Pulse Oximetry 95 91 Oxygen Delivery Room Air 05/18/23 08:53 05/18/23 08:00 Temperature Pulse Rate 74 74 Respiratory Rate 19 Blood Pressure Pulse Oximetry 91 Oxygen Delivery Room Air Intake/Output Intake/Output: Intake & Output 05/15/23 05/16/23 05/17/23 05/18/23 23:59 23:59 23:59 23:59 Intake Total 2588 1350 1162 515 Output Total 700 2350 250 300 Balance 1888 -1000 912 215 Meds/Results Medications: Active Medications Generic Name Dose Route Start Last Admin Trade Name Freq PRN Reason Stop Dose Admin Acetaminophen 650 mg 05/13/23 20:38 05/14/23 21:08 Acetaminophen 325 Mg Tablet PO 650 mg Q4H PRN Administration Mild Pain (1-3) or Fever Albuterol 2.5 mg 05/13/23 20:42 Albuterol Sulfate Neb 2.5 Mg/3 Ml Inh INHALATION Q6HRT PRN Shortness Of Breath Amoxicillin/Clavulanate Potassium 1 tablet 05/16/23 16:00 05/18/23 08:51 Amoxicillin/Clavulanate K 875-125 Mg Tab PO 1 tablet Q12HR FATOUMATA Administration Atorvastatin Calcium 80 mg 05/14/23 21:00 05/17/23 21:17 Atorvastatin 40 Mg Tablet PO 80 mg HS FATOUMATA Administration Duloxetine HCl 60 mg 05/14/23 09:00 05/18/23 08:51 Duloxetine Hcl 60 Mg Capsule.Dr PO 60 mg QAM FATOUMATA Administration Empagliflozin 10 mg 05/14/23 09:00 05/18/23 08:53
[2023-05-18] MEDS: hydrOXYzine HCL 10 MG TABLET PO (16:11)
[2023-05-18 20:00] VITALS: PULSE 66; RESP 18; O2SAT 94
[2023-05-18 20:20] VITALS: BP 92/41; PULSE 66; RESP 18; TEMP 36.3; O2SAT 94
[2023-05-18] MEDS: traZODone HCL 25 MG TABLET PO (20:34)
[2023-05-18] MEDS: GABAPENTIN 300 MG CAPSULE 600 MG PO (20:34)
[2023-05-18] MEDS: ATORVASTATIN 40 MG TABLET 80 MG PO (20:34)
--- NOTE | 2023-05-18 20:55 | PC.NURSE ---
straight cath >1000ml out, spoken with DEION hennessy to place bolton, urology consulted already for tomorrow AM.
[2023-05-19] VITALS (7 sets, daily range): BP systolic 93–105; BP diastolic 43–71; PULSE 71–82; RESP 16–18; TEMP 36.6–36.7; O2SAT 94–95
[2023-05-19 06:36] LABS: Basophils Percent Auto 0.5 % (0.2-1.2); Eosinophils Absolute Auto 0.1 K/mm3 (0-0.3); Eosinophils Percent Auto 0.9 % (0-4.4); Hematocrit 34.1 % (37.0-47.0); Hemoglobin 10.2 g/dL (12.0-15.0); Immature Granulocyte Absolute 0.04 K/mm3 (0.00-0.031); Immature Granulocyte Percent A 0.5 % (0-0.5); Lymphocytes Absolute Auto 1.02 K/mm3 (0.9-3.2); Lymphocytes Percent Auto 12.8 % (18.3-44.2); Mean Corpuscular HGB Conc 29.9 g/dl (32-36); Mean Corpuscular Hemoglobin 27.3 pg (26-34); Mean Corpuscular Volume 91.4 fl (80-100); Mean Platelet Volume 9.2 fl (7.4-10.4); Monocytes Percent Auto 12.3 % (2.6-8.5); Neutrophils Absolute Auto 5.8 K/mm3 (1.3-6.7); Platelet Count Result 200 k/mm3 (150-375); Red Blood Count 3.73 M/mm3 (4.2-5.4); Red Cell Distribution Width 15.4 % (11.5-14.5)
[2023-05-19 06:45] LABS: Alanine Aminotransferase 18 U/L (6-35); Albumin Level 2.6 g/dL (3.5-5.1); Alkaline Phosphatase 154 U/L (38-126); Anion Gap 5 mmol/L (8-16); Aspartate Amino Transferase 37 U/L (14-36); Bilirubin,Total 0.8 mg/dL (0.2-1.3); Blood Urea Nitrogen 28 mg/dL (7-17); Calcium 8.2 mg/dL (8.4-10.2); Carbon Dioxide 27 mmol/L (22-30); Chloride 101 mmol/L (98-107); Estimated CRCL calculation 39 ml/min; Estimated Glomerular Filt Rate 40; Glucose 90 mg/dL (65-110); Potassium 3.5 mmol/L (3.4-5.0); Sodium 133 mmol/L (137-145)
[2023-05-19] MEDS: OMEGA 3 POLYUNSAT FATTY ACIDS 1 GM CAP 2 GM PO ×2 (08:27→17:06)
[2023-05-19] MEDS: METOPROLOL SUCCINATE EXT REL 50 MG TABCR PO (08:27)
[2023-05-19] MEDS: FUROSEMIDE 40 MG TABLET PO (08:27)
[2023-05-19] MEDS: SOTALOL HCL 40 MG TABLET PO ×2 (08:27→17:07)
[2023-05-19] MEDS: SODIUM BICARBONATE TAB 650 MG TABLET PO ×2 (08:27→17:07)
[2023-05-19] MEDS: PANTOPRAZOLE 40 MG TABLET PO (08:27)
[2023-05-19] MEDS: ENOXAPARIN 40 MG/0.4 ML SYRINGE SUB-Q (08:27)
[2023-05-19] MEDS: AMOXICILLIN/CLAVULANATE K 875-125 MG TAB 1 TABLET PO ×2 (08:27→20:22)
[2023-05-19] MEDS: DULoxetine HCL 60 MG CAPSULE.DR PO (08:27)
[2023-05-19] MEDS: EMPAGLIFLOZIN 10 MG TABLET PO (08:27)
--- NOTE | 2023-05-19 10:44 | WPDURCON ---
Assessment and Plan Assessment and plan (1) History of bladder cancer: Code(s): Z85.51 - Personal history of malignant neoplasm of bladder Status: Acute Assessment and Plan: she does not seem to have any active urologic issues. She has a catheter in her catheterizable stoma. This can stay or she can go back to self catheterization 4 times daily. her stoma appears healthy (2) Abnormal urinalysis: Code(s): R82.90 - Unspecified abnormal findings in urine Status: Acute Assessment and Plan: this likely represents colonization in a person that does catheterization into a neobladder Urology Consult Note HPI Date Seen: 05/19/23 Requesting Physician: SYLVAIN Abebe Primary Care Provider: Yvonne MosesMD Consult Narrative Narrative: Marilee Kilgore is a 77 year old female. she has history of bladder cancer. She underwent [place] pouch in 1997. She has a catheterizable stoma. 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 She is now in the hospital for non urologic reasons. I was specifically consult to evaluate her stoma site. She has a catheter in the stoma site currently. Otherwise she catheterized herself through your 4 times a day. She has no fevers or chills. She has clear yellow urine. No symptoms urinary tract infection Review of Systems Review of Systems: All systems reviewed & are unremarkable except as noted in HPI and below PMFSH Past Medical History Medical History Alzheimer's dementia Anxiety Atrial fibrillation Bladder cancer CKD (chronic kidney disease) stage 4, GFR 15-29 ml/min COPD (chronic obstructive pulmonary disease) Depression History of gastric ulcer Hyperlipidemia Hypertension Irritable bowel disease Nocturnal enuresis Obstructive sleep apnea CPAP of 14 Paroxysmal atrial fibrillation Peptic ulcer disease Polymyalgia rheumatica Pulmonary emphysema Pulmonary hypertension Severe on echocardiogram 04/2023 Right-sided heart failure Echocardiogram April 2023: EF 65-70% mildly increased left ventricular wall thickness, left ventricular diastolic function grade 2 dysfunction, D shaped septum in systole consistent with right ventricular pressure overload, right ventricular chamber severely enlarged with reduced function, severe right atrial enlargement, moderate left atrial enlargement, moderate mitral valve regurgitation [id number] tricuspid regurgitation severe pulmonary hypertension with RVSP of 72 Stroke Ulcers of both great toes Surgical History Surgical History H/O: hysterectomy History of appendectomy History of arthroplasty of knee History of cholecystectomy History of cystostomy History of hip replacement, total History of urostomy Family History Family History Father Skin cancer Diabetes mellitus Hypertension Heart disease Mother Hypertension Depression Sibling Pancreatic cancer Hypertension Depression Other Hypertension Depression Social History Social History Social History: She is in lives in her own apartment on the 1st floor. Denies alcohol or illicit drug use. She has no steps to enter. The patient reports that her daughter provides her hired homemaking services 2 to 3 times a week through [facility]. She also has a son who can assist that lives near by. She does not drive however children and friends provide transportation. The patient uses a Rollator for mobility when outside. Patient has a tub shower combo. Code status: Full code Surrogate decision maker: Conrad (son) Smoking packs per day: 1 Smoking cigarettes per day: 20.0 Smoking status: Never smoker Second hand t
[2023-05-19] MEDS: traMADol HCL (*CRX) 50 MG TABLET PO ×2 (11:17→15:38)
--- NOTE | 2023-05-19 11:37 | PCOTNOTE ---
The patient treatment was not able to be completed patient in 8/10 pain. Patient was agreeable to try after lunch. Will plan to continue treatment per plan of care.
--- NOTE | 2023-05-19 14:55 | PCRCNOTE ---
Window of time for administration has passed. See next scheduled administration.
--- NOTE | 2023-05-19 14:59 | PM.IMPN ---
Progress Note: A&P Assessment and Plan (1) Acute on chronic diastolic (congestive) heart failure: Code(s): I50.33 - Acute on chronic diastolic (congestive) heart failure Status: Acute Assessment and Plan: Strict I&Os, daily weights Cardiology consult ordered and pending Monitor telemetry IV diuresis, daily BMP Echo from 04/05 showed severe pulmonary hypertension, grade 2 diastolic dysfunction and an EF of 65-70% 05/17: transitioned to oral regimen, doing well 05/18: euvolemic (2) UTI (urinary tract infection): Code(s): N39.0 - Urinary tract infection, site not specified Status: Acute Assessment and Plan: Started on ceftriaxone 05/13 Follow-up urine culture 05/14: worsening leuk, escalate abx to meropenem 05/15: improving on meropenem, cont, urine cx pending, GNB+ 05/16: klebsiella, will de-escalate to augmentin, end date 05/20 (3) Compression fracture of lumbar vertebra: Code(s): S32.000A - Wedge compression fracture of unspecified lumbar vertebra, initial encounter for closed fracture Status: Acute Assessment and Plan: consult PT/OT, cont back brace pain controlled (4) History of bladder cancer: Code(s): Z85.51 - Personal history of malignant neoplasm of bladder Status: Acute Assessment and Plan: stoma site for catheterizing wnl per urology Plan DVT prophylaxis with SCDs GI prophylaxis not indicated Code status full code Subjective Date/time seen: 05/19/23 14:59 Interval history: 77-year-old female with history of AFib, COPD, CKD, PMR among other comorbidities is presenting with generalized weakness and shortness of breath and being treated for heart failure exacerbation as well as UTI. No overnight events noted. No chest pain or shortness of breath. No nausea, vomiting or diarrhea. No fevers or chills. Back pain continues with some suprapubic spasms, bolton removed, urology consulted as purulence noted at site with continued pain and blockage. 05/19: urology state stoma site wnl, patient without complaints, no events, no fevers, ready to go to rehab when bed available Review of Systems Review of Systems: 12 point review of systems was assessed and was negative except as noted in the HPI Exam Narrative: General: No acute distress, alert and oriented per baseline HEENT: Atraumatic, normocephalic, mucous membranes moist CV: Regular rate and rhythm, S1, S2 Lungs: Clear to auscultation bilaterally, no rales or crackles noted, no wheezes, good air entry Abdomen: Soft, nontender, nondistended, stoma site c/d/i Extremities: Normal to inspection, no edema Skin: No rashes noted, no lesions or wounds seen Psych: Euthymic, normal affect Objective Data Vital Signs Vital Signs: Vital Signs - 24 hr 05/18/23 20:20 05/18/23 20:00 05/19/23 06:00 Temperature 97.3 F L 98.1 F Pulse Rate 66 66 71 Respiratory Rate 18 18 18 Blood Pressure 92/41 L 94/43 L Pulse Oximetry 94 94 94 Oxygen Delivery Room Air 05/19/23 08:26 05/19/23 08:27 05/19/23 08:27 Temperature Pulse Rate 80 80 Respiratory Rate Blood Pressure 105/71 Pulse Oximetry Oxygen Delivery 05/19/23 08:00 05/19/23 14:00 Temperature 97.8 F Pulse Rate 71 Respiratory Rate 16 Blood Pressure 93/57 L Pulse Oximetry 94 95 Oxygen Delivery Room Air Intake/Output Intake/Output: Intake & Output 05/16/23 05/17/23 05/18/23 05/19/23 23:59 23:59 23:59 23:59 Intake Total 1350 1162 1345 1016 Output Total 2350 250 1300 200 Balance -1000 912 45 816 Meds/Results Medications: Active Medications Generic Name Dose Route Start Last Admin Trade Name Jaclyn PRN Reason Stop Dose Admin Acetaminophen 650 mg 05/13/23 20:38 05/14/23 21:08 Acetaminophen 325 Mg Tablet PO 650 mg Q4H PRN Administration Mild Pain (1-3) or Fever Albuterol 2.5 mg 05/13/23 20:42 Albuterol Sulfate Neb 2.5 Mg/3 Ml Inh I
[2023-05-19] MEDS: CYCLOBENZAPRINE HCL 5 MG TABLET PO (15:38)
[2023-05-19 16:59] LABS: SARS-CoV-2 RNA PCR Negative (Negative)
[2023-05-19] MEDS: GABAPENTIN 300 MG CAPSULE 600 MG PO (20:23)
[2023-05-19] MEDS: traZODone HCL 25 MG TABLET PO (20:23)
[2023-05-19] MEDS: ATORVASTATIN 40 MG TABLET 80 MG PO (20:23)
--- NOTE | 2023-05-19 20:23 | PC.NURSE ---
abbot here to transport to [facility]. Reported called via Rochelle RED on day shift.Iv out prior to start of this shift.
--- NOTE | 2023-06-13 15:49 | PM.DS ---
DS: Admitting Diagnosis Discharge Date 05/19/23 Admitting Diagnosis Shortness of breath DS: Discharge Diagnosis Discharge Diagnosis (1) Acute on chronic diastolic (congestive) heart failure: Code(s): I50.33 - Acute on chronic diastolic (congestive) heart failure Status: Acute Assessment and Plan: Strict I&Os, daily weights Cardiology consult ordered and pending Monitor telemetry IV diuresis, daily BMP Echo from 04/05 showed severe pulmonary hypertension, grade 2 diastolic dysfunction and an EF of 65-70% 05/17: transitioned to oral regimen, doing well 05/18: euvolemic (2) UTI (urinary tract infection): Code(s): N39.0 - Urinary tract infection, site not specified Status: Acute Assessment and Plan: Started on ceftriaxone 05/13 Follow-up urine culture 05/14: worsening leuk, escalate abx to meropenem 05/15: improving on meropenem, cont, urine cx pending, GNB+ 05/16: klebsiella, will de-escalate to augmentin, end date 05/20 (3) Compression fracture of lumbar vertebra: Code(s): S32.000A - Wedge compression fracture of unspecified lumbar vertebra, initial encounter for closed fracture Status: Acute Assessment and Plan: consult PT/OT, cont back brace pain controlled (4) History of bladder cancer: Code(s): Z85.51 - Personal history of malignant neoplasm of bladder Status: Acute Assessment and Plan: stoma site for catheterizing wnl per urology Plan DVT prophylaxis with SCDs GI prophylaxis not indicated Code status full code DS: Summary Hospital Course Hospital Course: 77-year-old female with history of AFib, COPD, CKD, PMR among other comorbidities is presenting with generalized weakness and shortness of breath and being treated for heart failure exacerbation as well as UTI. she was evaluated and found to have an acute on chronic diastolic CHF, and also urinary tract infection.? Diurese ECG that the ER with IV antibiotic.? Patient will be admitted on observation on a tele bed, continue furosemide 40 mg IV daily, 1 g of Rocephin IV daily, home medication reconciled on morning labs are not. Strict I&Os, daily weights Cardiology consult ordered and pending Monitor telemetry IV diuresis, daily BMP Echo from 04/05 showed severe pulmonary hypertension, grade 2 diastolic dysfunction and an EF of 65-70% 05/17: transitioned to oral regimen, doing well 05/18: euvolemic Started on ceftriaxone 05/13 Follow-up urine culture 05/14: worsening leuk, escalate abx to meropenem 05/15: improving on meropenem, cont, urine cx pending, GNB+ 05/16: klebsiella, will de-escalate to augmentin, end date 05/20 Her stoma site for self catheterizing for urinary retention was evaluated for Urology and noted to be normal. All symptoms resolved. She was discharged in stable condition with close outpatient follow-up. Please see above and med rec for details. Time Spent with Patient Time attestation: Total time spent providing and/or coordinating discharge services: Exam Narrative: General: No acute distress, alert and oriented per baseline HEENT: Atraumatic, normocephalic, mucous membranes moist CV: Regular rate and rhythm, S1, S2 Lungs: Clear to auscultation bilaterally, no rales or crackles noted, no wheezes, good air entry Abdomen: Soft, nontender, nondistended, stoma site c/d/i Extremities: Normal to inspection, no edema Skin: No rashes noted, no lesions or wounds seen Psych: Euthymic, normal affect Discharge Plan Discharge Attending physician on discharge: Devi Mei Consulting providers: Anya Cortes; Quang Garcia; Ramesh Perez; Larry Frederick; Percy Flores; Cassandra De Leon; Ernst Reyes Discharging Clinician: Devi Mei Patient Disposition: SNF Activity: as tolerated Diet: as tolerated Discharge Instructions: Per Care Cooridination, patient to discharge with [facility]
== END 2023-05-19 20:25 | DRG 291 ==
LOC: ANHED 18:41 → ANH3MEDSUR 21:17
PROVIDERS: Emergency Medicine; Physician Assistant; Admitting Provider Student in an Organized Health Care Education/Training Program; Emergency Provider Emergency Medicine; PCP Family Medicine; Visit Provider Student in an Organized Health Care Education/Training Program
DX: I13.0 Hypertensive heart and chronic kidney disease with heart failure and stage 1 through stage 4 chronic kidney disease, or unspecified chronic kidney disease (principal); I50.33 Acute on chronic diastolic (congestive) heart failure; S32.000A Wedge compression fracture of unspecified lumbar vertebra, initial encounter for closed fracture; N39.0 Urinary tract infection, site not specified; B96.1 Klebsiella pneumoniae [K. pneumoniae] as the cause of diseases classified elsewhere; I48.0 Paroxysmal atrial fibrillation; G47.33 Obstructive sleep apnea (adult) (pediatric); K58.9 Irritable bowel syndrome, unspecified; E78.5 Hyperlipidemia, unspecified; Z11.52 Encounter for screening for COVID-19; J44.9 Chronic obstructive pulmonary disease, unspecified; N18.30 Chronic kidney disease, stage 3 unspecified; G30.9 Alzheimer's disease, unspecified; F02.80 Dementia in other diseases classified elsewhere, unspecified severity, without behavioral disturbance, psychotic disturbance, mood disturbance, and anxiety; W19.XXXA Unspecified fall, initial encounter; I27.20 Pulmonary hypertension, unspecified; Z96.649 Presence of unspecified artificial hip joint; Z96.659 Presence of unspecified artificial knee joint; Z87.11 Personal history of peptic ulcer disease; Z86.73 Personal history of transient ischemic attack (TIA), and cerebral infarction without residual deficits; Z85.51 Personal history of malignant neoplasm of bladder; Z90.49 Acquired absence of other specified parts of digestive tract; Z90.710 Acquired absence of both cervix and uterus; Z87.891 Personal history of nicotine dependence
CPT/HCPCS: 36415; 36600; 70450; 71046; 72131; 72170; 80048; 80053; 81001; 82805; 83880; 84484; 85025; 85610; 85730; 87077; 87086; 87088; 87186; 87635; 93005; 94640; 96365; 96366; 96367; 96372; 96375; 97110; 97116; 97161; 97166; 97530; 97535; 99285; A9270; G0378; J0696; J1650; J1940; J2185

== ENCOUNTER 2023-07-01 08:03 | Inpatient (IN) | payer MEDICARE, MEDICAID, SELFPAY ==
[2023-07-01] VITALS (10 sets, daily range): BP systolic 90–114; BP diastolic 59–74; PULSE 77–112; RESP 12–16; TEMP 35.8–36.7; O2SAT 93–100; BMI 38.2
--- NOTE | ~2023-07-01 | CT_ITS ---
EXAMINATION: CT abdomen pelvis wo con DATE: 07/01/2023 15:03 INDICATION: Recurrent urinary tract infection. Hematuria. TECHNIQUE: Computed tomography (CT) of the abdomen and pelvis was performed without intravenous contr ast. Automated exposure control and iterative reconstruction technique were employed. The dose-length product was 1311.65 mGy-cm. COMPARISON: CT abdomen and pelvis 06/17/11, lumbar spine CT 05/13/2023 FINDINGS: The visualized portions of the lung bases demonstrate small pleural effusions, right worse than left. Calcified pulmonary nodules and calcified hilar and mediastinal lymph nodes are consistent with old granulomatous disease. There is dependent atelectasis bilaterally. Cardiomegaly is noted. T here are coronary artery calcifications. No pericardial effusion. Calcifications in the liver and spl een are consistent with old granulomatous disease. There are changes of cholecystectomy. The pancreas is normal. There is an 8 mm mass of fat in right adrenal gland, consistent with a myelolipoma. Left adrenal gland is normal. There are changes of right nephrectomy. There is cortical thinning of left k idney. There is a 2.2 cm cyst in left kidney. There is calcified atherosclerosis of the aorta and man y of the other arteries. There is diverticulosis of the colon without evidence of diverticulitis. The re is a neobladder with anastomosis to the umbilicus with Corbin catheter. There is a 19 mm stone in t he neobladder. There is wall thickening of the duodenum. There is a small volume of ascites. There is edema of the intra-abdominal fat and body wall fat. There are changes of pelvic lymph node dissectio n. There are subacute burst fractures fractures of L1 and L2, worsened from 05/13/2023. There is travon re thoracic and lumbar spondylosis. IMPRESSION: 1. Small pleural effusions. 2. Small volume of ascites. 3. 19 mm stone in the neobladder. 4. Wall thickening of the duodenum, which may be interstitial edema or duodenitis. 5. Subacute burst fractures of L1 and L2, worsened from 05/13/2023. Reviewed, dictated and finalized at location A. RECONDITIONER IMPRESSION: 1. Small pleural effusions. 2. Small volume of ascites. 3. 19 mm stone in the neobladder. 4. Wall thickening of the duodenum, which may be interstitial edema or duodenit is. 5. Subacute burst fractures of L1 and L2, worsened from 05/13/2023.
--- NOTE | ~2023-07-01 | XR_ITS ---
EXAMINATION: XR chest 1V portable DATE: 07/01/2023 11:06 INDICATION: Altered mental status. TECHNIQUE: A single frontal view of the chest was obtained. COMPARISON: Chest 2 views 05/13/2023, CT abdomen and pelvis 06/17/11 FINDINGS: The patient is rotated to her right. Calcified right lung nodules and calcified right hilar and mediastinal lymph nodes are consistent with old granulomatous disease. There are airspace opacit ies in right mid and lower lung zones and left lower lung zone. No pleural effusion or pneumothorax. Cardiomegaly is noted. IMPRESSION: 1. Airspace opacities in right mid and lower lung zones and left lower lung zone, consistent with ate lectasis versus pneumonia. 2. Cardiomegaly. Reviewed, dictated and finalized at location A. ONAL CARE ATTENDANT IMPRESSION: 1. Airspace opacities in right mid and lower lung zones and left lower lung zon e, consistent with atelectasis versus pneumonia. 2. Cardiomegaly.
--- NOTE | ~2023-07-01 | US_ITS ---
EXAMINATION: US art doppler w press UE BI DATE: 07/02/2023 12:01 INDICATION: Peripheral arterial disease. Blue finger syndrome. TECHNIQUE: Segmental pressures and plethysmographic and Doppler waveforms of the upper extremity sarah krystal were obtained. COMPARISON: None. FINDINGS: Right and left brachial artery pressures of 107 mm Hg and 105 mm Hg, respectively, are concordant (no rmal difference <= 30 mmHg). Forearm pressures were not measured due to IVs. Arterial signals are not detected in the index fingers. IMPRESSION: 1. Arterial signals not detected in the index fingers. Reviewed, dictated and finalized at location A. D HOCKEY COACH
--- NOTE | ~2023-07-01 | XR_ITS ---
EXAMINATION: XR chest 1V portable DATE: 07/04/2023 17:44 INDICATION: Change of condition TECHNIQUE: frontal view of the chest was obtained. COMPARISON: Chest radiograph dated 07/01/2023 FINDINGS: Increased interstitial opacities in the bilateral lower lung zones. More dense and well-defined horiz ontal band of likely discoid atelectasis/scarring in the right midlung zone. Findings are without sig nificant interval change. Calcified nodule at the right lung base along with prominent calcified righ t hilar and mediastinal lymph nodes and multiple small splenic calcifications, all consistent with ol d granulomatous disease. Small right pleural effusion with blunting at the right costophrenic angle. No pneumothorax or definitive left pleural effusion. Heart size is within normal AP technique. There is however enlargement of the central pulmonary arteries consistent with pulmonary arterial hypertens ion. Mild upper thoracic levoscoliosis. IMPRESSION: 1. Persistent increased interstitial pattern in the bilateral lower lungs represent mild pulmonary ed daisy, atelectasis or pneumonia. 2. Small right pleural effusion. Reviewed, dictated and finalized at location A. S CUTTING MACHINE OPERATOR IMPRESSION: 1. Persistent increased interstitial pattern in the bilateral lower lungs repre sent mild pulmonary edema, atelectasis or pneumonia. 2. Small right pleural effusion.
--- NOTE | ~2023-07-01 | XR_ITS ---
EXAMINATION: XR chest 1V portable Exam Date/Time: 07/06/2023 14:50 ROLL TABLE OPERATOR HISTORY: hypotension Comparison: 07/04/2023. RESULT: Lines, tubes, and devices: None. Lungs and pleura: Unchanged mild diffuse reticular opacities and right midlung scar. Cardiomediastinal silhouette: Stable. Granulomatous calcifications. Other: No acute osseous or upper abdominal finding. IMPRESSION: Mild interstitial edema. Infection is not excluded. Reviewed, dictated and finalized at location K. TABLE OPERATOR
--- NOTE | ~2023-07-01 | CT_ITS ---
EXAMINATION: CT brain wo con DATE: 07/01/2023 11:01 INDICATION: Altered mental status. Hallucinating since last night. Recent urinary tract infection. Hi story of Alzheimer's. TECHNIQUE: Computed tomography (CT) of the head was performed without intravenous contrast. The mA wa s adjusted according to patient size. Iterative reconstruction technique was employed. Exam dose: 68 1.00 mGy-cm total exam DLP. COMPARISON: 05/13/2023 CT brain FINDINGS: Vertebral, basilar and prominent bilateral carotid siphon internal carotid artery calcifica tions. Prominent cerebellar and central and cortical cerebral atrophy. No intracranial mass lesion or hemorr rizwana or cerebrovascular accident, midline shift or mass effect is detected. No subdural or epidural hematoma. No recent skull fracture or bone destruction. IMPRESSION: Prominent cerebellar and particularly cerebral atrophy; no acute intracranial finding Reviewed, dictated and finalized at Location A. Reviewed, dictated and finalized at location L. LOTINE TRIMMER IMPRESSION: Prominent cerebellar and particularly cerebral atrophy; no acute i ntracranial finding
--- NOTE | 2023-07-01 08:05 | ECG_ITS ---
Measurements Intervals [place] Rate: 79 P: 88 DE: 133 QRS: 57 QRSD: 88 T: 33 QT: 385 QTc: 443 Interpretive Statements SINUS RHYTHM ATRIAL AND VENTRICULAR PREMATURE COMPLEXES INCOMPLETE RIGHT BUNDLE BRANCH BLOCK NONSPECIFIC ST & T-WAVE ABNORMALITY- DIFFUSE LEADS BASELINE ARTIFACT- I, II, AVR, AVL, AVF, V1, V4 BORDERLINE ECG COMPARED TO ECG 05/16/2023 22:10:15 NO SIGNIFICANT CHANGES Electronically Signed On 07-01-2023 11:09:00 STATISTICAL TECHNICIAN by Lukas Diaz D.O.
--- NOTE | 2023-07-01 08:12 | ED.AMS ---
HPI - Altered Mental Status General Chief Complaint: Altered Mental Status Stated Complaint: AMS Time Seen by Provider: 07/01/23 08:05 History of Present Illness HPI narrative: 77-year-old female presenting to the emergency department for evaluation of possible hallucinations. Patient does have a suprapubic [place] catheter is secondary to bladder cancer in the 80s. Patient had a recent hospitalization at [facility] and was treated for urinary tract infection. While back at the senior care they stated that she was having increased confusion. Patient is alert and appropriate able to provide some of her past medical history. Patient denies any falls or injury, patient denies any pain. Related Data Home Medications Medication Instructions Recorded Confirmed icosapent ethyl 1 gram capsule 2 g PO BID 09/17/22 07/01/23 (Vascepa) trazodone 50 mg tablet 25 mg PO QHS 09/17/22 07/01/23 atorvastatin 40 mg tablet 80 mg PO HS 04/04/23 07/01/23 esomeprazole magnesium 40 mg 40 mg PO DAILY 04/04/23 07/01/23 capsule,delayed release ferrous sulfate 325 mg (65 mg 325 mg PO DAILY 04/04/23 07/01/23 iron) tablet gabapentin 300 mg capsule 600 mg PO QHS 04/04/23 07/01/23 [id number]-[id number] C-Mn 500 1 cap PO BID 04/04/23 07/01/23 mg-400 mg capsule (Glucosamine Chondroitin Maximum Strength) hydroxyzine HCl 10 mg tablet 10 mg PO BID PRN Anxiety 04/04/23 07/01/23 nystatin-triamcinolone 100,000 1 applic topical BID PRN Abdomen 04/04/23 07/01/23 unit/g-0.1 % topical cream metoprolol succinate 25 mg 50 mg PO DAILY 05/13/23 07/01/23 tablet,extended release 24 hr amino acids-protein hydrolysate 15 See Rx Instructions .Route .COMPLEX 07/01/23 07/01/23 gram-101 kcal/30 mL oral liquid ascorbate calcium (vitamin C) 500 500 mg PO BID 07/01/23 07/01/23 mg tablet furosemide 40 mg tablet 40 mg PO DAILY 07/01/23 07/01/23 multivitamin with minerals-folic 1 tablet PO DAILY 07/01/23 07/01/23 acid 0.4 mg tablet Allergies Allergy/AdvReac Type Severity Reaction Status Date / Time Penicillins Allergy Mild Rash Verified 07/01/23 13:09 cefuroxime Allergy Rash Verified 07/01/23 13:09 doxycycline Allergy Rash Verified 07/01/23 13:09 nitrofurantoin Allergy Rash Verified 07/01/23 13:09 papaya Allergy Swelling Verified 07/01/23 13:09 of Lip/Tongue/Throat Sulfa (Sulfonamide Allergy Rash Verified 07/01/23 13:09 Antibiotics) Review of Systems Review of Systems: All systems reviewed & are unremarkable except as noted in HPI and below PMFSH Past Medical History Medical History (Updated 07/01/23 @ 13:36 by Lauren Light PA-C) Alzheimer's dementia Anxiety Bladder cancer Chronic anticoagulation Chronic kidney disease Chronic obstructive pulmonary disease Depression Hyperlipidemia Hypertension Irritable bowel disease Nocturnal enuresis Obstructive sleep apnea CPAP of 14 Paraproteinemia Paroxysmal atrial fibrillation Peptic ulcer disease Polymyalgia rheumatica Pulmonary emphysema Pulmonary hypertension Severe on echocardiogram 04/2023 Right-sided heart failure Echocardiogram April 2023: EF 65-70% mildly increased left ventricular wall thickness, left ventricular diastolic function grade 2 dysfunction, D shaped septum in systole consistent with right ventricular pressure overload, right ventricular chamber severely enlarged with reduced function, severe right atrial enlargement, moderate left atrial enlargement, moderate mitral valve regurgitation [id number] tricuspid regurgitation severe pulmonary hypertension with RVSP of 72 Stroke Ulcers of both great toes Surgical History Surgical History (Updated 07/01/23 @ 13:30 by Lauren Light PA-C) History of appendectomy History of arthroplasty of knee History of cholecystectomy History of cystostomy History of hip replacement, total History of hysterectomy History of urostomy Family History Family History (Reviewed 07/01/23 @ 13:30 by Lauren Murray
--- NOTE | 2023-07-01 08:45 | PC.NURSE ---
Attempted to call [facility] to speak with the pt's nurse, kept getting routed back to hospice patient care secretary, was informed that she would have a nurse call back soon
[2023-07-01 08:50] LABS: Bacteria Urine 2+ /hpf; Need Manual Microscopic Reviewed; RBC Urine >100 /hpf (0-2); Squamous Epithelial Cell Urine None seen /hpf (Few); WBC Urine >100 /hpf
[2023-07-01 08:51] LABS: Appearance Urine Cloudy (Clear); Color Urine Yellow (Yellow); pH Urine 6.5 (5.0-9.0)
[2023-07-01 08:52] LABS: Bilirubin Urine Negative (Negative); Blood Urine 3+ (Negative); Glucose Urine UA Negative (Negative); Ketones Urine Negative (Negative); Leukocyte Esterase Ur 3+ LEU/UL (Negative); Nitrate Urine Negative (Negative); Protein Urine 3+ mg/dL (Negative); Urobilinogen Urine 0.2 mg/dL (<2.0)
--- NOTE | 2023-07-01 08:52 | PC.NURSE ---
This RN spoke with Eli RED at [facility] regarding pt and her recent UTI diagnosis. This RN was informed that the pt was admitted to [facility] June [facility], 2023 and was released June 22, 2023. Eli RED stated that pt was on Linezolid 600mg bid and that the pt completed the antibiotic June 28, 2023.
[2023-07-01 08:57] LABS: Add Urine Microscopic? YES
[2023-07-01 09:06] LABS: Influenza A QL RT-PCR Negative (Negative); Influenza B QL RT-PCR Negative (Negative); RSV RNA, RT-PCR Negative (Negative); SARS-CoV-2 RNA PCR Negative (Negative)
[2023-07-01 09:26] LABS: Basophils Percent Auto 0.2 % (0.2-1.2); Eosinophils Percent Auto 0.2 % (0-4.4); Hematocrit 35.3 % (37.0-47.0); Hemoglobin 10.6 g/dL (12.0-15.0); Immature Granulocyte Absolute 0.03 K/mm3 (0.00-0.031); Immature Granulocyte Percent A 0.3 % (0-0.5); Lymphocytes Absolute Auto 0.87 K/mm3 (0.9-3.2); Lymphocytes Percent Auto 9.7 % (18.3-44.2); Mean Corpuscular Hemoglobin 26.5 pg (26-34); Mean Corpuscular Volume 88.3 fl (80-100); Mean Platelet Volume 8.9 fl (7.4-10.4); Monocytes Absolute Auto 0.3 K/mm3 (0.1-0.6); Monocytes Percent Auto 3.7 % (2.6-8.5); Neutrophils Absolute Auto 7.7 K/mm3 (1.3-6.7); Neutrophils Percent Auto 85.9 % (45.5-73.1); Platelet Count Result 114 k/mm3 (150-375); Red Cell Distribution Width 15.9 % (11.5-14.5)
[2023-07-01 09:36] LABS: Alanine Aminotransferase 19 U/L (6-35); Albumin Level 2.7 g/dL (3.5-5.1); Alkaline Phosphatase 107 U/L (38-126); Anion Gap 4 mmol/L (8-16); Aspartate Amino Transferase 31 U/L (14-36); Bilirubin,Total 0.6 mg/dL (0.2-1.3); Blood Urea Nitrogen 53 mg/dL (7-17); Carbon Dioxide 31 mmol/L (22-30); Chloride 103 mmol/L (98-107); Estimated CRCL calculation 24 ml/min; Estimated Glomerular Filt Rate 23; Glucose 97 mg/dL (65-110); Potassium 3.6 mmol/L (3.4-5.0); Sodium 138 mmol/L (137-145)
[2023-07-01 09:37] LABS: Partial Thromboplastin Time 35.5 SECONDS (22.3-36.8)
[2023-07-01] MEDS: MEROPENEM 1 GM/NS 100 ML 1 GM/100 ML BAG IVPB ×2 (09:56→22:36)
[2023-07-01] MEDS: SODIUM CHLORIDE 0.9% IV 1,000 ML 999 ML IV CONT (11:17)
--- NOTE | 2023-07-01 11:57 | PC.NURSE ---
Called [facility] and informed them that the pt was being admitted
[2023-07-01] MEDS: SODIUM CHLORIDE 0.9% IV 1,000 ML 125 ML IV CONT (12:10)
--- NOTE | 2023-07-01 13:23 | PM.IMHP ---
H&P: HPI History of Present Illness Date/Time: 07/01/23 13:25 Chief Complaint: Altered mental status. Narrative: This is a pleasant 77-year-old female with history of dementia (patient and daughter deny this diagnosis), bladder cancer status post Carlton pouch, chronic kidney disease, paroxysmal atrial fibrillation on chronic anticoagulation, right-sided heart failure, pulmonary hypertension, chronic obstructive pulmonary disease, obstructive sleep apnea on CPAP, and other comorbidities who presented to the emergency department via EMS from [facility] for evaluation of altered mental status. The patient provides the following history. Her daughter provides additional information, with the patient's permission. Prior to a few months ago she was living in her own home, doing her own cooking and caring for her cat. She has been in an out of the hospital since April and is now at the [facility] for rehabilitation. According to daughter, the patient has gone downhill significantly since that time. She has been hospitalized here several times for CHF exacerbations and acute on chronic kidney disease. She had also sustained a fall with burst fractures at L1-L2. At some point during her evaluation she was referred to Hematology/Oncology with concerns for monoclonal gammopathy of undetermined significance although is it does not sound as though she has yet been able to see them in follow-up and she has yet to have a skeletal survey. So far this month she has been admitted to [facility] twice, both times daughter reports for urinary tract infection after presenting with low blood pressure and oxygen levels. She was discharged back to [facility] several days ago and is my understanding that last night she began having hallucinations, talking to people who were on the ceiling, into the sent back in for evaluation. At the time my evaluation she is resting comfortably and has no specific complaints. She is aware of occasional confusion but at this time she is alert and oriented. She denies fever, chills, sweats, headache, neck ache, cold and flu symptoms, chest pain, palpitations, sensations of irregular heartbeat, resting shortness of breath, abdominal pain, nausea, vomiting, and diarrhea. She denies numbness, tingling, and pain in the extremities but is noted to have cyanosis of all fingers of both hands. With further questioning daughter 1st noticed this a couple of weeks ago and they deny known history of Raynaud's phenomena. In the ED: She was afebrile on arrival. Blood pressures have been at at the lower end of normal which seems to be atypical finding for the patient over the last several months. Labs were significant for a WBC count of 9.0, hemoglobin 10.6, platelet 114, BUN 53, creatinine 2.10, calcium 8.0, total protein 6.0, albumin 2.7. Urine was cloudy with 3+ protein, 3+ blood, 3+ leukocyte esterase, greater than 100 WBC and RBC, 2+ bacteria, and 11 to 20 casts. ABG showed a pH of 7.390, pCO2 45.7, PO2 116.7, bicarb 27.0. She tested negative for influenza, COVID, and RSV. Brain CT showed prominent cerebellar particularly cerebral atrophy but no acute findings. Chest x-ray showed airspace opacities in the right mid and lower lung zones and left lower lung zone consistent with atelectasis versus pneumonia and cardiomegaly. CT of the abdomen pelvis showed small pleural effusions, small volume ascites, 19 mm stone in the neobladder, wall thickening of the duodenum, and subacute burst fractures of L1 and L2, worsening from imaging obtained last month. She was started on meropenem for possible urinary tract infection is being admitted in this setting for further workup. Review of Systems Review of Systems: Twelve systems were reviewed with pertinent positives and negatives as per HPI. [facility], [facility] Past Medical History Medical History Alzheimer's dementia Anxiety Bladder cancer C
--- NOTE | 2023-07-01 13:44 | ADMGEN ---
This patient, Marilee Lisandro Kilgore, was admitted to [address] [place] [address] Room 314-02. Patient/family oriented to hospital policies and general routines including ID bracelet, bed and alarms, visiting hours, pain management, procedures, bathroom and other care routines, personal items, smoking policy, room service/diet, and visiting hours. Information on how to activate the Rapid Response Team has been discussed. Patient/Family are encouraged to report perceived risks to care and to ask questions if they do not understand what they are told or what they should do.
[2023-07-01 14:13] LABS: Base Excess ABG 1.7 mEq/l (+/-2.0); Carboxyhemoglobin 0.3 % THb (0-2.0); Fractional Inspired Oxygen 36 %; Methemoglobin ABG 0.3 %THb (0-1.5); Oxygen Content ABG 16.1 %vol (16.0-22.0); Oxygen Saturation ABG 98.2 % (95.0-100.0); Oxyhemoglobin 96.9 % THb (90.0-100.0); PCO2 ABG 45.7 mmHg (35.0-45.0); PO2 ABG 116.7 mmHg (80.0-100.0); PO2 FiO2 Ratio Arterial Blood 3.24 %; Reduced Hemoglobin 2.5 %THb (0-5.0); Total Hemoglobin 11.7 g/dL (12.0-18.0)
[2023-07-01 14:14] LABS: Device NASAL CANNULA; Modified Allen's Test Pass; Site Drawn RIGHT RADIAL
[2023-07-01 14:54] LABS: CRP 1.8 mg/dL (<1.0); Creatine Kinase 23 U/L (30-135)
[2023-07-01 15:03] LABS: Procalcitonin 0.5 ng/mL
[2023-07-01] MEDS: OMEGA 3 POLYUNSAT FATTY ACIDS 1 GM CAP 2 GM PO (17:47)
[2023-07-01] MEDS: ASCORBIC ACID 500 MG TABLET PO (17:48)
[2023-07-01] MEDS: SODIUM BICARBONATE TAB 650 MG TABLET PO (17:48)
[2023-07-01] MEDS: GABAPENTIN 300 MG CAPSULE 600 MG PO (22:35)
[2023-07-01] MEDS: APIXABAN 5 MG TABLET PO (22:36)
[2023-07-01] MEDS: ATORVASTATIN 40 MG TABLET 80 MG PO (22:36)
[2023-07-02 06:00] VITALS: BP 113/64; PULSE 94; RESP 16; TEMP 36.1; O2SAT 93
[2023-07-02 07:18] LABS: Hematocrit 35.7 % (37.0-47.0); Hemoglobin 10.9 g/dL (12.0-15.0); Mean Corpuscular HGB Conc 30.5 g/dl (32-36); Mean Corpuscular Hemoglobin 27.2 pg (26-34); Mean Platelet Volume 9.6 fl (7.4-10.4); Platelet Count Result 116 k/mm3 (150-375); Red Blood Count 4.01 M/mm3 (4.2-5.4); Red Cell Distribution Width 15.9 % (11.5-14.5); White Blood Count 9.9 K/mm3 (4.5-10.0)
[2023-07-02 07:32] LABS: Anion Gap 10 mmol/L (8-16); Blood Urea Nitrogen 53 mg/dL (7-17); Calcium 8.1 mg/dL (8.4-10.2); Carbon Dioxide 26 mmol/L (22-30); Chloride 103 mmol/L (98-107); Estimated CRCL calculation 29 ml/min; Estimated Glomerular Filt Rate 29; Glucose 90 mg/dL (65-110); Magnesium 2.3 mg/dL (1.6-2.3); Potassium 3.9 mmol/L (3.4-5.0); Sodium 139 mmol/L (137-145)
--- NOTE | 2023-07-02 11:49 | PM.IMPN ---
Progress Note: A&P Assessment and Plan (1) Hallucinations: Code(s): R44.3 - Hallucinations, unspecified Status: Acute Assessment and Plan: alert and oriented x4. Hallucinations may be due to worsening renal failure, infection, hypoxia, others. -recheck labs in the a.m. (2) Acute on chronic kidney failure: Code(s): N17.9 - Acute kidney failure, unspecified; N18.9 - Chronic kidney disease, unspecified Status: Acute Assessment and Plan: Creatinine is up again, currently 2.10; has ranged from 1.30 to 2.60 in the last several months. Difficult balance to keep this patient euvolemic. She has right-sided heart failure with probable cardiorenal syndrome. (3) Abnormal urinalysis: Code(s): R82.90 - Unspecified abnormal findings in urine Status: Acute Assessment and Plan: Suprapubic catheter is in place and she likely has colonization as she is afebrile with a normal WBC count. -continue with meropenem, pending CRP, procalcitonin, and urine culture pending (4) Blue finger syndrome: Code(s): M79.81 - Nontraumatic hematoma of soft tissue Status: Acute Assessment and Plan: The patient's fingertips are bluish purple with cyanotic nail beds. This has been present for several weeks according to patient's daughter. Pulses are palpable common sensation is intact, and she has no pain. Given concerns of MGUS, she may be having micro thromboembolic events. She has not had any trauma and aneurysm unlikely. Echo with bubble and upper extremity arterial Dopplers pending Dr. Rice has been consulted and his input is appreciated. May need transfer for rheumatology and/or vascular consult. (5) Paroxysmal atrial fibrillation: Code(s): I48.0 - Paroxysmal atrial fibrillation Status: Acute Assessment and Plan: Currently in a sinus rhythm. Continue metoprolol. (6) Alzheimer's dementia: Code(s): G30.9 - Alzheimer's disease, unspecified; F02.80 - Dementia in other diseases classified elsewhere, unspecified severity, without behavioral disturbance, psychotic disturbance, mood disturbance, and anxiety Status: Acute Assessment and Plan: Documented in history dating back to last fall though the patient her daughter deny this diagnosis. She would benefit from a formal Neurology consultation as an outpatient. (7) Chronic anticoagulation: Code(s): Z79.01 - care home (current) use of anticoagulants Status: Acute Assessment and Plan: Continue apixaban for stroke prophylaxis. (8) Congestive heart failure: Qualifiers: Heart failure type: right heart failure due to left heart failure Qualified Code(s): I50.814 - Right heart failure due to left heart failure Code(s): I50.9 - Heart failure, unspecified Status: Acute Assessment and Plan: Echocardiogram in 04/21/2023 showed preserved EF, grade 2 diastolic dysfunction, and reduced RV systolic function. Difficult balance to maintain euvolemia; creatinine is now up again and may be related to over-diuresis. Continue to monitor volume status closely with strict I/O and daily weights. (9) Obstructive sleep apnea: Code(s): G47.33 - Obstructive sleep apnea (adult) (pediatric) Status: Chronic Assessment and Plan: CPAP will be provided for the patient to use while hospitalized. Subjective Date/time seen: 07/02/23 11:49 Interval history: Chief Complaint: Altered mental status. Narrative: This is a pleasant 77-year-old female with history of dementia (patient and daughter deny this diagnosis), bladder cancer status post Katherine pouch, chronic kidney disease, paroxysmal atrial fibrillation on chronic anticoagulation, right-sided heart failure, pulmonary hypertension, chronic obstructive pulmonary disease, obstructive sleep apnea on CPAP, and other comorbidities who presented to the emergency department via EMS from [facility]
[2023-07-02] MEDS: SODIUM BICARBONATE TAB 650 MG TABLET PO (12:08)
[2023-07-02] MEDS: OMEGA 3 POLYUNSAT FATTY ACIDS 1 GM CAP 2 GM PO (12:08)
[2023-07-02] MEDS: hydrOXYzine HCL 10 MG TABLET PO (12:08)
[2023-07-02] MEDS: MEROPENEM 1 GM/NS 100 ML 1 GM/100 ML BAG IVPB ×2 (12:08→20:36)
[2023-07-02] MEDS: FERROUS SULFATE 325 MG TABLET DR PO (12:08)
[2023-07-02] MEDS: FUROSEMIDE 40 MG TABLET PO (12:08)
[2023-07-02] MEDS: THERAPEUTIC MULTIVITAMINS/MINERALS TAB (*BKC) 1 TABLET PO (12:08)
[2023-07-02] MEDS: APIXABAN 5 MG TABLET PO ×2 (12:08→20:37)
[2023-07-02] MEDS: PANTOPRAZOLE 40 MG TABLET PO (12:09)
[2023-07-02 12:10] VITALS: PULSE 92
[2023-07-02] MEDS: EMPAGLIFLOZIN 10 MG TABLET PO (12:10)
[2023-07-02] MEDS: ASCORBIC ACID 500 MG TABLET PO (12:10)
[2023-07-02] MEDS: METOPROLOL SUCCINATE EXT REL 50 MG TABCR PO (12:10)
--- NOTE | 2023-07-02 13:15 | PM.IMPN ---
Subjective Date/time seen: 07/02/23 1400 Objective Data Vital Signs Vital Signs: Vital Signs - 24 hr 07/02/23 20:24 07/03/23 04:32 07/03/23 09:41 Temperature 97.9 F 98.7 F Pulse Rate 82 79 80 Respiratory Rate 18 16 Blood Pressure 103/83 98/65 L Pulse Oximetry 98 97 07/03/23 14:40 Temperature 98.4 F Pulse Rate 68 Respiratory Rate 16 Blood Pressure 91/57 L Pulse Oximetry 92 Intake/Output Intake/Output: Intake & Output 06/30/23 07/01/23 07/02/23 07/03/23 23:59 23:59 23:59 23:59 Intake Total 1320 318 240 Output Total 50 600 50 Balance 1270 -282 190 Meds/Results Medications: Active Medications Generic Name Dose Route Start Last Admin Trade Name Freq PRN Reason Stop Dose Admin Acetaminophen 650 mg 07/01/23 13:48 Acetaminophen 325 Mg Tablet PO Q6H PRN Mild Pain (1-3) or Fever Apixaban 5 mg 07/01/23 21:00 07/03/23 09:41 Apixaban 5 Mg Tablet PO 5 mg Q12HR FATOUMATA Administration Ascorbic Acid 500 mg 07/01/23 17:00 07/03/23 09:41 Ascorbic Acid 500 Mg Tablet PO 500 mg BID FATOUMATA Administration Atorvastatin Calcium 80 mg 07/01/23 21:00 07/02/23 20:37 Atorvastatin 40 Mg Tablet PO 80 mg HS FATOUMATA Administration Empagliflozin 10 mg 07/02/23 09:00 07/03/23 09:41 Empagliflozin 10 Mg Tablet PO 10 mg DAILY FATOUMATA Administration Ferrous Sulfate 325 mg 07/02/23 09:00 07/03/23 09:41 Ferrous Sulfate [address] PO 325 mg DAILY FATOUMATA Administration Fish Oil 2 gm 07/01/23 17:00 07/03/23 09:43 Lehr 3 Polyunsat Fatty Acids 1 Gm Cap PO Not Given BID FATOUMATA Fluconazole 100 mg 07/03/23 08:45 07/03/23 09:41 Fluconazole 100 Mg Tablet PO 07/16/23 09:01 100 mg QAM FATOUMATA Administration Furosemide 40 mg 07/02/23 09:00 07/03/23 09:41 Furosemide 40 Mg Tablet PO 40 mg DAILY FATOUMATA Administration Gabapentin 600 mg 07/01/23 21:00 07/02/23 20:37 Gabapentin 300 Mg Capsule PO 600 mg QHS FATOUMATA Administration Hydroxyzine HCl 10 mg 07/01/23 13:49 07/02/23 12:08 Hydroxyzine Hcl 10 Mg Tablet PO 10 mg BID PRN Administration Anxiety Metoprolol Succinate 50 mg 07/02/23 09:00 07/03/23 09:41 Metoprolol Succinate Ext Rel 50 Mg Tabcr PO 50 mg DAILY FATOUMATA Administration Multivitamins/Calcium 1 tablet 07/02/23 09:00 07/03/23 09:42 Therapeutic Multivitamins/Minerals Tab (*Bkc) PO Not Given DAILY FATOUMATA Ondansetron HCl 4 mg 07/01/23 10:41 Ondansetron Inj 4 Mg/2 Ml Vial IV PUSH Q4H PRN Nausea Pantoprazole Sodium 40 mg 07/02/23 09:00 07/03/23 09:41 Pantoprazole 40 Mg Tablet PO 40 mg DAILY FATOUMATA Administration Perflutren Lipid Microsphere 0 ml 07/01/23 23:18 Perflutren Lipid Microspheres 1.5 Ml Vial Diluted To 10 Ml Total Volume IV PUSH 07/04/23 23:18 ONCE PRN adequate visualization Protocol Sodium Bicarbonate 650 mg 07/01/23 17:00 07/03/23 09:47 Sodium Bicarbonate Tab 650 Mg Tablet PO 650 mg BID FATOUMATA Administration Tolnaftate 1 applic 07/02/23 09:00 07/03/23 09:39 Tolnaftate 1% Powder 45 Gm Btl TOPICAL 1 applic Q12HR FATOUMATA Administration Radiology Results: ITS Impressions Head CT 07/01/23 11:02 IMPRESSION: Prominent cerebellar and particularly cerebral atrophy; no acute intracranial finding Chest X-Ray 07/01/23 11:12 IMPRESSION: 1. Airspace opacities in right mid and lower lung zones and left lower lung zone, consistent with atelectasis versus pneumonia. 2. Cardiomegaly. Abdomen/Pelvis CT 07/01/23 16:28 IMPRESSION: 1. Small pleural effusions. 2. Small volume of ascites. 3. 19 mm stone in the neobladder. 4. Wall thickening of the duodenum, which may be interstitial edema or duodenitis. 5. Subacute burst fractures of L1 and L2, worsened from 05/13/2023. Doppler Study Ultrasound 07/02/23 12:10 IMPRESSION: 1. Arterial signals not detected in the index fingers. Labs Labs: Laboratory Results -
[2023-07-02 14:00] VITALS: BP 104/67; PULSE 92; RESP 18; TEMP 36.1; O2SAT 92
--- NOTE | 2023-07-02 14:30 | PM.CNNEP ---
Assessment and Plan Assessment and plan (1) AJ (acute kidney injury): Code(s): N17.9 - Acute kidney failure, unspecified Status: Acute Assessment and Plan: doing a bit better if not closer to baseline probably related to infection/UTI and relative hypotension with need for diuretic therapy follow trend of repeat labs and UOP (2) Stage 3b chronic kidney disease: Code(s): N18.32 - Chronic kidney disease, stage 3b Status: Acute Assessment and Plan: baseline creatinine seems to run ~ 1.2 - 1.6mg/dl extensive evaluation to date/previous hospitalizations... CKD thought to be due to hemodynamic effects of the pulmonary hypertension and the diastolic dysfunction/right sided heart failure along with the need for diuretic therapy to maintain her volume status in the context of decreased nephron mass (solitary kidney) serologies significant for positive SPEP and serum immunofixation but less likely multiple myeloma but previous Hem/Onc evaluation but Hem/Onc following on this admission as well (3) AMS (altered mental status): Code(s): R41.82 - Altered mental status, unspecified Status: Acute Assessment and Plan: appears back to baseline at this time related to infection versus suboptimal hemodynamics? follow mentation reported history of dementia but patient/family denies this... (4) UTI (urinary tract infection): Code(s): N39.0 - Urinary tract infection, site not specified Status: Acute Assessment and Plan: admission UA suggestive however, has chronic suprapubic bolton so results could be skewed by this issue follow-up on culture results empiric antibiotics (5) Pulmonary hypertension: Code(s): I27.20 - Pulmonary hypertension, unspecified Status: Chronic Assessment and Plan: quite significant/severe on recent/previous Echo due to heart failure, COPD, and ZAK continue CPAP support (6) Paroxysmal atrial fibrillation: Code(s): I48.0 - Paroxysmal atrial fibrillation Status: Acute Assessment and Plan: rate control strategy on Eliquis I will continue follow the patient with you while she remains hospitalized and make further recommendations as needed. Thank you for allowing me to participate in the care of this patient. History of Present Illness Reason for Consult Consult date: 07/02/23 Reason for consult: chronic renal failure Chief Complaint Chief complaint: AJ,UTI History of Present Illness Narrative: The patient is a 77-year-old female with an extensive past medical history who presented to [facility] Emergency room via EMS from her nursing facility for further evaluation of altered mental status. Unfortunately, in the last several months, the patient's overall health and clinical status has been deteriorating. She has been in out of the hospital since April of last year for a multitude of medical issues and problems and was residing in her current nursing facility for rehabilitative purposes. Her hospitalizations have included issues with congestive heart failure as well as acute on chronic kidney disease with her most recent hospitalization here at [facility] in May of 2023 due to a L1-L2 vertebral fracture. More recently, in the last month, she has been admitted to [facility] on two separate occasions for issues related to a urinary tract infection in association with hypotension and hypoxia. Apparently, on the evening prior to admission here, the patient was having active hallucinations and talking to people who were not present or apparently on the ceiling given this change in her mentation, she was transferred to [facility] ER for further assessment. Workup and evaluation in the emergency room demonstrated the patient was afebrile but her blood pressure was on the lower end of normal but this apparently has been a chronic issue
--- NOTE | 2023-07-02 18:25 | PDONCCN ---
HPI - Date of Consult Date/Time: 07/02/23 18:25 Requesting Physician: Naveed Aragon MD Primary Care Provider: Yvonne Moses, - Consult Narrative Reason for consult: Anemia and thrombocytopenia Narrative: Marilee Kilgore is a 77 year old female with history of bladder cancer and dementia along with history of chronic kidney disease atrial fibrillation on chronic anticoagulation therapy, COPD, sleep apnea on CPAP and pulmonary hypertension brought into the hospital from assisted due to mental status changes. She denies any previous history of anemia and thrombocytopenia. CT abdomen and pelvis was performed that showed small volume of ascites and thickening of the duodenum as well as burst fracture of L1 and L2. Patient was started on meropenem for possible UTI. Labs showed hemoglobin of 10.6 with platelet count of [id number]. Liver enzymes were normal and C-reactive protein was slightly elevated at 1.8. Creatinine was 2.1 with GFR of 23. According to patient she has been losing weight and eating poorly. Review of Systems - Review of Systems All systems reviewed & are unremarkable except as noted in HPI and [facility] Medical History: Medical History (Last Reviewed 07/01/23 @ 23:02 by Lauren Light PA-C) Alzheimer's dementia Anxiety Bladder cancer Chronic anticoagulation Chronic kidney disease Chronic obstructive pulmonary disease Depression Hyperlipidemia Hypertension Irritable bowel disease Nocturnal enuresis Obstructive sleep apnea CPAP of 14 Paraproteinemia Paroxysmal atrial fibrillation Peptic ulcer disease Polymyalgia rheumatica Pulmonary emphysema Pulmonary hypertension Severe on echocardiogram 04/2023 Right-sided heart failure Echocardiogram April 2023: EF 65-70% mildly increased left ventricular wall thickness, left ventricular diastolic function grade 2 dysfunction, D shaped septum in systole consistent with right ventricular pressure overload, right ventricular chamber severely enlarged with reduced function, severe right atrial enlargement, moderate left atrial enlargement, moderate mitral valve regurgitation [id number] tricuspid regurgitation severe pulmonary hypertension with RVSP of 72 Stroke Ulcers of both great toes Surgical History: Surgical History (Last Reviewed 07/01/23 @ 23:02 by Lauren Light PA-C) History of appendectomy History of arthroplasty of knee History of cholecystectomy History of cystostomy History of hip replacement, total History of hysterectomy History of urostomy Family History: Family History (Last Reviewed 07/01/23 @ 23:02 by Lauren Light PA-C) Father Skin cancer Diabetes mellitus Hypertension Heart disease Mother Hypertension Depression Sibling Pancreatic cancer Hypertension Depression Other Hypertension Depression - Social History Social History: Social History (Last Reviewed 07/01/23 @ 23:02 by Lauren Light PA-C) Alcohol Use: Alcohol intake: never Substance Use: Substance use: never Substance use type: does not use Others: Spiritual care concerns: No Smoking Status: Smoking status: Never smoker Tobacco type: cigarettes Second hand tobacco smoke exposure: No Approximate Smoking End Date: 06/02/1999 Smoking Pack-years: Smoking packs per day: 1 Smoking cigarettes per day: 20.0 Social Determinants of Health: Do You Feel Safe in your Home?: Yes Has the Lack of Transportation Kept You From Medical Appointments or From Getting Medications?: No Within the Past 12 Months, Were You Worried Whether Your Food Would Run Out Before You Got Money to Buy More?: Never True What is Your Housing Situation Today?: I Have Housing Are You Worried That in the Next 2 Months, You May Not Have Your Own Housing to Live In?: No Do You Have Trouble Paying Your Heating Or Electricity Bill?: No Do You Have Trouble Paying For Medici
[2023-07-02 20:01] LABS: Iron 133 ug/dL (37-170)
[2023-07-02 20:10] LABS: Percent Iron Saturation 59 % (20-50)
[2023-07-02 20:24] VITALS: BP 103/83; PULSE 82; RESP 18; TEMP 36.6; O2SAT 98
[2023-07-02] MEDS: ATORVASTATIN 40 MG TABLET 80 MG PO (20:37)
[2023-07-02] MEDS: GABAPENTIN 300 MG CAPSULE 600 MG PO (20:37)
[2023-07-02] MEDS: TOLNAFTATE 1% POWDER 45 GM BTL 1 APPLIC TOPICAL (20:49)
--- NOTE | 2023-07-02 21:22 | PC.NURSE ---
Pt confused and voices hallucinations. Multiple tests run this AM. Unable to pass meds til 1100. Pt had difficult time swallowing pills, despite being upright in the bed, but eventually able to get them down. Pt larger body habitus difficult to assess suprapubic catheter at time of assessment. Awaiting availability of aide to help turn/clean pt. Urine running at steady stream out of catheter, soaking split drain sponge. Attempted to call provider after passing medications. Unable to reach provider. Two voicemails left. Gave information to night RN to have them attempt to reach provider to request orders for irrigation of bolton, exchange of bolton by RN or urology, and to inform of microbiology showing carmen floralis to UC/request new medication with which to treat. Will follow up in morning.
[2023-07-02 22:16] LABS: Folic Acid 12.4 ng/mL (2.76->20)
--- NOTE | 2023-07-02 23:18 | ECHO_ITS ---
Patient Info Name: Marilee Kilgore Age: 77 years : 1945 Gender: Female Ht: 63 in Wt: 222 lbs BSA: 2.17 m2 HR: 112 bpm BP: 114 / 69 mmHg Heart Rhythm: Sinus Rhythm Technical Quality: Good Exam Date: 07/02/2023 9:27 AM Exam Location: Echo Lab Patient Status: Outpatient Admit Date: 07/01/2023 Staff Ordering Physician: Lauren Light PA-C Photo Engraver: Dori Mullins RDCS Attending Provider: Naveed Aragon MD Referring Physician: Nadege GUTIERREZ; Exam Type: CA echo doppler color flow Study Info Indications - chf, pul htn Complete two-dimensional, color flow and Doppler transthoracic echocardiogram is performed. Summary 1. Complete two-dimensional, color flow and Doppler transthoracic echocardiogram is performed. 2. Left ventricular chamber dimension is normal. 3. Left ventricular systolic function is normal, estimated at 55-60%. 4. There is mildly increased left ventricular wall thickness. 5. Left ventricular septal wall motion is abnormal with septal motion related to bundle branch block. 6. The left ventricular diastolic function is grade I diastolic dysfunction. 7. Right ventricular systolic function is moderate to severely reduced. 8. Right ventricular chamber dimension is severely enlarged. 9. Bowing of the interatrial septum to the left consistent with elevated right atrial pressures. 10. Right atrial chamber dimension is severely enlarged. 11. There is mild to moderate eccentric mitral valve regurgitation which may be underestimated secondary to eccentricity. Evidence for mild anterior mitral leaflet prolapse. 12. The mitral valve has thickened leaflets. 13. There is severe tricuspid valve regurgitation. 14. Severe pulmonary hypertension, estimated pulmonary arterial systolic pressure is 98 mmHg. Left Ventricle Left ventricular chamber dimension is normal. Left ventricular systolic function is normal, estimated at 55-60%. There is mildly increased left ventricular wall thickness. Left ventricular septal wall motion is abnormal with septal motion related to bundle branch block. The left ventricular diastolic function is grade I diastolic dysfunction. Right Ventricle Right ventricular chamber dimension is severely enlarged. Right ventricular systolic function is moderate to severely reduced. Left Atria Left atrial chamber dimension is normal. Right Atria Right atrial chamber dimension is severely enlarged. Atrial Septum Bowing of the interatrial septum to the left consistent with elevated right atrial pressures. Aortic Valve The aortic valve is not well visualized. There is no aortic valve stenosis. There is no aortic valve regurgitation. Pulmonic Valve The pulmonic valve is not well visualized. Mitral Valve The mitral valve has thickened leaflets. There is mild to moderate eccentric mitral valve regurgitation which may be underestimated secondary to eccentricity. Evidence for mild anterior mitral leaflet prolapse. The mitral valve annulus is mildly calcified. Tricuspid Valve The tricuspid valve leaflets are normal. There is severe tricuspid valve regurgitation. Severe pulmonary hypertension, estimated pulmonary arterial systolic pressure is 98 mmHg. Pericardium/Pleural The pericardium appears normal. There is no pericardial effusion. Inferior Vena Cava Dilated inferior vena cava with <50% collapse upon inspiration consistent with elevated right atrial pressure, 10 mmHg. Aorta The aortic root size at the sinus of Valsalva is normal. There is mild aortic atherosclerosis. Left Ventricular Outflow Tract -
[2023-07-03] VITALS (9 sets, daily range): BP systolic 91–105; BP diastolic 57–73; PULSE 68–82; RESP 16; TEMP 36.3–37.1; O2SAT 92–98
--- NOTE | 2023-07-03 06:54 | WPDURCON ---
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 Now unable to perform intermittent catheterization -> dependant on indwelling catheter through navel. Currently, catheter was obstructed with encrustation. With simple change of the suprapubic catheter her pouch emptied well. I will ask the nursing staff to irrigate the suprapubic catheter with 30 cc saline daily to help eliminate obstruction with either mucus or encrustation Urology Consult Note HPI Date Seen: 07/03/23 Requesting Physician: Naveed Aragon MD Primary Care Provider: Yvonne MosesMD Consult Narrative Narrative: Marilee Kilgore is a 77 year old female who is well known to me, approximately 30 years status post radical cystectomy with continent catheterizable urinary diversion for muscle invasive bladder cancer. For decades she had done well with intermittent self catheterization but now, because of generalized debility, his become dependent on an indwelling suprapubic catheter. Imaging demonstrates preservation of her upper urinary tracts with an intact Katherine pouch in the right lower quadrant. She has recently had trouble with recurrent urinary tract infections. Currently, we're asked to see her for leakage around the catheter, likely from incrustation the catheter tip with obstruction of the lumen Review of Systems Review of Systems: ROS unobtainable: Yes unobtainable due to mental status PMFSH Past Medical History Medical History Alzheimer's dementia Anxiety Bladder cancer Chronic anticoagulation Chronic kidney disease Chronic obstructive pulmonary disease Depression Hyperlipidemia Hypertension Irritable bowel disease Nocturnal enuresis Obstructive sleep apnea CPAP of 14 Paraproteinemia Paroxysmal atrial fibrillation Peptic ulcer disease Polymyalgia rheumatica Pulmonary emphysema Pulmonary hypertension Severe on echocardiogram 04/2023 Right-sided heart failure Echocardiogram April 2023: EF 65-70% mildly increased left ventricular wall thickness, left ventricular diastolic function grade 2 dysfunction, D shaped septum in systole consistent with right ventricular pressure overload, right ventricular chamber severely enlarged with reduced function, severe right atrial enlargement, moderate left atrial enlargement, moderate mitral valve regurgitation [id number] tricuspid regurgitation severe pulmonary hypertension with RVSP of 72 Stroke Ulcers of both great toes Surgical History Surgical History History of appendectomy History of arthroplasty of knee History of cholecystectomy History of cystostomy History of hip replacement, total History of hysterectomy History of urostomy Family History Family History Father Skin cancer Diabetes mellitus Hypertension Heart disease Mother Hypertension Depression Sibling Pancreatic cancer Hypertension Depression Other Hypertension Depression Social History Social History Social History: Surrogate medical decision maker: Sharlene Jaffe, daughter. Code status: Full code. Smoking packs per day: 1 Smoking cigarettes per day: 20.0 Smoking status: Never smoker Tobacco type: cigarettes Second hand tobacco smoke exposure: No Alcohol intake: never Substance use: never Substance use type: does not use Do You Feel Safe in your Home?: Yes Lack of Transportation: No Lack of Food: Never True Current Housing: I Have Housing Concerned About Future Housing: No Difficulty Paying Gas
--- NOTE | 2023-07-03 07:03 | PC.NURSE ---
This RN notified the charge nurse and warehouse selector of patient's Corbin leaking. This RN was referred to consult urology. Urology came to bedside this morning. Corbin was replaced, and is draining well. New dressing was applied to site of suprapubic catheter.
[2023-07-03] MEDS: TOLNAFTATE 1% POWDER 45 GM BTL 1 APPLIC TOPICAL ×2 (09:39→21:34)
[2023-07-03] MEDS: FERROUS SULFATE 325 MG TABLET DR PO (09:41)
[2023-07-03] MEDS: FLUCONAZOLE 100 MG TABLET PO (09:41)
[2023-07-03] MEDS: APIXABAN 5 MG TABLET PO ×2 (09:41→21:34)
[2023-07-03] MEDS: FUROSEMIDE 40 MG TABLET PO (09:41)
[2023-07-03] MEDS: EMPAGLIFLOZIN 10 MG TABLET PO (09:41)
[2023-07-03] MEDS: PANTOPRAZOLE 40 MG TABLET PO (09:41)
[2023-07-03] MEDS: METOPROLOL SUCCINATE EXT REL 50 MG TABCR PO (09:41)
[2023-07-03] MEDS: ASCORBIC ACID 500 MG TABLET PO (09:41)
[2023-07-03] MEDS: SODIUM BICARBONATE TAB 650 MG TABLET PO (09:47)
[2023-07-03 11:19] LABS: Basophils Percent Auto 0.3 % (0.2-1.2); Eosinophils Percent Auto 0.2 % (0-4.4); Hematocrit 32.1 % (37.0-47.0); Hemoglobin 9.9 g/dL (12.0-15.0); Immature Granulocyte Absolute 0.02 K/mm3 (0.00-0.031); Immature Granulocyte Percent A 0.2 % (0-0.5); Immature Platelet Fraction Pct 1.9 % (0.9-11.2); Mean Corpuscular HGB Conc 30.8 g/dl (32-36); Mean Corpuscular Volume 87.5 fl (80-100); Mean Platelet Volume 9.6 fl (7.4-10.4); Monocytes Absolute Auto 0.4 K/mm3 (0.1-0.6); Monocytes Percent Auto 4.9 % (2.6-8.5); Neutrophils Absolute Auto 7.6 K/mm3 (1.3-6.7); Neutrophils Percent Auto 86.4 % (45.5-73.1); Platelet Count Result 107 k/mm3 (150-375); Red Blood Count 3.67 M/mm3 (4.2-5.4); Red Cell Distribution Width 15.8 % (11.5-14.5); White Blood Count 8.8 K/mm3 (4.5-10.0)
[2023-07-03 11:43] LABS: Alanine Aminotransferase 20 U/L (6-35); Albumin Level 2.6 g/dL (3.5-5.1); Alkaline Phosphatase 113 U/L (38-126); Anion Gap 5 mmol/L (8-16); Aspartate Amino Transferase 33 U/L (14-36); Bilirubin,Total 0.7 mg/dL (0.2-1.3); Blood Urea Nitrogen 58 mg/dL (7-17); Calcium 8.2 mg/dL (8.4-10.2); Carbon Dioxide 29 mmol/L (22-30); Chloride 105 mmol/L (98-107); Estimated CRCL calculation 31 ml/min; Estimated Glomerular Filt Rate 31; Glucose 116 mg/dL (65-110); Potassium 3.4 mmol/L (3.4-5.0); Sodium 139 mmol/L (137-145)
--- NOTE | 2023-07-03 11:52 | PCPTNOTE ---
pt refused therapy, states she will not work with us today, pt has been informed on the importance of movement and working with therapy, will attempt eval at a later time
--- NOTE | 2023-07-03 13:32 | P.PNNP_ITS ---
Progress Note: A&P Assessment and Plan (1) AJ (acute kidney injury): Code(s): N17.9 - Acute kidney failure, unspecified Status: Acute Assessment and Plan: * doing a bit better if not closer to baseline * probably related to infection/UTI and relative hypotension with need for diuretic therapy * follow trend of repeat labs and UOP (2) Stage 3b chronic kidney disease: Code(s): N18.32 - Chronic kidney disease, stage 3b Status: Acute Assessment and Plan: * baseline creatinine seems to run ~ 1.2 - 1.6mg/dl * extensive evaluation to date/previous hospitalizations... * CKD thought to be due to hemodynamic effects of the pulmonary hypertension and the diastolic dysfunction/right sided heart failure along with the need for diuretic therapy to maintain her volume status in the context of decreased nephron mass (solitary kidney) * serologies significant for positive SPEP and serum immunofixation but less likely multiple myeloma but previous Hem/Onc evaluation but Hem/Onc following on this admission as well (3) AMS (altered mental status): Code(s): R41.82 - Altered mental status, unspecified Status: Acute Assessment and Plan: * appears back to baseline at this time * related to infection versus suboptimal hemodynamics? * follow mentation * reported history of dementia but patient/family denies this... (4) UTI (urinary tract infection): Code(s): N39.0 - Urinary tract infection, site not specified Status: Acute Assessment and Plan: * admission UA suggestive * however, has chronic suprapubic bolton so results could be skewed by this issue * culture results noted - on antifungal therapy (5) Chronic CHF: Code(s): I50.9 - Heart failure, unspecified Status: Chronic Assessment and Plan: * last echo noted * right sided/diastolic * on diuretic therapy (6) Pulmonary hypertension: Code(s): I27.20 - Pulmonary hypertension, unspecified Status: Chronic Assessment and Plan: * quite significant/severe on recent/previous Echo * due to heart failure, COPD, and ZAK * continue CPAP support (7) Paroxysmal atrial fibrillation: Code(s): I48.0 - Paroxysmal atrial fibrillation Status: Acute Assessment and Plan: * rate control strategy * on Eliquis Will continue to follow. Subjective Date/time seen: 07/03/23 13:32 Interval history: Follow-up for acute kidney injury/acute renal failure on chronic kidney disease. Appears to be doing reasonably well at the time of my visit; no apparent distress noted; renal function remains relatively stable; Urology input noted; no events overnight or earlier this morning. Exam Narrative: General: elderly but WD/WN female in NAD Heart: normal S1 and S2; no rub Lungs: coarse and decreased at bases Abdomen: soft, nontender, nondistended, positive bowel sounds Extremities: cyanotic changes noted in fingers; trace - 1+ edema Skin: warm and dry Objective Data Vital Signs Vital Signs: Vital Signs Temp Pulse Resp BP Pulse Ox 07/03/23 13:20 98.4 F 68 16 91/57 L 92 07/03/23 09:41 80 07/03/23 04:32 98.7 F 79 16 98/65 L 97 07/02/23 20:24 97.9 F 82 18 103/83 98 Intake/Output Intake/Output: Intake & Output
--- NOTE | 2023-07-03 13:32 | PM.PNNEP ---
Progress Note: A&P Assessment and Plan (1) AJ (acute kidney injury): Code(s): N17.9 - Acute kidney failure, unspecified Status: Acute Assessment and Plan: doing a bit better if not closer to baseline probably related to infection/UTI and relative hypotension with need for diuretic therapy follow trend of repeat labs and UOP (2) Stage 3b chronic kidney disease: Code(s): N18.32 - Chronic kidney disease, stage 3b Status: Acute Assessment and Plan: baseline creatinine seems to run ~ 1.2 - 1.6mg/dl extensive evaluation to date/previous hospitalizations... CKD thought to be due to hemodynamic effects of the pulmonary hypertension and the diastolic dysfunction/right sided heart failure along with the need for diuretic therapy to maintain her volume status in the context of decreased nephron mass (solitary kidney) serologies significant for positive SPEP and serum immunofixation but less likely multiple myeloma but previous Hem/Onc evaluation but Hem/Onc following on this admission as well (3) AMS (altered mental status): Code(s): R41.82 - Altered mental status, unspecified Status: Acute Assessment and Plan: appears back to baseline at this time related to infection versus suboptimal hemodynamics? follow mentation reported history of dementia but patient/family denies this... (4) UTI (urinary tract infection): Code(s): N39.0 - Urinary tract infection, site not specified Status: Acute Assessment and Plan: admission UA suggestive however, has chronic suprapubic bolton so results could be skewed by this issue culture results noted - on antifungal therapy (5) Chronic CHF: Code(s): I50.9 - Heart failure, unspecified Status: Chronic Assessment and Plan: last echo noted right sided/diastolic on diuretic therapy (6) Pulmonary hypertension: Code(s): I27.20 - Pulmonary hypertension, unspecified Status: Chronic Assessment and Plan: quite significant/severe on recent/previous Echo due to heart failure, COPD, and ZAK continue CPAP support (7) Paroxysmal atrial fibrillation: Code(s): I48.0 - Paroxysmal atrial fibrillation Status: Acute Assessment and Plan: rate control strategy on Eliquis Will continue to follow. Subjective Date/time seen: 07/03/23 13:32 Interval history: Follow-up for acute kidney injury/acute renal failure on chronic kidney disease. Appears to be doing reasonably well at the time of my visit; no apparent distress noted; renal function remains relatively stable; Urology input noted; no events overnight or earlier this morning. Exam Narrative: General: elderly but WD/WN female in NAD Heart: normal S1 and S2; no rub Lungs: coarse and decreased at bases Abdomen: soft, nontender, nondistended, positive bowel sounds Extremities: cyanotic changes noted in fingers; trace - 1+ edema Skin: warm and dry Objective Data Vital Signs Vital Signs: Vital Signs Temp Pulse Resp BP Pulse Ox 07/03/23 13:20 98.4 F 68 16 91/57 L 92 07/03/23 09:41 80 07/03/23 04:32 98.7 F 79 16 98/65 L 97 07/02/23 20:24 97.9 F 82 18 103/83 98 Intake/Output Intake/Output: Intake & Output 06/30/23 07/01/23 07/02/23 07/03/23 23:59 23:59 23:59 23:59 Intake Total 1320 318 790 Output Total 50 600 650 Balance 1270 -282 140 Meds/Results Medications: Active Medications Generic Name Dose Route Start Last Admin Trade Name Freq PRN Reason Stop Dose Admin Acetaminophen 650 mg 07/01/23 13:48 Acetaminophen 325 Mg Tablet PO Q6H PRN Mild Pain (1-3) or Fever Apixaban 5 mg 07/01/23 21:00 07/03/23 09:41 Apixaban 5 Mg Tablet PO 5 mg Q12HR FATOUMATA Administration Ascorbic Acid 500 mg 07/01/23 17:00 07/03/23 09:41 Ascorbic Acid 500 Mg Tablet PO 500 mg BID FATOUMATA Administration Atorvastatin C
--- NOTE | 2023-07-03 16:38 | PM.IMPN ---
Progress Note: A&P Assessment and Plan (1) Hallucinations: Code(s): R44.3 - Hallucinations, unspecified Status: Resolved Assessment and Plan: resolved alert and oriented x4. (2) Acute on chronic kidney failure: Code(s): N17.9 - Acute kidney failure, unspecified; N18.9 - Chronic kidney disease, unspecified Status: Acute Assessment and Plan: Creatinine 1.60is Difficult balance to keep this patient euvolemic. She has right-sided heart failure with probable cardiorenal syndrome. -continue to monitor CMP, CBC daily -gentle fluid resuscitation (3) Abnormal urinalysis: Code(s): R82.90 - Unspecified abnormal findings in urine Status: Acute Assessment and Plan: Suprapubic catheter is in place drsg dry and intact -continue to monitor site and catheter for s/s infection -urine culture + carmen tropicalis, pharm consult -d/c abx, start P.O fluconazole (4) Blue finger syndrome: Code(s): M79.81 - Nontraumatic hematoma of soft tissue Status: Acute Assessment and Plan: The patient's fingertips are bluish purple with cyanotic nail beds. This has been present for several weeks according to patient's daughter. Pulses are palpable common sensation is intact, and she has no pain. -continue to monitor Dr. Rice has been consulted and his input is appreciated. (5) Paroxysmal atrial fibrillation: Code(s): I48.0 - Paroxysmal atrial fibrillation Status: Acute Assessment and Plan: Currently in a sinus rhythm. Continue metoprolol. (6) Alzheimer's dementia: Code(s): G30.9 - Alzheimer's disease, unspecified; F02.80 - Dementia in other diseases classified elsewhere, unspecified severity, without behavioral disturbance, psychotic disturbance, mood disturbance, and anxiety Status: Acute Assessment and Plan: -initiate fall precautions (7) Chronic anticoagulation: Code(s): Z79.01 - termination clerk (current) use of anticoagulants Status: Acute Assessment and Plan: Continue apixaban for stroke prophylaxis. (8) Congestive heart failure: Qualifiers: Heart failure type: right heart failure due to left heart failure Qualified Code(s): I50.814 - Right heart failure due to left heart failure Code(s): I50.9 - Heart failure, unspecified Status: Acute Assessment and Plan: echo revealed: Summary ? 1. Complete two-dimensional, color flow and Doppler transthoracic echocardiogram is performed. ? 2. Left ventricular chamber dimension is normal. ? 3. Left ventricular systolic function is normal, estimated at 55-60%. ? 4. There is mildly increased left ventricular wall thickness. ? 5. Left ventricular septal wall motion is abnormal with septal motion related to bundle branch block. ? 6. The left ventricular diastolic function is grade I diastolic dysfunction. ? 7. Right ventricular systolic function is moderate to severely reduced. ? 8. Right ventricular chamber dimension is severely enlarged. ? 9. Bowing of the interatrial septum to the left consistent with elevated right atrial pressures. ? 10. Right atrial chamber dimension is severely enlarged. ? 11. There is mild to moderate eccentric mitral valve regurgitation which may be underestimated secondary to eccentricity.? Evidence for mild anterior mitral leaflet prolapse. ? 12. The mitral valve has thickened leaflets. ? 13. There is severe tricuspid valve regurgitation. ? 14. Severe pulmonary hypertension, estimated pulmonary arterial systolic pressure is 98 mmHg. -consult to cardiology -continue telemetry monitoring Continue to monitor volume status closely with strict I/O and daily weights. (9) Obstructive sleep apnea: Code(s): G47.33 - Obstructive sleep apnea (adult) (pediatric) Status: Chronic Assessment and Plan: CPAP will be provided for the patient to use while hospitalized. Subjective Date/time seen
[2023-07-03 17:55] LABS: Ammonia < 9 umol/L (9-30)
[2023-07-03] MEDS: ATORVASTATIN 40 MG TABLET 80 MG PO (21:34)
[2023-07-03] MEDS: GABAPENTIN 300 MG CAPSULE 600 MG PO (21:34)
[2023-07-04] VITALS (7 sets, daily range): BP systolic 94–101; BP diastolic 66–74; PULSE 58–110; RESP 16–18; TEMP 36.1–36.6; O2SAT 94–100
[2023-07-04 07:11] LABS: Basophils Percent Auto 0.6 % (0.2-1.2); Eosinophils Absolute Auto 0.1 K/mm3 (0-0.3); Eosinophils Percent Auto 1.4 % (0-4.4); Hematocrit 29.6 % (37.0-47.0); Hemoglobin 8.9 g/dL (12.0-15.0); Immature Granulocyte Absolute 0.02 K/mm3 (0.00-0.031); Immature Granulocyte Percent A 0.3 % (0-0.5); Immature Platelet Fraction Pct 2.7 % (0.9-11.2); Lymphocytes Absolute Auto 0.85 K/mm3 (0.9-3.2); Mean Corpuscular HGB Conc 30.1 g/dl (32-36); Mean Corpuscular Hemoglobin 26.7 pg (26-34); Mean Corpuscular Volume 88.9 fl (80-100); Mean Platelet Volume 9.4 fl (7.4-10.4); Monocytes Absolute Auto 0.6 K/mm3 (0.1-0.6); Monocytes Percent Auto 7.8 % (2.6-8.5); Neutrophils Absolute Auto 5.5 K/mm3 (1.3-6.7); Neutrophils Percent Auto 77.9 % (45.5-73.1); Platelet Count Result 88 k/mm3 (150-375); Red Blood Count 3.33 M/mm3 (4.2-5.4); Red Cell Distribution Width 15.7 % (11.5-14.5); White Blood Count 7.1 K/mm3 (4.5-10.0)
[2023-07-04 07:17] LABS: Alanine Aminotransferase 20 U/L (6-35); Albumin Level 2.4 g/dL (3.5-5.1); Alkaline Phosphatase 110 U/L (38-126); Anion Gap 2 mmol/L (8-16); Aspartate Amino Transferase 32 U/L (14-36); Bilirubin,Total 0.7 mg/dL (0.2-1.3); Blood Urea Nitrogen 57 mg/dL (7-17); Calcium 8.2 mg/dL (8.4-10.2); Carbon Dioxide 31 mmol/L (22-30); Chloride 106 mmol/L (98-107); Estimated CRCL calculation 31 ml/min; Estimated Glomerular Filt Rate 31; Glucose 104 mg/dL (65-110); Magnesium 2.4 mg/dL (1.6-2.3); Phosphorus 3.4 mg/dL (2.5-4.5); Potassium 3.2 mmol/L (3.4-5.0); Sodium 139 mmol/L (137-145)
[2023-07-04 07:25] LABS: NT Pro B Type Natriuretic Pept > 30000 pg/mL (19.9-100)
[2023-07-04 07:39] LABS: Hypochromasia 1+ (NORMAL); Large Platelets Present; Platelet Estimate Decreased (Adequate)
[2023-07-04 07:40] LABS: Ovalocytes 1+ (NORMAL); Schistocytes None Seen (NORMAL)
[2023-07-04] MEDS: APIXABAN 5 MG TABLET PO ×2 (09:28→20:38)
[2023-07-04] MEDS: EMPAGLIFLOZIN 10 MG TABLET PO (09:28)
[2023-07-04] MEDS: FLUCONAZOLE 100 MG TABLET PO (09:28)
[2023-07-04] MEDS: ASCORBIC ACID 500 MG TABLET PO (09:28)
[2023-07-04] MEDS: THERAPEUTIC MULTIVITAMINS/MINERALS TAB (*BKC) 1 TABLET PO (09:28)
[2023-07-04] MEDS: SODIUM BICARBONATE TAB 650 MG TABLET PO (09:28)
[2023-07-04] MEDS: FERROUS SULFATE 325 MG TABLET DR PO (09:28)
[2023-07-04] MEDS: METOPROLOL SUCCINATE EXT REL 50 MG TABCR PO (09:29)
[2023-07-04] MEDS: FUROSEMIDE 40 MG TABLET PO (09:30)
[2023-07-04] MEDS: ACETAMINOPHEN 325 MG TABLET 650 MG PO ×2 (09:30→20:42)
[2023-07-04] MEDS: OMEGA 3 POLYUNSAT FATTY ACIDS 1 GM CAP 2 GM PO (09:30)
[2023-07-04] MEDS: hydrOXYzine HCL 10 MG TABLET PO (09:31)
[2023-07-04] MEDS: TOLNAFTATE 1% POWDER 45 GM BTL 1 APPLIC TOPICAL ×2 (09:32→20:38)
[2023-07-04] MEDS: PANTOPRAZOLE 40 MG TABLET PO (09:33)
--- NOTE | 2023-07-04 10:32 | PM.PNNEP ---
Progress Note: A&P Assessment and Plan (1) AJ (acute kidney injury): Code(s): N17.9 - Acute kidney failure, unspecified Status: Acute Assessment and Plan: doing a bit better if not closer to baseline probably related to infection/UTI and relative hypotension with need for diuretic therapy follow trend of repeat labs and UOP (2) Stage 3b chronic kidney disease: Code(s): N18.32 - Chronic kidney disease, stage 3b Status: Acute Assessment and Plan: baseline creatinine seems to run ~ 1.2 - 1.6mg/dl extensive evaluation to date/previous hospitalizations... CKD thought to be due to hemodynamic effects of the pulmonary hypertension and the diastolic dysfunction/right sided heart failure along with the need for diuretic therapy to maintain her volume status in the context of decreased nephron mass (solitary kidney) serologies significant for positive SPEP and serum immunofixation but less likely multiple myeloma but previous Hem/Onc evaluation but Hem/Onc following on this admission as well (3) AMS (altered mental status): Code(s): R41.82 - Altered mental status, unspecified Status: Acute Assessment and Plan: appears back to baseline at this time related to infection versus suboptimal hemodynamics? follow mentation reported history of dementia but patient/family denies this... (4) UTI (urinary tract infection): Code(s): N39.0 - Urinary tract infection, site not specified Status: Acute Assessment and Plan: admission UA suggestive however, has chronic suprapubic bolton so results could be skewed by this issue culture results noted - on antifungal therapy (5) Chronic CHF: Code(s): I50.9 - Heart failure, unspecified Status: Chronic Assessment and Plan: last echo noted right sided/diastolic on diuretic therapy (6) Pulmonary hypertension: Code(s): I27.20 - Pulmonary hypertension, unspecified Status: Chronic Assessment and Plan: quite significant/severe on recent/previous Echo due to heart failure, COPD, and ZAK continue CPAP support (7) Paroxysmal atrial fibrillation: Code(s): I48.0 - Paroxysmal atrial fibrillation Status: Acute Assessment and Plan: rate control strategy on Eliquis Will continue to follow. Subjective Date/time seen: 07/04/23 10:32 Interval history: Follow-up for acute kidney injury/acute renal failure on chronic kidney disease. Seems to be doing okay; breathing/respiratory status seems stable as is mentation; no acute issues/events overnight or earlier this morning; renal function appears relatively stable by recent testing as well. Exam Narrative: General: elderly but WD/WN female in NAD Heart: normal S1 and S2; no rub Lungs: coarse and decreased at bases Abdomen: soft, nontender, nondistended, positive bowel sounds Extremities: cyanotic changes noted in fingers; 1+ edema Skin: warm and intact Objective Data Vital Signs Vital Signs: Vital Signs Temp Pulse Resp BP Pulse Ox O2 Del Method O2 Flow Rate 07/04/23 10:30 97.9 F 58 L 18 98/68 L 94 Nasal Cannula 4 07/04/23 09:29 62 07/04/23 06:31 97.1 F L 110 H 16 101/74 95 07/04/23 01:30 77 96 Autopap 07/03/23 22:55 96 Nasal Cannula 4 07/03/23 23:00 82 96 Autopap 07/03/23 22:35 98 Nasal Cannula 5 07/03/23 20:00 80 16 98 Nasal Cannula 4 07/03/23 21:25 97.4 F L 80 16 105/70 98 07/03/23 18:50 94/73 L Intake/Output Intake/Output: Intake & Output 07/01/23 07/02/23 07/03/23 07/04/23 23:59 23:59 23:59 23:59 Intake Total 1320 318 790 520 Output Total 50 600 650 100 Balance 1270 -282 140 420 Meds/Results Medications: Active Medications Generic Name Dose Route Start Last Admin Trade Name Freq PRN Reason Stop Dose Admin Acetaminophen 650 mg 07/01/23 13:48 07/04/23 09:30
--- NOTE | 2023-07-04 10:32 | P.PNNP_ITS ---
Progress Note: A&P Assessment and Plan (1) AJ (acute kidney injury): Code(s): N17.9 - Acute kidney failure, unspecified Status: Acute Assessment and Plan: * doing a bit better if not closer to baseline * probably related to infection/UTI and relative hypotension with need for diuretic therapy * follow trend of repeat labs and UOP (2) Stage 3b chronic kidney disease: Code(s): N18.32 - Chronic kidney disease, stage 3b Status: Acute Assessment and Plan: * baseline creatinine seems to run ~ 1.2 - 1.6mg/dl * extensive evaluation to date/previous hospitalizations... * CKD thought to be due to hemodynamic effects of the pulmonary hypertension and the diastolic dysfunction/right sided heart failure along with the need for diuretic therapy to maintain her volume status in the context of decreased nephron mass (solitary kidney) * serologies significant for positive SPEP and serum immunofixation but less likely multiple myeloma but previous Hem/Onc evaluation but Hem/Onc following on this admission as well (3) AMS (altered mental status): Code(s): R41.82 - Altered mental status, unspecified Status: Acute Assessment and Plan: * appears back to baseline at this time * related to infection versus suboptimal hemodynamics? * follow mentation * reported history of dementia but patient/family denies this... (4) UTI (urinary tract infection): Code(s): N39.0 - Urinary tract infection, site not specified Status: Acute Assessment and Plan: * admission UA suggestive * however, has chronic suprapubic bolton so results could be skewed by this issue * culture results noted - on antifungal therapy (5) Chronic CHF: Code(s): I50.9 - Heart failure, unspecified Status: Chronic Assessment and Plan: * last echo noted * right sided/diastolic * on diuretic therapy (6) Pulmonary hypertension: Code(s): I27.20 - Pulmonary hypertension, unspecified Status: Chronic Assessment and Plan: * quite significant/severe on recent/previous Echo * due to heart failure, COPD, and ZAK * continue CPAP support (7) Paroxysmal atrial fibrillation: Code(s): I48.0 - Paroxysmal atrial fibrillation Status: Acute Assessment and Plan: * rate control strategy * on Eliquis Will continue to follow. Subjective Date/time seen: 07/04/23 10:32 Interval history: Follow-up for acute kidney injury/acute renal failure on chronic kidney disease. Seems to be doing okay; breathing/respiratory status seems stable as is mentation; no acute issues/events overnight or earlier this morning; renal function appears relatively stable by recent testing as well. Exam Narrative: General: elderly but WD/WN female in NAD Heart: normal S1 and S2; no rub Lungs: coarse and decreased at bases Abdomen: soft, nontender, nondistended, positive bowel sounds Extremities: cyanotic changes noted in fingers; 1+ edema Skin: warm and intact Objective Data Vital Signs Vital Signs: Vital Signs Temp Pulse Resp BP Pulse Ox O2 Del Method O2 Flow Rate 07/04/23 10:30 97.9 F 58 L 18 98/68 L 94 Nasal Cannula 4 07/04/23 09:29 62 07/04/23 06:31 97.1 F L 110 H 16 101/74 95 07/04/23 01:30 77 96 Autopap 07/03/23 22:55 96 Nasal Cannula 4
--- NOTE | 2023-07-04 15:04 | PM.IMPN ---
Progress Note: A&P Assessment and Plan (1) Hallucinations: Code(s): R44.3 - Hallucinations, unspecified Status: Resolved Assessment and Plan: denies any at this time a/o 2 (2) Acute on chronic kidney failure: Code(s): N17.9 - Acute kidney failure, unspecified; N18.9 - Chronic kidney disease, unspecified Status: Acute Assessment and Plan: Creatinine 1.60is Difficult balance to keep this patient euvolemic. She has right-sided heart failure with probable cardiorenal syndrome. -continue to monitor CMP, CBC daily --d/c fluids at this time (3) Abnormal urinalysis: Code(s): R82.90 - Unspecified abnormal findings in urine Status: Acute Assessment and Plan: Suprapubic catheter is in place drsg dry and intact pt with low urine out-put -continue to monitor site and catheter for s/s infection -continue P.O fluconazole (4) Blue finger syndrome: Code(s): M79.81 - Nontraumatic hematoma of soft tissue Status: Acute Assessment and Plan: -bilateral hand swelling/history of blue finger syndrome -history of ongoing bluish fingertips (5) Paroxysmal atrial fibrillation: Code(s): I48.0 - Paroxysmal atrial fibrillation Status: Acute Assessment and Plan: Currently in a sinus rhythm. Continue metoprolol. (6) Alzheimer's dementia: Code(s): G30.9 - Alzheimer's disease, unspecified; F02.80 - Dementia in other diseases classified elsewhere, unspecified severity, without behavioral disturbance, psychotic disturbance, mood disturbance, and anxiety Status: Acute Assessment and Plan: -initiate fall precautions (7) Chronic anticoagulation: Code(s): Z79.01 - FDC (current) use of anticoagulants Status: Acute Assessment and Plan: Continue apixaban for stroke prophylaxis. (8) Congestive heart failure: Qualifiers: Heart failure type: right heart failure due to left heart failure Qualified Code(s): I50.814 - Right heart failure due to left heart failure Code(s): I50.9 - Heart failure, unspecified Status: Acute Assessment and Plan: -consult to cardiology -continue telemetry monitoring Continue to monitor volume status closely with strict I/O and daily weights. (9) Obstructive sleep apnea: Code(s): G47.33 - Obstructive sleep apnea (adult) (pediatric) Status: Chronic Assessment and Plan: CPAP will be provided for the patient to use while hospitalized. (10) Right-sided heart failure: Code(s): I50.810 - Right heart failure, unspecified Status: Acute Plan Change in condition noted with patient -case discussed with attending -will try midodrine for b/p VTE Prophylaxis: Eliquis DIET: Heart healthy diet Anticipated hospital stay: > 2 days Code Status: Full code Subjective Date/time seen: 07/04/23 15:04 Review of Systems Review of Systems: Twelve systems were reviewed with pertinent positives and negatives as per HPI. Exam Narrative: General: Chronically ill-appearing female sitting up in bed in no acute distress. HEENT: PERRL, EOMI. Sclera anicteric. Tacky mucous membranes. Neck: Supple. No JVD. Respiratory: Currently on 4 L nasal cannula. Respirations are nonlabored and she is speaking in full sentences. Coarse lung sounds heard at the bases but are otherwise clear to auscultation. Cardiovascular: Regular rate and rhythm with frequent ectopy. Systolic murmur at the upper sternal border and diastolic murmur at the apex. Gastrointestinal: Abdomen is soft, obese, nontender, and nondistended with positive bowel sounds. Suprapubic catheter dressing is clean, dry, and intact. Skin: Hands are warm this a.m. feet are cool but she is otherwise warm and dry. Bluish purple hue noted on the tips of all fingers with cyanotic nail beds and . >2 seconds capillary refill. Toenails are thick and yellow with mild
[2023-07-04] MEDS: SODIUM CHLORIDE 0.9% IV 500 ML 75 ML IV CONT (15:34)
[2023-07-04] MEDS: MIDODRINE HCL 2.5 MG TABLET PO (20:38)
[2023-07-04] MEDS: ATORVASTATIN 40 MG TABLET 80 MG PO (20:38)
[2023-07-05] VITALS (10 sets, daily range): BP systolic 89–121; BP diastolic 53–82; PULSE 85–133; RESP 18–20; TEMP 36.2–37.4; O2SAT 90–100; BMI 10.0
[2023-07-05 07:22] LABS: Basophils Percent Auto 0.5 % (0.2-1.2); Eosinophils Absolute Auto 0.2 K/mm3 (0-0.3); Eosinophils Percent Auto 1.9 % (0-4.4); Hematocrit 28.6 % (37.0-47.0); Hemoglobin 8.7 g/dL (12.0-15.0); Immature Granulocyte Absolute 0.02 K/mm3 (0.00-0.031); Immature Granulocyte Percent A 0.3 % (0-0.5); Immature Platelet Fraction Pct 3.2 % (0.9-11.2); Lymphocytes Absolute Auto 0.84 K/mm3 (0.9-3.2); Lymphocytes Percent Auto 10.8 % (18.3-44.2); Mean Corpuscular HGB Conc 30.4 g/dl (32-36); Mean Corpuscular Hemoglobin 26.9 pg (26-34); Mean Corpuscular Volume 88.5 fl (80-100); Mean Platelet Volume 9.6 fl (7.4-10.4); Monocytes Absolute Auto 0.7 K/mm3 (0.1-0.6); Monocytes Percent Auto 9.3 % (2.6-8.5); Neutrophils Percent Auto 77.2 % (45.5-73.1); Platelet Count Result 80 k/mm3 (150-375); Red Blood Count 3.23 M/mm3 (4.2-5.4); Red Cell Distribution Width 15.8 % (11.5-14.5); White Blood Count 7.8 K/mm3 (4.5-10.0)
[2023-07-05 07:25] LABS: Alanine Aminotransferase 25 U/L (6-35); Albumin Level 2.4 g/dL (3.5-5.1); Alkaline Phosphatase 110 U/L (38-126); Anion Gap 3 mmol/L (8-16); Aspartate Amino Transferase 41 U/L (14-36); Bilirubin,Total 0.6 mg/dL (0.2-1.3); Blood Urea Nitrogen 56 mg/dL (7-17); Calcium 7.9 mg/dL (8.4-10.2); Carbon Dioxide 29 mmol/L (22-30); Chloride 105 mmol/L (98-107); Estimated CRCL calculation 31 ml/min; Estimated Glomerular Filt Rate 31; Glucose 105 mg/dL (65-110); Magnesium 2.3 mg/dL (1.6-2.3); Potassium 3.1 mmol/L (3.4-5.0); Sodium 137 mmol/L (137-145)
[2023-07-05] MEDS: MIDODRINE HCL 2.5 MG TABLET PO ×2 (09:00→14:14)
[2023-07-05] MEDS: FLUCONAZOLE 100 MG TABLET PO (09:00)
[2023-07-05] MEDS: PANTOPRAZOLE 40 MG TABLET PO (09:00)
[2023-07-05] MEDS: THERAPEUTIC MULTIVITAMINS/MINERALS TAB (*BKC) 1 TABLET PO (09:00)
[2023-07-05] MEDS: ASCORBIC ACID 500 MG TABLET PO ×2 (09:01→17:25)
[2023-07-05] MEDS: APIXABAN 5 MG TABLET PO ×2 (09:01→20:33)
[2023-07-05] MEDS: OMEGA 3 POLYUNSAT FATTY ACIDS 1 GM CAP 2 GM PO ×2 (09:01→17:25)
[2023-07-05] MEDS: TOLNAFTATE 1% POWDER 45 GM BTL 1 APPLIC TOPICAL ×2 (09:01→20:33)
[2023-07-05] MEDS: FERROUS SULFATE 325 MG TABLET DR PO (09:01)
--- NOTE | 2023-07-05 11:44 | PM.PNNEP ---
Progress Note: A&P Assessment and Plan (1) AJ (acute kidney injury): Code(s): N17.9 - Acute kidney failure, unspecified Status: Acute Assessment and Plan: doing a bit better if not closer to baseline probably related to infection/UTI and relative hypotension with need for diuretic therapy follow trend of repeat labs and UOP (2) Stage 3b chronic kidney disease: Code(s): N18.32 - Chronic kidney disease, stage 3b Status: Acute Assessment and Plan: baseline creatinine seems to run ~ 1.2 - 1.6mg/dl extensive evaluation to date/previous hospitalizations... CKD thought to be due to hemodynamic effects of the pulmonary hypertension and the diastolic dysfunction/right sided heart failure along with the need for diuretic therapy to maintain her volume status in the context of decreased nephron mass (solitary kidney) (3) AMS (altered mental status): Code(s): R41.82 - Altered mental status, unspecified Status: Acute Assessment and Plan: appears back to baseline at this time (4) UTI (urinary tract infection): Code(s): N39.0 - Urinary tract infection, site not specified Status: Acute Assessment and Plan: admission UA suggestive however, has chronic suprapubic bolton so results could be skewed by this issue culture results noted - on antifungal therapy (5) Chronic CHF: Code(s): I50.9 - Heart failure, unspecified Status: Chronic Assessment and Plan: echo last month showed severe TR, severe pulmonary hypertension, right-sided volume overload and grade 1 diastolic dysfunction.. on diuretic therapy (6) Pulmonary hypertension: Code(s): I27.20 - Pulmonary hypertension, unspecified Status: Chronic Assessment and Plan: quite significant/severe on recent/previous Echo due to heart failure, COPD, and ZAK continue CPAP support (7) Paroxysmal atrial fibrillation: Code(s): I48.0 - Paroxysmal atrial fibrillation Status: Acute Assessment and Plan: rate control strategy on Eliquis Will continue to follow. 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 She is generally weak. She is still swollen. Exam Narrative: General: elderly but WD/WN female in NAD Heart: normal S1 and S2; no rub or gallop Lungs: coarse and decreased at bases Abdomen: soft, nontender, nondistended, positive bowel sounds Extremities: cyanotic changes noted in fingers; 1+ edema Skin: No rash. Some chronic venous changes on her lower extremities Objective Data Vital Signs Vital Signs: Vital Signs - 24 hr 07/04/23 12:11 07/04/23 13:50 07/04/23 21:47 Temperature 97.9 F 97.0 F L Pulse Rate 58 L 98 Respiratory Rate 18 16 Blood Pressure 98/68 L 94/66 L Pulse Oximetry 94 100 Oxygen Delivery Nasal Cannula Oxygen Flow Rate 4 Fraction of Inspired Oxygen 07/04/23 20:00 07/05/23 06:00 07/05/23 08:24 Temperature 97.2 F L Pulse Rate 106 H Respiratory Rate 18 Blood Pressure 89/53 L Pulse Oximetry 94 90 94 Oxygen Delivery Nasal Cannula Nasal Cannula Oxygen Flow Rate 4 4 Fraction of Inspired Oxygen 36 07/05/23 08:00 Temperature Pulse Rate 106 H Respiratory Rate 18 Blood Pressure Pulse Oximetry 94 Oxygen Delivery Nasal Cannula Oxygen Flow Rate 4 Fraction of Inspired Oxygen 36 Intake/Output Intake/Output: Intake & Output 07/02/23 07/03/23 07/04/23 07/05/23 23:59 23:59 23:59 23:59 Intake Total 224 606 3323 618 Output Total 600 096 410 4893 Balance -359 392 6520 -482 Meds/Results Medications: Active Medications Generic Name Dose Route Start Last Admin Trade Name Freq PRN Reason Stop Dose Admin Acetaminophen 650 mg
--- NOTE | 2023-07-05 12:02 | PCSTNOTE ---
Bedside swallowing evaluation completed. Patient was seen sitting upright in bed with head of bed elevated. Cursory oral peripheral examination results within functional limits. Trials of thin liquid by straw in uncontrolled amounts were within functional limits. Trials of solid consistency food (peter cracker) in uncontrolled amounts also within functional limits. No soft signs of aspiration observed. Per nurse patient needs to receive her pills in applesauce to swallow them which may be related to cognitive factors. Based on this evaluation recommendations are: regular texture diet and thin liquids, safe swallowing percautions to be followed (placed in patient's chart), give pills in applesauce. No further speech therapy intervention is recommended. Thank you for the referal of this patient.
--- NOTE | 2023-07-05 14:14 | PM.IMPN ---
Progress Note: A&P Assessment and Plan (1) Hallucinations: Code(s): R44.3 - Hallucinations, unspecified Status: Resolved Assessment and Plan: denies any at this time a/o 2 (2) Acute on chronic kidney failure: Code(s): N17.9 - Acute kidney failure, unspecified; N18.9 - Chronic kidney disease, unspecified Status: Acute Assessment and Plan: Creatinine 1.60is Difficult balance to keep this patient euvolemic. She has right-sided heart failure with probable cardiorenal syndrome. -continue to monitor CMP, CBC daily --d/c fluids at this time (3) Abnormal urinalysis: Code(s): R82.90 - Unspecified abnormal findings in urine Status: Acute Assessment and Plan: Suprapubic catheter is in place drsg dry and intact pt with low urine out-put -continue to monitor site and catheter for s/s infection -continue P.O fluconazole (4) Blue finger syndrome: Code(s): M79.81 - Nontraumatic hematoma of soft tissue Status: Acute Assessment and Plan: -bilateral hand swelling/history of blue finger syndrome -history of ongoing bluish fingertips (5) Paroxysmal atrial fibrillation: Code(s): I48.0 - Paroxysmal atrial fibrillation Status: Acute Assessment and Plan: Currently in a sinus rhythm. Continue metoprolol. (6) Alzheimer's dementia: Code(s): G30.9 - Alzheimer's disease, unspecified; F02.80 - Dementia in other diseases classified elsewhere, unspecified severity, without behavioral disturbance, psychotic disturbance, mood disturbance, and anxiety Status: Acute Assessment and Plan: -initiate fall precautions (7) Chronic anticoagulation: Code(s): Z79.01 - long term care pharmacist (current) use of anticoagulants Status: Acute Assessment and Plan: Continue apixaban for stroke prophylaxis. (8) Congestive heart failure: Qualifiers: Heart failure type: right heart failure due to left heart failure Qualified Code(s): I50.814 - Right heart failure due to left heart failure Code(s): I50.9 - Heart failure, unspecified Status: Acute Assessment and Plan: Continue to monitor volume status closely with strict I/O and daily weights. (9) Obstructive sleep apnea: Code(s): G47.33 - Obstructive sleep apnea (adult) (pediatric) Status: Chronic Assessment and Plan: CPAP will be provided for the patient to use while hospitalized. (10) Right-sided heart failure: Code(s): I50.810 - Right heart failure, unspecified Status: Acute Assessment and Plan: -continue telemetry monitoring Plan Spoke with Dr. Watson, - see new orders as discussed, 40 mg IV Lasix b.i.d., if blood pressure is too low, switch to 20 mg IV Lasix - albumin 25gm b.i.d. x2 doses, -increase midodrine from 2.5-5 mg t.i.d. -will continue to monitor closely, reassess plan in the a.m. Subjective Date/time seen: 07/05/23 14:14 Interval history: Chief Complaint: Altered mental status. Narrative: This is a pleasant 77-year-old female with history of dementia (patient and daughter deny this diagnosis), bladder cancer status post [place] pouch, chronic kidney disease, paroxysmal atrial fibrillation on chronic anticoagulation, right-sided heart failure, pulmonary hypertension, chronic obstructive pulmonary disease, obstructive sleep apnea on CPAP, and other comorbidities who presented to the emergency department via EMS from [facility] for evaluation of altered mental status. The patient provides the following history. Her daughter provides additional information, with the patient's permission. Prior to a few months ago she was living in her own home, doing her own cooking and caring for her cat. She has been in an out of the hospital since April and is now at the nursing for rehabilitation. According to daughter, the patient has gone downhill significantly since that larissa
[2023-07-05] MEDS: ALBUMIN HUMAN 25% 25 GM/100 ML 100 ML IVPB (17:25)
[2023-07-05] MEDS: MIDODRINE HCL 2.5 MG TABLET 5 MG PO (17:25)
[2023-07-05] MEDS: FUROSEMIDE INJ 40 MG/4 ML VIAL IV PUSH (17:25)
[2023-07-05] MEDS: ATORVASTATIN 40 MG TABLET 80 MG PO (20:32)
--- NOTE | 2023-07-05 21:08 | ECG_ITS ---
Measurements Intervals [place] Rate: 129 P: MS: 0 QRS: 24 QRSD: 90 T: 0 QT: 293 QTc: 430 Interpretive Statements ATRIAL FIBRILLATION WITH RAPID VENTRICULAR RESPONSE WITH ABERRANT CONDUCTION OR VENTRICULAR PREMATURE COMPLEXES ST DEVIATION AND T-WAVE ABNORMALITY, CONSIDER ISCHEMIA Electronically Signed On 07-06-2023 11:36:59 CARPET JACK by Genaro Owen M.D.
[2023-07-05] MEDS: METOPROLOL TARTRATE INJ 5 MG/5 ML VIAL IV PUSH (21:51)
[2023-07-05] MEDS: POTASSIUM CHLORIDE 20 MEQ PACKET (FOR LIQUID) 80 MEQ PO (21:52)
[2023-07-06] VITALS (12 sets, daily range): BP systolic 97–110; BP diastolic 69–84; PULSE 77–138; RESP 18–20; TEMP 35.9–36.6; O2SAT 93–98; BMI 10.0
[2023-07-06] MEDS: METOPROLOL TARTRATE INJ 5 MG/5 ML VIAL IV PUSH (03:17)
[2023-07-06 04:39] LABS: Basophils Absolute Auto 0.1 K/mm3 (0.0-0.1); Basophils Percent Auto 0.7 % (0.2-1.2); Eosinophils Absolute Auto 0.2 K/mm3 (0-0.3); Eosinophils Percent Auto 3.5 % (0-4.4); Hematocrit 28.2 % (37.0-47.0); Hemoglobin 8.4 g/dL (12.0-15.0); Immature Granulocyte Absolute 0.02 K/mm3 (0.00-0.031); Immature Granulocyte Percent A 0.3 % (0-0.5); Immature Platelet Fraction Pct 3.2 % (0.9-11.2); Lymphocytes Absolute Auto 0.89 K/mm3 (0.9-3.2); Lymphocytes Percent Auto 13.1 % (18.3-44.2); Mean Corpuscular HGB Conc 29.8 g/dl (32-36); Mean Corpuscular Hemoglobin 26.6 pg (26-34); Mean Corpuscular Volume 89.2 fl (80-100); Mean Platelet Volume 10.3 fl (7.4-10.4); Monocytes Absolute Auto 0.9 K/mm3 (0.1-0.6); Monocytes Percent Auto 12.6 % (2.6-8.5); Neutrophils Absolute Auto 4.7 K/mm3 (1.3-6.7); Neutrophils Percent Auto 69.8 % (45.5-73.1); Platelet Count Result 80 k/mm3 (150-375); Red Blood Count 3.16 M/mm3 (4.2-5.4); Red Cell Distribution Width 15.6 % (11.5-14.5); White Blood Count 6.8 K/mm3 (4.5-10.0)
[2023-07-06 04:48] LABS: IFOB Positive Control Positive; Immunochemical Fecal Occult Bl Positive (N)
[2023-07-06 04:48] LABS: Alanine Aminotransferase 26 U/L (6-35); Albumin Level 2.6 g/dL (3.5-5.1); Alkaline Phosphatase 109 U/L (38-126); Anion Gap 4 mmol/L (8-16); Aspartate Amino Transferase 40 U/L (14-36); Bilirubin,Total 0.7 mg/dL (0.2-1.3); Blood Urea Nitrogen 52 mg/dL (7-17); Calcium 8.1 mg/dL (8.4-10.2); Carbon Dioxide 27 mmol/L (22-30); Chloride 105 mmol/L (98-107); Estimated CRCL calculation 35 ml/min; Estimated Glomerular Filt Rate 36; Glucose 99 mg/dL (65-110); Magnesium 2.3 mg/dL (1.6-2.3); Phosphorus 2.6 mg/dL (2.5-4.5); Potassium 3.7 mmol/L (3.4-5.0); Sodium 136 mmol/L (137-145)
[2023-07-06 04:50] LABS: INR 2.2; Prothrombin Time 26.2 Seconds (11.1-14.7)
[2023-07-06 04:51] LABS: Partial Thromboplastin Time 35.7 SECONDS (22.3-36.8)
[2023-07-06 05:03] LABS: Anisocytosis 1+ (NORMAL); Ovalocytes 1+ (NORMAL)
[2023-07-06 05:04] LABS: Schistocytes Rare (NORMAL)
[2023-07-06] MEDS: ALBUMIN HUMAN 25% 25 GM/100 ML 100 ML IVPB (09:45)
[2023-07-06] MEDS: ASCORBIC ACID 500 MG TABLET PO ×2 (09:46→16:44)
[2023-07-06] MEDS: FLUCONAZOLE 100 MG TABLET PO (09:46)
[2023-07-06] MEDS: MIDODRINE HCL 2.5 MG TABLET 5 MG PO ×3 (09:46→16:44)
[2023-07-06] MEDS: FUROSEMIDE INJ 40 MG/4 ML VIAL IV PUSH ×2 (09:46→16:44)
[2023-07-06] MEDS: APIXABAN 5 MG TABLET PO ×2 (09:46→20:18)
[2023-07-06] MEDS: FERROUS SULFATE 325 MG TABLET DR PO (09:46)
[2023-07-06] MEDS: THERAPEUTIC MULTIVITAMINS/MINERALS TAB (*BKC) 1 TABLET PO (09:47)
[2023-07-06] MEDS: PANTOPRAZOLE 40 MG TABLET PO (09:47)
[2023-07-06] MEDS: TOLNAFTATE 1% POWDER 45 GM BTL 1 APPLIC TOPICAL ×2 (09:47→20:18)
--- NOTE | 2023-07-06 10:17 | P.PNNP_ITS ---
Progress Note: A&P Assessment and Plan (1) AJ (acute kidney injury): Code(s): N17.9 - Acute kidney failure, unspecified Status: Acute Assessment and Plan: * acute kidney injury * probably pre renal azotemia on top of chronic kidney disease * the patient had a very low albumin of 1.5. Discussed with DEION Jones. I agree with adding albumin and intensifying the diuretics to some degree. * probably related to infection/UTI and relative hypotension with need for diuretic therapy * Urine output improved with the changes DEION Jones implemented yesterday. Will continue this. (2) Stage 3b chronic kidney disease: Code(s): N18.32 - Chronic kidney disease, stage 3b Status: Acute Assessment and Plan: * baseline creatinine seems to run ~ 1.2 - 1.6mg/dl * extensive evaluation to date/previous hospitalizations... * CKD thought to be due to hemodynamic effects of the pulmonary hypertension and the diastolic dysfunction/right sided heart failure along with the need for diuretic therapy to maintain her volume status in the context of decreased nephron mass (solitary kidney) * The patient does have some proteinuria as well so that he may be some intrinsic kidney disease. (3) AMS (altered mental status): Code(s): R41.82 - Altered mental status, unspecified Status: Acute Assessment and Plan: * appears back to baseline at this time (4) UTI (urinary tract infection): Code(s): N39.0 - Urinary tract infection, site not specified Status: Acute Assessment and Plan: * admission UA suggestive * however, has chronic suprapubic bolton so results could be skewed by this issue * culture results noted - on Fluconazole (5) Chronic CHF: Code(s): I50.9 - Heart failure, unspecified Status: Chronic Assessment and Plan: * echo last month showed severe TR, severe pulmonary hypertension, right-sided volume overload and grade 1 diastolic dysfunction.. * on diuretic therapy and also receiving some albumin (6) Pulmonary hypertension: Code(s): I27.20 - Pulmonary hypertension, unspecified Status: Chronic Assessment and Plan: * quite significant/severe on recent/previous Echo * due to heart failure, COPD, and ZAK * continue CPAP support (7) Paroxysmal atrial fibrillation: Code(s): I48.0 - Paroxysmal atrial fibrillation Status: Acute Assessment and Plan: * rate control strategy * on Eliquis Will continue to follow. 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 She did make a lot more urine yesterday. Exam Narrative: General: elderly but WD/WN female in NAD Heart: normal S1 and S2; no rub or gallop Lungs: coarse and decreased at bases Abdomen: soft, nontender, nondistended, positive bowel sounds Extremities: 1-2+ edema Skin: No acute rash. chronic venous stasis changes Objective Data Vital Signs Vital Signs: Vital Signs - 24 hr 07/05/23 14:00 07/05/23 21:25 07/05/23 21:51 Temperature 98.1 F 99.3 F Pulse Rate 85 97 132 H Respiratory Rate 20 19 Blood Pressure 118/76 115/79 Pulse Oximetry 92 100 Oxygen Del
--- NOTE | 2023-07-06 10:17 | PM.PNNEP ---
Progress Note: A&P Assessment and Plan (1) AJ (acute kidney injury): Code(s): N17.9 - Acute kidney failure, unspecified Status: Acute Assessment and Plan: acute kidney injury probably pre renal azotemia on top of chronic kidney disease the patient had a very low albumin of 1.5. Discussed with DEINO Jones. I agree with adding albumin and intensifying the diuretics to some degree. probably related to infection/UTI and relative hypotension with need for diuretic therapy Urine output improved with the changes DEION Jones implemented yesterday. Will continue this. (2) Stage 3b chronic kidney disease: Code(s): N18.32 - Chronic kidney disease, stage 3b Status: Acute Assessment and Plan: baseline creatinine seems to run ~ 1.2 - 1.6mg/dl extensive evaluation to date/previous hospitalizations... CKD thought to be due to hemodynamic effects of the pulmonary hypertension and the diastolic dysfunction/right sided heart failure along with the need for diuretic therapy to maintain her volume status in the context of decreased nephron mass (solitary kidney) The patient does have some proteinuria as well so that he may be some intrinsic kidney disease. (3) AMS (altered mental status): Code(s): R41.82 - Altered mental status, unspecified Status: Acute Assessment and Plan: appears back to baseline at this time (4) UTI (urinary tract infection): Code(s): N39.0 - Urinary tract infection, site not specified Status: Acute Assessment and Plan: admission UA suggestive however, has chronic suprapubic bolton so results could be skewed by this issue culture results noted - on Fluconazole (5) Chronic CHF: Code(s): I50.9 - Heart failure, unspecified Status: Chronic Assessment and Plan: echo last month showed severe TR, severe pulmonary hypertension, right-sided volume overload and grade 1 diastolic dysfunction.. on diuretic therapy and also receiving some albumin (6) Pulmonary hypertension: Code(s): I27.20 - Pulmonary hypertension, unspecified Status: Chronic Assessment and Plan: quite significant/severe on recent/previous Echo due to heart failure, COPD, and ZAK continue CPAP support (7) Paroxysmal atrial fibrillation: Code(s): I48.0 - Paroxysmal atrial fibrillation Status: Acute Assessment and Plan: rate control strategy on Eliquis Will continue to follow. 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 She did make a lot more urine yesterday. Exam Narrative: General: elderly but WD/WN female in NAD Heart: normal S1 and S2; no rub or gallop Lungs: coarse and decreased at bases Abdomen: soft, nontender, nondistended, positive bowel sounds Extremities: 1-2+ edema Skin: No acute rash. chronic venous stasis changes Objective Data Vital Signs Vital Signs: Vital Signs - 24 hr 07/05/23 14:00 07/05/23 21:25 07/05/23 21:51 Temperature 98.1 F 99.3 F Pulse Rate 85 97 132 H Respiratory Rate 20 19 Blood Pressure 118/76 115/79 Pulse Oximetry 92 100 Oxygen Delivery Oxygen Flow Rate 07/05/23 20:00 07/05/23 23:33 07/06/23 03:17 Temperature 98 F Pulse Rate 133 H 138 H Respiratory Rate 20 Blood Pressure 121/82 Pulse Oximetry 95 100 Oxygen Delivery Nasal Cannula Oxygen Flow Rate 4 07/06/23 00:00 07/06/23 04:00 07/05/23 21:30 Temperature Pulse Rate 131 H 111 H 128 H Respiratory Rate 20 Blood Pressure Pulse Oximetry 97 Oxygen Delivery Autopap Oxygen Flow Rate 07/06/23 00:20 07/05/23 21:20 07/06/23 04:00 Temperature 97.8 F Pulse Rate 130 H 106 H Respiratory Rate 20 18 Blood Pressure
--- NOTE | 2023-07-06 14:41 | PM.IMPN ---
Progress Note: A&P Assessment and Plan (1) Hallucinations: Code(s): R44.3 - Hallucinations, unspecified Status: Resolved Assessment and Plan: denies any at this time a/o 2 (2) Acute on chronic kidney failure: Code(s): N17.9 - Acute kidney failure, unspecified; N18.9 - Chronic kidney disease, unspecified Status: Acute Assessment and Plan: Creatinine is trending down, 1.40, suspect likely pre renal azotemia -continue albumin IVPB b.i.d. -continue Lasix 40 mg b.i.d. with parameters (3) Abnormal urinalysis: Code(s): R82.90 - Unspecified abnormal findings in urine Status: Acute Assessment and Plan: Suprapubic catheter is in place drsg dry and intact -continue to monitor site and catheter for s/s infection -continue P.O fluconazole (4) Blue finger syndrome: Code(s): M79.81 - Nontraumatic hematoma of soft tissue Status: Acute Assessment and Plan: -bilateral hand swelling/history of blue finger syndrome -history of ongoing bluish fingertips (5) Paroxysmal atrial fibrillation: Code(s): I48.0 - Paroxysmal atrial fibrillation Status: Acute Assessment and Plan: Currently in a sinus rhythm. Continue metoprolol. (6) Alzheimer's dementia: Code(s): G30.9 - Alzheimer's disease, unspecified; F02.80 - Dementia in other diseases classified elsewhere, unspecified severity, without behavioral disturbance, psychotic disturbance, mood disturbance, and anxiety Status: Acute Assessment and Plan: -initiate fall precautions (7) Chronic anticoagulation: Code(s): Z79.01 - care home (current) use of anticoagulants Status: Acute Assessment and Plan: Continue apixaban for stroke prophylaxis. (8) Congestive heart failure: Qualifiers: Heart failure type: right heart failure due to left heart failure Qualified Code(s): I50.814 - Right heart failure due to left heart failure Code(s): I50.9 - Heart failure, unspecified Status: Acute Assessment and Plan: -continue telemetry monitoring Continue to monitor volume status closely with strict I/O and daily weights. (9) Obstructive sleep apnea: Code(s): G47.33 - Obstructive sleep apnea (adult) (pediatric) Status: Chronic Assessment and Plan: CPAP will be provided for the patient to use while hospitalized. (10) Right-sided heart failure: Code(s): I50.810 - Right heart failure, unspecified Status: Acute Plan -condition guarded -continue albumin 25gm IVPB, b.i.d. x2 more doses VTE Prophylaxis: Eliquis DIET: Heart healthy diet Anticipated hospital stay: > 2 days Code Status: Full code Subjective Date/time seen: 07/06/23 14:41 Interval history: Chief Complaint: Altered mental status. Narrative: This is a pleasant 77-year-old female with history of dementia (patient and daughter deny this diagnosis), bladder cancer status post [place] pouch, chronic kidney disease, paroxysmal atrial fibrillation on chronic anticoagulation, right-sided heart failure, pulmonary hypertension, chronic obstructive pulmonary disease, obstructive sleep apnea on CPAP, and other comorbidities who presented to the emergency department via EMS from [facility] for evaluation of altered mental status. The patient provides the following history. Her daughter provides additional information, with the patient's permission. Prior to a few months ago she was living in her own home, doing her own cooking and caring for her cat. She has been in an out of the hospital since April and is now at the nursing for rehabilitation. According to daughter, the patient has gone downhill significantly since that time. She has been hospitalized here several times for CHF exacerbations and acute on chronic kidney disease. She had also sustained a fall with burst fractures at L1-L2. At some point during her eval
[2023-07-06] MEDS: ATORVASTATIN 40 MG TABLET 80 MG PO (20:18)
[2023-07-06] MEDS: ACETAMINOPHEN 325 MG TABLET 650 MG PO (20:20)
[2023-07-07] VITALS (20 sets, daily range): BP systolic 104–130; BP diastolic 70–85; PULSE 72–149; RESP 16–20; TEMP 35.6–36.4; O2SAT 88–100
[2023-07-07 06:56] LABS: Basophils Percent Auto 0.5 % (0.2-1.2); Eosinophils Absolute Auto 0.2 K/mm3 (0-0.3); Eosinophils Percent Auto 3.4 % (0-4.4); Hemoglobin 7.4 g/dL (12.0-15.0); Immature Granulocyte Absolute 0.03 K/mm3 (0.00-0.031); Immature Granulocyte Percent A 0.5 % (0-0.5); Immature Platelet Fraction Pct 4.1 % (0.9-11.2); Lymphocytes Absolute Auto 0.83 K/mm3 (0.9-3.2); Lymphocytes Percent Auto 13.3 % (18.3-44.2); Mean Corpuscular HGB Conc 29.6 g/dl (32-36); Mean Corpuscular Hemoglobin 26.8 pg (26-34); Mean Corpuscular Volume 90.6 fl (80-100); Mean Platelet Volume 10.8 fl (7.4-10.4); Monocytes Percent Auto 15.6 % (2.6-8.5); Neutrophils Absolute Auto 4.2 K/mm3 (1.3-6.7); Neutrophils Percent Auto 66.7 % (45.5-73.1); Platelet Count Result 98 k/mm3 (150-375); Red Blood Count 2.76 M/mm3 (4.2-5.4); Red Cell Distribution Width 15.9 % (11.5-14.5); White Blood Count 6.2 K/mm3 (4.5-10.0)
[2023-07-07 07:01] LABS: Alanine Aminotransferase 22 U/L (6-35); Albumin Level 2.7 g/dL (3.5-5.1); Alkaline Phosphatase 97 U/L (38-126); Anion Gap 3 mmol/L (8-16); Aspartate Amino Transferase 32 U/L (14-36); Bilirubin,Total 0.8 mg/dL (0.2-1.3); Blood Urea Nitrogen 50 mg/dL (7-17); Carbon Dioxide 29 mmol/L (22-30); Chloride 106 mmol/L (98-107); Estimated CRCL calculation 35 ml/min; Estimated Glomerular Filt Rate 36; Glucose 92 mg/dL (65-110); Magnesium 2.3 mg/dL (1.6-2.3); Phosphorus 2.8 mg/dL (2.5-4.5); Potassium 3.4 mmol/L (3.4-5.0); Sodium 138 mmol/L (137-145)
[2023-07-07 07:21] LABS: Anisocytosis 1+ (NORMAL); Hypochromasia 1+ (NORMAL); Platelet Estimate Decreased (Adequate); Schistocytes Rare (NORMAL)
[2023-07-07] MEDS: ASCORBIC ACID 500 MG TABLET PO ×2 (08:59→17:02)
[2023-07-07] MEDS: FLUCONAZOLE 100 MG TABLET PO (08:59)
[2023-07-07] MEDS: FERROUS SULFATE 325 MG TABLET DR PO (08:59)
[2023-07-07] MEDS: MIDODRINE HCL 2.5 MG TABLET 5 MG PO ×2 (08:59→13:36)
[2023-07-07] MEDS: PANTOPRAZOLE 40 MG TABLET PO (08:59)
[2023-07-07] MEDS: THERAPEUTIC MULTIVITAMINS/MINERALS TAB (*BKC) 1 TABLET PO (08:59)
[2023-07-07] MEDS: APIXABAN 5 MG TABLET PO ×2 (08:59→22:26)
[2023-07-07] MEDS: TOLNAFTATE 1% POWDER 45 GM BTL 1 APPLIC TOPICAL ×2 (09:00→22:27)
--- NOTE | 2023-07-07 09:13 | WPDUROPN2 ---
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 Now unable to perform intermittent catheterization due to generalized debility. She is now dependent on indwelling catheter through navel. 07/03/23 catheter became obstructed due to encrustation and SP tube was exchanged. Pouch emptied well following exchange Continue with daily suprapubic catheter irrigation of 30 cc saline to help prevent obstruction/encrustation Minimal output noted this morning; discussed with nursing staff to monitor urine output closely and to contact if output remains low following appropriate irrigation Subjective Subjective Date/Time Seen: 07/07/23 09:13 Interval history: Marilee is asleep on my encounter with CPAP in place. Unable to provide any history. Her SP tube has very minimal clear yellow urine output. Creatinine is unchanged at 1.4. WBC 6.2. She is afebrile and her vital signs are stable. Review of Systems Review of Systems: ROS unobtainable: Yes unobtainable due to medical condition Exam Narrative: General: Asleep, no acute distress HEENT: Normocephalic, atraumatic Respiratory: on CPAP Abdomen: Nondistended, soft, nontender : SP tube in place with no evidence of surrounding infection or leakage, minimal urine output Skin: Normal coloration, warm and dry Neurologic: No focal neuro deficits noted Objective Data Vital Signs Vital Signs: Vital Signs - 24 hr 07/06/23 09:43 07/06/23 12:00 07/06/23 15:55 Temperature 97.7 F Pulse Rate 105 H 115 H 115 H Respiratory Rate 18 Blood Pressure 106/79 106/84 Pulse Oximetry 98 Oxygen Delivery Oxygen Flow Rate 07/06/23 16:00 07/06/23 20:00 07/06/23 20:00 Temperature 97.0 F L Pulse Rate 110 H 77 Respiratory Rate 18 Blood Pressure 109/78 Pulse Oximetry 96 93 Oxygen Delivery Nasal Cannula Oxygen Flow Rate 4 07/06/23 23:21 07/06/23 23:33 07/06/23 20:00 Temperature 97.8 F Pulse Rate 115 H 111 H 117 H Respiratory Rate 20 18 Blood Pressure 110/70 Pulse Oximetry 98 97 Oxygen Delivery Autopap Oxygen Flow Rate 07/07/23 01:53 07/07/23 03:21 07/07/23 00:00 Temperature 97.0 F L Pulse Rate 110 H 116 H 119 H Respiratory Rate 19 18 Blood Pressure 110/70 Pulse Oximetry 98 100 Oxygen Delivery Autopap Oxygen Flow Rate 07/07/23 04:00 07/07/23 08:00 07/07/23 08:42 Temperature 96.0 F L Pulse Rate 109 H 72 Respiratory Rate 16 Blood Pressure 106/73 Pulse Oximetry 94 96 Oxygen Delivery Nasal Cannula Oxygen Flow Rate 6 Intake/Output Intake/Output: Intake & Output 07/04/23 07/05/23 07/06/23 07/07/23 23:59 23:59 23:59 23:59 Intake Total 1140 1125 375 Output Total 100 1550 1525 300 Balance 1040 -425 -1150 -300 Meds/Results Medications: Active Medications Generic Name Dose Route Start Last Admin Trade Name Freq PRN Reason Stop Dose Admin Acetaminophen 650 mg 07/01/23 13:48 07/06/23 20:20 Acetaminophen 325 Mg Tablet PO 650 mg Q6H PRN Administration Mild Pain (1-3) or Fever Apixaban 5 mg 07/01/23 21:00 07/07/23 08:59 Apixaban 5 Mg Tablet PO 5 mg Q12HR FATOUMATA Administration Ascorbic Acid 500 mg 07/01/23 17:00 07/07/23 08:59 Ascorbic Acid 500 Mg Tablet PO 500 mg BID FATOUMATA Administration Atorvastatin Calcium 80 mg 07/01/23 21:00 07/06/23 20:18 Atorvastatin 40 Mg Tablet PO 80 mg HS FATOUMATA Administration Ferrous Sulfate 325 mg 07/02/23 09:00 07/07/23 08:59 Ferrous Sulfate [address] PO 325 mg DAILY FATOUMATA Administration Fluconazole 100 mg 07/03/23 08:45 07/07/23 08:59 Fluconazole 100 Mg Tablet PO 07/16/23 09:01 100 mg QAM FATOUMATA Administration Furosemide 40 mg 07/02/23 09:00 07/04/23
--- NOTE | 2023-07-07 09:25 | PM.CNCAR ---
Assessment and Plan Assessment and plan (1) Congestive heart failure: Qualifiers: Heart failure type: right heart failure due to left heart failure Qualified Code(s): I50.814 - Right heart failure due to left heart failure Code(s): I50.9 - Heart failure, unspecified Status: Acute Assessment and Plan: Acute on chronic combined systolic (right sided) and diastolic heart failure. Agree with IV furosemide. Clinically, she does not appear to be in significant decompensated heart failure Diurese cautiously with intent of avoiding over diuresis as she is preload dependent. Daily BMP Strict intake and output Daily weights Supplemental O2 as needed (2) Pulmonary edema: Code(s): J81.1 - Chronic pulmonary edema Status: Acute Assessment and Plan: Continue furosemide (3) Atrial fibrillation: Code(s): I48.91 - Unspecified atrial fibrillation Status: Chronic Assessment and Plan: She has a history of paroxysmal atrial fibrillation. She had been maintaining sinus rhythm on sotalol. However, sotalol was not continued upon admission to the hospital. She is now back in atrial fibrillation with intermittent RVR and on on rhythm or rate controlling medications. For now will proceed with rate control strategy with metoprolol. (4) Anemia: Code(s): D64.9 - Anemia, unspecified Status: Acute Assessment and Plan: Hgb has been trending down since admission. 7.4 g/dL today. Workup per hospitalist. History of Present Illness History of Present Illness Consult date/time: 07/07/23 09:25 Requesting physician: Maura Jones APRN Consult reason: congestive heart failure Reason For Visit: AJ,UTI Narrative: ?Patient is a 77-year-old female who has history of diastolic heart failure, right-sided heart failure, pulmonary hypertension, and chronic kidney disease. She is hospitalized because of altered mental status. Cardiology is being consulted because of right sided heart failure. Patient is confused and unable to remember why she was brought to the hospital. History has been obtained from the medical record. She is denying any cardiovascular complaints including chest pain, shortness of breath, palpitations. She is in atrial fibrillation now with heart rate not well controlled. On admission, she was in sinus rhythm but her sotalol was not continued for reasons that are not clear. She was also taking Toprol XL at home which was discontinued presumably because of hypotension earlier in her hospital stay. Review of Systems Review of Systems: ROS unobtainable: Yes unobtainable due to mental status PMFSH Past Medical History Medical History Alzheimer's dementia Anxiety Bladder cancer Chronic anticoagulation Chronic kidney disease Chronic obstructive pulmonary disease Depression Hyperlipidemia Hypertension Irritable bowel disease Nocturnal enuresis Obstructive sleep apnea CPAP of 14 Paraproteinemia Paroxysmal atrial fibrillation Peptic ulcer disease Polymyalgia rheumatica Pulmonary emphysema Pulmonary hypertension Severe on echocardiogram 04/2023 Right-sided heart failure Echocardiogram April 2023: EF 65-70% mildly increased left ventricular wall thickness, left ventricular diastolic function grade 2 dysfunction, D shaped septum in systole consistent with right ventricular pressure overload, right ventricular chamber severely enlarged with reduced function, severe right atrial enlargement, moderate left atrial enlargement, moderate mitral valve regurgitation [id number] tricuspid regurgitation severe pulmonary hypertension with RVSP of 72 Stroke Ulcers of both great toes Surgical History Surgical History History of appendectomy History of arthroplasty of knee History of cholecystectomy History of cystostomy History
--- NOTE | 2023-07-07 10:02 | ECG_ITS ---
Measurements Intervals [place] Rate: 137 P: OK: 0 QRS: 61 QRSD: 89 T: 260 QT: 293 QTc: 444 Interpretive Statements ATRIAL FIBRILLATION WITH RAPID VENTRICULAR RESPONSE LOW QRS VOLTAGE IN PRECORDIAL LEADS [QRS DEFLECTION < 1.0 mV IN CHEST LEADS] NONSPECIFIC T-WAVE ABNORMALITY ABNORMAL ECG COMPARED TO ECG 07/05/2023 21:17:21 NO DIFFERENCE Electronically Signed On 07-07-2023 16:52:09 GUSSET EDGER by Larry Frederick M.D.
--- NOTE | 2023-07-07 10:16 | P.PNNP_ITS ---
Progress Note: A&P Assessment and Plan (1) AJ (acute kidney injury): Code(s): N17.9 - Acute kidney failure, unspecified Status: Acute Assessment and Plan: * probably pre renal azotemia complicated by infection/UTI and relative hypotension with the need for diuretic therapy * some improvement noted with IV albumin and IV diuretics * follow trend of repeat labs and UOP (2) Stage 3b chronic kidney disease: Code(s): N18.32 - Chronic kidney disease, stage 3b Status: Acute Assessment and Plan: * baseline creatinine seems to run ~ 1.2 - 1.6mg/dl * extensive evaluation to date/previous hospitalizations... * CKD thought to be due to hemodynamic effects of the pulmonary hypertension and the diastolic dysfunction/right sided heart failure along with the need for diuretic therapy to maintain her volume status in the context of decreased nephron mass (solitary kidney) * has some proteinuria as well so she probably has some intrinsic kidney disease as well (likely from vascular disease and age) (3) AMS (altered mental status): Code(s): R41.82 - Altered mental status, unspecified Status: Acute Assessment and Plan: * appears back to baseline at this time (4) UTI (urinary tract infection): Code(s): N39.0 - Urinary tract infection, site not specified Status: Acute Assessment and Plan: * admission UA suggestive * however, has chronic suprapubic bolton so results could be skewed by this issue * culture results noted - on Fluconazole (5) Chronic CHF: Code(s): I50.9 - Heart failure, unspecified Status: Chronic Assessment and Plan: * echo last month showed severe TR, severe pulmonary hypertension, right-sided volume overload and grade 1 diastolic dysfunction.. * on diuretic therapy and s/p IV albumin * Cardiology consulted (6) Pulmonary hypertension: Code(s): I27.20 - Pulmonary hypertension, unspecified Status: Chronic Assessment and Plan: * quite significant/severe on recent/previous Echo * due to heart failure, COPD, and ZAK * continue CPAP support (7) Paroxysmal atrial fibrillation: Code(s): I48.0 - Paroxysmal atrial fibrillation Status: Acute Assessment and Plan: * rate control strategy * on Eliquis Will continue to follow. Subjective Date/time seen: 07/07/23 10:16 Interval history: Follow-up for acute kidney injury/acute renal failure on chronic kidney disease. Chart reviewed since last seen; better urine output noted with IV albumin + diuretics; renal function appears relatively stable as well; however, still requiring significant oxygen support at this time; no apparent distress noted at the time of my visit. Exam Narrative: General: elderly and somewhat ill-appearing female in NAD Heart: normal S1 and S2; no rub or gallop Lungs: coarse and decreased at bases Abdomen: soft, nontender, nondistended, positive bowel sounds Extremities: no cyanosis or clubbing; 1 - 2+ edema Skin: chronic venous stasis changes noted Objective Data Vital Signs Vital Signs: Vital Signs Temp Pulse Resp BP Pulse Ox O2 Del Method O2 Flow Rate 07/07/23 08:42 96 Nasal Cannula 6 07/07/23 08:00 96.0 F L 72 16 106/73 94 07/07/23 04:00 109 H 07/07/23 00:00 119 H 07/07/23 03:21 97.0 F L 116 H 18 110/
--- NOTE | 2023-07-07 10:16 | PM.PNNEP ---
Progress Note: A&P Assessment and Plan (1) AJ (acute kidney injury): Code(s): N17.9 - Acute kidney failure, unspecified Status: Acute Assessment and Plan: probably pre renal azotemia complicated by infection/UTI and relative hypotension with the need for diuretic therapy some improvement noted with IV albumin and IV diuretics follow trend of repeat labs and UOP (2) Stage 3b chronic kidney disease: Code(s): N18.32 - Chronic kidney disease, stage 3b Status: Acute Assessment and Plan: baseline creatinine seems to run ~ 1.2 - 1.6mg/dl extensive evaluation to date/previous hospitalizations... CKD thought to be due to hemodynamic effects of the pulmonary hypertension and the diastolic dysfunction/right sided heart failure along with the need for diuretic therapy to maintain her volume status in the context of decreased nephron mass (solitary kidney) has some proteinuria as well so she probably has some intrinsic kidney disease as well (likely from vascular disease and age) (3) AMS (altered mental status): Code(s): R41.82 - Altered mental status, unspecified Status: Acute Assessment and Plan: appears back to baseline at this time (4) UTI (urinary tract infection): Code(s): N39.0 - Urinary tract infection, site not specified Status: Acute Assessment and Plan: admission UA suggestive however, has chronic suprapubic bolton so results could be skewed by this issue culture results noted - on Fluconazole (5) Chronic CHF: Code(s): I50.9 - Heart failure, unspecified Status: Chronic Assessment and Plan: echo last month showed severe TR, severe pulmonary hypertension, right-sided volume overload and grade 1 diastolic dysfunction.. on diuretic therapy and s/p IV albumin Cardiology consulted (6) Pulmonary hypertension: Code(s): I27.20 - Pulmonary hypertension, unspecified Status: Chronic Assessment and Plan: quite significant/severe on recent/previous Echo due to heart failure, COPD, and ZAK continue CPAP support (7) Paroxysmal atrial fibrillation: Code(s): I48.0 - Paroxysmal atrial fibrillation Status: Acute Assessment and Plan: rate control strategy on Eliquis Will continue to follow. Subjective Date/time seen: 07/07/23 10:16 Interval history: Follow-up for acute kidney injury/acute renal failure on chronic kidney disease. Chart reviewed since last seen; better urine output noted with IV albumin + diuretics; renal function appears relatively stable as well; however, still requiring significant oxygen support at this time; no apparent distress noted at the time of my visit. Exam Narrative: General: elderly and somewhat ill-appearing female in NAD Heart: normal S1 and S2; no rub or gallop Lungs: coarse and decreased at bases Abdomen: soft, nontender, nondistended, positive bowel sounds Extremities: no cyanosis or clubbing; 1 - 2+ edema Skin: chronic venous stasis changes noted Objective Data Vital Signs Vital Signs: Vital Signs Temp Pulse Resp BP Pulse Ox O2 Del Method O2 Flow Rate 07/07/23 08:42 96 Nasal Cannula 6 07/07/23 08:00 96.0 F L 72 16 106/73 94 07/07/23 04:00 109 H 07/07/23 00:00 119 H 07/07/23 03:21 97.0 F L 116 H 18 110/70 100 07/07/23 01:53 110 H 19 98 Autopap 07/06/23 20:00 117 H 07/06/23 23:33 111 H 18 97 Autopap 07/06/23 23:21 97.8 F 115 H 20 110/70 98 07/06/23 20:00 93 Nasal Cannula 4 07/06/23 20:00 97.0 F L 77 18 109/78 96 07/06/23 16:00 110 H 07/06/23 15:55 97.7 F 115 H 18 106/84 98 07/06/23 12:00 115 H Intake/Output Intake/Output: Intake & Output 07/04/23 07/05/23 07/06/23 07/07/23 23:59 23:59 23:59 23:59 Intake Total 1140 1125 375 Output Total 100 1550 1525 300 Balance 1040 -425 -1150 -300
--- NOTE | 2023-07-07 10:37 | PM.IMPN ---
Progress Note: A&P Assessment and Plan (1) Hallucinations: Code(s): R44.3 - Hallucinations, unspecified Status: Resolved Assessment and Plan: denies any at this time a/o 2-3 (2) Acute on chronic kidney failure: Code(s): N17.9 - Acute kidney failure, unspecified; N18.9 - Chronic kidney disease, unspecified Status: Acute Assessment and Plan: Creatinine is trending down, 1.40, suspect likely pre renal azotemia -d/c albumin IVPB b.i.d. per Cardiology recommendation -continue Lasix 40 mg b.i.d. with parameters (3) Abnormal urinalysis: Code(s): R82.90 - Unspecified abnormal findings in urine Status: Acute Assessment and Plan: Suprapubic catheter is in place drsg dry and intact -continue to monitor site and catheter for s/s infection -continue P.O fluconazole (4) Blue finger syndrome: Code(s): M79.81 - Nontraumatic hematoma of soft tissue Status: Acute Assessment and Plan: -bilateral hand swelling/history of blue finger syndrome -history of ongoing bluish fingertips (5) Paroxysmal atrial fibrillation: Code(s): I48.0 - Paroxysmal atrial fibrillation Status: Acute Assessment and Plan: -patient with AFib RVR, gait patient 5 mg metoprolol IV push -moved patient to IMU for monitoring -cardiology/nephrology is following patient (6) Alzheimer's dementia: Qualifiers: Alzheimer's disease onset: unspecified onset Dementia behavioral or psychological symptom: without behavioral, psychotic, or mood disturbance or anxiety Code(s): G30.9 - Alzheimer's disease, unspecified; F02.80 - Dementia in other diseases classified elsewhere, unspecified severity, without behavioral disturbance, psychotic disturbance, mood disturbance, and anxiety Status: Acute Assessment and Plan: -initiate fall precautions (7) Chronic anticoagulation: Code(s): Z79.01 - halfway (current) use of anticoagulants Status: Acute Assessment and Plan: Continue apixaban for stroke prophylaxis. (8) Obstructive sleep apnea: Code(s): G47.33 - Obstructive sleep apnea (adult) (pediatric) Status: Chronic Assessment and Plan: CPAP will be provided for the patient to use while hospitalized. (9) Right-sided heart failure: Qualifiers: Heart failure chronicity: acute on chronic Qualified Code(s): I50.813 - Acute on chronic right heart failure Code(s): I50.810 - Right heart failure, unspecified Status: Acute Assessment and Plan: Consulted cardiology appreciate recommendation and plan -continue telemetry monitoring -placed at Brian hose/ knee bilaterally Plan -condition guarded -hemoglobin is 7.4 continue to monitor, will trend H&H q.6 -long discussion with son, explained DNR to son who is POA and once again has decided DNR, met with daughter Helen, answered all questions and concerns regarding the DNR status, she reports she did not fully understand and at this time she requests her mother be DNR, she states she has spoke with her brother about this decision as well. VTE Prophylaxis: Eliquis DIET: Heart healthy diet Anticipated hospital stay: > 2 days Code Status: Full code Subjective Date/time seen: 07/07/23 10:37 Interval history: Interval history: Chief Complaint: Altered mental status. Narrative: This is a pleasant 77-year-old female with history of dementia (patient and daughter deny this diagnosis), bladder cancer status post [place] pouch, chronic kidney disease, paroxysmal atrial fibrillation on chronic anticoagulation, right-sided heart failure, pulmonary hypertension, chronic obstructive pulmonary disease, obstructive sleep apnea on CPAP, and other comorbidities who presented to the emergency department via EMS from [facility] for evaluation of altered mental status. The patient provides the following history. Her daughter
[2023-07-07 11:07] LABS: NT Pro B Type Natriuretic Pept > 30000 pg/mL (19.9-100)
--- NOTE | 2023-07-07 11:23 | PCOTNOTE ---
Patient not to be seen this A.M. Patient having increased heart rates, per charge auditor, Patient is moving to IMU.
--- NOTE | 2023-07-07 11:50 | PCPTNOTE ---
The patient treatment was not able to be completed due to Patient being transferred to IMU. PT will follow up with physician to resume therapy.
[2023-07-07] MEDS: METOPROLOL TARTRATE INJ 5 MG/5 ML VIAL IV PUSH (13:35)
--- NOTE | 2023-07-07 14:16 | ECG_ITS ---
Measurements Intervals [place] Rate: 121 P: [place]: 0 QRS: 57 QRSD: 92 T: -60 QT: 352 QTc: 501 Interpretive Statements ATRIAL FIBRILLATION WITH RAPID VENTRICULAR RESPONSE LOW QRS VOLTAGE IN EXTREMITY LEADS [QRS DEFLECTION < 0.5 mV IN LIMB LEADS] INCOMPLETE RIGHT BUNDLE BRANCH BLOCK [90+ ms QRS DURATION, TERMINAL R IN V1/V2, 40+ ms S IN I/aVL/V4/V5/V6] NONSPECIFIC ST & T-WAVE ABNORMALITY ABNORMAL ECG COMPARED TO ECG 07/07/2023 10:15:25 NO DIFFERENCE Electronically Signed On 07-07-2023 17:04:07 [employer] SUPERVIS[employer] by Larry Frederick M.D.
--- NOTE | 2023-07-07 14:20 | PC.NURSE ---
This patient, Marilee Kilgore, was transferred to [facility] on 07/07/23 at 1420. Report given to Erinn RED. Personal belongings sent with patient. Report given to [ ]. Appropriate documentation sent with patient.
[2023-07-07] MEDS: METOPROLOL TARTRATE 25 MG TABLET PO ×2 (17:02→22:26)
[2023-07-07] MEDS: FUROSEMIDE INJ 40 MG/4 ML VIAL IV PUSH (17:10)
[2023-07-07] MEDS: ACETAMINOPHEN 325 MG TABLET 650 MG PO (18:46)
--- NOTE | 2023-07-07 20:40 | PC.NURSE ---
Daisy VANG charting was reviewed, I agree with her findings.
[2023-07-07] MEDS: ATORVASTATIN 40 MG TABLET 80 MG PO (22:25)
[2023-07-08] VITALS (27 sets, daily range): BP systolic 96–125; BP diastolic 67–89; PULSE 94–131; RESP 18–22; TEMP 36.1–36.6; O2SAT 92–100
[2023-07-08 05:00] LABS: Basophils Percent Auto 0.6 % (0.2-1.2); Eosinophils Absolute Auto 0.1 K/mm3 (0-0.3); Eosinophils Percent Auto 1.8 % (0-4.4); Hematocrit 22.9 % (37.0-47.0); Immature Granulocyte Absolute 0.03 K/mm3 (0.00-0.031); Immature Granulocyte Percent A 0.4 % (0-0.5); Lymphocytes Absolute Auto 0.99 K/mm3 (0.9-3.2); Lymphocytes Percent Auto 14.6 % (18.3-44.2); Mean Corpuscular HGB Conc 30.1 g/dl (32-36); Mean Corpuscular Hemoglobin 26.7 pg (26-34); Mean Corpuscular Volume 88.8 fl (80-100); Monocytes Absolute Auto 0.9 K/mm3 (0.1-0.6); Monocytes Percent Auto 13.2 % (2.6-8.5); Neutrophils Absolute Auto 4.7 K/mm3 (1.3-6.7); Neutrophils Percent Auto 69.4 % (45.5-73.1); Nucleated Red Blood Cells Perc 0.6 % (0.0-0.2); Platelet Count Result 120 k/mm3 (150-375); Red Blood Count 2.58 M/mm3 (4.2-5.4); Red Cell Distribution Width 15.8 % (11.5-14.5); White Blood Count 6.8 K/mm3 (4.5-10.0)
[2023-07-08 05:08] LABS: Hemoglobin 6.9 g/dL (12.0-15.0)
[2023-07-08 05:12] LABS: Alanine Aminotransferase 22 U/L (6-35); Albumin Level 2.7 g/dL (3.5-5.1); Alkaline Phosphatase 101 U/L (38-126); Anion Gap 3 mmol/L (8-16); Aspartate Amino Transferase 29 U/L (14-36); Blood Urea Nitrogen 45 mg/dL (7-17); Calcium 8.1 mg/dL (8.4-10.2); Carbon Dioxide 32 mmol/L (22-30); Chloride 103 mmol/L (98-107); Estimated CRCL calculation 38 ml/min; Estimated Glomerular Filt Rate 40; Glucose 88 mg/dL (65-110); Magnesium 2.1 mg/dL (1.6-2.3); Phosphorus 2.7 mg/dL (2.5-4.5); Potassium 3.5 mmol/L (3.4-5.0); Sodium 138 mmol/L (137-145)
[2023-07-08] MEDS: METOPROLOL TARTRATE 25 MG TABLET PO ×3 (06:26→21:13)
--- NOTE | 2023-07-08 08:34 | PCOTNOTE ---
Pt. moved to IMU. Per nursing, pt. needs to receive blood, will wait on therapy services at this time for medical and safety concerns. Following.
[2023-07-08] MEDS: FERROUS SULFATE 325 MG TABLET DR PO (09:07)
[2023-07-08] MEDS: FUROSEMIDE INJ 40 MG/4 ML VIAL IV PUSH ×2 (09:07→16:48)
[2023-07-08] MEDS: THERAPEUTIC MULTIVITAMINS/MINERALS TAB (*BKC) 1 TABLET PO (09:07)
[2023-07-08] MEDS: TOLNAFTATE 1% POWDER 45 GM BTL 1 APPLIC TOPICAL ×2 (09:07→21:12)
[2023-07-08] MEDS: PANTOPRAZOLE 40 MG TABLET PO (09:07)
[2023-07-08] MEDS: FLUCONAZOLE 100 MG TABLET PO (09:07)
[2023-07-08] MEDS: ASCORBIC ACID 500 MG TABLET PO ×2 (09:07→16:48)
--- NOTE | 2023-07-08 10:03 | PM.IMPN ---
Progress Note: A&P Assessment and Plan (1) Hallucinations: Code(s): R44.3 - Hallucinations, unspecified Status: Resolved Assessment and Plan: denies any at this time a/o 2-3 (2) Acute on chronic kidney failure: Code(s): N17.9 - Acute kidney failure, unspecified; N18.9 - Chronic kidney disease, unspecified Status: Acute Assessment and Plan: Creatinine is trending down, 1.40, suspect likely pre renal azotemia -d/c albumin IVPB b.i.d. per Cardiology recommendation -continue Lasix 40 mg b.i.d. with parameters (3) Abnormal urinalysis: Code(s): R82.90 - Unspecified abnormal findings in urine Status: Acute Assessment and Plan: Suprapubic catheter is in place drsg dry and intact -continue to monitor site and catheter for s/s infection -continue P.O fluconazole (4) Blue finger syndrome: Code(s): M79.81 - Nontraumatic hematoma of soft tissue Status: Acute Assessment and Plan: -bilateral hand swelling/history of blue finger syndrome -history of ongoing bluish fingertips (5) Paroxysmal atrial fibrillation: Code(s): I48.0 - Paroxysmal atrial fibrillation Status: Acute Assessment and Plan: -history of proximal atrial fibrillation -cardiology following has started patient on IV amiodarone drip, and continue metoprolol p.o. -may need to lower or discontinue metoprolol - (6) Alzheimer's dementia: Qualifiers: Alzheimer's disease onset: unspecified onset Dementia behavioral or psychological symptom: without behavioral, psychotic, or mood disturbance or anxiety Code(s): G30.9 - Alzheimer's disease, unspecified; F02.80 - Dementia in other diseases classified elsewhere, unspecified severity, without behavioral disturbance, psychotic disturbance, mood disturbance, and anxiety Status: Acute Assessment and Plan: -initiate fall precautions (7) Chronic anticoagulation: Code(s): Z79.01 - FPC (current) use of anticoagulants Status: Acute Assessment and Plan: -hold Eliquis due to drop in hemoglobin -concern for bleeding (8) Obstructive sleep apnea: Code(s): G47.33 - Obstructive sleep apnea (adult) (pediatric) Status: Chronic Assessment and Plan: CPAP will be provided for the patient to use while hospitalized. -continue CPAP at night (9) Right-sided heart failure: Qualifiers: Heart failure chronicity: acute on chronic Qualified Code(s): I50.813 - Acute on chronic right heart failure Code(s): I50.810 - Right heart failure, unspecified Status: Acute Assessment and Plan: Consulted cardiology appreciate recommendation and plan -continue telemetry monitoring -continue furosemide 40 mg IV b.i.d., patient is preload dependent -continue check daily BMP -strict I&O -daily weights -continue oxygen titration to keep SpO2 > 93% -place Brian hose/ knee bilaterally Plan -condition guarded -hemoglobin is 6.9 -transfuse 1 unit RBC -keep hemoglobin > 7 -continue to monitor, will trend H&H q.6 long discussion with son, explained DNR to son who is POA and once again has decided DNR, met with daughter Sharlene, answered all questions and concerns regarding the DNR status, she reports she did not fully understand and at this time she requests her mother be DNR, she states she has spoke with her brother about this decision as well. VTE Prophylaxis:Dcd Eliquis DIET: Heart healthy diet Anticipated hospital stay: > 2 days Code Status: Full code Subjective Date/time seen: 07/08/23 10:03 Interval history: Interval history: Chief Complaint: Altered mental status. Narrative: This is a pleasant 77-year-old female with history of dementia (patient and daughter deny this diagnosis), bladder cancer status post [place] pouch, chronic kidney disease, paroxysmal atrial fibrillation on chronic anticoagulation, right-sided heart failure, pulm
[2023-07-08] MEDS: AMIODARONE 360 MG/D5W 200 ML 360 MG/200 ML BAG 33.33 MG IV CONT (10:11)
[2023-07-08] MEDS: AMIODARONE 150 MG/D5W 100 ML 150 MG/100 ML BAG 600 MG IV CONT (10:11)
--- NOTE | 2023-07-08 10:13 | PM.PNCARD ---
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 Clinically, she does not appear to be in significant decompensated heart failure Agree with IV furosemide for now. Continue with 40mg IV b.i.d Diurese cautiously with intent of avoiding over diuresis as she is preload dependent. Daily BMP Strict intake and output Daily weights Supplemental O2 as needed (2) Pulmonary edema: Code(s): J81.1 - Chronic pulmonary edema Status: Acute Assessment and Plan: Continue furosemide (3) Atrial fibrillation: Code(s): I48.91 - Unspecified atrial fibrillation Status: Chronic Assessment and Plan: She has a history of paroxysmal atrial fibrillation. She had been maintaining sinus rhythm on sotalol. However, sotalol was not continued upon admission to the hospital. She is now back in atrial fibrillation with intermittent RVR and on on rhythm or rate controlling medications. Will initiate IV amiodarone this morning as she was not at all rate controlled with the p.o. metoprolol. Will continue the metoprolol for now, but may need to decrease/discontinue based on response to the amiodarone. (4) Anemia: Code(s): D64.9 - Anemia, unspecified Status: Acute Assessment and Plan: Hgb has been trending down since admission. 6.9 g/dL today. Stool guaiac positive. Workup per hospitalist. Subjective Date/time seen: 07/08/23 10:13 Interval history: Cardiology follow up for Afib, CHF She is more alert today. Remains confused. Edema looks better today. Patient states she is feeling less short of breath. Review of Systems Review of Systems: ROS unobtainable: Yes unobtainable due to mental status Exam Const: General: comfortable, no acute distress, alert and awake Orientation/consciousness: No patient oriented x3 HENMT: Head: normal to inspection Mouth: Yes dry mucous membranes Eyes: General: appearance normal, both eyes and all related structures Pupils: Equal, round and reactive pupils present Neck: Neck: normal visual inspection and supple Carotids: normal carotid upstroke Other: Unable to assess for JVD Resp: Effort & Inspection: normal respiratory effort Auscultation: clear to auscultation bilaterally and diminished lung sounds Cardio: Rate: tachycardic Rhythm: abnormal rhythm irregularly irregular Heart sounds: S1 normal heart sound present, S2 normal heart sound present and no murmurs GI: Auscultation: normal bowel sounds Skin: General skin exam: normal color Neuro: General: No patient oriented x3 Cranial nerves: Yes Equal, round and reactive pupils present Extrem: General: edema Other: Mild-moderate bilateral pretibial edema. Worse on left than right Psych: Appearance: grossly normal Mental Status: mental status grossly abnormal Objective Data Vital Signs Vital Signs: Vital Signs - 24 hr 07/07/23 11:46 07/07/23 12:00 07/07/23 13:35 Temperature 35.8 C L Pulse Rate 122 H 128 H 149 H Respiratory Rate 20 Blood Pressure 130/82 Pulse Oximetry 98 Oxygen Delivery Oxygen Flow Rate Fraction of Inspired Oxygen 07/07/23 16:12 07/07/23 17:02 07/07/23 14:20 Temperature 36.4 C L Pulse Rate 141 H 124 H Respiratory Rate 16 Blood Pressure 104/85 Pulse Oximetry 88 L 92 Oxygen Delivery Nasal Cannula Oxygen Flow Rate 6 Fraction of Inspired Oxygen 07/07/23 16:00 07/07/23 16:00 07/07/23 18:00 Temperature Pulse Rate 116 H 109 H Respiratory Rate Blood Pressure Pulse Oximetry 90 Oxygen Delivery Nasal Cannula Oxygen Flow Rat
--- NOTE | 2023-07-08 11:15 | PM.PNNEP ---
Progress Note: A&P Assessment and Plan (1) AJ (acute kidney injury): Code(s): N17.9 - Acute kidney failure, unspecified Status: Acute Assessment and Plan: slow improvement noted probably pre renal azotemia complicated by infection/UTI and relative hypotension with the need for diuretic therapy some improvement noted with IV albumin and IV diuretics follow trend of repeat labs and UOP (2) Stage 3b chronic kidney disease: Code(s): N18.32 - Chronic kidney disease, stage 3b Status: Acute Assessment and Plan: baseline creatinine seems to run ~ 1.2 - 1.6mg/dl extensive evaluation to date/previous hospitalizations... CKD thought to be due to hemodynamic effects of the pulmonary hypertension and the diastolic dysfunction/right sided heart failure along with the need for diuretic therapy to maintain her volume status in the context of decreased nephron mass (solitary kidney) has some proteinuria as well so she probably has some intrinsic kidney disease as well (likely from vascular disease and age) (3) Anemia: Code(s): D64.9 - Anemia, unspecified Status: Acute Assessment and Plan: drop in H/H noted by AM labs (07/08/23) PRBC transfusion per protocol follow trend of H/H (4) AMS (altered mental status): Code(s): R41.82 - Altered mental status, unspecified Status: Acute Assessment and Plan: appears better follow mentation (5) UTI (urinary tract infection): Code(s): N39.0 - Urinary tract infection, site not specified Status: Acute Assessment and Plan: admission UA suggestive however, has chronic suprapubic bolton so results could be skewed by this issue culture results noted - on Fluconazole (6) Chronic CHF: Code(s): I50.9 - Heart failure, unspecified Status: Chronic Assessment and Plan: echo last month showed severe TR, severe pulmonary hypertension, right-sided volume overload and grade 1 diastolic dysfunction.. on diuretic therapy and s/p IV albumin Cardiology consulted (7) Pulmonary hypertension: Code(s): I27.20 - Pulmonary hypertension, unspecified Status: Chronic Assessment and Plan: quite significant/severe on recent/previous Echo due to heart failure, COPD, and ZAK continue CPAP support (8) Paroxysmal atrial fibrillation: Code(s): I48.0 - Paroxysmal atrial fibrillation Status: Acute Assessment and Plan: rate control strategy on Eliquis Will continue to follow. Subjective Date/time seen: 07/08/23 11:15 Interval history: Follow-up for acute kidney injury/acute renal failure on chronic kidney disease. Renal function relatively stable at this time despite ongoing diuresis; breathing seems stable if not better as is swelling/edema; no apparent distress noted currently. Exam Narrative: General: elderly and somewhat ill-appearing female in NAD Heart: normal S1 and S2; no rub or gallop Lungs: coarse and decreased at bases Abdomen: soft, nontender, nondistended, positive bowel sounds Extremities: no cyanosis or clubbing; 1 - 2+ edema Skin: chronic venous stasis changes present Objective Data Vital Signs Vital Signs: Vital Signs Temp Pulse Resp BP Pulse Ox O2 Del Method O2 Flow Rate 07/08/23 10:11 126 H 07/08/23 10:11 126 H 07/08/23 08:11 97.4 F L 113 H 20 118/89 07/08/23 06:26 124 H 07/08/23 06:00 120 H 07/08/23 05:15 97.9 F 102 H 20 100/79 96 07/08/23 04:00 108 H 07/08/23 04:00 109 H 20 100 Nasal Cannula 5 07/08/23 02:00 109 H 07/08/23 00:00 112 H 07/07/23 22:00 115 H 07/07/23 20:00 118 H 07/08/23 00:05 97.6 F 103 H 20 125/84 100 07/08/23 00:00 103 H 20 100 Nasal Cannula 6 07/07/23 20:00 109 H 16 94 Nasal Cannula 6 07/07/23 22:26 109 H 07/07/23 19:54 97.5 F L 115 H 16
--- NOTE | 2023-07-08 11:15 | P.PNNP_ITS ---
Progress Note: A&P Assessment and Plan (1) AJ (acute kidney injury): Code(s): N17.9 - Acute kidney failure, unspecified Status: Acute Assessment and Plan: * slow improvement noted * probably pre renal azotemia complicated by infection/UTI and relative hypotension with the need for diuretic therapy * some improvement noted with IV albumin and IV diuretics * follow trend of repeat labs and UOP (2) Stage 3b chronic kidney disease: Code(s): N18.32 - Chronic kidney disease, stage 3b Status: Acute Assessment and Plan: * baseline creatinine seems to run ~ 1.2 - 1.6mg/dl * extensive evaluation to date/previous hospitalizations... * CKD thought to be due to hemodynamic effects of the pulmonary hypertension and the diastolic dysfunction/right sided heart failure along with the need for diuretic therapy to maintain her volume status in the context of decreased n ephron mass (solitary kidney) * has some proteinuria as well so she probably has some intrinsic kidney disease as well (likely from vascular disease and age) (3) Anemia: Code(s): D64.9 - Anemia, unspecified Status: Acute Assessment and Plan: * drop in H/H noted by AM labs (07/08/23) * PRBC transfusion per protocol * follow trend of H/H (4) AMS (altered mental status): Code(s): R41.82 - Altered mental status, unspecified Status: Acute Assessment and Plan: * appears better * follow mentation (5) UTI (urinary tract infection): Code(s): N39.0 - Urinary tract infection, site not specified Status: Acute Assessment and Plan: * admission UA suggestive * however, has chronic suprapubic bolton so results could be skewed by this issue * culture results noted - on Fluconazole (6) Chronic CHF: Code(s): I50.9 - Heart failure, unspecified Status: Chronic Assessment and Plan: * echo last month showed severe TR, severe pulmonary hypertension, right-sided volume overload and grade 1 diastolic dysfunction.. * on diuretic therapy and s/p IV albumin * Cardiology consulted (7) Pulmonary hypertension: Code(s): I27.20 - Pulmonary hypertension, unspecified Status: Chronic Assessment and Plan: * quite significant/severe on recent/previous Echo * due to heart failure, COPD, and ZAK * continue CPAP support (8) Paroxysmal atrial fibrillation: Code(s): I48.0 - Paroxysmal atrial fibrillation Status: Acute Assessment and Plan: * rate control strategy * on Eliquis Will continue to follow. Subjective Date/time seen: 07/08/23 11:15 Interval history: Follow-up for acute kidney injury/acute renal failure on chronic kidney disease. Renal function relatively stable at this time despite ongoing diuresis; breathing seems stable if not better as is swelling/edema; no apparent distress noted currently. Exam Narrative: General: elderly and somewhat ill-appearing female in NAD Heart: normal S1 and S2; no rub or gallop Lungs: coarse and decreased at bases Abdomen: soft, nontender, nondistended, positive bowel sounds Extremities: no cyanosis or clubbing; 1 - 2+ edema Skin: chronic venous stasis changes present Objective Data Vital Signs Vital Signs: Vital Signs Temp Pulse Resp BP Pulse Ox O2 Del Method O2 Flow Rate 07/08/23 10:11 126 H 07/08/23
[2023-07-08] MEDS: ACETAMINOPHEN 325 MG TABLET 650 MG PO (13:20)
[2023-07-08] MEDS: SODIUM CHLORIDE 0.9% IV 250 ML 30 ML IV CONT (13:27)
[2023-07-08] MEDS: TUBING, BLOOD PLUM PUMP TUBING 1 EACH XX (13:27)
[2023-07-08] MEDS: hydrOXYzine HCL 10 MG TABLET PO (15:55)
[2023-07-08] MEDS: AMIODARONE 360 MG/D5W 200 ML 360 MG/200 ML BAG 16.67 MG IV CONT (15:57)
[2023-07-08 17:49] LABS: Hematocrit 27.9 % (37.0-47.0); Hemoglobin 8.7 g/dL (12.0-15.0)
[2023-07-08] MEDS: ATORVASTATIN 40 MG TABLET 80 MG PO ×2 (20:56→21:00)
[2023-07-09] VITALS (23 sets, daily range): BP systolic 95–107; BP diastolic 60–87; PULSE 64–108; RESP 20–22; TEMP 36.2–36.6; O2SAT 94–100; BMI 10.0
[2023-07-09 00:07] LABS: Hematocrit 27.2 % (37.0-47.0); Hemoglobin 8.5 g/dL (12.0-15.0)
[2023-07-09] MEDS: AMIODARONE 360 MG/D5W 200 ML 360 MG/200 ML BAG 16.67 MG IV CONT ×2 (02:52→15:22)
--- NOTE | 2023-07-09 02:55 | PC.NURSE ---
Spoke to urologist regarding suprapubic catheter leaking at the beginning of the shift. Dr. Castañeda stated to monitor for retention and occlusion and patient would be seen tomorrow. This nurse catheter and flushed to irrigate and pulled back 30ml using sterile technique. Catheter drained 450 within the next few hours. No furthur leaking tonight.
[2023-07-09] MEDS: ACETAMINOPHEN 325 MG TABLET 650 MG PO ×2 (05:06→21:10)
[2023-07-09] MEDS: METOPROLOL TARTRATE 25 MG TABLET PO ×3 (05:08→21:03)
[2023-07-09 05:28] LABS: Hematocrit 28.8 % (37.0-47.0); Hemoglobin 9.1 g/dL (12.0-15.0)
[2023-07-09 06:22] LABS: Alanine Aminotransferase 21 U/L (6-35); Albumin Level 3.1 g/dL (3.5-5.1); Alkaline Phosphatase 107 U/L (38-126); Anion Gap 8 mmol/L (8-16); Aspartate Amino Transferase 30 U/L (14-36); Bilirubin,Total 1.5 mg/dL (0.2-1.3); Blood Urea Nitrogen 46 mg/dL (7-17); Calcium 8.3 mg/dL (8.4-10.2); Carbon Dioxide 26 mmol/L (22-30); Chloride 101 mmol/L (98-107); Estimated CRCL calculation 37 ml/min; Estimated Glomerular Filt Rate 40; Glucose 101 mg/dL (65-110); Potassium 3.1 mmol/L (3.4-5.0); Sodium 135 mmol/L (137-145)
--- NOTE | 2023-07-09 08:25 | PCPTNOTE ---
attempted PT reeval, pt moved to IMU-- nursing just put pt on bed hearn and breakfast on her tray.
[2023-07-09 08:48] LABS: Magnesium 2.2 mg/dL (1.6-2.3)
--- NOTE | 2023-07-09 08:58 | PM.IMPN ---
Progress Note: A&P Assessment and Plan (1) COPD (chronic obstructive pulmonary disease): Qualifiers: COPD type: COPD with acute exacerbation Qualified Code(s): J44.1 - Chronic obstructive pulmonary disease with (acute) exacerbation Code(s): J44.9 - Chronic obstructive pulmonary disease, unspecified Status: Acute (2) Pulmonary hypertension: Code(s): I27.20 - Pulmonary hypertension, unspecified Status: Chronic (3) Hypertension: Code(s): I10 - Essential (primary) hypertension Status: Chronic (4) Atrial fibrillation: Code(s): I48.91 - Unspecified atrial fibrillation Status: Chronic (5) Obstructive sleep apnea: Code(s): G47.33 - Obstructive sleep apnea (adult) (pediatric) Status: Chronic (6) AJ (acute kidney injury): Code(s): N17.9 - Acute kidney failure, unspecified Status: Acute (7) CKD (chronic kidney disease) stage 4, GFR 15-29 ml/min: Code(s): N18.4 - Chronic kidney disease, stage 4 (severe) Status: Acute Plan 77-year-old white female with a PMH of dementia, bladder cancer status post [place] pouch, CKD, paroxysmal atrial fibrillation on chronic anticoagulation, right-sided heart failure, pulmonary hypertension, COPD, ZAK on CPAP, anxiety, depression, hyperlipidemia, irritable bowel, peptic ulcer disease presents with altered mental status. Per the family the patient had been living on her own just recently. Admitted on 07/01/2023 #altered mental status -stable. Likely an advancement of her underlying neurocognitive decline. Head CT without contrast demonstrating prominent cerebellar and central and cortical cerebral atrophy. No acute abnormalities. B12 and TSH normal. Funguria is a consideration although she has a suprapubic catheter and does not appear toxic/septic. Advanced heart failure is playing a role likely. On 07 08 23 she has been made DNR. The son, Gabriel, does not wish to pursue further evaluation or aggressive therapy. She will need to be discharged to a 24 hour care permanent SNF # AJ and CKD -improved. Back to her baseline serum creatinine. Status post albumin administration. Nephrology following # abnormal urinalysis -Tracy tropicalis growing in urine culture. Could be a colonization. Continue fluconazole for the 14 day treatment # right-sided heart failure -mild decompensation -currently on 40 mg Lasix IV b.i.d.. Cardiology to manage. # paroxysmal atrial fibrillation -currently normal sinus rhythm. -was on sotalol prior. This was not continued on admission. Apparently Cardiology is managing and she is on IV amiodarone as well as metoprolol. -patient has acute on chronic anemia and likely there is a GI source. Fecal occult positive. The son agrees it with be unwise to place the patient through a scope. The risk and benefits were weighed and he decides we will forego anticoagulation # ZAK -continue CPAP nightly # hypertension -controlled # acute on chronic anemia -hemoglobin 6.9 on 07/08/2023. Status post 1 unit PRBC. Continue to monitor -multifactorial although stool occult was positive. Family has declined to pursue aggressive management. Continue Protonix 40 mg p.o. q.day indefinitely FEN: Saline lock IV. GI prophylaxis: Protonix p.o. q.day DVT prophylaxis: SCDs only Lines: Peripheral IV Code Status: DNR Dispo: Guarded. Will need to be discharged to SNF for long-term care. Subjective Date/time seen: 07/09/23 08:58 Interval history: No acute overnight events. Patient remains pleasantly confused. Complains of pain but cannot pinpoint it. She denies any other symptoms Review of Systems Review of Systems: All systems reviewed & are unremarkable except as noted in HPI and below (Subjective) ROS unobtainable: Yes unobtainable due to mental status Exam Const: General: comfortable and no acute distress Other: A&O x2, pleasantly confused Eyes: Carlos
[2023-07-09] MEDS: FUROSEMIDE INJ 40 MG/4 ML VIAL IV PUSH ×2 (09:12→16:46)
[2023-07-09] MEDS: FLUCONAZOLE 100 MG TABLET PO (09:13)
[2023-07-09] MEDS: ASCORBIC ACID 500 MG TABLET PO ×2 (09:13→16:45)
[2023-07-09] MEDS: THERAPEUTIC MULTIVITAMINS/MINERALS TAB (*BKC) 1 TABLET PO (09:13)
[2023-07-09] MEDS: FERROUS SULFATE 325 MG TABLET DR PO (09:13)
[2023-07-09] MEDS: POTASSIUM CHLORIDE 20 MEQ ER TABLET 40 MEQ PO (09:13)
[2023-07-09] MEDS: PANTOPRAZOLE 40 MG TABLET PO (09:13)
[2023-07-09] MEDS: WATER FOR IRRIGATION, STERILE 1,000 ML BOTTLE 1000 ML (11:24)
[2023-07-09] MEDS: TOLNAFTATE 1% POWDER 45 GM BTL 1 APPLIC TOPICAL ×2 (11:24→21:04)
--- NOTE | 2023-07-09 11:51 | PCPTNOTE ---
attempted re-evals at 10:09 and 10:41am, pt eating breakfast then waiting to get cleaned up from nursing staff
--- NOTE | 2023-07-09 12:46 | PM.PNNEP ---
Progress Note: A&P Assessment and Plan (1) AJ (acute kidney injury): Code(s): N17.9 - Acute kidney failure, unspecified Status: Acute Assessment and Plan: slow improvement noted probably pre renal azotemia complicated by infection/UTI and relative hypotension with the need for diuretic therapy on IV diuretics follow trend of repeat labs and UOP (2) Stage 3b chronic kidney disease: Code(s): N18.32 - Chronic kidney disease, stage 3b Status: Acute Assessment and Plan: baseline creatinine seems to run ~ 1.2 - 1.6mg/dl extensive evaluation to date/previous hospitalizations... CKD thought to be due to hemodynamic effects of the pulmonary hypertension and the diastolic dysfunction/right sided heart failure along with the need for diuretic therapy to maintain her volume status in the context of decreased nephron mass (solitary kidney) has some proteinuria as well so she probably has some intrinsic kidney disease as well (likely from vascular disease and age) (3) Anemia: Code(s): D64.9 - Anemia, unspecified Status: Acute Assessment and Plan: drop in H/H noted by AM labs (07/08/23) PRBC transfusion per protocol follow trend of H/H (4) AMS (altered mental status): Code(s): R41.82 - Altered mental status, unspecified Status: Acute Assessment and Plan: appears better follow mentation (5) UTI (urinary tract infection): Code(s): N39.0 - Urinary tract infection, site not specified Status: Acute Assessment and Plan: admission UA suggestive however, has chronic suprapubic bolton so results could be skewed by this issue culture results noted - on Fluconazole (6) Chronic CHF: Code(s): I50.9 - Heart failure, unspecified Status: Chronic Assessment and Plan: echo last month showed severe TR, severe pulmonary hypertension, right-sided volume overload and grade 1 diastolic dysfunction.. on diuretic therapy and s/p IV albumin Cardiology following (7) Pulmonary hypertension: Code(s): I27.20 - Pulmonary hypertension, unspecified Status: Chronic Assessment and Plan: quite significant/severe on recent/previous Echo due to heart failure, COPD, and ZAK continue CPAP support (8) Paroxysmal atrial fibrillation: Code(s): I48.0 - Paroxysmal atrial fibrillation Status: Acute Assessment and Plan: rate control strategy on Eliquis Will continue to follow. Subjective Date/time seen: 07/09/23 12:46 Interval history: Follow-up for acute kidney injury/acute renal failure on chronic kidney disease. No apparent distress noted at the time of my visit; remains pleasantly confused but in no apparent distress; renal function relatively stable; no other issues/events noted overnight or earlier this AM. Exam Narrative: General: elderly and somewhat ill-appearing female in NAD Heart: normal S1 and S2; no rub Lungs: coarse and decreased at bases Abdomen: soft, nontender, nondistended, positive bowel sounds Extremities: no cyanosis or clubbing; 1 - 2+ edema Skin: chronic venous stasis changes note Objective Data Vital Signs Vital Signs: Vital Signs Temp Pulse Resp BP Pulse Ox O2 Del Method O2 Flow Rate 07/09/23 12:02 97.2 F L 68 20 101/87 96 07/09/23 08:04 97.5 F L 64 22 H 106/74 07/09/23 06:07 74 07/09/23 05:08 70 07/09/23 04:00 98 07/09/23 04:00 106 H 22 H 100 Nasal Cannula 4 07/09/23 03:59 97.6 F 106 H 22 H 107/83 100 07/09/23 02:52 105 H 07/09/23 02:00 90 07/09/23 00:00 107 H 07/08/23 22:00 103 H 07/08/23 20:00 99 07/09/23 00:00 108 H 22 H 97 Nasal Cannula 4 07/08/23 20:00 108 H 22 H 97 Nasal Cannula 4 07/08/23 23:56 97.9 F 108 H 22 H 99/75 L 97 07/08/23 21:13 114 H 07/08/23 19:36 97.9 F 106 H 22 H 105/82
--- NOTE | 2023-07-09 12:46 | P.PNNP_ITS ---
Progress Note: A&P Assessment and Plan (1) AJ (acute kidney injury): Code(s): N17.9 - Acute kidney failure, unspecified Status: Acute Assessment and Plan: * slow improvement noted * probably pre renal azotemia complicated by infection/UTI and relative hypotension with the need for diuretic therapy * on IV diuretics * follow trend of repeat labs and UOP (2) Stage 3b chronic kidney disease: Code(s): N18.32 - Chronic kidney disease, stage 3b Status: Acute Assessment and Plan: * baseline creatinine seems to run ~ 1.2 - 1.6mg/dl * extensive evaluation to date/previous hospitalizations... * CKD thought to be due to hemodynamic effects of the pulmonary hypertension and the diastolic dysfunction/right sided heart failure along with the need for diuretic therapy to maintain her volume status in the context of decreased nephron mass (solitary kidney) * has some proteinuria as well so she probably has some intrinsic kidney disease as well (likely from vascular disease and age) (3) Anemia: Code(s): D64.9 - Anemia, unspecified Status: Acute Assessment and Plan: * drop in H/H noted by AM labs (07/08/23) * PRBC transfusion per protocol * follow trend of H/H (4) AMS (altered mental status): Code(s): R41.82 - Altered mental status, unspecified Status: Acute Assessment and Plan: * appears better * follow mentation (5) UTI (urinary tract infection): Code(s): N39.0 - Urinary tract infection, site not specified Status: Acute Assessment and Plan: * admission UA suggestive * however, has chronic suprapubic bolton so results could be skewed by this issue * culture results noted - on Fluconazole (6) Chronic CHF: Code(s): I50.9 - Heart failure, unspecified Status: Chronic Assessment and Plan: * echo last month showed severe TR, severe pulmonary hypertension, right-sided volume overload and grade 1 diastolic dysfunction.. * on diuretic therapy and s/p IV albumin * Cardiology following (7) Pulmonary hypertension: Code(s): I27.20 - Pulmonary hypertension, unspecified Status: Chronic Assessment and Plan: * quite significant/severe on recent/previous Echo * due to heart failure, COPD, and ZAK * continue CPAP support (8) Paroxysmal atrial fibrillation: Code(s): I48.0 - Paroxysmal atrial fibrillation Status: Acute Assessment and Plan: * rate control strategy * on Eliquis Will continue to follow. Subjective Date/time seen: 07/09/23 12:46 Interval history: Follow-up for acute kidney injury/acute renal failure on chronic kidney disease. No apparent distress noted at the time of my visit; remains pleasantly confused but in no apparent distress; renal function relatively stable; no other issues/events noted overnight or earlier this AM. Exam Narrative: General: elderly and somewhat ill-appearing female in NAD Heart: normal S1 and S2; no rub Lungs: coarse and decreased at bases Abdomen: soft, nontender, nondistended, positive bowel sounds Extremities: no cyanosis or clubbing; 1 - 2+ edema Skin: chronic venous stasis changes note Objective Data Vital Signs Vital Signs: Vital Signs Temp Pulse Resp BP Pulse Ox O2 Del Method O2 Flow Rate 07/09/23 12:02 97.2 F L 68 20 101/87 96 07/09/23
--- NOTE | 2023-07-09 14:13 | WPDUROPN2 ---
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 She has become unable to perform CIC due to generalized debility. She is now dependent on indwelling catheter through navel. 07/03/23 catheter became obstructed due to encrustation and SP tube was exchanged. Pouch emptied well following exchange 07/09/23 catheter irrigated by hand at the bedside with mild amount of mucus and sediment. Draining without difficulty following this. She will need irrigation of her catheter q shift to help prevent obstruction/encrustation Will add ditropan for bladder spasms to help prevent catheter leakage Subjective Subjective Date/Time Seen: 07/09/23 14:13 Interval history: Marilee is doing well today. She is more awake and alert today on my encounter. Her son is at the bedside. RN at bedside reports catheter began leaking last night. Since then, she has had little to no urine output. I was able to gently irrigate the catheter by hand at the bedside today with about 100 cc sterile water with return of a mild amount of mucus and sediment. Following this, the catheter begin draining again. She reports no leakage today. She denies abdominal discomfort or issues at this site of her indwelling catheter. Hemoglobin is stable at 9.1. Creatinine unchanged, 1.3. She is afebrile and her vital signs are stable. Review of Systems Review of Systems: All systems reviewed & are unremarkable except as noted in HPI and below Exam Narrative: General: Awake, alert, no acute distress HEENT: Normocephalic, atraumatic Respiratory: normal respiratory effort Abdomen: Nondistended, soft, nontender : SP tube in place with no evidence of surrounding infection or leakage, clear yellow urine output with mild amount of sediment and mucus Skin: Normal coloration, warm and dry Neurologic: No focal neuro deficits noted Objective Data Vital Signs Vital Signs: Vital Signs - 24 hr 07/08/23 15:09 07/08/23 15:57 07/08/23 15:56 Temperature 97.9 F 97.0 F L Pulse Rate 105 H 94 102 H Respiratory Rate 18 22 H Blood Pressure 101/78 111/74 Pulse Oximetry 95 100 Oxygen Delivery Oxygen Flow Rate 07/08/23 16:00 07/08/23 16:00 07/08/23 18:00 Temperature Pulse Rate 114 H 107 H Respiratory Rate Blood Pressure Pulse Oximetry 100 Oxygen Delivery Nasal Cannula Oxygen Flow Rate 5 07/08/23 19:36 07/08/23 21:13 07/08/23 23:56 Temperature 97.9 F 97.9 F Pulse Rate 106 H 114 H 108 H Respiratory Rate 22 H 22 H Blood Pressure 105/82 99/75 L Pulse Oximetry 92 97 Oxygen Delivery Oxygen Flow Rate 07/08/23 20:00 07/09/23 00:00 07/08/23 20:00 Temperature Pulse Rate 108 H 108 H 99 Respiratory Rate 22 H 22 H Blood Pressure Pulse Oximetry 97 97 Oxygen Delivery Nasal Cannula Nasal Cannula Oxygen Flow Rate 4 4 07/08/23 22:00 07/09/23 00:00 07/09/23 02:00 Temperature Pulse Rate 103 H 107 H 90 Respiratory Rate Blood Pressure Pulse Oximetry Oxygen Delivery Oxygen Flow Rate 07/09/23 02:52 07/09/23 03:59 07/09/23 04:00 Temperature 97.6 F Pulse Rate 105 H 106 H 106 H Respiratory Rate 22 H 22 H Blood Pressure 107/83 Pulse Oximetry 100 100 Oxygen Delivery Nasal Cannula Oxygen Flow Rate 4 07/09/23 04:00 07/09/23 05:08 07/09/23 06:07 Temperature Pulse Rate 98 70 74 Respiratory Rate Blood Pressure Pulse Oximetry Oxygen Delivery Oxygen Flow Rate 07/09/23 08:04 07/09/23 12:02 Temperature 97.5 F L 97.2 F L Pulse Rate 64 68 Respiratory Rate 22 H 20 Blood Pressure 106/74 101/87 Pulse Oximetry 96 Oxygen Delivery Oxygen Flow Rate Intake/Output Intake/Output: Intake & Output 07/06/23 07/07/23 0
--- NOTE | 2023-07-09 16:42 | PM.PNCARD ---
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 Still w/ moderate edema of posterior thighs, hips/buttocks, abdominal wall. Not diuresing much by I's and O's, though weight has declined. Continue with 40mg IV b.i.d Diurese cautiously with intent of avoiding over diuresis as she is preload dependent. Daily BMP Strict intake and output Daily weights Supplemental O2 as needed (2) Atrial fibrillation: Code(s): I48.91 - Unspecified atrial fibrillation Status: Chronic Assessment and Plan: She has a history of paroxysmal atrial fibrillation. She had been maintaining sinus rhythm on sotalol. However, sotalol was not continued upon admission to the hospital. She was back in atrial fibrillation with intermittent RVR and on metoprolol. Converted to NSR w/ IV amiodarone. Unable to advance metoprolol much at all because of soft blood pressure Have to decide which is the least toxic: Continue amiodarone (she does have severe pulmonary hypertension and COPD, but no known interstitial lung disease) or resume sotalol (concerns about QT interval with episodic acute kidney injury etc.). I think the low-dose amiodarone will be the better option. Has anemia and G+ stool; no anticoagulation recommended at this time. (3) Pulmonary hypertension: Code(s): I27.20 - Pulmonary hypertension, unspecified Status: Chronic Assessment and Plan: Severe pulmonary hypertension with an estimated PAP of 7-90's mmHg, due to left heart failure, COPD, and ZAK. encouraged compliance with CPAP (4) Anemia: Code(s): D64.9 - Anemia, unspecified Status: Acute Assessment and Plan: Hgb has been trending down since admission. 6.9 g/dL today. Stool guaiac positive. S/P 1 unit PRBCs. Subjective Date/time seen: 07/09/23 16:42 Interval history: Cardiology follow up for Afib, diastolic and right-sided CHF. Also has anemia s/p 1 unit PRBCs, FOB +. AJ resolving. Dementia. 07/08/2023: She is more alert today. Remains confused. Edema looks better today. Patient states she is feeling less short of breath. Started on IV amiodarone for her recurrent atrial fibrillation. Date of service 07/09/2023: Pt w/o complaints. Converted to sinus rhythm earlier this morning. BP remains soft. On 6 L nasal cannula. Not diuresing much by I's and O's, though weight has declined. Review of Systems Review of Systems: Denies chest pain, shortness a breath, dizziness, abdominal complaints, but does feel weak. Exam Const: General: cooperative, comfortable and confusion Orientation/consciousness: oriented to person, patient oriented x3 and No confusion HENMT: Mouth: Yes moist mucous membranes Eyes: General: appearance normal, both eyes and all related structures Neck: Neck: supple and no JVD Resp: Effort & Inspection: normal respiratory effort Auscultation: clear to auscultation bilaterally and diminished lung sounds (Both bases) Cardio: Rate: regular rate Rhythm: regular rhythm Heart sounds: no murmurs GI: Inspection: normal to inspection GI Palp: No abdominal tenderness Skin: General skin exam: normal color and no rashes or lesions noted Neuro: General: oriented to person and confusion Other: Thinks is June 27, she is at the rehab hospital in [place] Extrem: Right lower extremity: edema Left lower extremity: edema Other: Only trace lower extremity edema, but the patient does have edema the posterior thighs and moderate edema of the hips and panniculus. Psych: Appearance: grossly normal Mental Stat
[2023-07-10] VITALS (26 sets, daily range): BP systolic 98–109; BP diastolic 50–91; PULSE 60–78; RESP 20–22; TEMP 35.6–36.7; O2SAT 93–100
--- NOTE | 2023-07-10 05:14 | PC.NURSE ---
The patient's UOP appeared low through the night. A bladder scan was done on the 0200 rounds and patient showed 120 mL in the pouch (higher up the abdomen than is typical for patients without operative changes. I flushed the catheter with 30mL sterile saline and noted urine tinged return greater than 30 mL.
[2023-07-10 05:57] LABS: Basophils Percent Auto 0.5 % (0.2-1.2); Eosinophils Absolute Auto 0.1 K/mm3 (0-0.3); Eosinophils Percent Auto 0.9 % (0-4.4); Hematocrit 27.6 % (37.0-47.0); Hemoglobin 8.3 g/dL (12.0-15.0); Immature Granulocyte Absolute 0.03 K/mm3 (0.00-0.031); Immature Granulocyte Percent A 0.4 % (0-0.5); Lymphocytes Absolute Auto 1.09 K/mm3 (0.9-3.2); Mean Corpuscular HGB Conc 30.1 g/dl (32-36); Mean Corpuscular Volume 86.5 fl (80-100); Mean Platelet Volume 9.6 fl (7.4-10.4); Monocytes Absolute Auto 0.8 K/mm3 (0.1-0.6); Monocytes Percent Auto 10.7 % (2.6-8.5); Neutrophils Absolute Auto 5.7 K/mm3 (1.3-6.7); Neutrophils Percent Auto 73.5 % (45.5-73.1); Nucleated Red Blood Cells Absolute Auto 0.1 K/mm3 (0.0-0.012); Platelet Count Result 262 k/mm3 (150-375); Red Blood Count 3.19 M/mm3 (4.2-5.4); Red Cell Distribution Width 15.8 % (11.5-14.5); White Blood Count 7.8 K/mm3 (4.5-10.0)
[2023-07-10 06:11] LABS: Alanine Aminotransferase 22 U/L (6-35); Albumin Level 2.9 g/dL (3.5-5.1); Alkaline Phosphatase 111 U/L (38-126); Anion Gap 5 mmol/L (8-16); Aspartate Amino Transferase 38 U/L (14-36); Bilirubin,Total 1.1 mg/dL (0.2-1.3); Blood Urea Nitrogen 49 mg/dL (7-17); Calcium 8.3 mg/dL (8.4-10.2); Carbon Dioxide 29 mmol/L (22-30); Chloride 101 mmol/L (98-107); Estimated CRCL calculation 29 ml/min; Estimated Glomerular Filt Rate 29; Glucose 90 mg/dL (65-110); Magnesium 2.1 mg/dL (1.6-2.3); Phosphorus 4.2 mg/dL (2.5-4.5); Potassium 3.8 mmol/L (3.4-5.0); Sodium 135 mmol/L (137-145)
[2023-07-10] MEDS: METOPROLOL TARTRATE 25 MG TABLET PO ×3 (06:40→22:13)
--- NOTE | 2023-07-10 08:08 | PM.IMPN ---
Progress Note: A&P Assessment and Plan (1) COPD (chronic obstructive pulmonary disease): Qualifiers: COPD type: COPD with acute exacerbation Qualified Code(s): J44.1 - Chronic obstructive pulmonary disease with (acute) exacerbation Code(s): J44.9 - Chronic obstructive pulmonary disease, unspecified Status: Acute (2) Pulmonary hypertension: Code(s): I27.20 - Pulmonary hypertension, unspecified Status: Chronic (3) Hypertension: Code(s): I10 - Essential (primary) hypertension Status: Chronic (4) Atrial fibrillation: Code(s): I48.91 - Unspecified atrial fibrillation Status: Chronic (5) Obstructive sleep apnea: Code(s): G47.33 - Obstructive sleep apnea (adult) (pediatric) Status: Chronic (6) AJ (acute kidney injury): Code(s): N17.9 - Acute kidney failure, unspecified Status: Acute (7) CKD (chronic kidney disease) stage 4, GFR 15-29 ml/min: Code(s): N18.4 - Chronic kidney disease, stage 4 (severe) Status: Acute (8) Congestive heart failure: Qualifiers: Heart failure type: right heart failure due to left heart failure Qualified Code(s): I50.814 - Right heart failure due to left heart failure Code(s): I50.9 - Heart failure, unspecified Status: Acute Plan 77-year-old white female with a PMH of dementia, bladder cancer status post Daggett pouch, CKD, paroxysmal atrial fibrillation on chronic anticoagulation, right-sided heart failure, pulmonary hypertension, COPD, ZAK on CPAP, anxiety, depression, hyperlipidemia, irritable bowel, peptic ulcer disease presents with altered mental status. Per the family the patient had been living on her own just recently. Admitted on 07/01/2023 #altered mental status -stable. Likely an advancement of her underlying neurocognitive decline. Head CT without contrast demonstrating prominent cerebellar and central and cortical cerebral atrophy. No acute abnormalities. B12 and TSH normal. Funguria is a consideration although she has a suprapubic catheter and does not appear toxic/septic. Advanced heart failure is playing a role likely. On 07/08 she was made DNR by family. The son, Gabriel, does not wish to pursue further evaluation or aggressive therapy. She will need to be discharged to a 24 hour care permanent SNF. Care coordination team updated and Dispo pending. # AJ and CKD -improved. Her baseline seems to be around 1.4-1.9. -nephrology consulted -on 07/10 her serum creatinine bumping up to 1.7. This is likely because we have aggressively diuresed and she is preload dependent. We will likely need to accept a higher creatinine and/or back off on the diuresis. She appears to be breathing okay now. Will allow Nephrology and Cardiology to give further input. For now I have discontinued Lasix. # abnormal urinalysis -Tracy tropicalis growing in urine culture. Could be a colonization. Continue fluconazole for the 14 day treatment # right-sided heart failure -Acute hypoxic respiratory failure? O2 supplementation has been charted at 2 L however she is consistently wearing the nasal cannula on her ear. -discontinue Lasix for now. Will discuss further with Cardiology # paroxysmal atrial fibrillation -currently normal sinus rhythm. -was on sotalol prior. This was not continued on admission. -cardiology to continue managing. -patient has acute on chronic anemia and likely there is a GI source. Fecal occult positive. The POA, son, has decided to forego aggressive evaluation for anemia and forego anticoagulation for atrial fibrillation. # ZAK -continue CPAP nightly # hypertension -on the lower side likely due to diuresis. # acute on chronic anemia -hemoglobin 6.9 on 07/08/2023. Status post 1 unit PRBC. Continue to monitor. Stable. -multifactorial although stool occult was positive. Family has declined to pursue aggressive management. Continue Protonix 40 mg p.o. q.da
[2023-07-10] MEDS: PANTOPRAZOLE 40 MG TABLET PO (08:44)
[2023-07-10] MEDS: FERROUS SULFATE 325 MG TABLET DR PO (08:44)
[2023-07-10] MEDS: AMIODARONE HCL 200 MG TABLET 400 MG PO ×2 (08:44→17:32)
[2023-07-10] MEDS: FLUCONAZOLE 100 MG TABLET PO (08:44)
[2023-07-10] MEDS: THERAPEUTIC MULTIVITAMINS/MINERALS TAB (*BKC) 1 TABLET PO (08:44)
[2023-07-10] MEDS: ASCORBIC ACID 500 MG TABLET PO ×2 (08:44→17:33)
[2023-07-10] MEDS: TOLNAFTATE 1% POWDER 45 GM BTL 1 APPLIC TOPICAL ×2 (08:47→20:15)
--- NOTE | 2023-07-10 08:57 | WPDUROPN2 ---
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 She has become unable to perform CIC due to generalized debility. She is now dependent on indwelling catheter through navel. 07/03/23 catheter became obstructed due to encrustation and SP tube was exchanged. Pouch emptied well following exchange 07/09/23 catheter irrigated by hand at the bedside with mild amount of mucus and sediment. Draining without difficulty following this. Catheter continues to drain without issue She will need irrigation of her catheter twice daily to help prevent obstruction/encrustation Can continue oxybutynin as needed for bladder spasms to help prevent catheter leakage Subjective Subjective Date/Time Seen: 07/10/23 08:57 Interval history: Marilee is feeling well today. Reports no issues with her catheter. States that it is draining better today and has not had any issues. She denies suprapubic pain or pressure. She has no additional concerns Review of Systems Review of Systems: All systems reviewed & are unremarkable except as noted in HPI and below Exam Narrative: General: Awake, alert, no acute distress HEENT: Normocephalic, atraumatic Respiratory: normal respiratory effort Abdomen: Nondistended, soft, nontender : indwelling catheter in place with no evidence of surrounding infection or leakage, clear yellow urine output Skin: Normal coloration, warm and dry Neurologic: No focal neuro deficits noted Objective Data Vital Signs Vital Signs: Vital Signs - 24 hr 07/09/23 12:02 07/09/23 13:56 07/09/23 14:52 Temperature 97.2 F L Pulse Rate 68 71 Respiratory Rate 20 Blood Pressure 101/87 Pulse Oximetry 96 Oxygen Delivery Nasal Cannula Oxygen Flow Rate 6 07/09/23 15:22 07/09/23 15:33 07/09/23 16:45 Temperature 97.9 F Pulse Rate 71 71 75 Respiratory Rate 20 Blood Pressure 97/61 L Pulse Oximetry 94 Oxygen Delivery Oxygen Flow Rate 07/09/23 12:00 07/09/23 12:00 07/09/23 16:00 Temperature Pulse Rate 78 78 78 Respiratory Rate 20 Blood Pressure Pulse Oximetry 94 Oxygen Delivery Nasal Cannula Oxygen Flow Rate 2 07/09/23 16:00 07/09/23 10:00 07/09/23 14:00 Temperature Pulse Rate 75 67 76 Respiratory Rate 20 Blood Pressure Pulse Oximetry 94 Oxygen Delivery Nasal Cannula Oxygen Flow Rate 2 07/09/23 18:00 07/09/23 20:00 07/09/23 21:03 Temperature 97.4 F L Pulse Rate 69 68 73 Respiratory Rate 20 Blood Pressure 95/69 L Pulse Oximetry 100 Oxygen Delivery Oxygen Flow Rate 07/09/23 20:00 07/09/23 22:51 07/10/23 01:27 Temperature 97.1 F L Pulse Rate 69 Respiratory Rate 20 Blood Pressure 99/60 L Pulse Oximetry 100 99 99 Oxygen Delivery Nasal Cannula Nasal Cannula Oxygen Flow Rate 2 2 07/10/23 00:00 07/10/23 04:28 07/09/23 20:00 Temperature 97.2 F L Pulse Rate 60 67 Respiratory Rate 20 Blood Pressure 98/68 L Pulse Oximetry 99 100 Oxygen Delivery Nasal Cannula Oxygen Flow Rate 2 07/10/23 00:00 07/10/23 04:00 07/09/23 22:00 Temperature Pulse Rate 62 65 65 Respiratory Rate Blood Pressure Pulse Oximetry Oxygen Delivery Oxygen Flow Rate 07/10/23 02:00 07/10/23 04:00 07/10/23 06:00 Temperature Pulse Rate 65 65 Respiratory Rate Blood Pressure Pulse Oximetry 100 Oxygen Delivery Nasal Cannula Oxygen Flow Rate 2 07/10/23 06:40 07/10/23 07:39 07/10/23 08:44 Temperature 97.7 F Pulse Rate 66 72 67 Respiratory Rate 22 H Blood Pressure 100/61 Pulse Oximetry 93 Oxygen Delivery Oxygen Flow Rate Intake/Output Intake/Output: Intake & Output 07/07/23 07/08/23 07/09/23 07/10/23 23:59 23:59
--- NOTE | 2023-07-10 11:40 | PM.PNCARD ---
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 Still w/ moderate edema of posterior thighs, hips/buttocks, abdominal wall. Not diuresing much by I's and O's, though weight has declined and O2 requirements have decline. Diurese cautiously with intent of avoiding over diuresis as she is preload dependent. Furosemide on hold due to elevated creatinine Daily BMP When renal function stabilizes, resume Jardiance (2) Atrial fibrillation: Code(s): I48.91 - Unspecified atrial fibrillation Status: Chronic Assessment and Plan: She has a history of paroxysmal atrial fibrillation. She had been maintaining sinus rhythm on sotalol. However, sotalol was not continued upon admission to the hospital. She was back in atrial fibrillation with intermittent RVR and on metoprolol. Converted to NSR w/ IV amiodarone. Unable to advance metoprolol much at all because of soft blood pressure Change IV amiodarone to p.o. amiodarone, loading dose for a couple of days and then decrease to 200 mg daily Has anemia and G+ stool; no anticoagulation recommended at this time. (3) Pulmonary hypertension: Code(s): I27.20 - Pulmonary hypertension, unspecified Status: Chronic Assessment and Plan: Severe pulmonary hypertension with an estimated PAP of 7-90's mmHg, due to left heart failure, COPD, and ZAK. Has not been using CPAP encouraged compliance with CPAP (4) Anemia: Code(s): D64.9 - Anemia, unspecified Status: Acute Assessment and Plan: Hgb has been trending down since admission. However did improved to 8.3 today. Stool guaiac positive. S/P 1 unit PRBCs. Subjective Date/time seen: 07/10/23 11:40 Interval history: Cardiology follow up for Afib, diastolic and right-sided CHF. Also has anemia s/p 1 unit PRBCs, FOB +. AJ resolving. Dementia. 07/08/2023: She is more alert today. Remains confused. Edema looks better today. Patient states she is feeling less short of breath. Started on IV amiodarone for her recurrent atrial fibrillation. Date of service 07/09/2023: Pt w/o complaints. Converted to sinus rhythm earlier this morning. BP remains soft. On 6 L nasal cannula. Not diuresing much by I's and O's, though weight has declined. Change IV amiodarone to p.o.. Date of service 07/10/2023: Patient feels well, denies any shortness of breath. Down to 2 L nasal cannula. Creatinine increased from 1.3 now 1.7; furosemide on hold now. Review of Systems Review of Systems: Denies chest pain, shortness a breath, dizziness, abdominal complaints, but does feel weak. Exam Const: General: cooperative, comfortable and confusion Orientation/consciousness: oriented to person and confusion (Pleasantly) HENMT: Mouth: Yes moist mucous membranes Eyes: General: appearance normal, both eyes and all related structures Neck: Neck: supple and no JVD Resp: Effort & Inspection: normal respiratory effort Auscultation: clear to auscultation bilaterally and diminished lung sounds (Both bases) Cardio: Rate: regular rate Rhythm: regular rhythm Heart sounds: Murmur heart sound present GI: Inspection: normal to inspection GI Palp: Yes Soft to palpation and No Tenderness to palpation present (GI) Skin: General skin exam: normal color and no rashes or lesions noted Neuro: General: oriented to person and confusion Extrem: Right lower extremity: edema Left lower extremity: edema Other: Only mild lower extremity edema, but the patient does have edema the posterior thighs and moderate edema of the hips, abdomen and
--- NOTE | 2023-07-10 13:40 | PM.PNNEP ---
Progress Note: A&P Assessment and Plan (1) AJ (acute kidney injury): Code(s): N17.9 - Acute kidney failure, unspecified Status: Acute Assessment and Plan: fluctuating... probably pre renal azotemia complicated by infection/UTI and relative hypotension with the need for diuretic therapy on IV diuretics - on hold currently follow trend of repeat labs and UOP (2) Stage 3b chronic kidney disease: Code(s): N18.32 - Chronic kidney disease, stage 3b Status: Acute Assessment and Plan: baseline creatinine seems to run ~ 1.2 - 1.6mg/dl extensive evaluation to date/previous hospitalizations... CKD thought to be due to hemodynamic effects of the pulmonary hypertension and the diastolic dysfunction/right sided heart failure along with the need for diuretic therapy to maintain her volume status in the context of decreased nephron mass (solitary kidney) has some proteinuria as well so she probably has some intrinsic kidney disease as well (likely from vascular disease and age) (3) Anemia: Code(s): D64.9 - Anemia, unspecified Status: Acute Assessment and Plan: drop in H/H noted by AM labs (07/08/23) PRBC transfusion per protocol follow trend of H/H (4) AMS (altered mental status): Code(s): R41.82 - Altered mental status, unspecified Status: Acute Assessment and Plan: appears better follow mentation (5) UTI (urinary tract infection): Code(s): N39.0 - Urinary tract infection, site not specified Status: Acute Assessment and Plan: admission UA suggestive however, has chronic suprapubic bolton so results could be skewed by this issue culture results noted - on Fluconazole (6) Chronic CHF: Code(s): I50.9 - Heart failure, unspecified Status: Chronic Assessment and Plan: echo last month showed severe TR, severe pulmonary hypertension, right-sided volume overload and grade 1 diastolic dysfunction.. on diuretic therapy and s/p IV albumin Cardiology following (7) Pulmonary hypertension: Code(s): I27.20 - Pulmonary hypertension, unspecified Status: Chronic Assessment and Plan: quite significant/severe on recent/previous Echo due to heart failure, COPD, and ZAK continue CPAP support (8) Paroxysmal atrial fibrillation: Code(s): I48.0 - Paroxysmal atrial fibrillation Status: Acute Assessment and Plan: rate control strategy on Eliquis Will continue to follow. Subjective Date/time seen: 07/10/23 13:40 Interval history: Follow-up for acute kidney injury/acute renal failure on chronic kidney disease. Rise in creatinine noted by AM labs so diuretics placed on hold; no apparent distress noted at the time of my visit; breathing seems stable and patient report improvement as well; no apparent distress. Exam Narrative: General: elderly and somewhat ill-appearing female in NAD Heart: normal S1 and S2; no rub Lungs: coarse and decreased at bases Abdomen: soft, nontender, nondistended, positive bowel sounds Extremities: no cyanosis or clubbing; 1 - 2+ edema Skin: chronic venous stasis changes present Objective Data Vital Signs Vital Signs: Vital Signs Temp Pulse Resp BP Pulse Ox O2 Del Method O2 Flow Rate 07/10/23 13:25 Nasal Cannula 4 07/10/23 12:32 96.6 F L 66 22 H 104/91 H 97 07/10/23 12:00 72 20 94 Nasal Cannula 4 07/10/23 12:00 66 07/10/23 10:00 72 07/10/23 08:00 74 07/10/23 09:30 70 20 94 Nasal Cannula 4 07/10/23 08:10 96.1 F L 70 22 H 104/76 94 07/10/23 08:44 67 07/10/23 07:39 97.7 F 72 22 H 100/61 93 07/10/23 06:40 66 07/10/23 06:00 65 07/10/23 04:00 100 Nasal Cannula 2 07/10/23 02:00 65 07/09/23 22:00 65 07/10/23 04:00 65 07/10/23 00:00 62 07/09/23 20:00 67 07/10/23 04:28 97
--- NOTE | 2023-07-10 13:40 | P.PNNP_ITS ---
Progress Note: A&P Assessment and Plan (1) AJ (acute kidney injury): Code(s): N17.9 - Acute kidney failure, unspecified Status: Acute Assessment and Plan: * fluctuating... * probably pre renal azotemia complicated by infection/UTI and relative hypotension with the need for diuretic therapy * on IV diuretics - on hold currently * follow trend of repeat labs and UOP (2) Stage 3b chronic kidney disease: Code(s): N18.32 - Chronic kidney disease, stage 3b Status: Acute Assessment and Plan: * baseline creatinine seems to run ~ 1.2 - 1.6mg/dl * extensive evaluation to date/previous hospitalizations... * CKD thought to be due to hemodynamic effects of the pulmonary hypertension and the diastolic dysfunction/right sided heart failure along with the need for diuretic therapy to maintain her volume status in the context of decreased nephron mass (solitary kidney) * has some proteinuria as well so she probably has some intrinsic kidney disease as well (likely from vascular disease and age) (3) Anemia: Code(s): D64.9 - Anemia, unspecified Status: Acute Assessment and Plan: * drop in H/H noted by AM labs (07/08/23) * PRBC transfusion per protocol * follow trend of H/H (4) AMS (altered mental status): Code(s): R41.82 - Altered mental status, unspecified Status: Acute Assessment and Plan: * appears better * follow mentation (5) UTI (urinary tract infection): Code(s): N39.0 - Urinary tract infection, site not specified Status: Acute Assessment and Plan: * admission UA suggestive * however, has chronic suprapubic bolton so results could be skewed by this issue * culture results noted - on Fluconazole (6) Chronic CHF: Code(s): I50.9 - Heart failure, unspecified Status: Chronic Assessment and Plan: * echo last month showed severe TR, severe pulmonary hypertension, right-sided volume overload and grade 1 diastolic dysfunction.. * on diuretic therapy and s/p IV albumin * Cardiology following (7) Pulmonary hypertension: Code(s): I27.20 - Pulmonary hypertension, unspecified Status: Chronic Assessment and Plan: * quite significant/severe on recent/previous Echo * due to heart failure, COPD, and ZAK * continue CPAP support (8) Paroxysmal atrial fibrillation: Code(s): I48.0 - Paroxysmal atrial fibrillation Status: Acute Assessment and Plan: * rate control strategy * on Eliquis Will continue to follow. Subjective Date/time seen: 07/10/23 13:40 Interval history: Follow-up for acute kidney injury/acute renal failure on chronic kidney disease. Rise in creatinine noted by AM labs so diuretics placed on hold; no apparent distress noted at the time of my visit; breathing seems stable and patient report improvement as well; no apparent distress. Exam Narrative: General: elderly and somewhat ill-appearing female in NAD Heart: normal S1 and S2; no rub Lungs: coarse and decreased at bases Abdomen: soft, nontender, nondistended, positive bowel sounds Extremities: no cyanosis or clubbing; 1 - 2+ edema Skin: chronic venous stasis changes present Objective Data Vital Signs Vital Signs: Vital Signs Temp Pulse Resp BP Pulse Ox O2 Del Method O2 Flow Rate 07/10/23 13:25 Nasal Cannula 4
--- NOTE | 2023-07-10 15:13 | PC.NURSE ---
On 07/10/23, the student, [Carla Rapp ], provided care and completed [facility] documentation on this patient. I have reviewed the student's documentation and agree with the findings.
[2023-07-10] MEDS: ATORVASTATIN 40 MG TABLET 80 MG PO (20:16)
[2023-07-11] VITALS (20 sets, daily range): BP systolic 100–128; BP diastolic 54–71; PULSE 50–69; RESP 16–20; TEMP 36.2–36.8; O2SAT 91–99; BMI 38.3
[2023-07-11 05:37] LABS: Basophils Percent Auto 0.4 % (0.2-1.2); Eosinophils Absolute Auto 0.1 K/mm3 (0-0.3); Eosinophils Percent Auto 1.6 % (0-4.4); Hematocrit 27.5 % (37.0-47.0); Immature Granulocyte Absolute 0.02 K/mm3 (0.00-0.031); Immature Granulocyte Percent A 0.3 % (0-0.5); Lymphocytes Absolute Auto 0.91 K/mm3 (0.9-3.2); Lymphocytes Percent Auto 13.5 % (18.3-44.2); Mean Corpuscular HGB Conc 29.1 g/dl (32-36); Mean Corpuscular Hemoglobin 26.6 pg (26-34); Mean Corpuscular Volume 91.4 fl (80-100); Mean Platelet Volume 9.4 fl (7.4-10.4); Monocytes Absolute Auto 0.7 K/mm3 (0.1-0.6); Monocytes Percent Auto 10.2 % (2.6-8.5); Nucleated Red Blood Cells Absolute Auto 0.1 K/mm3 (0.0-0.012); Nucleated Red Blood Cells Perc 0.9 % (0.0-0.2); Platelet Count Result 311 k/mm3 (150-375); Red Blood Count 3.01 M/mm3 (4.2-5.4); Red Cell Distribution Width 16.3 % (11.5-14.5); White Blood Count 6.8 K/mm3 (4.5-10.0)
[2023-07-11 05:44] LABS: Alanine Aminotransferase 20 U/L (6-35); Albumin Level 2.7 g/dL (3.5-5.1); Alkaline Phosphatase 109 U/L (38-126); Anion Gap 8 mmol/L (8-16); Aspartate Amino Transferase 32 U/L (14-36); Blood Urea Nitrogen 47 mg/dL (7-17); Carbon Dioxide 23 mmol/L (22-30); Chloride 103 mmol/L (98-107); Estimated CRCL calculation 28 ml/min; Estimated Glomerular Filt Rate 27; Glucose 86 mg/dL (65-110); Magnesium 2.2 mg/dL (1.6-2.3); Phosphorus 4.5 mg/dL (2.5-4.5); Sodium 134 mmol/L (137-145)
[2023-07-11 05:56] LABS: Platelet Estimate Adequate (Adequate)
[2023-07-11 05:57] LABS: Anisocytosis 1+ (NORMAL); Burr Cells 1+ (NORMAL); Hypochromasia 1+ (NORMAL); Ovalocytes 1+ (NORMAL); Poikilocytosis 1+ (NORMAL); Schistocytes None Seen (NORMAL)
[2023-07-11] MEDS: METOPROLOL TARTRATE 25 MG TABLET PO (06:35)
[2023-07-11] MEDS: THERAPEUTIC MULTIVITAMINS/MINERALS TAB (*BKC) 1 TABLET PO (09:28)
[2023-07-11] MEDS: PANTOPRAZOLE 40 MG TABLET PO (09:28)
[2023-07-11] MEDS: ASCORBIC ACID 500 MG TABLET PO ×2 (09:28→17:23)
[2023-07-11] MEDS: FERROUS SULFATE 325 MG TABLET DR PO (09:28)
[2023-07-11] MEDS: FLUCONAZOLE 100 MG TABLET PO (09:28)
[2023-07-11] MEDS: AMIODARONE HCL 200 MG TABLET 400 MG PO ×2 (09:28→17:23)
[2023-07-11] MEDS: POTASSIUM CHLORIDE 20 MEQ ER TABLET 40 MEQ PO (09:31)
--- NOTE | 2023-07-11 09:52 | PM.IMPN ---
Progress Note: A&P Assessment and Plan (1) COPD (chronic obstructive pulmonary disease): Qualifiers: COPD type: COPD with acute exacerbation Qualified Code(s): J44.1 - Chronic obstructive pulmonary disease with (acute) exacerbation Code(s): J44.9 - Chronic obstructive pulmonary disease, unspecified Status: Acute (2) Pulmonary hypertension: Code(s): I27.20 - Pulmonary hypertension, unspecified Status: Chronic (3) Hypertension: Code(s): I10 - Essential (primary) hypertension Status: Chronic (4) Atrial fibrillation: Code(s): I48.91 - Unspecified atrial fibrillation Status: Chronic (5) Obstructive sleep apnea: Code(s): G47.33 - Obstructive sleep apnea (adult) (pediatric) Status: Chronic (6) AJ (acute kidney injury): Code(s): N17.9 - Acute kidney failure, unspecified Status: Acute (7) CKD (chronic kidney disease) stage 4, GFR 15-29 ml/min: Code(s): N18.4 - Chronic kidney disease, stage 4 (severe) Status: Acute (8) Congestive heart failure: Qualifiers: Heart failure type: right heart failure due to left heart failure Qualified Code(s): I50.814 - Right heart failure due to left heart failure Code(s): I50.9 - Heart failure, unspecified Status: Acute Plan 77-year-old white female with a PMH of dementia, bladder cancer status post [place] pouch, CKD, paroxysmal atrial fibrillation on chronic anticoagulation, right-sided heart failure, pulmonary hypertension, COPD, ZAK on CPAP, anxiety, depression, hyperlipidemia, irritable bowel, peptic ulcer disease presents with altered mental status. Per the family the patient had been living on her own just recently. Admitted on 07/01/2023 # dementia -presented with complaints of altered mental status by the family. Likely an advancement of her underlying neurocognitive condition. Head CT without contrast demonstrating prominent cerebellar and central and cortical cerebral atrophy. No acute abnormalities. B12 and TSH normal. Funguria is a consideration although she has a suprapubic catheter and does not appear toxic/septic. Advanced heart failure is playing a role likely. On 07/08 she was made DNR by family. The son, Gabriel, does not wish to pursue further evaluation or aggressive therapy. She will need to be discharged to a 24 hour care permanent SNF. Care coordination team updated and Dispo pending. # AJ and CKD -Her baseline seems to be around 1.4-1.9. -nephrology consulted -on 07/10 her Lasix discontinued -on 07/11 patient has worsening edema and increasing serum creatinine. Hypoalbuminemia at 2.7. Have started scheduled albumin infusion 25 g q.6 hours. I believe she would benefit from more aggressive diuresis as well however will discuss with Cardiology/Nephrology. # abnormal urinalysis -Tracy tropicalis growing in urine culture. Could be a colonization. Continue fluconazole for the 14 day treatment #Acute hypoxic respiratory failure -treat fluid overload secondary to right-sided heart failure and impaired kidney function. -on 07/11 she has been weaned down to 4 L. However still has diffuse wet crackles on the lungs. # right-sided heart failure -on 07/10 Lasix discontinued. -appreciate cardiology recs # paroxysmal atrial fibrillation -currently normal sinus rhythm. -was on sotalol prior. This was not continued on admission. -cardiology to continue managing. -patient has acute on chronic anemia and likely there is a GI source. Fecal occult positive. The POA, son, has decided to forego aggressive evaluation for anemia and forego anticoagulation for atrial fibrillation. # ZAK -continue CPAP nightly # hypertension -blood pressure on the lower side. Continue to monitor. # acute on chronic anemia -hemoglobin 6.9 on 07/08/2023. Status post 1 unit PRBC. Continue to monitor. Stable. -multifactorial although stool occult was positive. Family has decl
--- NOTE | 2023-07-11 10:29 | PM.PNCARD ---
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 Still w/ moderate edema of posterior thighs, hips/buttocks, abdominal wall. Not diuresing much by I's and O's, though weight has declined and O2 requirements have decline. Diurese cautiously with intent of avoiding over diuresis as she is preload dependent. After discussion with Dr. Agarwal regarding her case, will transition to IV bumex to be administered immediately after IV albumin in hopes of improving diuresis. Per hospitalist, patient's family has decided to transition patient to Hospice. Cardiology will sign off. Please call with any questions (2) Atrial fibrillation: Code(s): I48.91 - Unspecified atrial fibrillation Status: Chronic Assessment and Plan: She has a history of paroxysmal atrial fibrillation. She had been maintaining sinus rhythm on sotalol. However, sotalol was not continued upon admission to the hospital. She was back in atrial fibrillation with intermittent RVR and on metoprolol. Converted to NSR w/ IV amiodarone. Unable to advance metoprolol much at all because of soft blood pressure Change IV amiodarone to p.o. amiodarone, loading dose for a couple of days and then decrease to 200 mg daily Has anemia and G+ stool; no anticoagulation recommended at this time. (3) Pulmonary hypertension: Code(s): I27.20 - Pulmonary hypertension, unspecified Status: Chronic Assessment and Plan: Severe pulmonary hypertension with an estimated PAP of 7-90's mmHg, due to left heart failure, COPD, and ZAK. Has not been using CPAP encouraged compliance with CPAP (4) Anemia: Code(s): D64.9 - Anemia, unspecified Status: Acute Assessment and Plan: Hgb has been trending down since admission. However did improved to 8.3 today. Stool guaiac positive. S/P 1 unit PRBCs. Subjective Date/time seen: 07/11/23 10:29 Interval history: Cardiology follow up for Afib, diastolic and right-sided CHF. Also has anemia s/p 1 unit PRBCs, FOB +. AJ resolving. Dementia. 07/08/2023: She is more alert today. Remains confused. Edema looks better today. Patient states she is feeling less short of breath. Started on IV amiodarone for her recurrent atrial fibrillation. Date of service 07/09/2023: Pt w/o complaints. Converted to sinus rhythm earlier this morning. BP remains soft. On 6 L nasal cannula. Not diuresing much by I's and O's, though weight has declined. Change IV amiodarone to p.o.. Date of service 07/10/2023: Patient feels well, denies any shortness of breath. Down to 2 L nasal cannula. Creatinine increased from 1.3 now 1.7; furosemide on hold now. Date of service 07/11/2023: Continues to deny shortness of breath. Unfortunately she has become significantly more edematous in the last 24 hours. Review of Systems Review of Systems: Denies chest pain, shortness a breath, dizziness, abdominal complaints, but does feel weak. ROS unobtainable: Yes unobtainable due to mental status Neurologic: Reports confusion Psychiatric: Psychiatric: Reports confusion Exam Const: General: cooperative, comfortable, no acute distress, alert, awake and confusion Orientation/consciousness: oriented to person, patient oriented x3 and confusion HENMT: Head: normal to inspection Mouth: Yes moist mucous membranes and Yes dry mucous membranes Eyes: General: appearance normal, both eyes and all related structures Pupils: Equal, round and reactive pupils present Neck: Neck: normal visual inspection, supple and no JVD Carotids: normal carotid upstroke O
[2023-07-11] MEDS: ALBUMIN HUMAN 25% 25 GM/100 ML 100 ML IVPB (11:40)
[2023-07-11] MEDS: TOLNAFTATE 1% POWDER 45 GM BTL 1 APPLIC TOPICAL ×2 (11:41→21:04)
--- NOTE | 2023-07-11 11:45 | PM.PNNEP ---
Progress Note: A&P Assessment and Plan (1) AJ (acute kidney injury): Code(s): N17.9 - Acute kidney failure, unspecified Status: Acute Assessment and Plan: fluctuating... probably pre renal azotemia complicated by infection/UTI and relative hypotension with the need for diuretic therapy on IV diuretics - on hold currently will reattempt diuresis with IV albumin chased by IV diuretics follow trend of repeat labs and UOP (2) Stage 3b chronic kidney disease: Code(s): N18.32 - Chronic kidney disease, stage 3b Status: Acute Assessment and Plan: baseline creatinine seems to run ~ 1.2 - 1.6mg/dl extensive evaluation to date/previous hospitalizations... CKD thought to be due to hemodynamic effects of the pulmonary hypertension and the diastolic dysfunction/right sided heart failure along with the need for diuretic therapy to maintain her volume status in the context of decreased nephron mass (solitary kidney) has some proteinuria as well so she probably has some intrinsic kidney disease as well (likely from vascular disease and age) (3) Anemia: Code(s): D64.9 - Anemia, unspecified Status: Acute Assessment and Plan: drop in H/H noted by AM labs (07/08/23) PRBC transfusion per protocol follow trend of H/H (4) AMS (altered mental status): Code(s): R41.82 - Altered mental status, unspecified Status: Acute Assessment and Plan: appears better follow mentation (5) UTI (urinary tract infection): Code(s): N39.0 - Urinary tract infection, site not specified Status: Acute Assessment and Plan: admission UA suggestive however, has chronic suprapubic bolton so results could be skewed by this issue culture results noted - on Fluconazole (6) Chronic CHF: Code(s): I50.9 - Heart failure, unspecified Status: Chronic Assessment and Plan: echo last month showed severe TR, severe pulmonary hypertension, right-sided volume overload and grade 1 diastolic dysfunction.. reattempt IV albumin chased by IV diuretics Cardiology following (7) Pulmonary hypertension: Code(s): I27.20 - Pulmonary hypertension, unspecified Status: Chronic Assessment and Plan: quite significant/severe on recent/previous Echo due to heart failure, COPD, and ZAK continue CPAP support (8) Paroxysmal atrial fibrillation: Code(s): I48.0 - Paroxysmal atrial fibrillation Status: Acute Assessment and Plan: rate control strategy on Eliquis Will continue to follow. Subjective Date/time seen: 07/11/23 11:45 Interval history: Follow-up for acute kidney injury/acute renal failure on chronic kidney disease. Diuretics remain on hold due to rise in creatinine in the last 24 - 48 hours; breathing/swelling/edema seem about the same at this time; no other acute issues/events overnight. Exam Narrative: General: elderly and somewhat ill-appearing female in NAD Heart: normal S1 and S2; no rub Lungs: coarse and decreased at bases Abdomen: soft, nontender, nondistended, positive bowel sounds Extremities: no cyanosis or clubbing; 1 - 2+ edema Skin: chronic venous stasis changes apparent Objective Data Vital Signs Vital Signs: Vital Signs Temp Pulse Resp BP Pulse Ox O2 Del Method O2 Flow Rate 07/11/23 11:37 98.2 F 66 16 108/62 94 07/11/23 10:00 64 07/11/23 08:00 62 20 99 Nasal Cannula 3 07/11/23 08:00 65 07/11/23 09:28 65 07/11/23 08:00 97.8 F 50 L 20 107/71 99 07/11/23 06:35 65 07/11/23 06:00 59 L 07/11/23 04:00 61 07/11/23 04:00 98 Nasal Cannula 4 07/11/23 02:00 63 07/11/23 00:00 68 07/10/23 22:00 66 07/10/23 20:00 66 07/11/23 04:00 97.5 F L 64 20 128/66 98 07/11/23 00:00 98 Nasal Cannula 4 07/10/23 23:36 97.7 F 68 20 100/50 L 98
--- NOTE | 2023-07-11 11:45 | P.PNNP_ITS ---
Progress Note: A&P Assessment and Plan (1) AJ (acute kidney injury): Code(s): N17.9 - Acute kidney failure, unspecified Status: Acute Assessment and Plan: * fluctuating... * probably pre renal azotemia complicated by infection/UTI and relative hypotension with the need for diuretic therapy * on IV diuretics - on hold currently * will reattempt diuresis with IV albumin chased by IV diuretics * follow trend of repeat labs and UOP (2) Stage 3b chronic kidney disease: Code(s): N18.32 - Chronic kidney disease, stage 3b Status: Acute Assessment and Plan: * baseline creatinine seems to run ~ 1.2 - 1.6mg/dl * extensive evaluation to date/previous hospitalizations... * CKD thought to be due to hemodynamic effects of the pulmonary hypertension and the diastolic dysfunction/right sided heart failure along with the need for diuretic therapy to maintain her volume status in the context of decreased nephron mass (solitary kidney) * has some proteinuria as well so she probably has some intrinsic kidney disease as well (likely from vascular disease and age) (3) Anemia: Code(s): D64.9 - Anemia, unspecified Status: Acute Assessment and Plan: * drop in H/H noted by AM labs (07/08/23) * PRBC transfusion per protocol * follow trend of H/H (4) AMS (altered mental status): Code(s): R41.82 - Altered mental status, unspecified Status: Acute Assessment and Plan: * appears better * follow mentation (5) UTI (urinary tract infection): Code(s): N39.0 - Urinary tract infection, site not specified Status: Acute Assessment and Plan: * admission UA suggestive * however, has chronic suprapubic bolton so results could be skewed by this issue * culture results noted - on Fluconazole (6) Chronic CHF: Code(s): I50.9 - Heart failure, unspecified Status: Chronic Assessment and Plan: * echo last month showed severe TR, severe pulmonary hypertension, right-sided volume overload and grade 1 diastolic dysfunction.. * reattempt IV albumin chased by IV diuretics * Cardiology following (7) Pulmonary hypertension: Code(s): I27.20 - Pulmonary hypertension, unspecified Status: Chronic Assessment and Plan: * quite significant/severe on recent/previous Echo * due to heart failure, COPD, and ZAK * continue CPAP support (8) Paroxysmal atrial fibrillation: Code(s): I48.0 - Paroxysmal atrial fibrillation Status: Acute Assessment and Plan: * rate control strategy * on Eliquis Will continue to follow. Subjective Date/time seen: 07/11/23 11:45 Interval history: Follow-up for acute kidney injury/acute renal failure on chronic kidney disease. Diuretics remain on hold due to rise in creatinine in the last 24 - 48 hours; breathing/swelling/edema seem about the same at this time; no other acute issues/events overnight. Exam Narrative: General: elderly and somewhat ill-appearing female in NAD Heart: normal S1 and S2; no rub Lungs: coarse and decreased at bases Abdomen: soft, nontender, nondistended, positive bowel sounds Extremities: no cyanosis or clubbing; 1 - 2+ edema Skin: chronic venous stasis changes apparent Objective Data Vital Signs Vital Signs: Vital Signs Temp Pulse Resp BP Pulse Ox O2 Del Method O2 Flow Rate
--- NOTE | 2023-07-11 13:00 | PCOTNOTE ---
Per RN, Patient unavailable, RN working with Patient and she has just returned to bed.
[2023-07-11] MEDS: BUMETANIDE INJ 1 MG/4 ML VIAL 0.5 MG IV PUSH ×2 (14:38→21:03)
[2023-07-11] MEDS: ALBUMIN HUMAN 25% 12.5 GM/50ML 50 ML IVPB ×2 (14:39→21:04)
[2023-07-11] MEDS: ATORVASTATIN 40 MG TABLET 80 MG PO (21:04)
[2023-07-12] VITALS (16 sets, daily range): BP systolic 95–105; BP diastolic 56–75; PULSE 64–72; RESP 20–24; TEMP 36.1–36.9; O2SAT 90–97
[2023-07-12 05:44] LABS: Basophils Percent Auto 0.3 % (0.2-1.2); Eosinophils Absolute Auto 0.1 K/mm3 (0-0.3); Eosinophils Percent Auto 0.9 % (0-4.4); Hematocrit 24.2 % (37.0-47.0); Hemoglobin 7.5 g/dL (12.0-15.0); Immature Granulocyte Absolute 0.02 K/mm3 (0.00-0.031); Immature Granulocyte Percent A 0.3 % (0-0.5); Lymphocytes Absolute Auto 0.71 K/mm3 (0.9-3.2); Lymphocytes Percent Auto 9.6 % (18.3-44.2); Mean Corpuscular Hemoglobin 26.8 pg (26-34); Mean Corpuscular Volume 86.4 fl (80-100); Mean Platelet Volume 9.3 fl (7.4-10.4); Monocytes Absolute Auto 0.7 K/mm3 (0.1-0.6); Monocytes Percent Auto 8.8 % (2.6-8.5); Neutrophils Absolute Auto 5.9 K/mm3 (1.3-6.7); Neutrophils Percent Auto 80.1 % (45.5-73.1); Nucleated Red Blood Cells Perc 0.5 % (0.0-0.2); Platelet Count Result 337 k/mm3 (150-375); Red Cell Distribution Width 16.3 % (11.5-14.5); White Blood Count 7.4 K/mm3 (4.5-10.0)
[2023-07-12 05:57] LABS: Alanine Aminotransferase 17 U/L (6-35); Alkaline Phosphatase 109 U/L (38-126); Anion Gap 10 mmol/L (8-16); Aspartate Amino Transferase 25 U/L (14-36); Blood Urea Nitrogen 46 mg/dL (7-17); Calcium 8.2 mg/dL (8.4-10.2); Carbon Dioxide 24 mmol/L (22-30); Chloride 103 mmol/L (98-107); Estimated CRCL calculation 25 ml/min; Estimated Glomerular Filt Rate 24; Glucose 90 mg/dL (65-110); Magnesium 2.2 mg/dL (1.6-2.3); Phosphorus 4.7 mg/dL (2.5-4.5); Potassium 3.4 mmol/L (3.4-5.0); Sodium 137 mmol/L (137-145)
[2023-07-12] MEDS: ALBUMIN HUMAN 25% 12.5 GM/50ML 50 ML IVPB ×2 (06:36→13:04)
[2023-07-12] MEDS: BUMETANIDE INJ 1 MG/4 ML VIAL 0.5 MG IV PUSH ×2 (06:37→13:04)
[2023-07-12] MEDS: THERAPEUTIC MULTIVITAMINS/MINERALS TAB (*BKC) 1 TABLET PO (10:05)
[2023-07-12] MEDS: PANTOPRAZOLE 40 MG TABLET PO (10:05)
[2023-07-12] MEDS: FERROUS SULFATE 325 MG TABLET DR PO (10:06)
[2023-07-12] MEDS: ASCORBIC ACID 500 MG TABLET PO (10:06)
[2023-07-12] MEDS: FLUCONAZOLE 100 MG TABLET PO (10:06)
[2023-07-12] MEDS: METOPROLOL SUCCINATE EXT REL 25 MG TABCR PO (10:07)
[2023-07-12] MEDS: TOLNAFTATE 1% POWDER 45 GM BTL 1 APPLIC TOPICAL (10:07)
[2023-07-12] MEDS: AMIODARONE HCL 200 MG TABLET PO (10:07)
--- NOTE | 2023-07-12 14:05 | PCOTNOTE ---
Attempted to see pt for Occupational Therapy treatment. Pt declined to participate in session due to increase fatigue from having PT session and getting cleaned up with nursing right before. Pt is encouraged to complete Strengthening and/or sitting balance tasks however, pt continues to decline. Will continue per poc duration/frequency tomorrow.
--- NOTE | 2023-07-12 15:14 | PM.IMPN ---
Progress Note: A&P Assessment and Plan (1) COPD (chronic obstructive pulmonary disease): Qualifiers: COPD type: COPD with acute exacerbation Qualified Code(s): J44.1 - Chronic obstructive pulmonary disease with (acute) exacerbation Code(s): J44.9 - Chronic obstructive pulmonary disease, unspecified Status: Acute (2) Pulmonary hypertension: Code(s): I27.20 - Pulmonary hypertension, unspecified Status: Chronic (3) Hypertension: Code(s): I10 - Essential (primary) hypertension Status: Chronic (4) Atrial fibrillation: Code(s): I48.91 - Unspecified atrial fibrillation Status: Chronic (5) Obstructive sleep apnea: Code(s): G47.33 - Obstructive sleep apnea (adult) (pediatric) Status: Chronic (6) AJ (acute kidney injury): Code(s): N17.9 - Acute kidney failure, unspecified Status: Acute (7) CKD (chronic kidney disease) stage 4, GFR 15-29 ml/min: Code(s): N18.4 - Chronic kidney disease, stage 4 (severe) Status: Acute (8) Congestive heart failure: Qualifiers: Heart failure type: right heart failure due to left heart failure Qualified Code(s): I50.814 - Right heart failure due to left heart failure Code(s): I50.9 - Heart failure, unspecified Status: Acute Plan 77-year-old white female with a PMH of dementia, bladder cancer status post [place] pouch, CKD, paroxysmal atrial fibrillation on chronic anticoagulation, right-sided heart failure, pulmonary hypertension, COPD, ZAK on CPAP, anxiety, depression, hyperlipidemia, irritable bowel, peptic ulcer disease presents with altered mental status. Per the family the patient had been living on her own just recently. Admitted on 07/01/2023 07/12/2023 update The patient's son the POA has decided to pursue comfort care/hospice. Meeting has already been held with fransisco. Patient is being arranged to be discharged to [facility]. Comfort care orders and DNR orders placed. # dementia -presented with complaints of altered mental status by the family. Likely an advancement of her underlying neurocognitive condition. Head CT without contrast demonstrating prominent cerebellar and central and cortical cerebral atrophy. No acute abnormalities. B12 and TSH normal. Funguria is a consideration although she has a suprapubic catheter and does not appear toxic/septic. Advanced heart failure is playing a role likely. On 07/08 she was made DNR by family. The son, Gabriel, does not wish to pursue further evaluation or aggressive therapy. She will need to be discharged to a 24 hour care permanent SNF. Care coordination team updated and Dispo pending. # AJ and CKD -Her baseline seems to be around 1.4-1.9. -nephrology consulted -on 07/10 her Lasix discontinued -on 07/11 patient has worsening edema and increasing serum creatinine. Hypoalbuminemia at 2.7. Have started scheduled albumin infusion 25 g q.6 hours. I believe she would benefit from more aggressive diuresis as well however will discuss with Cardiology/Nephrology. # abnormal urinalysis -Tracy tropicalis growing in urine culture. Could be a colonization. Continue fluconazole for the 14 day treatment #Acute hypoxic respiratory failure -treat fluid overload secondary to right-sided heart failure and impaired kidney function. -on 07/11 she has been weaned down to 4 L. However still has diffuse wet crackles on the lungs. # right-sided heart failure -on 07/10 Lasix discontinued. -appreciate cardiology recs # paroxysmal atrial fibrillation -currently normal sinus rhythm. -was on sotalol prior. This was not continued on admission. -cardiology to continue managing. -patient has acute on chronic anemia and likely there is a GI source. Fecal occult positive. The POA, son, has decided to forego aggressive evaluation for anemia and forego anticoagulation for atrial fibrillation. # ZAK -continue CPAP nightly # hypertension -blood pre
[2023-07-12] MEDS: ACETAMINOPHEN 325 MG TABLET 650 MG PO (15:30)
--- NOTE | 2023-07-12 23:55 | PC.NURSE ---
This patient, Marilee Kilgore, was transferred to [facility] on 07/12/23 at 2340. Personal belongings sent with patient. Report given to Monica RED. Appropriate documentation sent with patient.
[2023-07-13] VITALS: PULSE 72; RESP 22; O2SAT 96
[2023-07-13] MEDS: MORPHINE SULFATE ORAL CONC SOL (*CRX) 10 MG/0.5 ML SYRINGE 5 MG PO ×2 (00:24→07:56)
[2023-07-13] MEDS: LORazepam (*CRX) 0.5 MG TABLET PO (00:25)
[2023-07-13 05:27] VITALS: BP 103/71; PULSE 64; RESP 14; TEMP 36.2; O2SAT 87
--- NOTE | 2023-07-13 12:45 | PM.IMPN ---
Progress Note: A&P Assessment and Plan (1) COPD (chronic obstructive pulmonary disease): Qualifiers: COPD type: COPD with acute exacerbation Qualified Code(s): J44.1 - Chronic obstructive pulmonary disease with (acute) exacerbation Code(s): J44.9 - Chronic obstructive pulmonary disease, unspecified Status: Acute (2) Pulmonary hypertension: Code(s): I27.20 - Pulmonary hypertension, unspecified Status: Chronic (3) Hypertension: Code(s): I10 - Essential (primary) hypertension Status: Chronic (4) Atrial fibrillation: Code(s): I48.91 - Unspecified atrial fibrillation Status: Chronic (5) Obstructive sleep apnea: Code(s): G47.33 - Obstructive sleep apnea (adult) (pediatric) Status: Chronic (6) AJ (acute kidney injury): Code(s): N17.9 - Acute kidney failure, unspecified Status: Acute (7) CKD (chronic kidney disease) stage 4, GFR 15-29 ml/min: Code(s): N18.4 - Chronic kidney disease, stage 4 (severe) Status: Acute (8) Congestive heart failure: Qualifiers: Heart failure type: right heart failure due to left heart failure Qualified Code(s): I50.814 - Right heart failure due to left heart failure Code(s): I50.9 - Heart failure, unspecified Status: Acute Plan 77-year-old white female with a PMH of dementia, bladder cancer status post [place] pouch, CKD, paroxysmal atrial fibrillation on chronic anticoagulation, right-sided heart failure, pulmonary hypertension, COPD, ZAK on CPAP, anxiety, depression, hyperlipidemia, irritable bowel, peptic ulcer disease presents with altered mental status. Per the family the patient had been living on her own just recently. Admitted on 07/01/2023 07/12/2023 update The patient's son the POA has decided to pursue comfort care/hospice. Meeting has already been held with fransisco. Patient is being arranged to be discharged to [facility]. Comfort care orders and DNR orders placed. 07/13/2023 update No changes in patient's symptomatology. Still awaiting arrangement for hospice Dispo. # dementia -presented with complaints of altered mental status by the family. Likely an advancement of her underlying neurocognitive condition. Head CT without contrast demonstrating prominent cerebellar and central and cortical cerebral atrophy. No acute abnormalities. B12 and TSH normal. Funguria is a consideration although she has a suprapubic catheter and does not appear toxic/septic. Advanced heart failure is playing a role likely. On 07/08 she was made DNR by family. The son, Gabriel, does not wish to pursue further evaluation or aggressive therapy. She will need to be discharged to a 24 hour care permanent SNF. Care coordination team updated and Dispo pending. # AJ and CKD -Her baseline seems to be around 1.4-1.9. -nephrology consulted -on 07/10 her Lasix discontinued -on 07/11 patient has worsening edema and increasing serum creatinine. Hypoalbuminemia at 2.7. Have started scheduled albumin infusion 25 g q.6 hours. I believe she would benefit from more aggressive diuresis as well however will discuss with Cardiology/Nephrology. # abnormal urinalysis -Tracy tropicalis growing in urine culture. Could be a colonization. Continue fluconazole for the 14 day treatment #Acute hypoxic respiratory failure -treat fluid overload secondary to right-sided heart failure and impaired kidney function. -on 07/11 she has been weaned down to 4 L. However still has diffuse wet crackles on the lungs. # right-sided heart failure -on 07/10 Lasix discontinued. -appreciate cardiology recs # paroxysmal atrial fibrillation -currently normal sinus rhythm. -was on sotalol prior. This was not continued on admission. -cardiology to continue managing. -patient has acute on chronic anemia and likely there is a GI source. Fecal occult positive. The POA, son, has decided to forego aggressive evaluation for anemia and f
[2023-07-13 14:30] VITALS: BP 97/85; PULSE 98; RESP 18; TEMP 36.4; O2SAT 96
--- NOTE | 2023-07-13 15:21 | P.DS_ITS ---
DS: Admitting Diagnosis Discharge Date July 13, 2023 Admitting Diagnosis Altered mental status DS: Discharge Diagnosis Discharge Diagnosis (1) AMS (altered mental status): Code(s): R41.82 - Altered mental status, unspecified Status: Acute DS: Summary Hospital Course Hospital Course: This is a pleasant 77-year-old white female with a past medical history of dementia, bladder cancer status post [place] pouch, CKD, paroxysmal atrial fibrillation on chronic anticoagulation, right-sided heart failure, pulmonary hypertension, COPD, ZAK on CPAP, anxiety, depression, hyperlipidemia, irritable bowel, peptic ulcer disease who presents with altered mental status. With the patient's age and chronic comorbidities patient's family decided to pursue comfort care/hospice. She is in stable condition on July 13, 2023 and will be discharged to [facility]. The patient is DNR. Time Spent with Patient Time attestation: Total time spent providing and/or coordinating discharge services: Exam Const: General: comfortable and no acute distress Other: Pleasantly confused. Obese Eyes: Pupils: Equal, round and reactive pupils present Resp: Effort & Inspection: normal respiratory effort Cardio: Rate: regular rate Rhythm: regular rhythm GI: GI Palp: Yes Soft to palpation and No Tenderness to palpation present (GI) Extrem: General: edema Discharge Plan Discharge Attending physician on discharge: Gege Newton Discharging Clinician: Gege Newton Patient Disposition: Hospice - Medical Facility Activity: as tolerated Diet: as tolerated Stand Alone Forms: Care Home Discharge Discharge Medications: Discontinued trazodone 50 mg tablet 25 mg PO QHS icosapent ethyl [Vascepa] 1 gram capsule 2 g PO BID duloxetine 60 mg Capsule,Delayed Release(Dr/Ec) 60 mg PO QAM Qty: 30 0RF sodium bicarbonate 650 mg Tablet 650 mg PO BID 30 Days Qty: 60 0RF Jardiance 10 mg Tablet 10 mg PO DAILY 30 Days Qty: 30 0RF Eliquis 5 mg Tablet 5 mg PO Q12HR 30 Days Qty: 60 0RF metoprolol succinate 25 mg tablet extended release 24 hr 50 mg PO DAILY tramadol 50 mg Tablet 50 mg PO Q4H PRN (Reason: Pain Rated 4-6) Qty: 30 0RF furosemide 40 mg tablet 40 mg PO DAILY ascorbate calcium (vitamin C) 500 mg Tablet 500 mg PO BID multivit with min-folic acid [Adult One Daily Multivitamin] 0.4 mg Tablet 1 tablet PO DAILY Pro-Stat 101 15-101 gram-kcal/30 mL Liquid See Rx Instructions .ROUTE .COMPLEX Patient Comments: 30ml Rx Instructions: 30ml PO BID ferrous sulfate 325 mg (65 mg iron) tablet 325 mg PO DAILY esomeprazole magnesium 40 mg capsule,delayed release(DR/EC) 40 mg PO DAILY nystatin-triamcinolone 100,000-0.1 unit/g-% cream 1 applic TOPICAL BID PRN (Reason: Abdomen) gabapentin 300 mg capsule 600 mg PO QHS hydroxyzine HCl 10 mg tablet 10 mg PO BID PRN (Reason: Anxiety) [id number] C-Mn [Glucosamine Chondroitin MaxStr] 500-400 mg Capsule 1 cap PO BID atorvastatin 40 mg tablet 80 mg PO HS Date of admission: 07/04/23 16:32 Primary Care Provider: Aurelia,Yvonne Admitting Provider: Naveed Aragon Attending physician on admission: Naveed Aragon Condition: Stable
== END 2023-07-13 18:45 | disposition hospice, inpatient (51) | DRG 682 ==
LOC: ANHED 08:32 → ANH3MEDSUR 11:10 → ANHIMU 07-07 14:20 → ANH2MED 07-12 23:57
PROVIDERS: Internal Medicine; Internal Medicine Hematology & Oncology; Internal Medicine Nephrology; Nurse Practitioner; Physician Assistant; Admitting Provider Internal Medicine; Emergency Provider Emergency Medicine; PCP Family Medicine; Visit Provider General Practice
DX: N17.9 Acute kidney failure, unspecified (principal); I50.43 Acute on chronic combined systolic (congestive) and diastolic (congestive) heart failure; J96.01 Acute respiratory failure with hypoxia; S32.011A Stable burst fracture of first lumbar vertebra, initial encounter for closed fracture; S32.021A Stable burst fracture of second lumbar vertebra, initial encounter for closed fracture; I13.0 Hypertensive heart and chronic kidney disease with heart failure and stage 1 through stage 4 chronic kidney disease, or unspecified chronic kidney disease; B37.49 Other urogenital candidiasis; J44.1 Chronic obstructive pulmonary disease with (acute) exacerbation; N18.32 Chronic kidney disease, stage 3b; I48.0 Paroxysmal atrial fibrillation; I27.20 Pulmonary hypertension, unspecified; D89.2 Hypergammaglobulinemia, unspecified; D63.1 Anemia in chronic kidney disease; E78.5 Hyperlipidemia, unspecified; E88.09 Other disorders of plasma-protein metabolism, not elsewhere classified; K58.9 Irritable bowel syndrome, unspecified; M35.3 Polymyalgia rheumatica; R23.0 Cyanosis; G47.33 Obstructive sleep apnea (adult) (pediatric); G30.9 Alzheimer's disease, unspecified; F02.80 Dementia in other diseases classified elsewhere, unspecified severity, without behavioral disturbance, psychotic disturbance, mood disturbance, and anxiety; F32.A Depression, unspecified; F41.9 Anxiety disorder, unspecified; Z51.5 Encounter for palliative care; Z20.822 Contact with and (suspected) exposure to COVID-19; Z66 Do not resuscitate; Z96.649 Presence of unspecified artificial hip joint; Z79.01 Long term (current) use of anticoagulants; Z85.51 Personal history of malignant neoplasm of bladder; Z86.73 Personal history of transient ischemic attack (TIA), and cerebral infarction without residual deficits; Z90.5 Acquired absence of kidney; Z93.6 Other artificial openings of urinary tract status; Z90.6 Acquired absence of other parts of urinary tract
CPT/HCPCS: 36415; 36430; 36600; 70450; 71045; 74176; 80048; 80053; 81001; 82140; 82274; 82375; 82550; 82607; 82728; 82746; 82805; 83050; 83540; 83550; 83735; 83880; 84100; 84145; 84443; 85014; 85018; 85025; 85027; 85055; 85610; 85730; 86140; 86850; 86900; 86901; 86923; 87040; 87086; 87637; 93005; 93306; 93923; 96361; 96365; 97110; 97161; 97166; 97530; 99285; A9270; G0378; J0282; J1939; J1940; J2185; J7030; J7040; J7050; P9016; P9047